=== PATIENT | male | born 1960 | race Caucasian/White ===

== ENCOUNTER 2017-04-20 18:21 | Inpatient (IN) | payer OTHER ==
[~2017-04-20] VITALS: Ht 185.4 cm; Wt 84.8 kg
--- NOTE | 2017-04-20 18:34 | ED DYSPNEA/ASTHMA COMPLAINT ---
History of Present Illness General Chief Complaint: General Adult Stated Complaint: SOB/CP Source: patient, family, EMS Exam Limitations: clinical condition Vital Signs & Intake/Output Vital Signs & Intake/Output Vital Signs Date Time Temp Pulse Resp B/P B/P Pulse O2 O2 Flow FiO2 Mean Ox Delivery Rate 04/22 0800 94 Nasal 2.0L Cannula 04/22 0800 94 Nasal 2.0L Cannula 04/22 0642 94 Venti Mask 24% 04/22 0559 97.6 73 24 110/62 93 Venti Mask 2.0L 04/22 0000 Venti Mask 2.0L 04/21 2229 98.2 84 20 110/60 95 Venti Mask 04/21 1700 Venti Mask 24% 04/21 1640 98.3 83 22 104/54 94 Venti Mask 2.0L 04/21 1400 98.0 80 20 130/58 92 Nasal 2.0L Cannula ED Intake and Output 04/22 0000 04/21 1200 Intake Total 1660 2600 Output Total 600 1100 Balance 1060 1500 Intake, IV 700 2600 Intake, Oral 960 Number 1 Bowel Movements Output, Urine 600 1100 Patient 188 lb Weight Weight Reported by Patient Measurement Method Triage Nurses Notes Reviewed? yes Onset: Abrupt Duration: hour(s): (4), constant, getting worse Timing: recent history Severity: severe Activities at Onset: none HPI: 56-year-old male comes into the emergency room with shortness of breath and pleuritic chest pain. Symptoms began about 4 hours prior. Patient has a history of COPD. He still currently smokes every day. He has not seen a doctor in many years and does not have a current primary doctor. He is taking no medications. He was at work when he started to experience shortness of breath and left-sided chest pain especially with a deep breath. No pain with exhalation. Denies any diaphoresis or vomiting. Symptoms have gotten progressively worse. Patient was brought in by ambulance. EKG en route showed sinus rhythm. Denies any other associated symptoms. (Paulino Kenney) Allergies Coded Allergies: No Known Allergies (04/20/17) Reconcile Medications Oxymetazoline HCl (Vicks Sinex) 0.05 % SPRAY 1 SPRAY NASB PRN NASAL CONGESTION (Reported) (Daniela GOMEZ,Lola) Past History Travel History Traveled to [place] past 21 day No Medical History Any Pertinent Medical History? see below for history Cardiovascular: hyperlipidemia Respiratory: COPD Surgical History Surgical History: non-contributory Psychosocial History What is your primary language Urdu Family History Hx Contributory? No (Paulino Kenney) Review of Systems Review of Systems Constitutional: Reports: no symptoms. EENTM: Reports: no symptoms. Respiratory: Reports: see HPI. Cardiovascular: Reports: see HPI. GI: Reports: no symptoms. Genitourinary: Reports: no symptoms. Musculoskeletal: Reports: no symptoms. Skin: Reports: no symptoms. Neurological/Psychological: Reports: no symptoms. Hematologic/Endocrine: Reports: no symptoms. Immunologic/Allergic: Reports: no symptoms. All Other Systems: Reviewed and Negative (Paulino Kenney) Physical Exam Physical Exam General Appearance: alert, awake, moderate distress Head: atraumatic Eyes: Bilateral: normal appearance. Ears, Nose, Throat: normal ENT inspection, hearing grossly normal Neck: normal inspection Respiratory: respiratory distress (MODERATE) Cardiovascular: regular rate/rhythm, tachycardia Peripheral Pulses: 2+ radial (L) Extremities: normal inspection Neurologic/Psych: awake, alert, oriented x 3 Skin: intact, normal color Core Measures ACS in differential dx? Yes CVA/TIA Diagnosis No Sepsis Present: Yes Sepsis Focused Exam Completed? Yes (Paulino Kenney) ED Sepsis Exam Date of Focused Sepsis Exam: 04/20/17 Time of Focused Sepsis Exam: 1630 Sepsis Cardiac Exam: Tachycardia Sepsis Resp Exam: Ronchi Sepsis Cap Refill Exam: <2 Sec Sepsis Peripheral Pulse Exam: Normal Sepsis Peripheral Pulse Location: Radial Sepsis Skin Color Exam: Flushed Skin Temp/Moisture Exam: Cool/Dry (Paulino Kenney) Progress Differential Diagnosis: asthma, AMI, bronchitis, CHF, COPD, musculoskeletal pain , pericarditis, pulmonary embolism, pneumonia, pneumothorax, unstable angina Plan of Care: Orders Procedure Date/time Status Nursing RT Care 04/22 0947 Active THERAPIST ORDERS 04/22 0640 Complete OXYGEN SETUP (GEN) 04/22 0629 Complete CBC WITHOUT DIFFERENTIAL 04/22 0600 Complete BASIC ELECTROLYTES PLUS BUN&CR 04/22 0600 Complete PT Evaluate & Treat 04/22 UNK Active MISSING MEDICATION FORM 04/22 UNK Active RT: Evaluation 04/21 2213 Active CULTURE,BODY FLUID 04/21 1355 Active CYTOLOGY SPECIMEN 04/21 1355 Active OXYGEN SETUP CHG 04/21 UNK Complete AEROSOL CHG 04/21 UNK Complete OXYGEN 04/21 UNK Complete OXYGEN TRANSPORT 04/21 UNK Complete THERAPIST ORDERS 04/21 UNK Complete PLEURAL PH (GEN) 04/21 UNK Complete OXYGEN SETUP (GEN) 04/21 UNK Complete Current Medications Sig/Tonio Start time Last Medication Dose Stop Time Status Admin Oxycodone/ 1 TAB Q6P PRN 04/22 1000 UNVr 04/22 Acetaminophen 0958 (Percocet) Vancomycin HCl 1,000 MG ONCE ONE 04/22 0945 AC Dextrose/Water 250 ML 04/22 1044 (D5W) Guaifenesin/Codeine 10 ML Q6P PRN 04/22 0845 AC Phosphate (Robitussin AC) Albuterol Sulfate 3 ML EVERY 4 HRS/AWAKE 04/22 08 AC 04/22 (Proventil) 0626 Ipratropium [place] 2.5 ML EVERY 4 HRS/AWAKE 04/22 0800 AC 04/22 (Atrovent) 0627 Azithromycin 500 MG DAILY@04/21 AC 04/21 (Zithromax) 2020 Dextrose/Water 250 ML (D5W) Ceftriaxone Sodium 1,000 MG DAILY@04/21 AC 04/21 (Rocephin) 2020 Ibuprofen 400 MG Q6P PRN 04/21 2014 AC (Motrin) Acetaminophen 650 MG Q8P PRN 04/21 2002 AC (Tylenol) Enoxaparin Sodium 40 MG DAILY 04/21 1000 AC 04/22 (Lovenox) 0939 Nicotine 14 MG DAILY 04/21 1000 AC 04/22 (Nicotine Cq) 0939 Methylprednisolone 40 MG Q8 04/21 0600 AC 04/22 (Solumedrol) 0553 Albuterol Sulfate 3 ML Q4P PRN 04/21 0015 AC (Proventil) Ipratropium [place] 2.5 ML Q4-6 PRN PRN 04/21 0015 AC (Atrovent) Ketorolac 30 MG Q8P PRN 04/21 0015 AC 04/22 Tromethamine 04/24 0014 0553 (Toradol) Laboratory Tests 04/22/17 0718: Anion Gap 12, Estimated GFR > 60, BUN/Creatinine Ratio 41.7 H, CBC w Diff MAN DIFF ORDERED, RBC 3.63 L, MCV 89.3, MCH 29.3, MCHC 32.8 L, RDW 14.2, MPV 8.4, Gran % 94.1 H, Lymphocytes % 3.1 L, Monocytes % 2.7, Eosinophils % 0, Basophils % 0.1, Absolute Granulocytes 36.7 H, Segmented Neutrophils 94 H, Band Neutrophils 2, Absolute Lymphocytes 1.2, Lymphocytes 4 L, Absolute Monocytes 1.0 H, Absolute Eosinophils 0, Absolute Basophils 0, Platelet Estimate INCREASED, Anisocytosis 1+ 04/21/17 1720: PT 15.0 H, INR 1.43 H 04/21/17 1538: Fluid WBC 64077 H, Fld Total RBCs Counted 50 H 04/21/17 1538: Lymphocytes 5, % Normal PMNs 88, Misc Hematology Test , Fluid Glucose < 20, Fluid Total Protein 4.1, Fluid Albumin 1.8, Fluid LDH 4733, Fluid Amylase < 30, Fluid Cholesterol 69 04/21/17 1536: Phlebotomy Draw Site LT. THORA, Pleural pH 6.87 Microbiology 04/21 1538 BODY FLUID: Body Fluid Culture - RES 04/21 1538 BODY FLUID: Gram Stain - RES 04/21 1153 LOWER RESP: Respiratory Culture - CAN Cancelled: NUMBER OF SQUAMOUS CELLS INDICATES POOR QUALITY SPECIMEN 04/21 1153 LOWER RESP: Gram Stain - CAN Cancelled: NUMBER OF SQUAMOUS CELLS INDICATES POOR QUALITY SPECIMEN Diagnostic Imaging: Viewed by Me: Radiology Read, CT Scan. Discussed w/RAD: Radiology Read, CT Scan. Radiology Impression: PATIENT: YESSENIA DUFFY PRESENT AGE: 56 PATIENT ACCOUNT NO: [id number] : 60 LOCATION: [facility] ORDERING PHYSICIAN: Paulino SANITAGO SERVICE DATE: 04/20/17 EXAM TYPE : CAT - CTA CHEST-PULMONARY EMBOLISM EXAMINATION: CTA CHEST PE STUDY CLINICAL INFORMATION: SOB, ELEVATED DIMER, LEFT LOWER LOBE INFILTRATE COMPARISON: Chest x -ray from receiving TECHNIQUE: Prior to contrast administration, noncontrast localization images were obtained. After the administration of 95 ml of Optiray 320 IV contrast, contiguous thin slice helical images were obtained through the thorax. Reformatted MIP images in the coronal and sagittal planes were obtained at the acquisition workstation. DLP: 524 mGy-cm. FINDINGS: The bolus timing on this study was acceptable for visualization of the pulmonary arterial tree. There are no intraluminal pulmonary arterial filling defects present to suggest pulmonary embolism. Centrilobular 70 changes are seen more so in the upper lobes. Left basilar consolidation/atelectasis is seen in the setting of a moderate-sized left effusion. Small amount of frothy mucus is seen within the right mainstem bronchus. No suspicious pulmonary nodule or obvious mass lesion. Shotty mediastinal lymph nodes are seen but no bulky adenopathy. The heart is normal in size. No evidence of ventricular septal bowing or right heart strain. The mediastinum and great vessels are normal. There is no pericardial effusion or pericardial thickening. Limited evaluation of the upper abdominal viscera is unremarkable. IMPRESSION: No evidence for central pulmonary emboli. Left lower lobe consolidation/atelectasis with associated moderate sized left pleural effusion. Underlying emphysematous changes. VTE: Negative DICTATED BY: Cameron Yoo MD DATE/TIME DICTATED:04/20/172206 CANNED FOOD RECONDITIONING INSPECTOR: SOUZA DATE/TIME TRANSCRIBED:04/20/172206 CONFIDENTIAL, DO NOT COPY WITHOUT APPROPRIATE AUTHORIZATION. <Electronically signed in Other Vendor System> SIGNED BY: Cameron Ballard MD 04/20/172214, PATIENT: YESSENIA DUFFY PRESENT AGE: 56 PATIENT ACCOUNT NO: [id number] : 60 LOCATION: [facility] ORDERING PHYSICIAN: Paulino SANTIAGO SERVICE DATE: 04/20/17 EXAM TYPE: RAD - XRY-PORTABLE CHEST XRAY EXAMINATION: PORTABLE CHEST 1 VIEW CLINICAL INFORMATION: SOB, CHEST PAIN COMPARISON: No recent pertinent prior studies are available for comparison. TECHNIQUE: Portable frontal view of the chest was obtained. FINDINGS: Lungs are well expanded. There is blunting left costophrenic angle consistent with small layering left pleural effusion and associated left basilar consolidation/atelectasis. No overt edema or pneumothorax. Cardiac silhouette within normal limits for size. Degenerative changes in the spine and shoulders. IMPRESSION: Layering left effusion with associated left basilar consolidation/atelectasis. DICTATED BY: Cameron Ballard MD DATE/TIME DICTATED:04/20/171930 CANNED FOOD RECONDITIONING INSPECTOR:SOUZA DATE/TIME TRANSCRIBED:04/20/171930 CONFIDENTIAL, DO NOT COPY WITHOUT APPROPRIATE AUTHORIZATION. <Electronically signed in Other Vendor System> SIGNED BY: Cameron Ballard MD 04/20/171934 Pre-Hospital EKG: normal sinus rhythm, rate (100) Initial ED EKG: normal sinus rhythm, rate (103), nonspecific ST T wave chg (Paulino Kenney) Departure Departure Disposition: STILL A PATIENT Condition: Stable Clinical Impression Primary Impression: Sepsis Secondary Impressions: Hypoxia, Left lower lobe pneumonia, Leukocytosis Referrals: Fabio Ortiz MD Departure Forms: Customer Survey General Discharge Information Admission Note Spoke With: Alva Lozoya MD Documentation of Exam: Documentation of any treatments & extenuating circumstances including Concerns Regarding Discharge (functional status, medication knowledge or non-compliance, living conditions, etc.) that warrant an admission rather than observation: Patient will require IV fluids. IV antibiotics. Repeat labs. Supplemental oxygen. High risk. Medically not safe for discharge. (Paulino Kenney) PA/SURFACE PLATE INSPECTOR Co-Sign Statement Statement: ED Attending supervision documentation- [X] I saw and evaluated the patient. I have also reviewed all the pertinent lab results and diagnostic results. I agree with the findings and the plan of care as documented in the PA's/SURFACE PLATE INSPECTOR's documentation. [X] I have reviewed the ED Record and agree with the PA's/SURFACE PLATE INSPECTOR's documentation. [] Additions or exceptions (if any) to the PAs/SURFACE PLATE INSPECTOR's note and plan are summarized below: [] (Daniela GOMEZ,Lola) PA/SURFACE PLATE INSPECTOR Co-Sign Statement Statement: ED Attending supervision documentation- [X] I saw and evaluated the patient. I have also reviewed all the pertinent lab results and diagnostic results. I agree with the findings and the plan of care as documented in the PA's/SURFACE PLATE INSPECTOR's documentation. [X] I have reviewed the ED Record and agree with the PA's/SURFACE PLATE INSPECTOR's documentation. [] Additions or exceptions (if any) to the PAs/SURFACE PLATE INSPECTOR's note and plan are summarized below: [Active smoker, hasn't seen a doctor in over 5 years, sudden onset of chest pain , shortness of breath and dyspnea on exertion at 1:30 this afternoon. Patient states he has a chronic productive cough. The chest pain is left anterior that radiates straight through to his back. The pain increases with inspiration and coughing. Patient white count is 30,000. Patient has positive d-dimer. Patient will have a CT angiogram. Patient is currently on continuous nebs.] (Lurdes GOMEZ,Mino Pina) Critical Care Note Critical Care Note Critical Care Time: 30-74 min (60) (Gilberto SANTIAGO,Paulino)
[2017-04-20] MEDS ORDERED: VICKS SINEX15 ML NASB (18:51)
[2017-04-20 18:58] LABS: ABSOLUTE BASOPHIL COUNT 0 /CUMM (0.0-0.2); ABSOLUTE EOSINOPHIL COUNT 0 /CUMM (0.0-0.7); ABSOLUTE GRANULOCYTE CT 29.2 /CUMM (1.4-6.5); ABSOLUTE LYMPH COUNT 0.7 /CUMM (1.2-3.4); ABSOLUTE MONOCYTE COUNT 0.4 /CUMM (0.10-0.60); BASOPHIL % 0 % (0.0-2.0); EOSINOPHIL % 0.2 % (0-5); GRANULOCYTE % 95.9 % (42.2-75.2); HEMATOCRIT 41.7 % (42-52); MEAN CORPUSCULAR HGB 28.5 PG (27.0-31.0); MEAN CORPUSCULAR HGB CONC 31.9 G/DL (33.0-37.0); MEAN CORPUSCULAR VOLUME 89.4 FL (80.0-94.0); MEAN PLATELET VOLUME 8.4 FL (7.4-10.4); PLATELET COUNT 602 /CUMM (130-400); RBC DISTRIBUTION WIDTH 14.6 % (11.5-14.5); RED BLOOD CELL CT 4.66 /CUMM (4.70-6.10)
[2017-04-20 19:14] LABS: WHITE BLOOD CELL COUNT 30.4 /CUMM (4.8-10.8)
--- NOTE | 2017-04-20 19:35 | RADIOLOGY REPORT ---
EXAMINATION: PORTABLE CHEST 1 VIEW CLINICAL INFORMATION: SOB, CHEST PAIN COMPARISON: No recent pertinent prior studies are available for comparison. TECHNIQUE: Portable frontal view of the chest was obtained. FINDINGS: Lungs are well expanded. There is blunting left costophrenic angle consistent with small layering left pleural effusion and associated left basilar consolidation/atelectasis. No overt edema or pneumothorax. Cardiac silhouette within normal limits for size. Degenerative changes in the spine and shoulders. IMPRESSION: Layering left effusion with associated left basilar consolidation/atelectasis.
--- NOTE | 2017-04-20 22:15 | CT SCAN REPORT ---
EXAMINATION: CTA CHEST PE STUDY CLINICAL INFORMATION: SOB, ELEVATED DIMER, LEFT LOWER LOBE INFILTRATE COMPARISON: Chest x-ray from receiving TECHNIQUE: Prior to contrast administration, noncontrast localization images were obtained. After the administration of 95 ml of Optiray 320 IV contrast, contiguous thin slice helical images were obtained through the thorax. Reformatted MIP images in the coronal and sagittal planes were obtained at the acquisition workstation. DLP: 524 mGy-cm. FINDINGS: The bolus timing on this study was acceptable for visualization of the pulmonary arterial tree. There are no intraluminal pulmonary arterial filling defects present to suggest pulmonary embolism. Centrilobular 70 changes are seen more so in the upper lobes. Left basilar consolidation/atelectasis is seen in the setting of a moderate-sized left effusion. Small amount of frothy mucus is seen within the right mainstem bronchus. No suspicious pulmonary nodule or obvious mass lesion. Shotty mediastinal lymph nodes are seen but no bulky adenopathy. The heart is normal in size. No evidence of ventricular septal bowing or right heart strain. The mediastinum and great vessels are normal. There is no pericardial effusion or pericardial thickening. Limited evaluation of the upper abdominal viscera is unremarkable. IMPRESSION: No evidence for central pulmonary emboli. Left lower lobe consolidation/atelectasis with associated moderate sized left pleural effusion. Underlying emphysematous changes. VTE: Negative
--- NOTE | 2017-04-20 23:32 | History & Physical ---
Landon GOMEZ,[facility] 04/20/17 2331: General Information and HPI MD Statement: I have seen and personally examined YESSENIA DUFFY and documented this H&P. The patient is a 56 year old M who presented with a patient stated chief complaint of [SOB and Chest pain]. Source of Information: patient Exam Limitations: doesnot want to give history, too tired wants to rest History of Present Illness: The patient is 56-year-old gentleman with past medical history of COPD and suspected hyperlipidemia. He presented to [place] ED on 04/20 with complaint of shortness of breath or chest pain since afternoon. The patient was in usual state of health at the 1 PM today when he started experiencing shortness of breath and chest pain at his workplace. The pain is located on left chest ,sharp, 10/10 and radiating to left hip and back. He reports worsening of the pain with deep inspiration. He returned have from work and his called 911 and patient presented to ED for further evaluation. Patient has a cough at baseline, he reports increased frequency of coughing. He he also has some phlegm production at baseline did not check for any change in color. Denies any fevers and chills. He has never been hospitalized for COPD exacerbation never been intubated. He does not use oxygen at baseline. He saw a integration software developer about 10 years ago and was given Spiriva and albuterol. He used Spiriva for some time and later discontinued. He has not seen a PCP for past 5 to 7 years. At some point patient was also diagnosed with hyperlipidemia and given a statin which he did not take. Review of system is negative for nausea vomiting diarrhea, urinary symptoms or change in bowel habits. Note patient is currently everyday smoker and has been smoking for past many years During the encounter patient was saying that he is feeling extremely tired and wants to rest. Did not want to provide much history. He provided some information, rest was obtained from Dr. Lozoya Allergies/Medications Allergies: Coded Allergies: No Known Allergies (04/20/17) Home Med list Oxymetazoline HCl (Vicks Sinex) 0.05 % SPRAY 1 SPRAY NASB PRN NASAL CONGESTION (Reported) Compliance With Home Meds: POOR Past History Travel History Traveled to [place] past 21 day No Medical History Cardiovascular: hyperlipidemia Respiratory: COPD Surgical History Surgical History: non-contributory Past Family/Social History Family History Relations & Conditions if any Relation not specified for: *No pertinent family history Psychosocial History Where do you live? Home Who Do You Live With? spouse Services at Home: None Primary Language: [place] Smoking Status: Current Everyday Smoker ETOH Use: occasional use Illicit Drug Use: denies illicit drug use Functional Ability ADLs Independent: dressing, eating, toileting, bathing. Ambulation: independent IADLs Independent: shopping, housework, finances, food prep, telephone, transportation , medication admin. Review of Systems Review of Systems Constitutional: Reports: see HPI. Denies: chills, fever. EENTM: Reports: no symptoms. Cardiovascular: Reports: chest pain. Respiratory: Reports: see HPI, cough, short of breath, sputum production. GI: Reports: no symptoms. Genitourinary: Reports: no symptoms. Musculoskeletal: Reports: no symptoms. Exam & Diagnostic Data Last 24 Hrs of Vital Signs/I&O Vital Signs Date Time Temp Pulse Resp B/P B/P Pulse O2 O2 Flow FiO2 Mean Ox Delivery Rate 04/20 2102 100.5 102 20 115/59 94 Aerosol Mask 04/20 1925 102 22 130/66 97 04/20 1859 98 Aerosol 6.0L Mask 04/20 1830 Aerosol Mask 04/20 183 102.9 100 28 142/72 96 Aerosol Mask Intake & Output 04/21 0800 04/21 0000 04/20 1600 Intake Total 2000 Output Total 500 Balance 1500 Intake, IV 2000 Output, Urine 500 Patient 185 lb Weight Weight Reported by Patient Measurement Method Physical Exam General Appearance Alert, Oriented X3, Cooperative Skin No Rashes, No Breakdown HEENT Atraumatic Cardiovascular Regular Rate, Normal S1, Normal S2, No Murmurs, Gallops, Rubs Lungs decreased breath sounds b/l. few wheezes ant rodriguez Abdomen Soft, No Tenderness, No Hepatospenomegaly Neurological Normal Speech Extremities No Edema Last 24 Hrs of Labs/Jt: Laboratory Tests 04/20/17 2350: Urine Color YEL, Urine Clarity CLEAR, Urine pH 6.0, Ur Specific [place] <= 1.005 , Urine Protein NEG, Urine Ketones NEG, Urine Nitrite NEG, Urine Bilirubin NEG, Urine Urobilinogen 0.2, Ur Leukocyte Esterase NEG, Ur Microscopic EXAM NOT REQUIRED, Urine Hemoglobin NEG, Urine Glucose NEG 04/20/17 2331: Lactic Acid 4.1 H 04/20/172006: Anion Gap 16, Estimated GFR > 60, BUN/Creatinine Ratio 22.9, Glucose 119 H, Lactic Acid 1.1, Calcium 9.2, Total Bilirubin 0.4, AST 15 L, ALT 29, Alkaline Phosphatase 82, Troponin I < 0.01, Total Protein 6.9, Albumin 3.5, Globulin 3.4, Albumin/Globulin Ratio 1.0 L 04/20/17 193: Bicarbonate Actual 18 L, Mixed VBG pH 7.37, Mixed VBG pCO2 32 L, Mixed VBG O2 Saturation 41, P-50 (Temp Corrected) 102, Carboxyhemoglobin 1.5, O2 Concentration % 3L, Temperature 102.0 H, O2 Delivery Method NC, Phlebotomy Draw Site [facility] 04/20/17 1840: D-Dimer High Sensitivty 391 H, CBC w Diff MAN DIFF ORDERED, RBC 4.66 L, MCV 89.4, MCH 28.5, MCHC 31.9 L, RDW 14.6 H, MPV 8.4, Gran % 95.9 H, Lymphocytes % 2.4 L, Monocytes % 1.5 L, Eosinophils % 0.2, Basophils % 0, Absolute Granulocytes 29.2 H, Segmented Neutrophils 81 H, Band Neutrophils 14 H, Absolute Lymphocytes 0.7 L, Lymphocytes 1 L, Monocytes 3, Absolute Monocytes 0.4, Absolute Eosinophils 0, Absolute Basophils 0, Metamyelocytes 1, Platelet Estimate INCREASED, Polychromasia 1+, Anisocytosis 1+ Microbiology 04/20 2006 BLOOD: Blood Culture - RECD 04/20 1947 BLOOD: Blood Culture - RECD 04/20 1939 NASOPHARYN: Influenza Virus A & B Rapid Smear - COMP Diagnostic Data EKG Results sinus tachycardia, Qtc 482. CXR Results IMPRESSION: Layering left effusion with associated left basilar consolidation/atelectasis. Other Results CTA CHEST-PULMONARY EMBOLISM IMPRESSION: No evidence for central pulmonary emboli. Left lower lobe consolidation/atelectasis with associated moderate sized left pleural effusion. Underlying emphysematous changes. VTE: Negative Assessment/Plan Assessment: The patient is 56-year-old gentleman with past medical history of COPD and suspected hyperlipidemia. He presented to [place] ED on 04/20 with complaint of shortness of breath or chest pain since afternoon. -VS 102.9, 100, 28,142/72,96% Ventimask -Pertinent labs, WBC count 30.4, band cells 14 H/H 13/42, platelets 602, lactic acid 1.1--4.1, d-dimer 391, UA clean, venous blood gases pH 7.37, PCO2 32, PO2 68 -Imaging findings dictated above -In ED patient received 1 L normal saline, Toradol, azithromycin, Rocephin, swollen 25;, 1 g of magnesium sulfate. On standing patient desatted to 88% -He is being admitted to general medicine floor and is being treated and evaluated for following conditions #Sepsis secondary to Community-acquired pneumonia and COPD exacerbation with Acute hypoxemic respiratory failure Patient is presenting with high-grade fever and elevated WBC count along with blood cells elevated heart rate (SIRS criteria positive). Patient is complaining of shortness of breath along with chest pain. CTA negative for pulmonary embolism but positive forLeft lower lobe consolidation/atelectasis with associated moderate sized left pleural effusion. The whole picture is consistent with community-acquired pneumonia along with some component of COPD exacerbation. Even though the patient scores zero points on CURB 65, he is clearly septic and will benefit from inpatient management -Monitor fever and WBC curve -Urine strep and Legionella antigen -Panculture -Continue ceftriaxone and azithromycin -Tylenol for fever control -Toradol for pain relief -Repeat chest x-ray in 2 days to see the resolution of effusion if no improvement consider thoracocentesis -TRC/nebs -Oxygen supplementation to maintain oxygen saturation above 92% -IV methylprednisone every 8h -Outpatient referral for a integration software developer and PCP for follow-up #Thrombocytosis likely reactive secondary to infection -Monitor platelet count #Lactic acidosis secondary to sepsis -IVF -Repeat lactate in 3h and trend down #Smoker -Nicotine patch -Consult regarding smoking abstinence #History of hyperlipidemia -Consider checking lipid profile #FC/DVT prophylaxis with Lovenox/regular diet As Ranked By This Provider Problem List: 1. Left lower lobe pneumonia Core Measures/Misc (12/12) Acute Coronary Syndrome ACS Diagnosis: No Congestive Heart Failure Congestive Heart Failure Diagnosis No Cerebrovascular Accident CVA/TIA Diagnosis: No VTE (View Protocol) VTE Risk Factors Age>40 No Mechanical VTE Prophylaxis d/t N/A MechProphylax Ordered No VTE Pharm Prophylaxis d/t NA PharmProphylax ordered Sepsis (View protocol) Sepsis Present: Yes Petar Sanchez 04/21/17 0117: Resident Review Statement Resident Statement: discussed with chief of internal medicine Other Findings: 56-year-old man with past medical history of COPD not on home oxygen presented to ER with complaint of difficulty breathing, left-sided chest pain on taking deep breath while he was at work. He went home. His symptoms progressively got worse and his called 911. He reports nonproductive cough that he has for a long time. He denies any fever, chills. Other review of systems negative. He smokes 1 pack per day since age of 18. Upon our evaluation patient was irritable and not very cooperative with the history. He did not want to answer questions and wanted us to come back in morning. Vitals on admission: Temperature 102.9, pulse 100, respiratory rate 28, blood pressure 142/72 and oxygen saturation 96% on 6 L via Ventimask. Pertinent physical exam findings: Diminished breath sounds bilaterally laterally. Distant heart sounds. Pertinent labs: WBC 30.4 with 14 bands, H&H 13.3/41.7, plt count 602. LA 1.1--- 4.1 VBGs pH 7.37, pCO2 32, ABGs pH 7.42, PCO2 27 D-dimer 391. Rapid Flu negative. Blood cultures 2 were sent. Chest x-ray showed left pleural effusion with associated left basilar consolidation Chest CTA did not show any evidence of PE. It also showed left lower lobe consolidation with associated moderate-sized left pleural effusion. Underlying emphysematous changes. In ER he got respiratory treatments, ceftriaxone, azithromycin, Solu-Medrol, magnesium, Toradol and IV fluids. Assessment and plan 56-year-old man with past medical history of COPD is going to be admitted on general medicine floor for acute on chronic hypoxic respiratory failure due to sepsis secondary to community-acquired pneumonia and COPD exacerbation. Monitor vitals closely. Continue TRC nebs. Keep oxygen saturation more than 92%. IV fluids. Continue ceftriaxone and azithromycin. Continue steroids. Follow-up blood cultures. Pain management pathway. DVT prophylaxis. Full code Darell GOMEZ, [facility] 04/21/17 0144: Attending MD Review Statement Attending Statement Attending Statement: examined this patient, discuss w/resident/PA/BULK COOLERS INSTALLER, agreed w/resident/PA/BULK COOLERS INSTALLER, reviewed images, amended to note Attending Assessment/Plan: 56 yo M with h/o HLD, COPD, has not seen a physician for over 5 years, not on any medications, is here with sudden onset worsening exertional dyspnea and left sided pleuritic chest and back pain. At baseline he has some dyspnea and cough productive of phlegm which he attributes to his COPD and smoking. He was diagnosed with COPD about 10 yrs ago, was prescribed spiriva and albuterol but never used it. He continues to smoke. No major hospitalization or intubation for COPD. He reports getting his flu and pneumonia vaccines. Vitals: Tmax 102.9, HR 100-110's, BP 130/66, sats 98% on 6L. Exam: AAO, in moderate respiratory distress, speaking in short sentences, not using accessory muscles of respiration, dry mucous membranes, Chest reduced air entry (L>R), scattered rhonchi with expiratory wheeze, Heart S1S2 regular, Abd soft, NT, LE no edema. Labs: WBC 30.4, H/H 13.3/41.7, Plt 602, bands 14, D-dimer 391, glucose 119, lactic acid 1.1 --> 4.1, trop neg. VB.37/32/68/18. UA neg. Flu swab neg. CXR: layering left effusion with associated left basilar consolidation/ atelectasis. CTA: no PE. Left lower lobe consolidation/atelectasis with associated moderate sized left pleural effusion, underlying emphysematous changes. EKG: sinus tachycardia, Qtc 482. Assessment and plan: 1. Acute hypoxemic respiratory failure 2. Sepsis 3. Community acquired pneumonia of left lower lobe 4. COPD exacerbation 5. Lactic acidosis 6. Active smoker - Admit to general medicine - Panculture, urine legionella and strep Ag - TRC nebs - IV ceftriaxone and azithromycin - IV solumedrol 40 Q8 - Gentle IV hydration, trend lactic acid - Smoking cessation counseling done, nicotine patch - Check urine tox screen (added on) - Repeat EKG and troponin in AM - Repeat CXR in 48 hours to assess resolution of the left pleural effusion - If he remains symptomatic or CXR does not show resolution, would consider diagnostic and therapeutic thoracentesis. - Outpatient referral to PCP and Memory Care Program Director - Resume spiriva and add symbicort upon discharge - Check HbA1c, lipid profile, TSH and free T4. DVT ppx Lovenox. Full code.
--- NOTE | 2017-04-20 23:33 | Admission Certification ---
Admission Certification Certification Statement - As attending physician, I certify that at the time of - admission, based on clinical presentation, severity of - symptoms, need for further diagnostic testing and - therapeutic interventions, and risk of adverse outcomes - without in-hospital treatment, in my clinical assessment, - this patient requires an acute hospital stay for a minimum - of two nights or longer. I have also considered psychsocial - factors such as support system, advanced age, financial - issues, cognitive issues, and failed out-patient treatments, - past re-admission history, safety of patient, and lack of - compliance as applicable. Specific rationale supporting this admission is: Acute hypoxemic respiratory failure, Sepsis, left lower lobe pneumonia with pleural effusion, COPD exacerbation.
[2017-04-21 01:29] VITALS: BP 120/82
[2017-04-21 05:22] VITALS: BP 102/68
[2017-04-21 08:31] LABS: ABSOLUTE EOSINOPHIL COUNT 0 /CUMM (0.0-0.7); ABSOLUTE LYMPH COUNT 1.1 /CUMM (1.2-3.4); EOSINOPHIL % 0 % (0-5)
[2017-04-21 08:44] LABS: ABSOLUTE BASOPHIL COUNT 0 /CUMM (0.0-0.2); ABSOLUTE GRANULOCYTE CT 33.2 /CUMM (1.4-6.5); ABSOLUTE MONOCYTE COUNT 0.8 /CUMM (0.10-0.60); BASOPHIL % 0.1 % (0.0-2.0); GRANULOCYTE % 94.5 % (42.2-75.2); MEAN CORPUSCULAR HGB 29.2 PG (27.0-31.0); MEAN CORPUSCULAR HGB CONC 32.9 G/DL (33.0-37.0); MEAN PLATELET VOLUME 7.8 FL (7.4-10.4); PLATELET COUNT 478 /CUMM (130-400); RBC DISTRIBUTION WIDTH 14.2 % (11.5-14.5); RED BLOOD CELL CT 3.58 /CUMM (4.70-6.10)
[2017-04-21 08:50] LABS: HEMATOCRIT 31.9 % (42-52)
[2017-04-21 09:29] LABS: WHITE BLOOD CELL COUNT 35.1 /CUMM (4.8-10.8)
--- NOTE | 2017-04-21 12:04 | Cons- Pulmonary ---
General Information and HPI Consulting Request Date of Consult: 04/21/17 Requested By: Dr. Morales Reason for Consult: pna Source of Information: patient Exam Limitations: no limitations History of Present Illness: 56 year old man. wbc 35.1. CTA without PE, LLL consolidation with a moderately sized effusion. Dyspnea, cough, some yellow phlegm. no pulmonary f/u recently. Has been historically on spiriva and albuterol. Needs sampling of pleural fluid. On ceftriaxone/zithromax. Allergies/Medications Allergies: Coded Allergies: No Known Allergies (04/20/17) Home Med List: Oxymetazoline HCl (Vicks Sinex) 0.05 % SPRAY 1 SPRAY NASB PRN NASAL CONGESTION (Reported) Current Medications: Current Medications Sig/Tonio Start time Last Medication Dose Route Stop Time Status Admin Acetaminophen 650 MG Q8 04/21 0600 AC 04/21 PO 0614 Acetaminophen 1,000 MG ONCE ONE 04/21 0245 DC 04/21 N/A 1 UNIT IV 04/21 0259 0248 Albuterol Sulfate 3 ML Q4P PRN 04/21 0015 AC INH Albuterol Sulfate 3 ML ONCE ONE 04/20 1845 DC 04/20 INH 04/20 1846 1850 Albuterol Sulfate 3 ML ONCE ONE 04/20 1845 DC 04/20 INH 04/20 1846 1850 Albuterol Sulfate 3 ML ONCE ONE 04/20 1845 DC 04/20 INH 04/20 1846 1850 Albuterol Sulfate 3 ML ONCE ONE 04/20 1845 DC 04/20 INH 04/20 1846 1850 Albuterol Sulfate 3 ML ONCE ONE 04/20 1845 DC 04/20 INH 04/20 1846 1850 Albuterol Sulfate 3 ML ONCE ONE 04/20 1845 DC 04/20 INH 04/20 1846 1850 Azithromycin 500 MG DAILY@04/21 AC Dextrose/Water 250 ML IV Azithromycin 500 MG ONCE ONE 04/200 DC 04/20 Dextrose/Water 250 ML IV 04/20 Ceftriaxone Sodium 1,000 MG DAILY@04/21 2100 AC IV Ceftriaxone Sodium 0 .STK-MED ONE 04/20 2057 DC .ROUTE Ceftriaxone Sodium 1,000 MG ONCE ONE 04/20 1930 DC 04/20 IV 04/20 Enoxaparin Sodium 40 MG DAILY 04/21 1000 AC SC Ipratropium [place] 2.5 ML Q4-6 PRN PRN 04/21 0015 AC INH Ketorolac 30 MG Q8P PRN 04/21 0015 AC 04/21 Tromethamine IV 04/24 0014 0621 Ketorolac 0 .STK-MED ONE 04/20 2057 DC Tromethamine .ROUTE Ketorolac 30 MG ONCE ONE 04/20 1930 DC 04/20 Tromethamine IV 04/20 1931 2114 Magnesium Sulfate 1 GM ONCE ONE 04/20 1845 DC 04/20 Dextrose/Water 100 ML IV 04/20 2244 191 Methylprednisolone 40 MG Q8 04/21 0600 AC 04/21 IV 0614 Methylprednisolone 0 .STK-MED ONE 04/20 191 DC .ROUTE Methylprednisolone 125 MG ONCE ONE 04/20 1845 DC 04/20 IV 04/20 184 191 Nicotine 14 MG DAILY 04/21 1000 AC 04/21 TOP 1131 Sodium Chloride 1,000 ML Q13H 04/21 0015 AC 04/21 IV 04/21 1314 0209 Sodium Chloride 2,517.45 ML ONCE ONE 04/20 2100 DC 04/20 IV 04/20 210 2207 Review of Systems Comments 18 point review of systems was performed and reviewed. Please see pertinent positives and pertinent negatives in the HPI. Otherwise ROS is negative. Past History Travel History Traveled to [place] past 21 day No Medical History Cardiovascular: hyperlipidemia Respiratory: COPD Surgical History Surgical History: non-contributory Family History Relations & Conditions If Any: Relation not specified for: *No pertinent family history Psychosocial History Where Do You Live? Home Who Do You Live With? spouse Services at Home: None Primary Language: Taiwanese Smoking Status: Current Everyday Smoker ETOH Use: occasional use Illicit Drug Use: denies illicit drug use Functional Ability ADLs Independent: dressing, eating, toileting, bathing. Ambulation: independent IADLs Independent: shopping, housework, finances, food prep, telephone, transportation , medication admin. Exam & Diagnostic Data Last 24 Hrs of Vital Signs/I&O Vital Signs Date Time Temp Pulse Resp B/P B/P Pulse O2 O2 Flow FiO2 Mean Ox Delivery Rate 04/21 521 97.5 73 22 102/68 93 Nasal 2.0L Cannula 04/21 022 95 Venti Mask 2.0L 04/21 012 97.5 83 26 120/82 95 Room Air 04/20 2101 100.5 102 20 115/59 94 Aerosol Mask 04/20 1925 102 22 130/66 97 04/20 1859 98 Aerosol 6.0L Mask 04/20 183 Aerosol Mask 04/20 1829 102.9 100 28 142/72 96 Aerosol Mask Intake & Output 04/21 1600 04/21 0800 04/21 0000 Intake Total 2600 Output Total 350 750 Balance -350 1850 Intake, IV 2600 Output, Urine 350 750 Patient 188 lb 185 lb Weight Weight Reported by Patient Reported by Patient Measurement Method Physical Exam Other Physical Findings: Generally - Awake, alert and comfortable without distress Head and neck - normocephalic, atraumatic, EOMI grossly intact Cardiovascular - S1, S2, no murmurs, rubs or gallops Lungs -diminished breath sounds at the bases Abdomen - Bowel sounds positive, soft, non-tender Extremities - without edema Last 48 Hrs of Labs/Jt: Laboratory Tests 04/21/17 0741: Anion Gap 12, Estimated GFR > 60, BUN/Creatinine Ratio 30.0 H, Hemoglobin A1c 6.3 H, Lactic Acid 1.0, Lactate Dehydrogenase 342, Troponin I < 0.01, Triglycerides 57, Cholesterol 120, LDL Cholesterol, Calc 66, HDL Cholesterol 43, Cholesterol/HDL Ratio 3, TSH 0.075 L, Free T4 1.30, CBC w Diff MAN DIFF ORDERED , RBC 3.58 L, MCV 89.0, MCH 29.2, MCHC 32.9 L, RDW 14.2, MPV 7.8, Gran % 94.5 H, Lymphocytes % 3.2 L, Monocytes % 2.2, Eosinophils % 0, Basophils % 0.1, Absolute Granulocytes 33.2 H, Segmented Neutrophils 86 H, Band Neutrophils 7 H, Absolute Lymphocytes 1.1 L, Lymphocytes 5 L, Monocytes 2, Absolute Monocytes 0.8 H, Absolute Eosinophils 0, Absolute Basophils 0, Platelet Estimate INCREASED, Normocytic RBCs VERIFIED, Normochromic RBCs VERIFIED 04/21/17 0225: Lactic Acid 2.6 H 04/20/17 2350: Urine Color YEL, Urine Clarity CLEAR, Urine pH 6.0, Ur Specific [place] <= 1.005 , Urine Protein NEG, Urine Ketones NEG, Urine Nitrite NEG, Urine Bilirubin NEG, Urine Urobilinogen 0.2, Ur Leukocyte Esterase NEG, Ur Microscopic EXAM NOT REQUIRED, Urine Hemoglobin NEG, Urine Glucose NEG 04/20/17 2331: Lactic Acid 4.1 H 04/20/17 2321: Urine Opiates Screen 2328.00 H, Methadone Screen 51, Barbiturate Screen < 60, Ur Phencyclidine Scrn < 6.00, Amphetamines Screen < 100, U Benzodiazepines Scrn 101, Urine Cocaine Screen < 50, Urine Cannabis Screen 29.00 04/20/172006: Anion Gap 16, Estimated GFR > 60, BUN/Creatinine Ratio 22.9, Glucose 119 H, Lactic Acid 1.1, Calcium 9.2, Total Bilirubin 0.4, AST 15 L, ALT 29, Alkaline Phosphatase 82, Troponin I < 0.01, Total Protein 6.9, Albumin 3.5, Globulin 3.4, Albumin/Globulin Ratio 1.0 L 04/20/17 193: Bicarbonate Actual 18 L, Mixed VBG pH 7.37, Mixed VBG pCO2 32 L, Mixed VBG O2 Saturation 41, P-50 (Temp Corrected) 102, Carboxyhemoglobin 1.5, O2 Concentration % 3L, Temperature 102.0 H, O2 Delivery Method NC, Phlebotomy Draw Site [facility] 04/20/17 1840: D-Dimer High Sensitivty 391 H, CBC w Diff MAN DIFF ORDERED, RBC 4.66 L, MCV 89.4, MCH 28.5, MCHC 31.9 L, RDW 14.6 H, MPV 8.4, Gran % 95.9 H, Lymphocytes % 2.4 L, Monocytes % 1.5 L, Eosinophils % 0.2, Basophils % 0, Absolute Granulocytes 29.2 H, Segmented Neutrophils 81 H, Band Neutrophils 14 H, Absolute Lymphocytes 0.7 L, Lymphocytes 1 L, Monocytes 3, Absolute Monocytes 0.4, Absolute Eosinophils 0, Absolute Basophils 0, Metamyelocytes 1, Platelet Estimate INCREASED, Polychromasia 1+, Anisocytosis 1+ Microbiology 04/20 1939 NASOPHARYN: Influenza Virus A & B Rapid Smear - COMP Assessment/Plan Impression/Plan: Impression 56 year old man. wbc 35.1. CTA without PE, LLL consolidation with a moderately sized effusion. Dyspnea, cough, some yellow phlegm. no pulmonary f/u recently. Has been historically on spiriva and albuterol. Needs sampling of pleural fluid. On ceftriaxone/zithromax. Plan -agree with abx -f/u all cx and sputum studies -legionella, strep ag -ceftriaxone, zithromax -drainage of pleural fluid by IR -check cytology, micro, ldh, t.protein, cell count, t.cholesterol DVT prophylaxis at all times Consult Acknowledgment - Thank you for your consult request.
--- NOTE | 2017-04-21 12:34 | PN- Housestaff ---
Joel GOMEZ,Lizeth 04/21/17 1234: Subjective Follow-up For: PLEURAL EFFUSION PNEUMONIA COPD EXACERBATION Subjective: PATIENT IS HAVING DIFFICULTY BREATHING STILL THIS MORNING. IS ON 6L NONREBREATHER. NOTES PAIN IN THE LEFT CHEST ON INSPIRATION. Review of Systems Constitutional: Reports: malaise, weakness. EENTM: Reports: no symptoms. Cardiovascular: Reports: chest pain. Respiratory: Reports: short of breath, wheezing. Gastrointestinal: Reports: no symptoms. Genitourinary: Reports: no symptoms. Musculoskeletal: Reports: no symptoms. Skin: Reports: no symptoms. Neurological/Psychological: Reports: no symptoms. Hematologic/Endocrine: Reports: no symptoms. Objective Last 24 Hrs of Vital Signs/I&O Vital Signs Date Time Temp Pulse Resp B/P B/P Pulse O2 O2 Flow FiO2 Mean Ox Delivery Rate 04/21 1400 98.0 80 20 130/58 92 Nasal 2.0L Cannula 04/21 0522 97.5 73 22 102/68 93 Nasal 2.0L Cannula 04/21 0221 95 Venti Mask 2.0L 04/21 0129 97.5 83 26 120/82 95 Room Air 04/20 2102 100.5 102 20 115/59 94 Aerosol Mask 04/20 1925 102 22 130/66 97 04/20 1859 98 Aerosol 6.0L Mask 04/20 1830 Aerosol Mask 04/20 1830 102.9 100 28 142/72 96 Aerosol Mask Intake & Output 04/21 1600 04/21 0800 04/21 0000 Intake Total 2600 Output Total 350 750 Balance -350 1850 Intake, IV 2600 Output, Urine 350 750 Patient 188 lb 185 lb Weight Weight Reported by Patient Reported by Patient Measurement Method Physical Exam General Appearance: Alert, Oriented X3, Cooperative, Mild Distress Skin: No Rashes, No Breakdown, No Significant Lesion Skin Temp/Moisture Exam: Warm/Dry HEENT: Atraumatic, EOMI, Mucous Membr. moist/pink Neck: Supple Cardiovascular: Regular Rate, Normal S1, Normal S2, No Murmurs Lungs: WIDESPREAD WHEEZING AND RHONCHI GREATER ON THE LEFT BUT APPRECIATED ON RIGHT WELL. Abdomen: Normal Bowel Sounds, Soft, No Tenderness Neurological: Normal Speech Extremities: No Clubbing, No Cyanosis, No Edema, Normal Pulses Current Medications: Current Medications Sig/Tonio Start time Last Medication Dose Route Stop Time Status Admin Acetaminophen 650 MG Q8 04/21 0600 AC 04/21 PO 0614 Acetaminophen 1,000 MG ONCE ONE 04/21 0245 DC 04/21 N/A 1 UNIT IV 04/219 0248 Albuterol Sulfate 3 ML Q4P PRN 04/21 0015 AC INH Albuterol Sulfate 3 ML ONCE ONE 04/20 1845 DC 04/20 INH 04/20 1846 1850 Albuterol Sulfate 3 ML ONCE ONE 04/20 1845 DC 04/20 INH 04/20 1846 1850 Albuterol Sulfate 3 ML ONCE ONE 04/20 1845 DC 04/20 INH 04/20 1846 1850 Albuterol Sulfate 3 ML ONCE ONE 04/20 1845 DC 04/20 INH 04/20 1846 1850 Albuterol Sulfate 3 ML ONCE ONE 04/20 1845 DC 04/20 INH 04/20 1846 1850 Albuterol Sulfate 3 ML ONCE ONE 04/20 1845 DC 04/20 INH 04/20 1846 1850 Azithromycin 500 MG DAILY@04/21 AC Dextrose/Water 250 ML IV Azithromycin 500 MG ONCE ONE 04/20 1929 DC 04/20 Dextrose/Water 250 ML IV 04/20 Ceftriaxone Sodium 1,000 MG DAILY@04/21 2100 AC IV Ceftriaxone Sodium 0 .STK-MED ONE 04/20 2057 DC .ROUTE Ceftriaxone Sodium 1,000 MG ONCE ONE 04/20 1929 DC 04/20 IV 04/20 Enoxaparin Sodium 40 MG DAILY 04/21 1000 AC SC Ipratropium [place] 2.5 ML Q4-6 PRN PRN 04/21 001 AC INH Ketorolac 30 MG Q8P PRN 04/21 0015 AC 04/21 Tromethamine IV 04/24 0014 0621 Ketorolac 0 .STK-MED ONE 04/20 2057 DC Tromethamine .ROUTE Ketorolac 30 MG ONCE ONE 04/20 1929 DC 04/20 Tromethamine IV 04/20 Magnesium Sulfate 1 GM ONCE ONE 04/20 1844 DC 04/20 Dextrose/Water 100 ML IV 04/20 Methylprednisolone 40 MG Q8 04/21 0600 AC 04/21 IV 0614 Methylprednisolone 0 .STK-MED ONE 04/20 1914 DC .ROUTE Methylprednisolone 125 MG ONCE ONE 04/20 184 DC 04/20 IV 04/20 1846 1912 Nicotine 14 MG DAILY 04/21 1000 AC 04/21 TOP 1131 Sodium Chloride 1,000 ML Q13H 04/21 0015 DC 04/21 IV 04/21 1314 0209 Sodium Chloride 2,517.45 ML ONCE ONE 04/20 2100 DC 04/20 IV 04/20 2101 2207 Last 24 Hrs of Lab/Jt Results Last 24 Hrs of Labs/Mics: Laboratory Tests 04/21/17 0741: Anion Gap 12, Estimated GFR > 60, BUN/Creatinine Ratio 30.0 H, Hemoglobin A1c 6.3 H, Lactic Acid 1.0, Lactate Dehydrogenase 342, Troponin I < 0.01, Triglycerides 57, Cholesterol 120, LDL Cholesterol, Calc 66, HDL Cholesterol 43, Cholesterol/HDL Ratio 3, TSH 0.075 L, Free T4 1.30, CBC w Diff MAN DIFF ORDERED , RBC 3.58 L, MCV 89.0, MCH 29.2, MCHC 32.9 L, RDW 14.2, MPV 7.8, Gran % 94.5 H, Lymphocytes % 3.2 L, Monocytes % 2.2, Eosinophils % 0, Basophils % 0.1, Absolute Granulocytes 33.2 H, Segmented Neutrophils 86 H, Band Neutrophils 7 H, Absolute Lymphocytes 1.1 L, Lymphocytes 5 L, Monocytes 2, Absolute Monocytes 0.8 H, Absolute Eosinophils 0, Absolute Basophils 0, Platelet Estimate INCREASED, Normocytic RBCs VERIFIED, Normochromic RBCs VERIFIED 04/21/17 0225: Lactic Acid 2.6 H 04/20/17 2350: Urine Color YEL, Urine Clarity CLEAR, Urine pH 6.0, Ur Specific [place] <= 1.005 , Urine Protein NEG, Urine Ketones NEG, Urine Nitrite NEG, Urine Bilirubin NEG, Urine Urobilinogen 0.2, Ur Leukocyte Esterase NEG, Ur Microscopic EXAM NOT REQUIRED, Urine Hemoglobin NEG, Urine Glucose NEG 04/20/17 2331: Lactic Acid 4.1 H 04/20/17 2321: Urine Opiates Screen 2328.00 H, Methadone Screen 51, Barbiturate Screen < 60, Ur Phencyclidine Scrn < 6.00, Amphetamines Screen < 100, U Benzodiazepines Scrn 101, Urine Cocaine Screen < 50, Urine Cannabis Screen 29.00 04/20/17 2007: Anion Gap 16, Estimated GFR > 60, BUN/Creatinine Ratio 22.9, Glucose 119 H, Lactic Acid 1.1, Calcium 9.2, Total Bilirubin 0.4, AST 15 L, ALT 29, Alkaline Phosphatase 82, Troponin I < 0.01, Total Protein 6.9, Albumin 3.5, Globulin 3.4, Albumin/Globulin Ratio 1.0 L 04/20/171929: Bicarbonate Actual 18 L, Mixed VBG pH 7.37, Mixed VBG pCO2 32 L, Mixed VBG O2 Saturation 41, P-50 (Temp Corrected) 102, Carboxyhemoglobin 1.5, O2 Concentration % 3L, Temperature 102.0 H, O2 Delivery Method NC, Phlebotomy Draw Site R. 04/20/17 1840: D-Dimer High Sensitivty 391 H, CBC w Diff MAN DIFF ORDERED, RBC 4.66 L, MCV 89.4, MCH 28.5, MCHC 31.9 L, RDW 14.6 H, MPV 8.4, Gran % 95.9 H, Lymphocytes % 2.4 L, Monocytes % 1.5 L, Eosinophils % 0.2, Basophils % 0, Absolute Granulocytes 29.2 H, Segmented Neutrophils 81 H, Band Neutrophils 14 H, Absolute Lymphocytes 0.7 L, Lymphocytes 1 L, Monocytes 3, Absolute Monocytes 0.4, Absolute Eosinophils 0, Absolute Basophils 0, Metamyelocytes 1, Platelet Estimate INCREASED, Polychromasia 1+, Anisocytosis 1+ Microbiology 04/21 1355 BODY FLUID: Body Fluid Culture - ORD 04/21 1355 BODY FLUID: Gram Stain - ORD 04/21 1153 LOWER RESP: Respiratory Culture - RECD 04/21 1153 LOWER RESP: Gram Stain - RECD 04/21 0823 URINE ROUT: Legionella Antigen - RES 04/21 08 URINE ROUT: Streptococcus pneumoniae Antigen (M - RES 04/21 822 URINE ROUT: Urine Culture - RES 04/20 2006 BLOOD: Blood Culture - RES 04/20 1947 BLOOD: Blood Culture - RES 04/20 1939 NASOPHARYN: Influenza Virus A & B Rapid Smear - COMP Assessment/Plan Assessment: The patient is 56-year-old gentleman with past medical history of COPD and suspected hyperlipidemia. He presented to [facility] on 04/20 with complaint of shortness of breath AND CHEST PAIN ON INSPIRATION THAT STARTED FAILY ABRUPTLY THAT DAY. -VS 102.9, 100, 28,142/72,96% Ventimask -Pertinent labs, WBC count 30.4, band cells 14 H/H 13/42, platelets 602, lactic acid 1.1--4.1, d-dimer 391, UA clean, venous blood gases pH 7.37, PCO2 32, PO2 68 -Imaging findings dictated above -In ED patient received 1 L normal saline, Toradol, azithromycin, Rocephin, swollen 25;, 1 g of magnesium sulfate. On standing patient desatted to 88% -He is admitted to general medicine floor and is being treated and evaluated for following conditions #Sepsis secondary to Community-acquired pneumonia and COPD exacerbation with Acute hypoxemic respiratory failure Patient is presenting with high-grade fever and elevated WBC count along with blood cells elevated heart rate (SIRS criteria positive). Patient is complaining of shortness of breath along with chest pain. CTA negative for pulmonary embolism but positive for left lower lobe consolidation/atelectasis with associated moderate sized left pleural effusion. The whole picture is consistent with community-acquired pneumonia along with some component of COPD exacerbation. -PATIENT HAS PNEUMONIA AND PLEURAL EFFUSION WHICH ARE INDICATIONS FOR EMERGENT TAP -PATIENT GOING TODAY FOR TAP BY IR AT 3PM -DO PT/INR IN PREPARATION -DR. MEDINA COLLEGE AND CAREER COUNSELOR IS FOLLOWING PATIENT -Monitor fever and WBC curve -Urine strep and Legionella antigen NEGATIVE -FOLLOW UP Panculture -Continue ceftriaxone and azithromycin -Tylenol for fever control -Toradol for pain relief -TRC/nebs -Oxygen supplementation to maintain oxygen saturation above 92% -IV methylprednisone 40MG every 8h -UTOX IS HIGH FOR OPIATES WHICH COULD CAUSE RESP DEPRESSION. WE WILL HOLD ALL BENZOS AND OPIATES. #CHEST PAIN -ON INSPIRATION, LESS LIKELY CARDIAC BUT TROPS AND EKGS DONE AND NEGATIVE X2 -CONTINUE TORADOL FOR PAIN RELIEF. #Thrombocytosis OVER 600 likely reactive secondary to infection -Monitor platelet count #Lactic acidosis secondary to sepsis -IVF -Repeat lactate IS 1.0 FROM HIGH OF 4.1. #Smoker -Nicotine patch -Consult regarding smoking abstinence #History of hyperlipidemia -LIPID PROFILE NORMAL -6.3 HBA1C FOR CORONARY EQUIVALENTS- SLIGHTLY HIGH. WILL NEED DIET CONTROL. -TSH LOW AND FT4 NORMAL #FC/DVT prophylaxis with Lovenox/regular diet Problem List: 1. Sepsis 2. Leukocytosis 3. Hypoxia 4. Left lower lobe pneumonia Pain Ratin Pain Location: LEFT CHEST ON INSPIRATION Pain Goal: Pain 4 or less Pain Plan: PATHWAY Tomorrow's Labs & Rationales: CBC BEP René Morales 04/21/17 1252: Attending MD Review Statement Attending Statement Attending MD Statement: examined this patient, discuss w/resident/PA/JET PIERCER OPERATOR, agreed w/resident/PA/JET PIERCER OPERATOR, discussed with family, reviewed EMR data (avail), discussed with nursing, discussed with case mgmt, reviewed images, amended to note Attending Assessment/Plan: Patient seen and examined bedside. Patient is on ventimask requring oxygen supplementation, mild use of accessory muscles, decreased breath sounds on left lung. Assessment and plan: 1. Acute hypoxemic respiratory failure 2. Sepsis with improvement 3. Community acquired pneumonia of left lower lobe with moderate pleural effusion. 4. COPD exacerbation 5. Lactic acidosis 6. Active smoker - f/u Panculture, urine legionella and strep Ag - TRC nebs - IV ceftriaxone and azithromycin - IV solumedrol 40 Q8 - Gentle IV hydration, LA returned to baseline. - Smoking cessation counseling done, nicotine patch - IR consult and Pulm consult. DVT ppx Lovenox. Full code.
[2017-04-21 14:00] VITALS: BP 130/58
[2017-04-21 16:40] VITALS: BP 104/54
--- NOTE | 2017-04-21 17:41 | RADIOLOGY REPORT ---
EXAMINATION: CR CHEST CLINICAL INFORMATION: Rule out pneumothorax status post left thoracentesis. COMPARISON: Chest x-ray dated 04/20/2017. TECHNIQUE: AP and lateral views of the chest were obtained. FINDINGS: The cardiomediastinal silhouette is within normal limits in size. No pneumothorax is seen status post left thoracentesis. There is a decrease in size of the left-sided pleural effusion. Lateral view is limited due to noninclusion of the posterior CP angles. There is likely some residual fluid remaining in the left hemithorax. Associated left basilar opacities noted, consistent with either atelectasis or pneumonia. The remainder of the lungs is clear. Bony structures are unremarkable. IMPRESSION: 1. No evidence of pneumothorax status post thoracentesis. 2. Decrease in size of left-sided pleural effusion. 3. Left basilar consolidation or atelectasis.
[2017-04-21 22:29] VITALS: BP 110/60
[2017-04-22 05:59] VITALS: BP 110/62
--- NOTE | 2017-04-22 08:04 | PN- Housestaff ---
Joel GOMEZ,Lizeth 04/22/17 0803: Subjective Follow-up For: EMPYEMA PNEUMONIA COPD EXACERBATION Subjective: PATIENT STILL DOES NOT FEEL WELL. NOTES LESS SHORTNESS OF BREATH HOWEVER. AT THE TIME OF INTERVIEW OXYGEN IS OFF. HE CONTINUES TO HAVE A BAD COUGH AND PAIN ON INSPIRATION THAT IS WORSE TODAY. Review of Systems Constitutional: Reports: malaise, weakness. EENTM: Reports: no symptoms. Cardiovascular: Reports: chest pain. Respiratory: Reports: cough, short of breath, wheezing. Gastrointestinal: Reports: no symptoms. Genitourinary: Reports: no symptoms. Musculoskeletal: Reports: no symptoms. Skin: Reports: no symptoms. Neurological/Psychological: Reports: no symptoms. Objective Last 24 Hrs of Vital Signs/I&O Vital Signs Date Time Temp Pulse Resp B/P B/P Pulse O2 O2 Flow FiO2 Mean Ox Delivery Rate 04/22 1655 94 Nasal 2.0L Cannula 04/22 1351 98.1 94 20 145/70 92 Nasal 2.0L Cannula 04/22 1137 93 Nasal 2.0L Cannula 04/22 0800 94 Nasal 2.0L Cannula 04/22 0800 94 Nasal 2.0L Cannula 04/22 0642 94 Venti Mask 24% 04/22 0559 97.6 73 24 110/62 93 Venti Mask 2.0L 04/22 0000 Venti Mask 2.0L 04/21 2229 98.2 84 20 110/60 95 Venti Mask Intake & Output 04/22 1600 04/22 0800 04/22 0000 Intake Total 800 480 490 Output Total 500 300 Balance 800 -20 190 Intake, IV 250 Intake, Oral 800 480 240 Number 1 Bowel Movements Output, Urine 500 300 Physical Exam General Appearance: Alert, Oriented X3, Cooperative, Mild Distress Skin: No Rashes, No Breakdown, No Significant Lesion HEENT: Atraumatic, PERRLA, Mucous Membr. moist/pink Neck: Supple, No JVD Cardiovascular: Regular Rate, Normal S1, Normal S2, No Murmurs Lungs: DIFFUSE WHEEZING AND MILD RHONCHI MORE IN RIGHT THAN LEFT Abdomen: Normal Bowel Sounds, Soft, No Tenderness Extremities: No Edema, Normal Pulses, No Tenderness/Swelling Current Medications: Current Medications Sig/Tonio Start time Last Medication Dose Route Stop Time Status Admin Acetaminophen 650 MG Q8P PRN 04/21 2002 AC PO Acetaminophen 650 MG Q8 04/21 0600 DC 04/21 PO 1423 Albuterol Sulfate 3 ML EVERY 4 HRS/AWAKE 04/22 0800 AC 04/22 INH 1616 Albuterol Sulfate 3 ML Q4P PRN 04/21 0015 AC INH Ampicillin Sodium/ 3,000 MG Q6H 04/22 1600 AC 04/22 Sulbactam Sodium IV 1601 Sodium Chloride 100 ML Azithromycin 500 MG DAILY@04/21 2100 DC 04/21 Dextrose/Water 250 ML IV 202 Benzonatate 100 MG TID 04/22 1649 AC PO Benzonatate 100 MG TID 04/22 1631 DC 04/22 PO 1721 Ceftriaxone Sodium 1,000 MG DAILY@04/21 2100 DC 04/21 IV 202 Enoxaparin Sodium 40 MG DAILY 04/21 1000 AC 04/22 SC 0939 Guaifenesin/Codeine 10 ML Q6P PRN 04/22 0845 AC Phosphate PO Ibuprofen 400 MG Q6P PRN 04/21 2014 AC PO Ipratropium Fine 2.5 ML EVERY 4 HRS/AWAKE 04/22 0800 AC 04/22 INH 1616 Ipratropium Fine 2.5 ML Q4-6 PRN PRN 04/21 0015 DC INH Ketorolac 30 MG Q8P PRN 04/21 0015 AC 04/22 Tromethamine IV 04/24 0014 0553 Lidocaine 1 PAT ONCE ONE 04/21 2014 DC 04/21 EXT 04/21 2015 2115 Melatonin 5 MG ONCE ONE 04/21 2014 DC 04/21 PO 04/21 2015 2115 Methylprednisolone 40 MG Q8 04/21 0600 DC 04/22 IV 0553 Nicotine 14 MG DAILY 04/21 1000 AC 04/22 TOP 0939 Oxycodone/ 1 TAB Q6P PRN 04/22 1000 AC 04/22 Acetaminophen PO 1633 Oxycodone/ 1 TAB ONCE ONE 04/21 2014 DC 04/21 Acetaminophen PO 04/21 Prednisone 10 MG DAILY 04/28 1000 AC PO 04/30 0959 Prednisone 20 MG DAILY 04/26 1000 AC PO 04/28 0959 Prednisone 30 MG DAILY 04/24 1000 AC PO 01/24 0959 Prednisone 40 MG DAILY 04/22 1043 CAN PO 04/30 1042 Prednisone 40 MG DAILY 04/22 1000 AC 04/22 PO 04/24 0959 1205 Vancomycin HCl 1,250 MG Q12 04/22 2200 AC Dextrose/Water 250 ML IV Vancomycin HCl 1,000 MG ONCE ONE 04/22 0945 CAN Dextrose/Water 250 ML IV 04/22 1044 Last 24 Hrs of Lab/Jt Results Last 24 Hrs of Labs/Mics: Laboratory Tests 04/22/17 0718: Anion Gap 12, Estimated GFR > 60, BUN/Creatinine Ratio 41.7 H, CBC w Diff MAN DIFF ORDERED, RBC 3.63 L, MCV 89.3, MCH 29.3, MCHC 32.8 L, RDW 14.2, MPV 8.4, Gran % 94.1 H, Lymphocytes % 3.1 L, Monocytes % 2.7, Eosinophils % 0, Basophils % 0.1, Absolute Granulocytes 36.7 H, Segmented Neutrophils 94 H, Band Neutrophils 2, Absolute Lymphocytes 1.2, Lymphocytes 4 L, Absolute Monocytes 1.0 H, Absolute Eosinophils 0, Absolute Basophils 0, Platelet Estimate INCREASED, Anisocytosis 1+, HIV 1&2 Ab Western Blot Pending Assessment/Plan Assessment: The patient is 56-year-old gentleman with past medical history of COPD and suspected hyperlipidemia. He presented to [facility] ED on 04/20 with complaint of shortness of breath AND CHEST PAIN ON INSPIRATION THAT STARTED FAILY ABRUPTLY THAT DAY. -VS 102.9, 100, 28,142/72,96% Ventimask -Pertinent labs, WBC count 30.4, band cells 14 H/H 13/42, platelets 602, lactic acid 1.1--4.1, d-dimer 391, UA clean, venous blood gases pH 7.37, PCO2 32, PO2 68 -Imaging findings dictated above -In ED patient received 1 L normal saline, Toradol, azithromycin, Rocephin, swollen 25;, 1 g of magnesium sulfate. On standing patient desatted to 88% -He is admitted to general medicine floor and is being treated and evaluated for following conditions #Sepsis secondary to Community-acquired pneumonia and COPD exacerbation with Acute hypoxemic respiratory failure Patient is presenting with high-grade fever and elevated WBC count along with blood cells elevated heart rate (SIRS criteria positive). Patient is complaining of shortness of breath along with chest pain. CTA negative for pulmonary embolism but positive for left lower lobe consolidation/atelectasis with associated moderate sized left pleural effusion. The whole picture is consistent with community-acquired pneumonia along with some component of COPD exacerbation. -WBC TODAY HAVE INCREASED TO 39 FROM 35. OF NOTE PATIENT IS ON STEROIDS. -PATIENT HAS PNEUMONIA AND PLEURAL EFFUSION WHICH ARE INDICATIONS FOR EMERGENT TAP WHICH HE UNDERWENT YESTERDAY. DRAINAGE OF 900CC YELLOW GREEN AND SLIGHTLY CLOUDY FLUID. PATIENT CONTINUE TO HAVE PAIN AND SOB AFTER PROCEDURE. -DR. MEDINA HUMANITIES DEPARTMENT CHAIR IS FOLLOWING PATIENT AND SUGGESTED TAPERING STEROID BUT ALSO DOING CHEST ULTRASOUND TO CHECK FOR RECURRENCE OF FLUID LATER IN THE DAY. ULTRASOUND SHOWED SMALL PULMONARY EFFUSION AND WE HAVE CONTACTED DR. RAHUL SOTO for his suggestion on PLACEMENT OF A PIGTAIL CATHETER. HE WILL CONTACT FIELD INSTRUCTOR DETONATOR ASSEMBLER WITH HIS DECISION. -Monitor fever and WBC curve -Urine strep and Legionella antigen NEGATIVE -FOLLOW UP Panculture AND CULTURE PLEURAL FLUID -PLEURAL FLUID LABS: WBC 83529, LDH 4733 PH 6.87, RBC 50 GLU 20 TP 4.1. THIS FLUID IS EXUDATITVE. MOST PROBABLY DUE TO BACTERIAL PNEUMONIA BUT DIFFERENTIAL INCLUDES CANCER, TB, PE. HE DOES ADMIT TO WEIGHT LOSS AND CURRENT SMOKING ? CANCER. -FU GRAM STAIN PLEURAL FLUID -ID CONSULT SUGGESTED HIV TEST, DC CEFTRIAXONE AND AZITHRO AND STARTING UNASYN 3GQ6H AND VANCO 1250MG IV BID. -Tylenol for fever control -Toradol for pain relief -TRC/nebs -Oxygen supplementation to maintain oxygen saturation above 92% -IV methylprednisone 40MG every 8h WAS SWITCHED TO BY MOUTH TAPER PER DR. MEDINA -UTOX IS HIGH FOR OPIATES WHICH COULD CAUSE RESP DEPRESSION. WE WILL HOLD ALL BENZOS AND OPIATES. -TESSALON PEARLS #CHEST PAIN -ON INSPIRATION, LESS LIKELY CARDIAC BUT TROPS AND EKGS DONE AND NEGATIVE X2 -CONTINUE TORADOL FOR PAIN RELIEF. #Thrombocytosis OVER 600 likely reactive secondary to infection -Monitor platelet count #Lactic acidosis secondary to sepsis -IVF -Repeat lactate IS 1.0 FROM HIGH OF 4.1. #Smoker -Nicotine patch -Consult regarding smoking abstinence #History of hyperlipidemia -LIPID PROFILE NORMAL -6.3 HBA1C FOR CORONARY EQUIVALENTS- SLIGHTLY HIGH. WILL NEED DIET CONTROL. -TSH LOW AND FT4 NORMAL #FC/DVT prophylaxis with Lovenox/regular diet Problem List: 1. Sepsis 2. Leukocytosis 3. Hypoxia 4. Left lower lobe pneumonia 5. Empyema 6. S/P thoracentesis Pain Ratin Pain Location: CHEST AT DRAINAGE SITE Pain Goal: Pain 7 or less Pain Plan: PATHWAY Tomorrow's Labs & Rationales: CBC BEP René Morales 04/22/17 1129: Attending MD Review Statement Attending Statement Attending MD Statement: examined this patient, discuss w/resident/PA/ELECTRICIAN'S HELPER, agreed w/resident/PA/ELECTRICIAN'S HELPER, discussed with family, reviewed EMR data (avail), discussed with nursing, discussed with case mgmt, reviewed images, amended to note Attending Assessment/Plan: Patient seen and examined bedside. Patient was requiring ventimask and gradually improved with removal of fluid 900 ml yellowish-green in color now on 2-3l oxygen supplementation. WBC worsened today. Clinically appears stable. Assessment and plan: 1. Acute hypoxemic respiratory failure 2. Sepsis with improvement 3. Community acquired pneumonia of left lower lobe with moderate pleural effusion likely empyema. 4. COPD exacerbation 5. Lactic acidosis 6. Active smoker Patient started empirically on ceftriaxone and azithromycin, iv steroids change to Po steroids, Pulmoanry consulted and recommend s/p thoracentesis with removal of fluid exudative effusion patricia yellow-greenish color. f/u cultures, LA improved, ID consult for worsening leukocytosis, choice of abx ?empyema gram positive cocci. Continue with oxygen supplementation. gi/dvt prophyalxis full code.
--- NOTE | 2017-04-22 08:43 | Patient Discharge Instructions ---
Discharge Instructions General Discharge Information You were seen/treated for: Sepsis secondary to community-acquired pneumonia COPD exacerbation with acute hypoxemic respiratory failure Empyema requiring thoracentesis You had these procedures: Chest tube placement Watch for these problems: Chest pain, fever, worsening cough and/or Shortness or breath Special Instructions: Please follow up with your PCP in 1 week Please follow up with your data security analyst Dr. Venegas in 1 week. Diet Continue normal diet: Yes Activity Activity Self Limited: Yes Acute Coronary Syndrome Inclusion Criteria At DC or during hospital stay patient has or had the following: ACS DIAGNOSIS No Discharge Core Measures Meds if any: Prescribed or Continued at Discharge Meds if any: NOT Prescribed or Continued at Discharge Congestive Heart Failure Inclusion Criteria At DC or during hospital stay patient has or had the following: CHF DIAGNOSIS No Discharge Core Measures Meds if any: Prescribed or Continued at Discharge Meds if any: NOT Prescribed or Continued at Discharge Cerebrovascular accident Inclusion Criteria At DC or during hospital stay patient has or had the following: CVA/TIA Diagnosis No Discharge Core Measures Meds if any: Prescribed or Continued at Discharge Meds if any: NOT Prescribed or Continued at Discharge Venous thromboembolism Inclusion Criteria VTE Diagnosis No VTE Type NONE VTE Confirmed by (Test) NONE Discharge Core Measures - Per Current guidelines, there needs to be overlap - treatment for the first 5 days of Warfarin therapy. - If discharged on Warfarin prior to 5 days of - overlap therapy, the patient will need to be - assessed for post discharge needs including - *Post discharge parental anticoagulation - *Warfarin and/or parental anticoagulation education - *Follow up date to check INR post discharge At least 5 days overlap therapy as Inpatient No Meds if any: Prescribed or Continued at Discharge Note: Overlap Therapy is Warfarin and Anticoagulant Meds if any: NOT Prescribed or Continued at Discharge
[2017-04-22 08:44] LABS: ABSOLUTE BASOPHIL COUNT 0 /CUMM (0.0-0.2); ABSOLUTE EOSINOPHIL COUNT 0 /CUMM (0.0-0.7); ABSOLUTE GRANULOCYTE CT 36.7 /CUMM (1.4-6.5); ABSOLUTE LYMPH COUNT 1.2 /CUMM (1.2-3.4); BASOPHIL % 0.1 % (0.0-2.0); EOSINOPHIL % 0 % (0-5); GRANULOCYTE % 94.1 % (42.2-75.2); HEMATOCRIT 32.4 % (42-52); MEAN CORPUSCULAR HGB 29.3 PG (27.0-31.0); MEAN CORPUSCULAR HGB CONC 32.8 G/DL (33.0-37.0); MEAN CORPUSCULAR VOLUME 89.3 FL (80.0-94.0); MEAN PLATELET VOLUME 8.4 FL (7.4-10.4); PLATELET COUNT 486 /CUMM (130-400); RBC DISTRIBUTION WIDTH 14.2 % (11.5-14.5); RED BLOOD CELL CT 3.63 /CUMM (4.70-6.10)
--- NOTE | 2017-04-22 09:28 | ULTRASOUND REPORT ---
EXAMINATION: ULTRASOUND-GUIDED LEFT-SIDED THORACENTESIS CLINICAL INFORMATION: Community-acquired pneumonia with sepsis and left effusion. INTERVENTIONALIST: Corey Dick MD PROCEDURE/FINDINGS: After all the risks, benefits and alternatives were explained to the patient and all questions answered, informed consent was signed. Preliminary ultrasound demonstrates significant left-sided pleural fluid. Left back was prepped and draped using maximal sterile barrier technique. All elements of maximal sterile barrier technique followed including use of cap, mask, sterile gown, sterile gloves, a sterile full body drape and hand hygiene. Also followed skin preparation with 2% chlorhexidine for cutaneous antisepsis, and sterile ultrasound preparation with sterile gel and probe cover when applicable. Using ultrasound guidance a 5-Tamazight pigtail catheter was placed into the left pleural cavity and approximately 900 mL of pleural fluid was evacuated. The pleural fluid was yellow-green in color ends slightly cloudy. Samples of fluid were sent for the requested laboratory exams including culture and sensitivity MEDICATIONS: Lidocaine 1% was used for local anesthesia. IMPRESSION: Ultrasound-guided left-sided thoracentesis yielding 900 mL of pleural fluid.
[2017-04-22 13:51] VITALS: BP 145/70
--- NOTE | 2017-04-22 14:50 | PN- Pulmonary ---
Subjective HPI/Critical Care Issues: Patient seen and examined this morning. His white count continues to be elevated at 39,000. He has had an exudative effusion drained yesterday the pH was consistent with an empyema. Objective Current Medications: Current Medications Sig/Tonio Start time Last Medication Dose Route Stop Time Status Admin Acetaminophen 650 MG Q8P PRN 04/21 2002 AC PO Acetaminophen 650 MG Q8 04/21 0600 DC 04/21 PO 1423 Albuterol Sulfate 3 ML EVERY 4 HRS/AWAKE 04/22 0800 AC 04/22 INH 1136 Albuterol Sulfate 3 ML Q4P PRN 04/21 0015 AC INH Ampicillin Sodium/ 3,000 MG Q6H 04/22 1600 AC Sulbactam Sodium IV Sodium Chloride 100 ML Azithromycin 500 MG DAILY@04/21 DC 04/21 Dextrose/Water 250 ML IV 2020 Ceftriaxone Sodium 1,000 MG DAILY@04/21 2100 AC 04/21 IV 202 Enoxaparin Sodium 40 MG DAILY 04/21 1000 AC 04/22 SC 0939 Guaifenesin/Codeine 10 ML Q6P PRN 04/22 0845 AC Phosphate PO Ibuprofen 400 MG Q6P PRN 04/21 2014 AC PO Ipratropium [place] 2.5 ML EVERY 4 HRS/AWAKE 04/22 0800 AC 04/22 INH 1136 Ipratropium [place] 2.5 ML Q4-6 PRN PRN 04/21 0015 DC INH Ketorolac 0 .STK-MED ONE 04/21 1613 DC Tromethamine .ROUTE Ketorolac 30 MG Q8P PRN 04/21 0015 AC 04/22 Tromethamine IV 04/24 0014 0553 Lidocaine 1 PAT ONCE ONE 04/21 2014 DC 04/21 EXT 04/21 Lidocaine 1 ML .STK-MED ONE 04/21 1604 DC ID 04/21 1605 Melatonin 5 MG ONCE ONE 04/21 2014 DC 04/21 PO 04/21 Methylprednisolone 40 MG Q8 04/21 0600 DC 04/22 IV 0553 Nicotine 14 MG DAILY 04/21 1000 AC 04/22 TOP 0939 Oxycodone/ 1 TAB Q6P PRN 04/22 1000 AC 04/22 Acetaminophen PO 0958 Oxycodone/ 1 TAB ONCE ONE 04/21 2014 DC 04/21 Acetaminophen PO 04/21 Prednisone 10 MG DAILY 04/28 1000 AC PO 04/30 0959 Prednisone 20 MG DAILY 04/26 1000 AC PO 04/28 0959 Prednisone 30 MG DAILY 04/24 1000 AC PO 01/24 0959 Prednisone 40 MG DAILY 04/22 1043 CAN PO 04/30 1042 Prednisone 40 MG DAILY 04/22 1000 AC 04/22 PO 04/24 0959 1205 Vancomycin HCl 1,000 MG ONCE ONE 04/22 0945 CAN Dextrose/Water 250 ML IV 04/22 1044 Vital Signs & I&O Last 24 Hrs of Vitals and I&O: Vital Signs Date Time Temp Pulse Resp B/P B/P Pulse O2 O2 Flow FiO2 Mean Ox Delivery Rate 04/22 1351 98.1 94 20 145/70 92 Nasal 2.0L Cannula 04/22 1137 93 Nasal 2.0L Cannula 04/22 0800 94 Nasal 2.0L Cannula 04/22 0800 94 Nasal 2.0L Cannula 04/22 0642 94 Venti Mask 24% 04/22 0559 97.6 73 24 110/62 93 Venti Mask 2.0L 04/22 0000 Venti Mask 2.0L 04/21 2229 98.2 84 20 110/60 95 Venti Mask 04/21 1700 Venti Mask 24% 04/21 1640 98.3 83 22 104/54 94 Venti Mask 2.0L Intake & Output 04/22 1600 04/22 0800 04/22 0000 Intake Total 800 480 490 Output Total 500 300 Balance 800 -20 190 Intake, IV 250 Intake, Oral 800 480 240 Number 1 Bowel Movements Output, Urine 500 300 Exam Other Physical Findings: Generally - Awake, alert and comfortable without distress Head and neck - normocephalic, atraumatic, EOMI grossly intact Cardiovascular - S1, S2, no murmurs, rubs or gallops Lungs -diminished breath sounds at the bases Abdomen - Bowel sounds positive, soft, non-tender Extremities - without edema Results Last 24 Hrs of Lab Results: Laboratory Tests 04/22/17 0718: Anion Gap 12, Estimated GFR > 60, BUN/Creatinine Ratio 41.7 H, CBC w Diff MAN DIFF ORDERED, RBC 3.63 L, MCV 89.3, MCH 29.3, MCHC 32.8 L, RDW 14.2, MPV 8.4, Gran % 94.1 H, Lymphocytes % 3.1 L, Monocytes % 2.7, Eosinophils % 0, Basophils % 0.1, Absolute Granulocytes 36.7 H, Segmented Neutrophils 94 H, Band Neutrophils 2, Absolute Lymphocytes 1.2, Lymphocytes 4 L, Absolute Monocytes 1.0 H, Absolute Eosinophils 0, Absolute Basophils 0, Platelet Estimate INCREASED, Anisocytosis 1+ 04/21/17 1720: PT 15.0 H, INR 1.43 H 04/21/17 1538: Fluid WBC 10565 H, Fld Total RBCs Counted 50 H 04/21/17 1538: Lymphocytes 5, % Normal PMNs 88, Misc Hematology Test , Fluid Glucose < 20, Fluid Total Protein 4.1, Fluid Albumin 1.8, Fluid LDH 4733, Fluid Amylase < 30, Fluid Cholesterol 69 04/21/17 1536: Phlebotomy Draw Site LT. THORA, Pleural pH 6.87 Impression/Plan Impression/Plan Impression/Plan: Impression 56 year old man. * LLL pneumonia and exudative pleural fluid consistent with empyema Plan -please obtain ultasound of chest and if substantial fluid remains would require and indwelling pleural catheter drainage -ID consultation -f/u all cx and sputum studies -legionella, strep ag -f/u all pleural studies DVT prophylaxis at all times
--- NOTE | 2017-04-22 14:54 | Cons- Infect Disease ---
General Information and HPI Consulting Request Date of Consult: 04/22/17 Requested By: René Morales MD Reason for Consult: Empyema left chest Source of Information: patient History of Present Illness: This is a 56-year-old man with a history of COPD and hyperlipidemia admitted on April 20 with the acute onset of severe left-sided chest pain, increased with inspiration, and increased shortness of breath, superimposed on a several week history of increasing shortness of breath, occasional left-sided chest discomfort and increased fatigue, with a chronic cough and a 50 pound weight loss over the past 6 months, with no reported fevers or chills. On admission he was febrile to 102.9, with an O2 sat of 80% on room air. Laboratory data revealed a white blood cell count of 30,000, with 81 segs and 14 bands, platelets 602,000, with toxic vacuoles on the peripheral smear, BUN/creatinine 16 and 0.7, with normal liver enzymes. Urinalysis negative. Chest x-ray revealed a layering left pleural effusion with associated left basilar consolidation/atelectasis. CTA of the chest revealed a left lower lobe consolidation with associated moderate size left pleural effusion, with no evidence of pulmonary emboli. He was begun on Ceftriaxone and Azithromycin and Solumedrol. On April 21 he underwent a left thoracentesis, with removal of 900 mL of yellow green slightly cloudy fluid, with urinalysis revealing a pH of 6.87, 83,500 white blood cells, glucose less than 20 and with the gram stain revealing a few gram-positive cocci in clusters. He has defervesced and his white blood cell count has increased on steroids. At present he notes some discomfort at the site of the thoracentesis. Allergies/Medications Allergies: Coded Allergies: No Known Allergies (04/20/17) Home Med List: Oxymetazoline HCl (Vicks Sinex) 0.05 % SPRAY 1 SPRAY NASB PRN NASAL CONGESTION (Reported) Past History Travel History Traveled to [place] past 21 day No Medical History Cardiovascular: hyperlipidemia Respiratory: COPD History of MRSA: No History of VRE: No History of CDIFF: No Isolation History: Standard Influenza Vaccine: 01/26/17 Surgical History Surgical History: non-contributory Family History Relations & Conditions If Any: Relation not specified for: *No pertinent family history Psychosocial History Where Do You Live? Home Who Do You Live With? spouse Services at Home: None Primary Language: Divehi Smoking Status: Current Everyday Smoker ETOH Use: occasional use Illicit Drug Use: denies illicit drug use Functional Ability ADLs Independent: dressing, eating, toileting, bathing. Ambulation: independent IADLs Independent: shopping, housework, finances, food prep, telephone, transportation , medication admin. Review of Systems Review of Systems All Other Systems: Reviewed and Negative Exam & Diagnostic Data Last 24 Hrs of Vital Signs/I&O Vital Signs Date Time Temp Pulse Resp B/P B/P Pulse O2 O2 Flow FiO2 Mean Ox Delivery Rate 04/22 1351 98.1 94 20 145/70 92 Nasal 2.0L Cannula 04/22 1137 93 Nasal 2.0L Cannula 04/22 0800 94 Nasal 2.0L Cannula 04/22 0800 94 Nasal 2.0L Cannula 04/22 0642 94 Venti Mask 24% 04/22 0559 97.6 73 24 110/62 93 Venti Mask 2.0L 04/22 0000 Venti Mask 2.0L 04/21 2229 98.2 84 20 110/60 95 Venti Mask 04/21 1700 Venti Mask 24% 04/21 1640 98.3 83 22 104/54 94 Venti Mask 2.0L Intake & Output 04/22 1600 04/22 0800 04/22 0000 Intake Total 800 480 490 Output Total 500 300 Balance 800 -20 190 Intake, IV 250 Intake, Oral 800 480 240 Number 1 Bowel Movements Output, Urine 500 300 Physical Exam Other Physical Findings: Afebrile on steroids. He is awake and alert in no acute distress. Skin reveals no rash. HEENT negative. Neck is supple with no adenopathy. Lungs decreased breath sounds at the left base. Heart regular rhythm with no murmur. Abdomen is soft, nontender with positive bowel sounds. Back no CVA tenderness. Extremities no cyanosis, clubbing or edema; bilateral axillary shoddy adenopathy. Neuro is without focality. Last 24 Hours of Lab Results: Laboratory Tests 04/22 04/21 04/21 0718 1720 1538 Chemistry Sodium (137 - 145 mmol/L) 143 Potassium (3.5 - 5.1 mmol/L) 4.7 Chloride (98 - 107 mmol/L) 107 Carbon Dioxide (22 - 30 mmol/L) 25 Anion Gap (5 - 16) 12 BUN (9 - 20 mg/dL) 25 H Creatinine (0.7 - 1.2 mg/dL) 0.6 L Estimated GFR (>60 ml/min) > 60 BUN/Creatinine Ratio (7 - 25 %) 41.7 H Coagulation PT (9.4 - 12.5 SEC) 15.0 H INR (0.90 - 1.17) 1.43 H Hematology CBC w Diff MAN DIFF ORDERED WBC (4.8 - 10.8 /CUMM) 39.0 *H RBC (4.70 - 6.10 /CUMM) 3.63 L Hgb (14.0 - 18.0 G/DL) 10.6 L Hct (42 - 52 %) 32.4 L MCV (80.0 - 94.0 FL) 89.3 MCH (27.0 - 31.0 PG) 29.3 MCHC (33.0 - 37.0 G/DL) 32.8 L RDW (11.5 - 14.5 %) 14.2 Plt Count (130 - 400 /CUMM) 486 H MPV (7.4 - 10.4 FL) 8.4 Gran % (42.2 - 75.2 %) 94.1 H Lymphocytes % (20.5 - 51.1 %) 3.1 L Monocytes % (1.7 - 9.3 %) 2.7 Eosinophils % (0 - 5 %) 0 Basophils % (0.0 - 2.0 %) 0.1 Absolute Granulocytes (1.4 - 6.5 /CUMM) 36.7 H Segmented Neutrophils (42.2 - 75.2 %) 94 H Band Neutrophils (0.0 - 5.0 %) 2 Absolute Lymphocytes (1.2 - 3.4 /CUMM) 1.2 Lymphocytes (20.5 - 51.1 %) 4 L Absolute Monocytes (0.10 - 0.60 /CUMM) 1.0 H Absolute Eosinophils (0.0 - 0.7 /CUMM) 0 Absolute Basophils (0.0 - 0.2 /CUMM) 0 Platelet Estimate (ADEQUATE) INCREASED Anisocytosis 1+ Other Body Source Fluid WBC (0 - 5 /CUMM) 13274 H Fld Total RBCs Counted (0 /CUMM) 50 H 04/21 04/21 1538 1536 Hematology Lymphocytes (%) 5 % Normal PMNs (%) 88 Misc Hematology Test (%) Miscellaneous Phlebotomy Draw Site LT. THORA Other Body Source Fluid Glucose (mg/dL) < 20 Fluid Total Protein (g/dL) 4.1 Fluid Albumin (g/dL) 1.8 Fluid LDH (U/L) 4733 Fluid Amylase (U/L) < 30 Fluid Cholesterol (mg/dL) 69 Pleural pH (PH) 6.87 Last 24 Hours of Jt Results: Blood cultures 2 April 20 negative Urine culture April 21 negative Urine strep pneumo antigen and Legionella antigen April 21 negative Left pleural fluid culture April 21 negative, with gram stain revealing packed white blood cells and few gram-positive cocci in clusters Diagnostic Data Recent Imaging Findings: Chest x-ray April 20 revealed a layering left pleural effusion with associated left basilar consolidation/atelectasis. CTA of the chest revealed a left lower lobe consolidation with associated moderate size left pleural effusion, with no evidence of pulmonary emboli. Chest x-ray April 21 reveals a decrease in the left pleural effusion with no evidence of pneumothorax post thoracentesis Assessment/Plan Assessment/Plan Impression: This is a 56-year-old man with a history of COPD admitted on April 20 with the acute onset of severe left-sided chest pain, increased with inspiration, and increased shortness of breath, superimposed on a several week history of increasing shortness of breath, occasional left-sided chest discomfort and increased fatigue, with a chronic cough and a 50 pound weight loss over the past 6 months, found to be febrile with a leukocytosis and a left basilar density and moderate pleural effusion on chest x-ray/CT scan, status post a thoracentesis yesterday revealing an empyema, with a gram stain of the pleural fluid revealing gram-positive cocci in clusters. His clinical presentation is consistent with an empyema, with a several week history of increased shortness of breath, intermittent left chest discomfort and fatigue. The gram stain reveals gram-positive cocci in clusters, suggesting a possible Staph infection, though anaerobes and streptococci must also be considered. His current antibiotic regimen can be adjusted pending final cultures. He will likely require a chest tube/pigtail catheter and he will need to be reimaged today to assess how much residual fluid is present. His history of weight loss, which she attributes to stress, does raise concern for an underlying malignancy and will need to follow-up his pleural fluid cytology. Of note his temperatures are normal and his white blood cell count has increased today, possibly secondary to the steroids. Suggestion: 1. Would obtain an ultrasound of the chest now and pursue placement of a pigtail catheter/chest tube by IR if there is residual fluid present 2. Follow-up pleural fluid culture and cytology 3. Would check an HIV 4. Would taper steroids 5. Discontinue Ceftriaxone and Azithromycin 6. Begin Unasyn 3 g IV every 6 hours and Vancomycin 1250 mg IV every 12 hours pending above Lisa Alicea MD will be covering over the weekend Consult Acknowledgment - Thank you for your consult request.
--- NOTE | 2017-04-22 15:37 | ULTRASOUND REPORT ---
EXAMINATION: US PLEURAL EFFUSION CLINICAL INFORMATION: Shortness of breath. Follow-up pleural effusion. COMPARISON: Same day chest radiograph. TECHNIQUE: Imaging of each chest was performed with a curved transducer. FINDINGS: There is a small left pleural effusion. There is also adjacent airspace disease. IMPRESSION: Small left likely complicated pleural effusion.
[2017-04-22 22:21] VITALS: BP 118/64
[2017-04-23 06:30] VITALS: BP 116/76
[2017-04-23 09:06] LABS: ABSOLUTE BASOPHIL COUNT 0 /CUMM (0.0-0.2); ABSOLUTE EOSINOPHIL COUNT 0 /CUMM (0.0-0.7); ABSOLUTE GRANULOCYTE CT 23.9 /CUMM (1.4-6.5); ABSOLUTE LYMPH COUNT 1.9 /CUMM (1.2-3.4); ABSOLUTE MONOCYTE COUNT 1.3 /CUMM (0.10-0.60); BASOPHIL % 0.1 % (0.0-2.0); EOSINOPHIL % 0.2 % (0-5); GRANULOCYTE % 88.2 % (42.2-75.2); HEMATOCRIT 33.2 % (42-52); MEAN CORPUSCULAR HGB 28.9 PG (27.0-31.0); MEAN CORPUSCULAR HGB CONC 32.4 G/DL (33.0-37.0); MEAN CORPUSCULAR VOLUME 89.2 FL (80.0-94.0); MEAN PLATELET VOLUME 8.1 FL (7.4-10.4); PLATELET COUNT 522 /CUMM (130-400); RBC DISTRIBUTION WIDTH 14.4 % (11.5-14.5); RED BLOOD CELL CT 3.72 /CUMM (4.70-6.10)
--- NOTE | 2017-04-23 10:07 | PN- Infect Dx ---
Subjective Subjective: No fever. C/O dry cough and SOB. Review of Systems Comments: 12 points reviewed as noted, otherwise negative. Objective Last 24 Hrs of Vital Signs/I&O Vital Signs Date Time Temp Pulse Resp B/P B/P Pulse O2 O2 Flow FiO2 Mean Ox Delivery Rate 04/23 0630 97.9 63 20 116/76 94 04/23 0000 94 Nasal 2.0L Cannula 04/23 0000 94 Nasal 2.0L Cannula 04/22 2221 98.3 85 18 118/64 95 Nasal 2.0L Cannula 04/22 1655 94 Nasal 2.0L Cannula 04/22 1600 93 Nasal 2.0L Cannula 04/22 1600 93 Nasal 2.0L Cannula 04/22 1351 98.1 94 20 145/70 92 Nasal 2.0L Cannula 04/22 1137 93 Nasal 2.0L Cannula Intake & Output 04/23 1600 04/23 0800 04/23 0000 Intake Total 350 1200 Output Total 700 850 Balance -350 350 Intake, IV 100 250 Intake, Oral 250 950 Output, Urine 700 850 Physical Exam Other Physical Findings: Afebrile. He is awake and in no mild resp distress. Skin reveals no rash. HEENT negative. Neck is supple with no adenopathy. Lungs decreased breath sounds both bases, b/l rhonchi and wheezes. Heart regular rhythm with no murmur. Abdomen is soft, nontender with positive bowel sounds. Back no CVA tenderness. Extremities no cyanosis, clubbing or edema. Neuro is without focality. Results Last 24 Hours of Lab Results: Laboratory Tests 04/23 0740 Chemistry Sodium Pending Potassium Pending Chloride Pending Carbon Dioxide Pending Anion Gap Pending BUN Pending Creatinine Pending BUN/Creatinine Ratio Pending Hematology CBC w Diff Pending WBC Pending RBC Pending Hgb Pending Hct Pending MCV Pending MCH Pending MCHC Pending RDW Pending Plt Count Pending MPV Pending Gran % Pending Lymphocytes % Pending Monocytes % Pending Eosinophils % Pending Basophils % Pending Absolute Granulocytes Pending Absolute Lymphocytes Pending Absolute Monocytes Pending Absolute Eosinophils Pending Absolute Basophils Pending Last 24 Hours of Jt Results: SPEC #: [id number] WATSON: 04/21/171538 STATUS: RES RECD: 04/21/17[address]: Della GOMEZ, Margo SOURCE: BODY FLUID ENTR: 04/21/17-[address]: Andrew GOMEZ,René [facility]: [place] Patient Has No Primary Care Dr Darell GOMEZ, [facility] ORDERED: BODY FLD CULTUR COMMENT: 8mL OF YELLOW CLOUDY FLUID Procedure Result > GRAM STAIN Final 04/22/171359 WHITE BLOOD CELLS PACKED GRAM POSITIVE COCCI FEW IN CLUSTERS > BODY FLUID CULTURE Preliminary 04/22/17 NO GROWTH AFTER 1 DAY Recent Imaging Studies: SERVICE DATE: 04/22/17 EXAM TYPE: US - US-CHEST EXAMINATION: US PLEURAL EFFUSION CLINICAL INFORMATION: Shortness of breath. Follow-up pleural effusion. COMPARISON: Same day chest radiograph. TECHNIQUE: Imaging of each chest was performed with a curved transducer. FINDINGS: There is a small left pleural effusion. There is also adjacent airspace disease. IMPRESSION: Small left likely complicated pleural effusion. DICTATED BY: Tho Bianchi MD DATE/TIME DICTATED:04/22/171531 GUARD RAIL INSTALLER:RICKEY DATE/TIME TRANSCRIBED:04/22/171531 CONFIDENTIAL, DO NOT COPY WITHOUT APPROPRIATE AUTHORIZATION. <Electronically signed in Other Vendor System> SIGNED BY: Tho Bianchi MD 04/22/171 Assessment/Plan Impression: 56-year-old man with a history of COPD admitted on April 20 with the acute onset of severe left-sided chest pain, increased with inspiration, and increased shortness of breath, superimposed on a several week history of increasing shortness of breath, occasional left-sided chest discomfort and increased fatigue, with a chronic cough and a 50 pound weight loss over the past 6 months, found to be febrile with severe leukocytosis and a left basilar density and moderate pleural effusion on chest x-ray/CT scan, status post a thoracentesis on 04/21 revealing an empyema, with a gram stain of the pleural fluid revealing gram -positive cocci in clusters. COPD exac Suggestion: 1. Trend CBC. Follow-up pleural fluid culture and cytology 2. Continue D #2 Unasyn 3 g IV every 6 hours and Vancomycin 1250 mg IV every 12 hours pending above 3. Vancomycin trough 04/24 in am 30 min before the due dose; goal trough 15-20. 4. Obtain RT PCR influenza A/B send out test.
[2017-04-23 10:39] LABS: WHITE BLOOD CELL COUNT 27.1 /CUMM (4.8-10.8)
--- NOTE | 2017-04-23 10:56 | PN- Pulmonary ---
Subjective HPI/Critical Care Issues: Patient has no complaints but continues with cough. Pleural fluid cultures remain negative. Repeat ultrasound showed only small effusion status post 900 mL thoracentesis. Objective Current Medications: Current Medications Sig/Tonio Start time Last Medication Dose Route Stop Time Status Admin Acetaminophen 650 MG Q8P PRN 04/21 2002 AC PO Albuterol Sulfate 3 ML EVERY 4 HRS/AWAKE 04/22 0800 AC 04/23 INH 0853 Albuterol Sulfate 3 ML Q4P PRN 04/21 0015 AC INH Ampicillin Sodium/ 3,000 MG Q6H 04/22 1600 AC 04/23 Sulbactam Sodium IV 0900 Sodium Chloride 100 ML Azithromycin 500 MG DAILY@04/21 2100 DC 04/21 Dextrose/Water 250 ML IV 202 Benzonatate 100 MG TID 04/22 1649 AC 04/23 PO 0843 Benzonatate 100 MG TID 04/22 1631 DC 04/22 PO 1721 Ceftriaxone Sodium 1,000 MG DAILY@04/21 2100 DC 04/21 IV 202 Enoxaparin Sodium 40 MG DAILY 04/21 1000 AC 04/23 SC 0844 Guaifenesin/Codeine 10 ML Q6P PRN 04/22 0845 AC Phosphate PO Ibuprofen 400 MG Q6P PRN 04/21 2014 AC PO Ipratropium [place] 2.5 ML EVERY 4 HRS/AWAKE 04/22 0800 AC 04/23 INH 0853 Ipratropium [place] 2.5 ML Q4-6 PRN PRN 04/21 0015 DC INH Ketorolac 30 MG Q8P PRN 04/21 0015 AC 04/22 Tromethamine IV 04/24 0014 0553 Nicotine 14 MG DAILY 04/21 1000 AC 04/23 TOP 0843 Oxycodone/ 1 TAB Q6P PRN 04/22 1000 AC 04/23 Acetaminophen PO 0556 Prednisone 10 MG DAILY 04/28 1000 AC PO 04/30 0959 Prednisone 20 MG DAILY 04/26 1000 AC PO 04/28 0959 Prednisone 30 MG DAILY 04/24 1000 AC PO 01/24 0959 Prednisone 40 MG DAILY 04/22 1043 CAN PO 04/30 1042 Prednisone 40 MG DAILY 04/22 1000 AC 04/23 PO 04/24 0959 0843 Vancomycin HCl 1,250 MG Q12 04/22 2200 AC 04/23 Dextrose/Water 250 ML IV 1020 Vancomycin HCl 1,000 MG ONCE ONE 04/22 0945 CAN Dextrose/Water 250 ML IV 04/22 1044 Vital Signs & I&O Last 24 Hrs of Vitals and I&O: Vital Signs Date Time Temp Pulse Resp B/P B/P Pulse O2 O2 Flow FiO2 Mean Ox Delivery Rate 04/23 0840 95 Nasal 2.0L Cannula 04/23 0800 93 Nasal 2.0L Cannula 04/23 0800 93 Nasal 2.0L Cannula 04/23 0630 97.9 63 20 116/76 94 04/23 0000 94 Nasal 2.0L Cannula 04/23 0000 94 Nasal 2.0L Cannula 04/22 2221 98.3 85 18 118/64 95 Nasal 2.0L Cannula 04/22 1655 94 Nasal 2.0L Cannula 04/22 1600 93 Nasal 2.0L Cannula 04/22 1600 93 Nasal 2.0L Cannula 04/22 1351 98.1 94 20 145/70 92 Nasal 2.0L Cannula 04/22 1137 93 Nasal 2.0L Cannula Intake & Output 04/23 1600 04/23 0800 04/23 0000 Intake Total 350 1200 Output Total 700 850 Balance -350 350 Intake, IV 100 250 Intake, Oral 250 950 Output, Urine 700 850 Oxygen saturation 2 L 95% exam of his chest shows diminished breath sounds over the left hemithorax cardiac exam shows a normal S1 and S2 without murmurs Impression/Plan Impression/Plan Impression/Plan: 56-year-old gentleman left lower lobe pneumonia complicated by empyema status post thoracentesis. He continues to have leukocytosis. Repeat ultrasound suggested only small residual effusion Recommendations: Continue antibiotics per infectious disease. His white count remains elevated without improvement would repeat CAT scan of his chest without contrast
[2017-04-23 14:03] VITALS: BP 124/70
--- NOTE | 2017-04-23 14:48 | PN- Att Addend ---
Attending Addendum Attending Brief Note Patient seen and examined, not feeling too well. Still having some trouble breathing. Continues to have significant leukocytosis. Vital Signs Date Time Temp Pulse Resp B/P B/P Pulse O2 O2 Flow FiO2 Mean Ox Delivery Rate 04/23 1403 97.9 77 20 124/70 91 Nasal 2.0L Cannula 04/23 0840 95 Nasal 2.0L Cannula 04/23 0800 93 Nasal 2.0L Cannula 04/23 0800 93 Nasal 2.0L Cannula 04/23 0630 97.9 63 20 116/76 94 04/23 0000 94 Nasal 2.0L Cannula 04/23 0000 94 Nasal 2.0L Cannula 04/22 2221 98.3 85 18 118/64 95 Nasal 2.0L Cannula 04/22 1655 94 Nasal 2.0L Cannula 04/22 1600 93 Nasal 2.0L Cannula 04/22 1600 93 Nasal 2.0L Cannula on exam; aox3, nad. cv; s1,s2, rrr resp; decreased bs left base. abd; soft, nt, bs+ ext; no edema. Laboratory Tests 04/23 0740 Chemistry Sodium (137 - 145 mmol/L) 145 Potassium (3.5 - 5.1 mmol/L) 4.5 Chloride (98 - 107 mmol/L) 105 Carbon Dioxide (22 - 30 mmol/L) 28 Anion Gap (5 - 16) 12 BUN (9 - 20 mg/dL) 23 H Creatinine (0.7 - 1.2 mg/dL) 0.7 Estimated GFR (>60 ml/min) > 60 BUN/Creatinine Ratio (7 - 25 %) 32.9 H Hematology CBC w Diff NO MAN DIFF REQ WBC (4.8 - 10.8 /CUMM) 27.1 H RBC (4.70 - 6.10 /CUMM) 3.72 L Hgb (14.0 - 18.0 G/DL) 10.7 L Hct (42 - 52 %) 33.2 L MCV (80.0 - 94.0 FL) 89.2 MCH (27.0 - 31.0 PG) 28.9 MCHC (33.0 - 37.0 G/DL) 32.4 L RDW (11.5 - 14.5 %) 14.4 Plt Count (130 - 400 /CUMM) 522 H MPV (7.4 - 10.4 FL) 8.1 Gran % (42.2 - 75.2 %) 88.2 H Lymphocytes % (20.5 - 51.1 %) 6.9 L Monocytes % (1.7 - 9.3 %) 4.6 Eosinophils % (0 - 5 %) 0.2 Basophils % (0.0 - 2.0 %) 0.1 Absolute Granulocytes (1.4 - 6.5 /CUMM) 23.9 H Absolute Lymphocytes (1.2 - 3.4 /CUMM) 1.9 Absolute Monocytes (0.10 - 0.60 /CUMM) 1.3 H Absolute Eosinophils (0.0 - 0.7 /CUMM) 0 Absolute Basophils (0.0 - 0.2 /CUMM) 0 A/P; 56-year-old male with past history significant for hypertension, COPD admitted with acute history failure, community acquired pneumonia and empyema. Patient also had sepsis which is resolving. Continue subsignificant leukocytosis. Status post diagnostic thoracentesis with the fluid studies consistent with exudate. Continue to Mattix by infectious disease. Appreciate pulmonology input, Dr. Gray recommends repeating CAT scan of his chest. Continue all other current medications. Patient on Lovenox for DVT prophylaxis.
--- NOTE | 2017-04-23 16:32 | CT SCAN REPORT ---
EXAMINATION: CT CHEST WITHOUT CONTRAST CLINICAL INFORMATION: Shortness of breath and cough. COMPARISON: 04/20/2017 TECHNIQUE: Multidetector volumetric CT imaging of the chest was done. Axial MIP volume rendering provided. Sagittal and coronal reformatted images were obtained. DLP: 298 mGy-cm FINDINGS: LUNGS AND PLEURA: Moderate centrilobular emphysema. The trachea has a saber-sheath configuration. Interval decreased amount of mucus in the right mainstem bronchus. Bronchial warner are thickened, bilaterally. Peripheral linear opacities of scarring at lung apices. A 0.4 cm triangular-shaped nodule along the distal right major fissure is consistent with a lymph node. A solid, noncalcified 0.6 cm nodule within the lingula is unchanged (image 338, series 4). There is a 0.3 cm noncalcified nodule in the lingula, as well (image 399, series 4). Small left pleural effusion has slightly decreased in size compared to 04/20/2017; it has attenuation generally in the range of 10-20 Hounsfield units and contains scattered gas bubbles (after recent thoracentesis). The left lower lobe consolidation remains similar in appearance compared to 04/20/2017. Within the area of consolidation, there are 0.9 cm and 0.3 cm cystic spaces from underlying emphysema or cavitary change in the infected lung. These findings were present on 04/20/2017. MEDIASTINUM: Cardiac chambers, pulmonary arteries and thoracic aorta are normal in caliber. No pericardial effusion. The esophagus and thyroid gland are unremarkable. LYMPHATICS: No pathologic sized axillary or hilar lymph nodes. The mediastinal lymph nodes are in the normal size range, and measure < 1 cm short axis dimension. UPPER ABDOMEN: No acute findings compared to 04/20/2017. SKELETAL/CHEST WALL: No aggressive osseous lesions. Mild levocurvature of the mildly degenerated thoracic spine. IMPRESSION: 1. Moderate pulmonary emphysema. 2. Persistent consolidation left lower lobe, consistent with pneumonia. In the consolidated area, there are at least two small cystic areas (from the underlying emphysema or possible cavitary change within the infected lung). The left pleural effusion is smaller compared to 04/20/2017. 3. Nonspecific 0.6 cm nodule within the lingula for which follow-up is recommended in 6 months.
[2017-04-23 22:54] VITALS: BP 107/58
[2017-04-24 07:38] VITALS: BP 128/72
--- NOTE | 2017-04-24 08:26 | PN- Housestaff ---
Joel GOMEZ,Lizeth 04/24/17 0826: Subjective Follow-up For: EMPYEMA PNEUMONIA COPD EXACERBATION Subjective: PATIENT STILL HAVING DYSPNEA. ON 1L 95%. STILL HAVING CHEST PAIN AT INCISION SITE. PATIENT HAD 2 SOFT TO WATERY DIARRHEA IN THE PAST DAY. Review of Systems Constitutional: Reports: weakness. Cardiovascular: Reports: chest pain. Respiratory: Reports: short of breath. Gastrointestinal: Reports: diarrhea. Genitourinary: Reports: no symptoms. Objective Last 24 Hrs of Vital Signs/I&O Vital Signs Date Time Temp Pulse Resp B/P B/P Pulse O2 O2 Flow FiO2 Mean Ox Delivery Rate 04/24 1655 95 Nasal 1.0L Cannula 04/24 1600 Nasal 1.0L Cannula 04/24 1600 94 Nasal 1.0L Cannula 04/24 1402 98.4 84 20 110/60 92 Nasal 1.0L Cannula 04/24 1027 94 Nasal 2.0L Cannula 04/24 1015 86 Nasal 2.0L Cannula 04/24 0820 94 Nasal 1.0L Cannula 04/24 0800 93 Nasal 1.0L Cannula 04/24 0800 93 Nasal 1.0L Cannula 04/24 0738 98.3 67 20 128/72 94 Nasal 1.0L Cannula 04/24 0000 96 Nasal 1.0L Cannula 04/24 0000 96 Nasal 1.0L Cannula 04/23 2254 98.3 73 20 107/58 96 Nasal 1.0L Cannula Intake & Output 04/24 1600 04/24 0800 04/24 0000 Intake Total 800 560 Output Total 550 300 475 Balance 250 260 -475 Intake, IV 360 Intake, Oral 800 200 Output, Urine 550 300 475 Physical Exam General Appearance: Alert, Oriented X3, Cooperative, No Acute Distress Skin: No Rashes, No Breakdown, No Significant Lesion Skin Temp/Moisture Exam: Warm/Dry Sepsis Skin Exam (color): Normal for Ethnicity HEENT: Atraumatic Cardiovascular: Regular Rate, Normal S1, Normal S2, No Murmurs Lungs: MILD WHEEZING, MILD RHONCHI IN LEFT Abdomen: Normal Bowel Sounds, Soft, No Tenderness Neurological: Normal Speech Extremities: No Edema, Normal Pulses, No Tenderness/Swelling Vascular: Normal Pulses, Pulses Symmetrical Current Medications: Current Medications Sig/Tonio Start time Last Medication Dose Route Stop Time Status Admin Acetaminophen 650 MG Q8P PRN 04/21 2002 AC PO Albuterol Sulfate 3 ML EVERY 4 HRS/AWAKE 04/22 0800 AC 04/24 INH 2030 Albuterol Sulfate 3 ML Q4P PRN 04/21 0015 AC INH Ampicillin Sodium/ 3,000 MG Q6H 04/22 1600 AC 04/24 Sulbactam Sodium IV 1623 Sodium Chloride 100 ML Benzonatate 100 MG TID 04/22 1649 AC 04/24 PO 2059 Enoxaparin Sodium 40 MG DAILY 04/21 1000 AC 04/24 SC 0824 Guaifenesin/Codeine 10 ML Q6P PRN 04/22 0845 AC 04/24 Phosphate PO 2100 Ibuprofen 400 MG Q6P PRN 04/21 2015 AC PO Ipratropium [place] 2.5 ML EVERY 4 HRS/AWAKE 04/22 0800 AC 04/24 INH 2030 Ketorolac 30 MG Q8P PRN 04/21 0015 DC 04/22 Tromethamine IV 04/24 0014 0553 Lactobacillus 1 CAP BID 04/24 1122 AC 04/24 Acidophilus PO 2100 Nicotine 14 MG DAILY 04/21 1000 AC 04/24 TOP 0823 Oxycodone/ 1 TAB Q6P PRN 04/22 1000 AC 04/24 Acetaminophen PO 2100 Prednisone 10 MG DAILY 04/28 1000 AC PO 04/30 0959 Prednisone 20 MG DAILY 04/26 1000 AC PO 04/28 0959 Prednisone 30 MG DAILY 04/24 1000 AC 04/24 PO 01/24 0959 0823 Prednisone 40 MG DAILY 04/22 1000 DC 04/23 PO 04/24 0959 0843 Vancomycin HCl 1,500 MG BID 04/240 AC Dextrose/Water 250 ML IV Vancomycin HCl 1,250 MG Q12 04/22 2200 DC 04/24 Dextrose/Water 250 ML IV 1114 Last 24 Hrs of Lab/Jt Results Last 24 Hrs of Labs/Mics: Laboratory Tests 04/24/17 1001: Vancomycin Trough 7.6 L 04/24/17 0700: Anion Gap 11, Estimated GFR > 60, BUN/Creatinine Ratio 30.0 H, CBC w Diff NO MAN DIFF REQ, RBC 3.69 L, MCV 88.9, MCH 29.2, MCHC 32.9 L, RDW 14.2, MPV 8.4, Gran % 82.5 H, Lymphocytes % 12.0 L, Monocytes % 4.3, Eosinophils % 1.1, Basophils % 0.1, Absolute Granulocytes 15.9 H, Absolute Lymphocytes 2.3, Absolute Monocytes 0.8 H, Absolute Eosinophils 0.2, Absolute Basophils 0 Microbiology 04/24 1911 HEAD/NECK: Surveillance Culture - RECD 04/24 1123 STOOL: Clostridium difficile Toxin A & B - COLB Assessment/Plan Assessment: The patient is 56-year-old gentleman with past medical history of COPD and suspected hyperlipidemia. He presented to [place] ED on 04/20 with complaint of shortness of breath AND CHEST PAIN ON INSPIRATION THAT STARTED FAILY ABRUPTLY THAT DAY. -VS 102.9, 100, 28,142/72,96% Ventimask -Pertinent labs, WBC count 30.4, band cells 14 H/H 13/42, platelets 602, lactic acid 1.1--4.1, d-dimer 391, UA clean, venous blood gases pH 7.37, PCO2 32, PO2 68 -Imaging findings dictated above -In ED patient received 1 L normal saline, Toradol, azithromycin, Rocephin, swollen 25;, 1 g of magnesium sulfate. On standing patient desatted to 88% -He is admitted to general medicine floor and is being treated and evaluated for following conditions #Sepsis secondary to Community-acquired pneumonia and COPD exacerbation with Acute hypoxemic respiratory failure Patient is presenting with high-grade fever and elevated WBC count along with blood cells elevated heart rate (SIRS criteria positive). Patient is complaining of shortness of breath along with chest pain. CTA negative for pulmonary embolism but positive for left lower lobe consolidation/atelectasis with associated moderate sized left pleural effusion. The whole picture is consistent with community-acquired pneumonia along with some component of COPD exacerbation. -WBC TODAY HAVE DECREASED TO 19. STILL SHOWING SIGNS OF INFECTION- NECROSIS PER PULM? OF NOTE PATIENT IS ON STEROIDS. -PATIENT HAS PNEUMONIA AND PLEURAL EFFUSION WHICH ARE INDICATIONS FOR EMERGENT TAP WHICH HE UNDERWENT YESTERDAY. DRAINAGE OF 900CC YELLOW GREEN AND SLIGHTLY CLOUDY FLUID. PATIENT CONTINUE TO HAVE PAIN AND SOB AFTER PROCEDURE. -YESTERDAY PER DR. HEREDIA WE REPEATED CT CHEST WITHOUT CONTRAST AND IT SHOWED PERSISTENT CONSOLIDATION WITH 2 SMALL CYSTIC AREAS, AND A .6CM NODULE. ALSO DECREASED PLEURAL EFFUSION. -DR. MEDINA CARPET CUTTER IS FOLLOWING PATIENT AND SUGGESTED TAPERING STEROID BUT ALSO DOING CHEST ULTRASOUND TO CHECK FOR RECURRENCE OF FLUID LATER IN THE DAY. ULTRASOUND SHOWED SMALL PULMONARY EFFUSION AND WE HAVE CONTACTED DR. RAHUL SOTO for his suggestion on PLACEMENT OF A PIGTAIL CATHETER. WE DID NOT HEAR BACK. -Urine strep and Legionella antigen NEGATIVE -FOLLOW UP [employer]ulture AND CULTURE PLEURAL FLUID -PLEURAL FLUID LABS: WBC 46497, LDH 4733 PH 6.87, RBC 50 GLU 20 TP 4.1. THIS FLUID IS EXUDATITVE. MOST PROBABLY DUE TO BACTERIAL PNEUMONIA BUT DIFFERENTIAL INCLUDES CANCER, TB, PE. HE DOES ADMIT TO WEIGHT LOSS AND CURRENT SMOKING ? CANCER. -PLEURAL FLUID SHOWS PACKED WBCS, GRAM POSITIVE COCCI FEW IN CLUSTERS WITH CULTURE SHOWING NO GROWTH AFTER FEW DAYS. -ID CONSULT SUGGESTED HIV TEST, DC CEFTRIAXONE AND AZITHRO AND STARTING UNASYN 3GQ6H AND VANCO 1250MG IV BID. TODAY WE INCREASED VANCO TO 1500MG BID. WE WILL DO VANCO TROUGH IN MORNING. -Tylenol for fever control -Toradol for pain relief -TRC/nebs -Oxygen supplementation to maintain oxygen saturation above 92% -IV methylprednisone 40MG every 8h WAS SWITCHED TO BY MOUTH TAPER PER DR. MEDINA -UTOX IS HIGH FOR OPIATES WHICH COULD CAUSE RESP DEPRESSION. WE WILL HOLD ALL BENZOS AND OPIATES. -TESSALON PEARLS -MRSA SCREEN FOR TOMORROW #CHEST PAIN -ON INSPIRATION, LESS LIKELY CARDIAC BUT TROPS AND EKGS DONE AND NEGATIVE X2 -CONTINUE TORADOL FOR PAIN RELIEF. #Thrombocytosis OVER 600 likely reactive secondary to infection -Monitor platelet count #DIARRHEA C.DIFF TEST PROBIOTIC #Lactic acidosis secondary to sepsis -IVF -Repeat lactate IS 1.0 FROM HIGH OF 4.1. #Smoker -Nicotine patch -Consult regarding smoking abstinence #History of hyperlipidemia -LIPID PROFILE NORMAL -6.3 HBA1C FOR CORONARY EQUIVALENTS- SLIGHTLY HIGH. WILL NEED DIET CONTROL. -TSH LOW AND FT4 NORMAL #FC/DVT prophylaxis with Lovenox/regular diet Problem List: 1. Empyema 2. Sepsis 3. Leukocytosis Pain Ratin Pain Location: CHEST NEAR INCISION SITE Pain Goal: Pain 4 or less Pain Plan: PATHWAY Tomorrow's Labs & Rationales: CBC BEP Sherman GOMEZ,Rosalina 04/24/17 1346: Attending Review Statement Attending Statement Attending Statement: examined this patient, discuss w/resident/PA/PHYSICIAN ANESTHESIOLOGIST, agreed w/resident/PA/PHYSICIAN ANESTHESIOLOGIST, reviewed EMR data (avail), discussed with nursing, discussed with case mgmt, reviewed images, amended to note Attending Assessment/Plan: Patient seen and examined, feels slightly better today. WBC is better. CT chest is consistent with Vital Signs Date Time Temp Pulse Resp B/P B/P Pulse O2 O2 Flow FiO2 Mean Ox Delivery Rate 04/24 1027 94 Nasal 2.0L Cannula 04/24 1015 86 Nasal 2.0L Cannula 04/24 0800 93 Nasal 1.0L Cannula 04/24 0800 93 Nasal 1.0L Cannula 04/24 0738 98.3 67 20 128/72 94 Nasal 1.0L Cannula 04/24 0000 96 Nasal 1.0L Cannula 04/24 0000 96 Nasal 1.0L Cannula 04/23 2254 98.3 73 20 107/58 96 Nasal 1.0L Cannula 04/23 1650 92 Room Air 04/23 1600 Nasal 2.0L Cannula 04/23 1600 93 Nasal 2.0L Cannula 04/23 1403 97.9 77 20 124/70 91 Nasal 2.0L Cannula on exam; aox3, nad. cv; s1,s2, rrr resp; decreased bs at left base. abd; soft, nt, bs+ ext; no edema. Laboratory Tests 04/24 04/24 1001 0700 Chemistry Sodium (137 - 145 mmol/L) 142 Potassium (3.5 - 5.1 mmol/L) 4.3 Chloride (98 - 107 mmol/L) 103 Carbon Dioxide (22 - 30 mmol/L) 28 Anion Gap (5 - 16) 11 BUN (9 - 20 mg/dL) 18 Creatinine (0.7 - 1.2 mg/dL) 0.6 L Estimated GFR (>60 ml/min) > 60 BUN/Creatinine Ratio (7 - 25 %) 30.0 H Hematology CBC w Diff NO MAN DIFF REQ WBC (4.8 - 10.8 /CUMM) 19.3 H RBC (4.70 - 6.10 /CUMM) 3.69 L Hgb (14.0 - 18.0 G/DL) 10.8 L Hct (42 - 52 %) 32.8 L MCV (80.0 - 94.0 FL) 88.9 MCH (27.0 - 31.0 PG) 29.2 MCHC (33.0 - 37.0 G/DL) 32.9 L RDW (11.5 - 14.5 %) 14.2 Plt Count (130 - 400 /CUMM) 448 H MPV (7.4 - 10.4 FL) 8.4 Gran % (42.2 - 75.2 %) 82.5 H Lymphocytes % (20.5 - 51.1 %) 12.0 L Monocytes % (1.7 - 9.3 %) 4.3 Eosinophils % (0 - 5 %) 1.1 Basophils % (0.0 - 2.0 %) 0.1 Absolute Granulocytes (1.4 - 6.5 /CUMM) 15.9 H Absolute Lymphocytes (1.2 - 3.4 /CUMM) 2.3 Absolute Monocytes (0.10 - 0.60 /CUMM) 0.8 H Absolute Eosinophils (0.0 - 0.7 /CUMM) 0.2 Absolute Basophils (0.0 - 0.2 /CUMM) 0 Toxicology Vancomycin Trough (10.0 - 20.0 ug/mL) 7.6 L A/P; 56-year-old male with past history significant for hypertension, COPD admitted with acute history failure, community acquired pneumonia and empyema. Patient also had sepsis which is resolving. Continue subsignificant leukocytosis. Repeat CT chest shows Persistent consolidation left lower lobe, consistent with pneumonia. In the consolidated area, there are at least two small cystic areas (from the underlying emphysema or possible cavitary change within the infected lung). The left pleural effusion is smaller compared to . Continue abx per ID. Continue steroid taper, TRC nebs. Continue all the rest of meds. DVt px; Lovenox.
[2017-04-24 08:36] LABS: ABSOLUTE BASOPHIL COUNT 0 /CUMM (0.0-0.2); ABSOLUTE EOSINOPHIL COUNT 0.2 /CUMM (0.0-0.7); ABSOLUTE GRANULOCYTE CT 15.9 /CUMM (1.4-6.5); ABSOLUTE LYMPH COUNT 2.3 /CUMM (1.2-3.4); ABSOLUTE MONOCYTE COUNT 0.8 /CUMM (0.10-0.60); BASOPHIL % 0.1 % (0.0-2.0); EOSINOPHIL % 1.1 % (0-5); GRANULOCYTE % 82.5 % (42.2-75.2); HEMATOCRIT 32.8 % (42-52); MEAN CORPUSCULAR HGB 29.2 PG (27.0-31.0); MEAN CORPUSCULAR HGB CONC 32.9 G/DL (33.0-37.0); MEAN CORPUSCULAR VOLUME 88.9 FL (80.0-94.0); MEAN PLATELET VOLUME 8.4 FL (7.4-10.4); PLATELET COUNT 448 /CUMM (130-400); RBC DISTRIBUTION WIDTH 14.2 % (11.5-14.5); RED BLOOD CELL CT 3.69 /CUMM (4.70-6.10); WHITE BLOOD CELL COUNT 19.3 /CUMM (4.8-10.8)
--- NOTE | 2017-04-24 10:56 | PN- Pulmonary ---
Subjective HPI/Critical Care Issues: Patient continues to have cough and feels somewhat weak Objective Current Medications: Current Medications Sig/Tonio Start time Last Medication Dose Route Stop Time Status Admin Acetaminophen 650 MG Q8P PRN 04/21 2002 AC PO Albuterol Sulfate 3 ML EVERY 4 HRS/AWAKE 04/22 0800 AC 04/24 INH 0820 Albuterol Sulfate 3 ML Q4P PRN 04/21 0015 AC INH Ampicillin Sodium/ 3,000 MG Q6H 04/22 1600 AC 04/24 Sulbactam Sodium IV 1030 Sodium Chloride 100 ML Benzonatate 100 MG TID 04/22 1649 AC 04/24 PO 0824 Enoxaparin Sodium 40 MG DAILY 04/21 1000 AC 04/24 SC 0824 Guaifenesin/Codeine 10 ML Q6P PRN 04/22 0845 AC 04/24 Phosphate PO 0824 Ibuprofen 400 MG Q6P PRN 04/21 2014 AC PO Ipratropium [place] 2.5 ML EVERY 4 HRS/AWAKE 04/22 0800 AC 04/24 INH 0820 Ketorolac 30 MG Q8P PRN 04/21 0015 DC 04/22 Tromethamine IV 04/24 0014 0553 Nicotine 14 MG DAILY 04/21 1000 AC 04/24 TOP 0823 Oxycodone/ 1 TAB Q6P PRN 04/22 1000 AC 04/24 Acetaminophen PO 0824 Prednisone 10 MG DAILY 04/28 1000 AC PO 04/30 0959 Prednisone 20 MG DAILY 04/26 1000 AC PO 04/28 0959 Prednisone 30 MG DAILY 04/24 1000 AC 04/24 PO 01/24 0959 0823 Prednisone 40 MG DAILY 04/22 1000 DC 04/23 PO 04/24 0959 0843 Vancomycin HCl 1,250 MG Q12 04/22 2200 AC 04/23 Dextrose/Water 250 ML IV 2240 Vital Signs & I&O Last 24 Hrs of Vitals and I&O: Vital Signs Date Time Temp Pulse Resp B/P B/P Pulse O2 O2 Flow FiO2 Mean Ox Delivery Rate 04/24 1027 94 Nasal 2.0L Cannula 04/24 1015 86 Nasal 2.0L Cannula 04/24 0738 98.3 67 20 128/72 94 Nasal 1.0L Cannula 04/24 0000 96 Nasal 1.0L Cannula 04/24 0000 96 Nasal 1.0L Cannula 04/23 2254 98.3 73 20 107/58 96 Nasal 1.0L Cannula 04/23 1650 92 Room Air 04/23 1600 Nasal 2.0L Cannula 04/23 1600 93 Nasal 2.0L Cannula 04/23 1403 97.9 77 20 124/70 91 Nasal 2.0L Cannula Intake & Output 04/24 1600 04/24 0800 04/24 0000 Intake Total 560 Output Total 300 475 Balance 260 -475 Intake, IV 360 Intake, Oral 200 Output, Urine 300 475 Oxygen saturation 2 L 94% he remains afebrile exam of his chest continues show markedly diminished breath sounds over the left posterior chest cardiac exam shows normal S1 and S2 without murmurs Impression/Plan Impression/Plan Impression/Plan: 56-year-old gentleman left lower lobe pneumonia complicated by empyema status post thoracentesis. He continues to have leukocytosis. Repeat ultrasound suggested only small residual effusion. This was confirmed by chest CAT scan Recommendations: Continue antibiotics per infectious disease. His white count remains elevated to suggest small persistent effusion and areas of possible necrosis
--- NOTE | 2017-04-24 11:39 | PN- Infect Dx ---
Subjective Subjective: No fever; improved dry cough/SOB. Review of Systems Comments: 12 points reviewed as noted, otherwise negative. Objective Last 24 Hrs of Vital Signs/I&O Vital Signs Date Time Temp Pulse Resp B/P B/P Pulse O2 O2 Flow FiO2 Mean Ox Delivery Rate 04/24 1027 94 Nasal 2.0L Cannula 04/24 1015 86 Nasal 2.0L Cannula 04/24 0800 93 Nasal 1.0L Cannula 04/24 0800 93 Nasal 1.0L Cannula 04/24 0738 98.3 67 20 128/72 94 Nasal 1.0L Cannula 04/24 0000 96 Nasal 1.0L Cannula 04/24 0000 96 Nasal 1.0L Cannula 04/23 2254 98.3 73 20 107/58 96 Nasal 1.0L Cannula 04/23 1650 92 Room Air 04/23 1600 Nasal 2.0L Cannula 04/23 1600 93 Nasal 2.0L Cannula 04/23 1403 97.9 77 20 124/70 91 Nasal 2.0L Cannula Intake & Output 04/24 1600 04/24 0800 04/24 0000 Intake Total 560 Output Total 300 475 Balance 260 -475 Intake, IV 360 Intake, Oral 200 Output, Urine 300 475 Physical Exam Other Physical Findings: Afebrile. He is awake and in no ac distress. Skin reveals no rash. HEENT negative. Neck is supple with no adenopathy. Lungs decreased breath sounds both bases, few b/l rhonchi. Heart regular rhythm with no murmur. Abdomen is soft, nontender with positive bowel sounds. Back no CVA tenderness. Extremities no cyanosis, clubbing or edema. Neuro is without focality. Results Last 24 Hours of Lab Results: Laboratory Tests 04/24 04/24 1001 0700 Chemistry Sodium (137 - 145 mmol/L) 142 Potassium (3.5 - 5.1 mmol/L) 4.3 Chloride (98 - 107 mmol/L) 103 Carbon Dioxide (22 - 30 mmol/L) 28 Anion Gap (5 - 16) 11 BUN (9 - 20 mg/dL) 18 Creatinine (0.7 - 1.2 mg/dL) 0.6 L Estimated GFR (>60 ml/min) > 60 BUN/Creatinine Ratio (7 - 25 %) 30.0 H Hematology CBC w Diff NO MAN DIFF REQ WBC (4.8 - 10.8 /CUMM) 19.3 H RBC (4.70 - 6.10 /CUMM) 3.69 L Hgb (14.0 - 18.0 G/DL) 10.8 L Hct (42 - 52 %) 32.8 L MCV (80.0 - 94.0 FL) 88.9 MCH (27.0 - 31.0 PG) 29.2 MCHC (33.0 - 37.0 G/DL) 32.9 L RDW (11.5 - 14.5 %) 14.2 Plt Count (130 - 400 /CUMM) 448 H MPV (7.4 - 10.4 FL) 8.4 Gran % (42.2 - 75.2 %) 82.5 H Lymphocytes % (20.5 - 51.1 %) 12.0 L Monocytes % (1.7 - 9.3 %) 4.3 Eosinophils % (0 - 5 %) 1.1 Basophils % (0.0 - 2.0 %) 0.1 Absolute Granulocytes (1.4 - 6.5 /CUMM) 15.9 H Absolute Lymphocytes (1.2 - 3.4 /CUMM) 2.3 Absolute Monocytes (0.10 - 0.60 /CUMM) 0.8 H Absolute Eosinophils (0.0 - 0.7 /CUMM) 0.2 Absolute Basophils (0.0 - 0.2 /CUMM) 0 Toxicology Vancomycin Trough (10.0 - 20.0 ug/mL) 7.6 L Last 24 Hours of Jt Results: SPEC #: [id number] WATSON: 04/24/17 STATUS: ORD RECD: - SUBM DR: Lizeth Maldonado MD SOURCE: STOOL ENTR: 04/24/[address] [facility] [address]: René Morales MD [facility]: Patient Has No Primary Care Dr Darell GOMEZ, [facility] ORDERED: C.DIFFICILE EIA COMMENT: Has pt had antimicrobial/antineoplastic rx in past 4-6wks? Y Has pt had abd pain, fever, or constipation? Y Procedure Result C.DIFFICILE EIA PENDING RECEIPT SPEC #: [id number] WATSON: 04/21/17 STATUS: RES RECD: 04/21/[address]: Margo Hull MD SOURCE: BODY FLUID ENTR: 01/25/18-[address]: Andrew GOMEZ,René [facility]: [place] Patient Has No Primary Care Dr Darell GOMEZ, [facility] ORDERED: BODY FLD CULTUR COMMENT: 8mL OF YELLOW CLOUDY FLUID Procedure Result > GRAM STAIN Final 04/22/17-1359 WHITE BLOOD CELLS PACKED GRAM POSITIVE COCCI FEW IN CLUSTERS > BODY FLUID CULTURE Preliminary 04/23/17-1208 NO GROWTH AFTER 2 DAYS Recent Imaging Studies: CT chest IMPRESSION: 1. Moderate pulmonary emphysema. 2. Persistent consolidation left lower lobe, consistent with pneumonia. In the consolidated area, there are at least two small cystic areas (from the underlying emphysema or possible cavitary change within the infected lung). The left pleural effusion is smaller compared to 04/20/2017. 3. Nonspecific 0.6 cm nodule within the lingula for which follow-up is recommended in 6 months. DICTATED BY: Mike Carney MD DATE/TIME DICTATED:04/23/171615 STUDENT ACCOUNTS MANAGER:RICKEY DATE/TIME TRANSCRIBED:04/23/171615 CONFIDENTIAL, DO NOT COPY WITHOUT APPROPRIATE AUTHORIZATION. Assessment/Plan Impression: 56-year-old man with a history of COPD admitted on April 20 with the acute onset of severe left-sided chest pain, increased with inspiration, and increased shortness of breath, superimposed on a several week history of increasing shortness of breath, occasional left-sided chest discomfort and increased fatigue, with a chronic cough and a 50 pound weight loss over the past 6 months, found to be febrile with severe leukocytosis and a left basilar density and moderate pleural effusion on chest x-ray/CT scan, status post a thoracentesis on 04/21 revealing an empyema, with a gram stain of the pleural fluid revealing gram -positive cocci in clusters (? S. aureus) and culture negative at 2 days. Of note he is afebrile; WBC is trending down on current empiric abx regimen. COPD exac Suggestion: 1. Trend CBC. Follow-up final pleural fluid culture and cytology results 2. Continue D #3 Unasyn 3 g IV every 6 hours and increase Vancomycin 1500 mg IV every 12 hours; obtain nasal MRSA surv cx 3. F/U pulm recom
[2017-04-24 14:02] VITALS: BP 110/60
[2017-04-24 22:04] VITALS: BP 110/68
[2017-04-25 05:47] VITALS: BP 130/78
--- NOTE | 2017-04-25 07:30 | PN- Housestaff ---
Joel GOMEZ,Lizeth 04/25/17 0730: Subjective Follow-up For: EMPYEMA PNEUMONIA COPD EXACERBATION Subjective: PATIPHOENIX CONTINUES TO HAVE COUGH TODAY AND PLEURITIC CHEST PAIN. HE HAS MORE OF A PRODUCTIVE COUGH THAT HE CAN HEAR AND FEEL BUT CANNOT PRODUCE SPUTUM FOR CULTURE. HE HAD 2 BOUTS OF LOOSE STOOL YESTERDAY. PATIENT SEEMS TO BE MORE TALKATIVE TODAY ALTHOUGH HE SAYS HE FEELS WORSE. Review of Systems Constitutional: Reports: malaise, weakness. Cardiovascular: Reports: chest pain. Respiratory: Reports: cough, short of breath, sputum production. Gastrointestinal: Reports: diarrhea. Objective Last 24 Hrs of Vital Signs/I&O Vital Signs Date Time Temp Pulse Resp B/P B/P Pulse O2 O2 Flow FiO2 Mean Ox Delivery Rate 04/25 1610 96 Nasal 1.0L Cannula 04/25 1513 98.1 72 20 110/68 93 Nasal 4.0L Cannula 04/25 0910 93 Nasal 1.0L Cannula 04/25 0800 92 Nasal 1.0L Cannula 04/25 0800 92 Nasal 1.0L Cannula 04/25 0547 98.0 65 22 130/78 95 Nasal 1.0L Cannula 04/25 0000 96 Nasal 1.0L Cannula 04/25 0000 96 Nasal 1.0L Cannula 04/24 2204 98.2 72 20 110/68 94 Nasal 1.0L Cannula Intake & Output 04/25 1600 04/25 0800 04/25 0000 Intake Total 1150 Output Total 450 550 475 Balance 700 -550 -475 Intake, IV 350 Intake, Oral 800 Number 0 Bowel Movements Output, Urine 450 550 475 Patient 187 lb Weight Physical Exam General Appearance: Alert, Oriented X3, Cooperative, Mild Distress Skin: No Rashes, No Breakdown, No Significant Lesion HEENT: Atraumatic Neck: Supple, No JVD Cardiovascular: Regular Rate, Normal S1, Normal S2, No Murmurs Lungs: DISTANT BREATH SOUNDS, MILD CRACKLES IN BOTH SIDES. Abdomen: Normal Bowel Sounds, Soft, No Tenderness Neurological: Normal Speech Extremities: No Clubbing, No Cyanosis, No Edema, Normal Pulses, No Tenderness/ Swelling Current Medications: Current Medications Sig/Tonio Start time Last Medication Dose Route Stop Time Status Admin Acetaminophen 650 MG Q8P PRN 04/21 2002 AC PO Acetylcysteine 8 ML BID 04/25 2199 AC INH Acetylcysteine 4 ML BID 04/25 1035 DC 04/25 INH 1216 Acetylcysteine 4,241.1 MG ONCE ONE 04/25 1020 CAN Dextrose/Water 500 ML IV 04/25 1430 Albuterol Sulfate 3 ML EVERY 4 HRS/AWAKE 04/22 0800 AC 04/25 INH 1610 Albuterol Sulfate 3 ML Q4P PRN 04/21 0015 AC INH Ampicillin Sodium/ 3,000 MG Q6H 04/22 1600 AC 04/25 Sulbactam Sodium IV 1653 Sodium Chloride 100 ML Benzonatate 100 MG TID 04/22 1649 AC 04/25 PO 1654 Enoxaparin Sodium 40 MG DAILY 04/21 1000 AC 04/25 SC 0910 Guaifenesin/Codeine 10 ML Q6P PRN 04/22 0845 AC 04/25 Phosphate PO 1653 Ibuprofen 400 MG Q6P PRN 04/21 2015 AC PO Ipratropium Haiku 2.5 ML EVERY 4 HRS/AWAKE 04/22 0800 AC 04/25 INH 1610 Lactobacillus 1 CAP BID 04/24 1122 AC 04/25 Acidophilus PO 0910 Nicotine 14 MG DAILY 04/21 1000 AC 04/25 TOP 0910 Oxycodone/ 1 TAB Q6P PRN 04/22 1000 AC 04/25 Acetaminophen PO 1654 Prednisone 10 MG DAILY 04/28 1000 AC PO 04/30 0959 Prednisone 20 MG DAILY 04/26 1000 AC PO 04/28 0959 Prednisone 30 MG DAILY 04/24 1000 AC 04/25 PO 04/26 0955 0910 Vancomycin HCl 1,500 MG BID 04/24 2200 DC 04/25 Dextrose/Water 250 ML IV 1153 Vancomycin HCl 1,250 MG Q12 04/22 2200 DC 04/24 Dextrose/Water 250 ML IV 1114 Last 24 Hrs of Lab/Jt Results Last 24 Hrs of Labs/Mics: Laboratory Tests 04/25/17 0930: Vancomycin Trough 9.7 L 04/25/17 0820: Anion Gap 13, Estimated GFR > 60, BUN/Creatinine Ratio 28.3 H 04/25/17 0820: Sodium Cancelled, Potassium Cancelled, Chloride Cancelled, Carbon Dioxide Cancelled, Anion Gap Cancelled, BUN Cancelled, Creatinine Cancelled, BUN/ Creatinine Ratio Cancelled, CBC w Diff NO MAN DIFF REQ, RBC 4.16 L, MCV 89.0, MCH 29.3, MCHC 33.0, RDW 14.0, MPV 8.4, Gran % 84.2 H, Lymphocytes % 10.8 L, Monocytes % 3.3, Eosinophils % 1.4, Basophils % 0.3, Absolute Granulocytes 17.3 H, Absolute Lymphocytes 2.2, Absolute Monocytes 0.7 H, Absolute Eosinophils 0.3 , Absolute Basophils 0.1, Vancomycin Trough 11.4 Microbiology 04/24 1910 UPPER RESP: Surveillance Culture - RECD Assessment/Plan Assessment: The patient is 56-year-old gentleman with past medical history of COPD and suspected hyperlipidemia. He presented to [facility] on 04/20 with complaint of shortness of breath AND CHEST PAIN ON INSPIRATION THAT STARTED FAILY ABRUPTLY THAT DAY. -VS 102.9, 100, 28,142/72,96% Ventimask -Pertinent labs, WBC count 30.4, band cells 14 H/H 13/42, platelets 602, lactic acid 1.1--4.1, d-dimer 391, UA clean, venous blood gases pH 7.37, PCO2 32, PO2 68 -Imaging findings dictated above -In ED patient received 1 L normal saline, Toradol, azithromycin, Rocephin, swollen 25;, 1 g of magnesium sulfate. On standing patient desatted to 88% -He is admitted to general medicine floor and is being treated and evaluated for following conditions #Sepsis secondary to Community-acquired pneumonia and COPD exacerbation with Acute hypoxemic respiratory failure Patient is presenting with high-grade fever and elevated WBC count along with blood cells elevated heart rate (SIRS criteria positive). Patient is complaining of shortness of breath along with chest pain. CTA negative for pulmonary embolism but positive for left lower lobe consolidation/atelectasis with associated moderate sized left pleural effusion THAT WAS FOUND TO BE AN EXUDATIVE EFFUSION WITH HIGH WHITE COUNT AND GPC (EMPYEMA). PATIENT IS BEING TREATED FOR community-acquired pneumonia AND EMPYEMA ALONG with some component of COPD exacerbation. -WBC TODAY HAVE INCREASED TO 21. STILL SHOWING SIGNS OF INFECTION- NECROSIS PER PULM? ELEVATED WBC PERSISTS. OF NOTE PATIENT IS ON STEROIDS. -PATIENT HAS PNEUMONIA AND PLEURAL EFFUSION WHICH ARE INDICATIONS FOR EMERGENT TAP WHICH HE UNDERWENT YESTERDAY. DRAINAGE OF 900CC YELLOW GREEN AND SLIGHTLY CLOUDY FLUID. -ON SUNDAY 04/[address] HEREDIA WE REPEATED CT CHEST WITHOUT CONTRAST AND IT SHOWED PERSISTENT CONSOLIDATION WITH 2 SMALL CYSTIC AREAS, AND A .6CM NODULE. ALSO DECREASED IN SIZE PLEURAL EFFUSION. -DR. MEDINA MASS SPECTROMETRY MANAGER IS FOLLOWING PATIENT AND SUGGESTED TAPERING STEROID AND PATIENT IS CURRENTLY ON 30MG DAILY. ULTRASOUND SHOWED SMALL PULMONARY EFFUSION AND WE HAVE CONTACTED DR. RAHUL SOTO for his suggestion on PLACEMENT OF A PIGTAIL CATHETER BUT IT WAS DEFERRED. -Urine strep and Legionella antigen NEGATIVE -FOLLOW UP Panculture AND CULTURE PLEURAL FLUID -PLEURAL FLUID LABS: WBC 51070, LDH 4733 PH 6.87, RBC 50 GLU 20 TP 4.1. THIS FLUID IS EXUDATITVE. MOST PROBABLY DUE TO BACTERIAL PNEUMONIA BUT DIFFERENTIAL INCLUDES CANCER, TB, PE. HE DOES ADMIT TO WEIGHT LOSS AND CURRENT SMOKING ? CANCER. -PLEURAL FLUID SHOWS PACKED WBCS, GRAM POSITIVE COCCI FEW IN CLUSTERS AND COAGULASE NEGATIVE STAPH. -As per Dr. Foley: pleural fluid culture growing coag-negative Staph, most suggestive of contamination, and few gram-positive cocci in clusters, which most likely represents anaerobes, and the coag-negative Staph could prove to be a Staph lugdunensis, which would be considered a pathogen. -Patient had repeat CXR today which showed increased left pleural effusion and he is scheduled for an ultrasound and possible placement of a pigtail catheter if he has increased fluid tomorrow. - PER ID, DISCONTINUE VANCO AND CONTINUE UNASYN. -ID CONSULT SUGGESTED HIV TEST, DC CEFTRIAXONE AND AZITHRO AND STARTING UNASYN 3GQ6H AND VANCO 1250MG IV BID. YESTEDAY WE INCREASED VANCO TO 1500MG BID. WE WILL DO VANCO TROUGH IN MORNING. -Tylenol for fever control -Toradol for pain relief -TRC/nebs -Oxygen supplementation to maintain oxygen saturation above 92% -IV methylprednisone 40MG every 8h WAS SWITCHED TO BY MOUTH TAPER PER DR. MEDINA -UTOX IS HIGH FOR OPIATES WHICH COULD CAUSE RESP DEPRESSION. WE WILL HOLD ALL BENZOS AND OPIATES. -TESSALON PEARLS AND MUCOMYST -MRSA SCREEN PENDING #CHEST PAIN -ON INSPIRATION, LESS LIKELY CARDIAC BUT TROPS AND EKGS DONE AND NEGATIVE X2 -CONTINUE TORADOL FOR PAIN RELIEF. #Thrombocytosis OVER 600 likely reactive secondary to infection -Monitor platelet count #DIARRHEA C.DIFF TEST CANCELLED PATIENT HAS NOT HAD ANOTHER BOWEL MOVEMENT PROBIOTIC #Lactic acidosis secondary to sepsis -IVF -Repeat lactate IS 1.0 FROM HIGH OF 4.1. #Smoker -Nicotine patch -Consult regarding smoking abstinence #History of hyperlipidemia -LIPID PROFILE NORMAL -6.3 HBA1C FOR CORONARY EQUIVALENTS- SLIGHTLY HIGH. WILL NEED DIET CONTROL. -TSH LOW AND FT4 NORMAL #FC/DVT prophylaxis with Lovenox/regular diet Problem List: 1. Empyema 2. Sepsis 3. Leukocytosis 4. Left lower lobe pneumonia 5. Hypoxia Pain Ratin Pain Location: LEFT CHEST Pain Goal: Pain 4 or less Pain Plan: PATHWAY Tomorrow's Labs & Rationales: CBC BEP René Morales 04/25/17 1443: Attending MD Review Statement Attending Statement Attending MD Statement: examined this patient, discuss w/resident/PA/GROUP THERAPIST, agreed w/resident/PA/GROUP THERAPIST, discussed with family, reviewed EMR data (avail), discussed with nursing, discussed with case mgmt, reviewed images, amended to note Attending Assessment/Plan: 56-year-old male with past history significant for hypertension, COPD admitted with acute respiratory failure, community acquired pneumonia and empyema. Patient also had sepsis which is resolving. Persistent leukocytosis present. USG chest 04/22/17 Small left likely complicated plerual effusion. Repeat CT chest 04/23/17: shows Persistent consolidation left lower lobe, consistent with pneumonia. In the consolidated area, there are at least two small cystic areas (from the underlying emphysema or possible cavitary change within the infected lung). The left pleural effusion is smaller compared to . Chest xray 04/25/17:There is a persistent small left pleural effusion with increased adjacent left base airspace disease. Continue abx per ID. If Chest USG shows significant fluid collection, consider pig tail catheter placement. Continue steroid taper, TRC nebs. Continue all the rest of meds. DVt px; Lovenox. Follow ID and pulmonary recommendations.
[2017-04-25 08:56] LABS: ABSOLUTE BASOPHIL COUNT 0.1 /CUMM (0.0-0.2); ABSOLUTE EOSINOPHIL COUNT 0.3 /CUMM (0.0-0.7); ABSOLUTE GRANULOCYTE CT 17.3 /CUMM (1.4-6.5); ABSOLUTE LYMPH COUNT 2.2 /CUMM (1.2-3.4); ABSOLUTE MONOCYTE COUNT 0.7 /CUMM (0.10-0.60); BASOPHIL % 0.3 % (0.0-2.0); EOSINOPHIL % 1.4 % (0-5); GRANULOCYTE % 84.2 % (42.2-75.2); MEAN CORPUSCULAR HGB 29.3 PG (27.0-31.0); MEAN PLATELET VOLUME 8.4 FL (7.4-10.4); PLATELET COUNT 477 /CUMM (130-400); RED BLOOD CELL CT 4.16 /CUMM (4.70-6.10)
[2017-04-25 10:59] LABS: WHITE BLOOD CELL COUNT 20.6 /CUMM (4.8-10.8)
--- NOTE | 2017-04-25 11:36 | RADIOLOGY REPORT ---
EXAMINATION: XR CHEST CLINICAL INFORMATION: Follow-up pneumonia and left effusion; shortness of breath and diminished left breath sounds. COMPARISON: CT thorax dated 04/23/2015; prior chest radiographs dated 04/21/2017 and 04/20/2017. TECHNIQUE: 2 views of the chest were obtained. FINDINGS: The heart, great vessels, pulmonary vasculature and mediastinum are stable. There is a small left pleural effusion with mild adjacent left base airspace disease, increased from 04/21/2017. The right lung field remains clear. There is no pneumothorax. No acute osseous abnormality is seen. IMPRESSION: There is a persistent small left pleural effusion with increased adjacent left base airspace disease.
--- NOTE | 2017-04-25 12:16 | PN- Pulmonary ---
Subjective HPI/Critical Care Issues: Patient seen and examined this morning. His white blood cell count remains elevated. Chest x-ray shows persistent left base airspace disease. Objective Current Medications: Current Medications Sig/Tonio Start time Last Medication Dose Route Stop Time Status Admin Acetaminophen 650 MG Q8P PRN 04/21 2002 AC PO Acetylcysteine 4 ML BID 04/25 1035 AC INH Acetylcysteine 4,241.1 MG ONCE ONE 04/25 1020 CAN Dextrose/Water 500 ML IV 04/25 1430 Albuterol Sulfate 3 ML EVERY 4 HRS/AWAKE 04/22 0800 AC 04/25 INH 0848 Albuterol Sulfate 3 ML Q4P PRN 04/21 0015 AC INH Ampicillin Sodium/ 3,000 MG Q6H 04/22 1600 AC 04/25 Sulbactam Sodium IV 1031 Sodium Chloride 100 ML Benzonatate 100 MG TID 04/22 1649 AC 04/25 PO 0910 Enoxaparin Sodium 40 MG DAILY 04/21 1000 AC 04/25 SC 0910 Guaifenesin/Codeine 10 ML Q6P PRN 04/22 0845 AC 04/25 Phosphate PO 0823 Ibuprofen 400 MG Q6P PRN 04/21 2014 AC PO Ipratropium [place] 2.5 ML EVERY 4 HRS/AWAKE 04/22 0800 AC 04/25 INH 0848 Lactobacillus 1 CAP BID 04/24 1122 AC 04/25 Acidophilus PO 0910 Nicotine 14 MG DAILY 04/21 1000 AC 04/25 TOP 0910 Oxycodone/ 1 TAB Q6P PRN 04/22 1000 AC 04/25 Acetaminophen PO 1034 Prednisone 10 MG DAILY 04/28 1000 AC PO 04/30 0959 Prednisone 20 MG DAILY 04/26 1000 AC PO 04/28 0959 Prednisone 30 MG DAILY 04/24 1000 AC 04/25 PO 04/26 0955 0910 Vancomycin HCl 1,500 MG BID 04/24 2200 AC 04/25 Dextrose/Water 250 ML IV 1153 Vancomycin HCl 1,250 MG Q12 04/22 220 DC 04/24 Dextrose/Water 250 ML IV 1114 Vital Signs & I&O Last 24 Hrs of Vitals and I&O: Vital Signs Date Time Temp Pulse Resp B/P B/P Pulse O2 O2 Flow FiO2 Mean Ox Delivery Rate 04/25 0910 93 Nasal 1.0L Cannula 04/25 08 92 Nasal 1.0L Cannula 04/25 08 92 Nasal 1.0L Cannula 04/25 0547 98.0 65 22 130/78 95 Nasal 1.0L Cannula 04/25 0000 96 Nasal 1.0L Cannula 04/25 0000 96 Nasal 1.0L Cannula 04/24 2204 98.2 72 20 110/68 94 Nasal 1.0L Cannula 04/24 1655 95 Nasal 1.0L Cannula 04/24 1600 Nasal 1.0L Cannula 04/24 1600 94 Nasal 1.0L Cannula 04/24 1402 98.4 84 20 110/60 92 Nasal 1.0L Cannula Intake & Output 04/25 1600 04/25 0800 04/25 0000 Intake Total Output Total 550 475 Balance -550 -475 Output, Urine 550 475 Patient 187 lb Weight Exam Other Physical Findings: Generally - Awake, alert and comfortable without distress Head and neck - normocephalic, atraumatic, EOMI grossly intact Cardiovascular - S1, S2, no murmurs, rubs or gallops Lungs -diminished breath sounds at the bases Abdomen - Bowel sounds positive, soft, non-tender Extremities - without edema Results Last 24 Hrs of Lab Results: Laboratory Tests 04/25/17 0930: Vancomycin Trough 9.7 L 04/25/17 0820: Anion Gap 13, Estimated GFR > 60, BUN/Creatinine Ratio 28.3 H 04/25/17 0820: Sodium Cancelled, Potassium Cancelled, Chloride Cancelled, Carbon Dioxide Cancelled, Anion Gap Cancelled, BUN Cancelled, Creatinine Cancelled, BUN/ Creatinine Ratio Cancelled, CBC w Diff NO MAN DIFF REQ, RBC 4.16 L, MCV 89.0, MCH 29.3, MCHC 33.0, RDW 14.0, MPV 8.4, Gran % 84.2 H, Lymphocytes % 10.8 L, Monocytes % 3.3, Eosinophils % 1.4, Basophils % 0.3, Absolute Granulocytes 17.3 H, Absolute Lymphocytes 2.2, Absolute Monocytes 0.7 H, Absolute Eosinophils 0.3 , Absolute Basophils 0.1, Vancomycin Trough 11.4 Impression/Plan Impression/Plan Impression/Plan: Impression 56 year old man. * LLL pneumonia and exudative pleural fluid consistent with empyema Plan -f/u ID recommendations -f/u all pleural studies (cytology) -given elevated wbc, can recheck ultrasound of the chest to see if any substantial fluid if yes, then a pigtail catheter would be recommended DVT prophylaxis at all times
--- NOTE | 2017-04-25 14:36 | PN- Infect Dx ---
Subjective Subjective: Afebrile. He continues to complain of pain in the left chest, radiating to the left upper back. He complains of his usual shortness of breath and a chronic cough. Objective Last 24 Hrs of Vital Signs/I&O Vital Signs Date Time Temp Pulse Resp B/P B/P Pulse O2 O2 Flow FiO2 Mean Ox Delivery Rate 04/25 0910 93 Nasal 1.0L Cannula 04/25 0800 92 Nasal 1.0L Cannula 04/25 0800 92 Nasal 1.0L Cannula 04/25 0547 98.0 65 22 130/78 95 Nasal 1.0L Cannula 04/25 0000 96 Nasal 1.0L Cannula 04/25 0000 96 Nasal 1.0L Cannula 04/24 2204 98.2 72 20 110/68 94 Nasal 1.0L Cannula 04/24 1655 95 Nasal 1.0L Cannula 04/24 1600 Nasal 1.0L Cannula 04/24 1600 94 Nasal 1.0L Cannula Intake & Output 04/25 1600 04/25 0800 04/25 0000 Intake Total Output Total 550 475 Balance -550 -475 Output, Urine 550 475 Patient 187 lb Weight Physical Exam Other Physical Findings: He appears comfortable in no acute distress Lungs decreased breath sounds at the left base Heart regular rhythm with no murmur Extremities no cyanosis, clubbing or edema Results Last 24 Hours of Lab Results: Laboratory Tests 04/25 04/25 04/25 0930 0820 0820 Chemistry Sodium (137 - 145 mmol/L) 142 Cancelled Potassium (3.5 - 5.1 mmol/L) 4.1 Cancelled Chloride (98 - 107 mmol/L) 103 Cancelled Carbon Dioxide (22 - 30 mmol/L) 26 Cancelled Anion Gap (5 - 16) 13 Cancelled BUN (9 - 20 mg/dL) 17 Cancelled Creatinine (0.7 - 1.2 mg/dL) 0.6 L Cancelled Estimated GFR (>60 ml/min) > 60 BUN/Creatinine Ratio (7 - 25 %) 28.3 H Cancelled Hematology CBC w Diff NO MAN DIFF REQ WBC (4.8 - 10.8 /CUMM) 20.6 H RBC (4.70 - 6.10 /CUMM) 4.16 L Hgb (14.0 - 18.0 G/DL) 12.2 L Hct (42 - 52 %) 37.0 L MCV (80.0 - 94.0 FL) 89.0 MCH (27.0 - 31.0 PG) 29.3 MCHC (33.0 - 37.0 G/DL) 33.0 RDW (11.5 - 14.5 %) 14.0 Plt Count (130 - 400 /CUMM) 477 H MPV (7.4 - 10.4 FL) 8.4 Gran % (42.2 - 75.2 %) 84.2 H Lymphocytes % (20.5 - 51.1 %) 10.8 L Monocytes % (1.7 - 9.3 %) 3.3 Eosinophils % (0 - 5 %) 1.4 Basophils % (0.0 - 2.0 %) 0.3 Absolute Granulocytes (1.4 - 6.5 /CUMM) 17.3 H Absolute Lymphocytes (1.2 - 3.4 /CUMM) 2.2 Absolute Monocytes (0.10 - 0.60 /CUMM) 0.7 H Absolute Eosinophils (0.0 - 0.7 /CUMM) 0.3 Absolute Basophils (0.0 - 0.2 /CUMM) 0.1 Toxicology Vancomycin Trough (10.0 - 20.0 ug/mL) 9.7 L 11.4 Last 24 Hours of Jt Results: Left pleural fluid culture April 21 positive for coag-negative Staph Urine culture April 21 negative Recent Imaging Studies: Chest x-ray April 25 reveals an increased left lung density Assessment/Plan Impression: Persistent leukocytosis, though decreased from his previous values, with temperatures remaining normal on Unasyn and Vancomycin Day 3 of treatment for an empyema of the left chest, with his pleural fluid culture growing coag-negative Staph, most suggestive of contamination, though the gram stain did reveal a few gram-positive cocci in clusters, which most likely represents anaerobes, and the coag-negative Staph could prove to be a Staph lugdunensis, which would be considered a pathogen. His chest x-ray does suggest an increased left pleural effusion and he is scheduled for an ultrasound and possible placement of a pigtail catheter if he has increased fluid. Suggestion: 1. Await ultrasound of the chest, scheduled for later today 2. Would pursue placement of a pigtail catheter in the left chest if he has significant fluid 3. Follow-up final pleural fluid culture 4. Discontinue Vancomycin 5. Continue Unasyn
[2017-04-25 15:13] VITALS: BP 110/68
--- NOTE | 2017-04-25 16:35 | ULTRASOUND REPORT ---
EXAMINATION: US PLEURAL EFFUSION CLINICAL INFORMATION: Fall left-sided pleural effusion. COMPARISON: Same day chest x-ray, chest CT 04/23/2017, chest ultrasound 04/22/2016 and chest x-ray 04/21/2016 TECHNIQUE: Grayscale imaging of the chest was performed. FINDINGS: A small left-sided pleural effusion is noted, mildly increased in size from 04/22/2017. Echogenicities deep to the pleural fluid suggest airspace disease. No right-sided pleural effusion. IMPRESSION: Small left-sided pleural effusion, increased in size from 04/22/2017.
[2017-04-25 22:35] VITALS: BP 104/52
[2017-04-26 06:46] VITALS: BP 106/54
[2017-04-26 08:25] LABS: PT 13.9 SEC (9.4-12.5)
--- NOTE | 2017-04-26 09:06 | PN- Housestaff ---
Joel GOMEZ,Lizeth 04/26/17 0905: Subjective Follow-up For: EMPYEMA PNEUMONIA COPD EXACERBATION Subjective: PATIENT STILL SHORT OF BREATH. is on 1L. got breathing treatment. denies cp or abd pain. Review of Systems Constitutional: Reports: no symptoms. Cardiovascular: Reports: chest pain. Respiratory: Reports: cough, short of breath. Objective Last 24 Hrs of Vital Signs/I&O Vital Signs Date Time Temp Pulse Resp B/P B/P Pulse O2 O2 Flow FiO2 Mean Ox Delivery Rate 04/26 1200 90 Nasal 1.0L Cannula 04/26 08 94 Nasal 1.0L Cannula 04/26 08 93 Nasal 1.0L Cannula 04/26 0646 97.4 70 18 106/54 92 04/26 0000 96 Nasal 1.5L Cannula 04/26 0000 96 Nasal 1.0L Cannula 04/25 2235 97.6 73 18 104/52 94 Nasal 1.0L Cannula Intake & Output 04/26 1600 04/26 0800 04/26 0000 Intake Total 910 620 370 Output Total 400 Balance 910 620 -30 Intake, IV 110 140 130 Intake, Oral 800 480 240 Number 1 0 0 Bowel Movements Output, Urine 400 Physical Exam General Appearance: Alert, Oriented X3, Cooperative, No Acute Distress Skin: No Rashes, No Breakdown, No Significant Lesion Skin Temp/Moisture Exam: Warm/Dry Cardiovascular: Regular Rate, Normal S1, Normal S2, No Murmurs Lungs: distant breath sounds throughout. mild crackles in left lower base. Abdomen: Normal Bowel Sounds, Soft, No Tenderness, No Hepatospenomegaly Neurological: Normal Speech Extremities: No Clubbing, No Cyanosis, No Edema, Normal Pulses, No Tenderness/ Swelling Current Medications: Current Medications Sig/Tonio Start time Last Medication Dose Route Stop Time Status Admin Acetaminophen 650 MG Q8P PRN 04/21 2002 AC PO Acetylcysteine 8 ML BID 04/25 2200 AC 04/26 INH 1155 Albuterol Sulfate 3 ML EVERY 4 HRS/AWAKE 04/22 08 AC 04/26 INH 1637 Albuterol Sulfate 3 ML Q4P PRN 04/21 0015 DC INH Ampicillin Sodium/ 3,000 MG Q6H 04/22 1600 AC 04/26 Sulbactam Sodium IV 1647 Sodium Chloride 100 ML Benzonatate 100 MG TID 04/22 1649 AC 04/26 PO 1647 Enoxaparin Sodium 40 MG DAILY 04/21 1000 AC 04/25 SC 0910 Fentanyl Citrate 0 .STK-MED ONE 04/26 1400 DC .ROUTE Guaifenesin/Codeine 10 ML Q6P PRN 04/22 0845 AC 04/26 Phosphate PO 1722 Ibuprofen 400 MG Q6P PRN 04/21 2015 AC PO Ipratropium [place] 2.5 ML EVERY 4 HRS/AWAKE 04/22 0800 DC 04/26 INH 0841 Lactobacillus 1 CAP BID 04/24 1122 AC 04/26 Acidophilus PO 0907 Nicotine 14 MG DAILY 04/21 1000 AC 04/26 TOP 0907 Oxycodone/ 1 TAB Q4 PRN 04/26 1534 AC 04/26 Acetaminophen PO 1722 Oxycodone/ 1 TAB Q6P PRN 04/22 1000 DC 04/26 Acetaminophen PO 1133 Prednisone 10 MG DAILY 04/28 1000 AC PO 04/30 0959 Prednisone 20 MG DAILY 04/26 1000 AC 04/26 PO 04/28 0959 0908 Prednisone 30 MG DAILY 04/24 1000 DC 04/25 PO 04/26 0955 0910 Last 24 Hrs of Lab/Jt Results Last 24 Hrs of Labs/Mics: Laboratory Tests 04/26/17 1511: Fluid WBC 2650 H, Fld Total RBCs Counted 38095 H 04/26/17 1511: Lymphocytes 1, % Normal PMNs 92, Misc Hematology Test , Fluid Glucose 36, Fluid Total Protein 3.6, Fluid LDH 37296 04/26/17 1445: Phlebotomy Draw Site LT PLEURAL, Pleural pH 7.04 04/26/17 0735: Anion Gap 12, Estimated GFR > 60, BUN/Creatinine Ratio 25.7 H, PT 13.9 H, INR 1.33 H, CBC w Diff NO MAN DIFF REQ, RBC 4.08 L, MCV 89.1, MCH 28.9, MCHC 32.5 L, RDW 14.4, MPV 8.2, Gran % 81.5 H, Lymphocytes % 9.7 L, Monocytes % 6.9, Eosinophils % 1.9, Basophils % 0, Absolute Granulocytes 17.5 H, Absolute Lymphocytes 2.1, Absolute Monocytes 1.5 H, Absolute Eosinophils 0.4, Absolute Basophils 0 Microbiology 04/26 151 BODY FLUID: Body Fluid Culture - RECD 04/26 151 BODY FLUID: Gram Stain - RECD Assessment/Plan Assessment: The patient is 56-year-old gentleman with past medical history of COPD and suspected hyperlipidemia. He presented to [place] ED on 04/20 with complaint of shortness of breath AND CHEST PAIN ON INSPIRATION THAT STARTED FAILY ABRUPTLY THAT DAY. -VS 102.9, 100, 28,142/72,96% Ventimask -Pertinent labs, WBC count 30.4, band cells 14 H/H 13/42, platelets 602, lactic acid 1.1--4.1, d-dimer 391, UA clean, venous blood gases pH 7.37, PCO2 32, PO2 68 -Imaging findings dictated above -In ED patient received 1 L normal saline, Toradol, azithromycin, Rocephin, swollen 25;, 1 g of magnesium sulfate. On standing patient desatted to 88% -He is admitted to general medicine floor and is being treated and evaluated for following conditions #Sepsis secondary to Community-acquired pneumonia and COPD exacerbation with Acute hypoxemic respiratory failure Patient is presenting with high-grade fever and elevated WBC count along with blood cells elevated heart rate (SIRS criteria positive). Patient is complaining of shortness of breath along with chest pain. CTA negative for pulmonary embolism but positive for left lower lobe consolidation/atelectasis with associated moderate sized left pleural effusion THAT WAS FOUND TO BE AN EXUDATIVE EFFUSION WITH HIGH WHITE COUNT AND GPC (EMPYEMA). PATIENT IS BEING TREATED FOR community-acquired pneumonia AND EMPYEMA ALONG with some component of COPD exacerbation. -WBC TODAY HAVE INCREASED TO 21.5. PATIENT AFEBRILE. STILL SHOWING SIGNS OF INFECTION- NECROSIS PER PULM. ELEVATED WBC PERSISTS. OF NOTE PATIENT IS ON STEROIDS. -PATIENT HAS PNEUMONIA AND PLEURAL EFFUSION WHICH ARE INDICATIONS FOR EMERGENT TAP WHICH HE UNDERWENT. DRAINAGE OF 900CC YELLOW GREEN AND SLIGHTLY CLOUDY FLUID. -ON SUNDAY 04/[address] HEREDIA WE REPEATED CT CHEST WITHOUT CONTRAST AND IT SHOWED PERSISTENT CONSOLIDATION WITH 2 SMALL CYSTIC AREAS, AND A .6CM NODULE. ALSO DECREASED IN SIZE PLEURAL EFFUSION. NOW CHEST US SHOWS INCREASE IN SIZE OF EFFUSION. -CONTINUE TO TAPER STEROIDS ABLE -Urine strep and Legionella antigen NEGATIVE -FOLLOW UP Panculture AND CULTURE PLEURAL FLUID SHOW COAG NEGATIVE STAPH, LIKELY CONTAMINANT FROM SKIN. -PLEURAL FLUID LABS: WBC 59450, LDH 4733 PH 6.87, RBC 50 GLU 20 TP 4.1. THIS FLUID IS EXUDATITVE. MOST PROBABLY DUE TO BACTERIAL PNEUMONIA BUT DIFFERENTIAL INCLUDES CANCER, TB, PE. HE DOES ADMIT TO WEIGHT LOSS AND CURRENT SMOKING ? CANCER. -As per Dr. Foley: pleural fluid culture growing coag-negative Staph, most suggestive of contamination, and few gram-positive cocci in clusters, which most likely represents anaerobes, and the coag-negative Staph could prove to be a Staph lugdunensis, which would be considered a pathogen. -Patient had placement of a pigtail catheter TODAY - PER ID CONTINUE UNASYN. -ID CONSULT SUGGESTED HIV TEST WHICH WAS NEGATIVE -Tylenol for fever control -Toradol for pain relief PLUS PERCOCET Q4 -TRC/nebs -Oxygen supplementation to maintain oxygen saturation above 92% -UTOX IS HIGH FOR OPIATES WHICH COULD CAUSE RESP DEPRESSION. WE WILL HOLD ALL BENZOS AND OPIATES. -TESSALON PEARLS AND MUCOMYST -NO MRSA ON SURVEILLANCE #CHEST PAIN -ON INSPIRATION, LESS LIKELY CARDIAC BUT TROPS AND EKGS DONE AND NEGATIVE X2 -CONTINUE TORADOL AND PERCOCET FOR PAIN RELIEF. #Thrombocytosis OVER 600 likely reactive secondary to infection -Monitor platelet count #DIARRHEA C.DIFF TEST CANCELLED PATIENT HAS NOT HAD ANOTHER BOWEL MOVEMENT PROBIOTIC #Lactic acidosis secondary to sepsis -RESOLVED #Smoker -Nicotine patch -Consult regarding smoking abstinence #History of hyperlipidemia -LIPID PROFILE NORMAL -6.3 HBA1C FOR CORONARY EQUIVALENTS- SLIGHTLY HIGH. WILL NEED DIET CONTROL. -TSH LOW AND FT4 NORMAL #FC/DVT prophylaxis with Lovenox/regular diet Problem List: 1. Empyema 2. Sepsis 3. Leukocytosis 4. Hypoxia 5. Left lower lobe pneumonia Pain Ratin Pain Location: pleuritic Pain Goal: Pain 4 or less Pain Plan: percocet q4 Tomorrow's Labs & Rationales: CBC BEP René Morales 04/26/17 1235: Attending MD Review Statement Attending Statement Attending MD Statement: examined this patient, discuss w/resident/PA/FASHION STYLIST, agreed w/resident/PA/FASHION STYLIST, discussed with family, reviewed EMR data (avail), discussed with nursing, discussed with case mgmt, reviewed images, amended to note Attending Assessment/Plan: 56-year-old male with past history significant for hypertension, COPD admitted with acute respiratory failure, community acquired pneumonia and empyema. Patient also had sepsis which is resolving. Persistent leukocytosis present. USG chest 04/22/17 Small left likely complicated plerual effusion. Repeat CT chest 04/23/17: shows Persistent consolidation left lower lobe, consistent with pneumonia. In the consolidated area, there are at least two small cystic areas (from the underlying emphysema or possible cavitary change within the infected lung). The left pleural effusion is smaller compared to . Chest xray 04/25/17:There is a persistent small left pleural effusion with increased adjacent left base airspace disease. 04/25/17 USG chest left sided small pleural effusion. Continue abx per ID. If Chest USG shows significant fluid collection, consider pig tail catheter placement. Discuss with Interventional radiology. Continue steroid taper, TRC nebs. Continue all the rest of meds. DVt px; Lovenox. Follow ID and pulmonary recommendations.
[2017-04-26 09:09] LABS: ABSOLUTE BASOPHIL COUNT 0 /CUMM (0.0-0.2); ABSOLUTE EOSINOPHIL COUNT 0.4 /CUMM (0.0-0.7); ABSOLUTE GRANULOCYTE CT 17.5 /CUMM (1.4-6.5); ABSOLUTE LYMPH COUNT 2.1 /CUMM (1.2-3.4); ABSOLUTE MONOCYTE COUNT 1.5 /CUMM (0.10-0.60); BASOPHIL % 0 % (0.0-2.0); EOSINOPHIL % 1.9 % (0-5); GRANULOCYTE % 81.5 % (42.2-75.2); HEMATOCRIT 36.3 % (42-52); MEAN CORPUSCULAR HGB 28.9 PG (27.0-31.0); MEAN CORPUSCULAR HGB CONC 32.5 G/DL (33.0-37.0); MEAN CORPUSCULAR VOLUME 89.1 FL (80.0-94.0); MEAN PLATELET VOLUME 8.2 FL (7.4-10.4); PLATELET COUNT 565 /CUMM (130-400); RBC DISTRIBUTION WIDTH 14.4 % (11.5-14.5); RED BLOOD CELL CT 4.08 /CUMM (4.70-6.10); WHITE BLOOD CELL COUNT 21.5 /CUMM (4.8-10.8)
--- NOTE | 2017-04-26 12:38 | PN- Infect Dx ---
Subjective Subjective: Afebrile. He continues to complain of left-sided chest pain radiating to the back. His cough persists as well. Objective Last 24 Hrs of Vital Signs/I&O Vital Signs Date Time Temp Pulse Resp B/P B/P Pulse O2 O2 Flow FiO2 Mean Ox Delivery Rate 04/26 1200 90 Nasal 1.0L Cannula 04/26 0800 94 Nasal 1.0L Cannula 04/26 0800 93 Nasal 1.0L Cannula 04/26 0646 97.4 70 18 106/54 92 04/26 0000 96 Nasal 1.5L Cannula 04/26 0000 96 Nasal 1.0L Cannula 04/25 2235 97.6 73 18 104/52 94 Nasal 1.0L Cannula 04/25 1610 96 Nasal 1.0L Cannula 04/25 1600 93 Nasal 1.0L Cannula 04/25 1600 93 Nasal 1.0L Cannula 04/25 1513 98.1 72 20 110/68 93 Nasal 4.0L Cannula Intake & Output 04/26 1600 04/26 0800 04/26 0000 Intake Total 620 370 Output Total 400 Balance 620 -30 Intake, IV 140 130 Intake, Oral 480 240 Number 0 0 Bowel Movements Output, Urine 400 Physical Exam Other Physical Findings: He appears comfortable in no acute distress Lungs decreased breath sounds on the left Heart regular rhythm with no murmur Extremities no cyanosis, clubbing or edema Results Last 24 Hours of Lab Results: Laboratory Tests 04/26 0735 Chemistry Sodium (137 - 145 mmol/L) 142 Potassium (3.5 - 5.1 mmol/L) 4.2 Chloride (98 - 107 mmol/L) 103 Carbon Dioxide (22 - 30 mmol/L) 28 Anion Gap (5 - 16) 12 BUN (9 - 20 mg/dL) 18 Creatinine (0.7 - 1.2 mg/dL) 0.7 Estimated GFR (>60 ml/min) > 60 BUN/Creatinine Ratio (7 - 25 %) 25.7 H Coagulation PT (9.4 - 12.5 SEC) 13.9 H INR (0.90 - 1.17) 1.33 H Hematology CBC w Diff NO MAN DIFF REQ WBC (4.8 - 10.8 /CUMM) 21.5 H RBC (4.70 - 6.10 /CUMM) 4.08 L Hgb (14.0 - 18.0 G/DL) 11.8 L Hct (42 - 52 %) 36.3 L MCV (80.0 - 94.0 FL) 89.1 MCH (27.0 - 31.0 PG) 28.9 MCHC (33.0 - 37.0 G/DL) 32.5 L RDW (11.5 - 14.5 %) 14.4 Plt Count (130 - 400 /CUMM) 565 H MPV (7.4 - 10.4 FL) 8.2 Gran % (42.2 - 75.2 %) 81.5 H Lymphocytes % (20.5 - 51.1 %) 9.7 L Monocytes % (1.7 - 9.3 %) 6.9 Eosinophils % (0 - 5 %) 1.9 Basophils % (0.0 - 2.0 %) 0 Absolute Granulocytes (1.4 - 6.5 /CUMM) 17.5 H Absolute Lymphocytes (1.2 - 3.4 /CUMM) 2.1 Absolute Monocytes (0.10 - 0.60 /CUMM) 1.5 H Absolute Eosinophils (0.0 - 0.7 /CUMM) 0.4 Absolute Basophils (0.0 - 0.2 /CUMM) 0 Last 24 Hours of Jt Results: Left pleural fluid culture April 21 positive for coag-negative Staph sensitive to Oxacillin and Unasyn Recent Imaging Studies: Ultrasound of the chest April 25 reveals a small left pleural effusion Assessment/Plan Impression: Stable, with temperatures remaining normal, but with a persistent leukocytosis, suggesting an undrained empyema, with the ultrasound yesterday revealing an increased left pleural effusion, for which a pigtail catheter will be placed today if there is felt to be sufficient fluid. He is now on Unasyn alone Day 4 of treatment for the empyema of the left chest, with his pleural fluid culture growing coag-negative Staph, of unclear significance, though it is sensitive to Unasyn. Suggestion: 1. Await possible placement of a pigtail catheter in the left chest later today 2. Continue Unasyn
--- NOTE | 2017-04-26 12:39 | PN- Pulmonary ---
Subjective HPI/Critical Care Issues: Patient seen and examined this morning. His white count continues to be elevated. Left-sided pain persists and his cough was present as well. Objective Current Medications: Current Medications Sig/Tonio Start time Last Medication Dose Route Stop Time Status Admin Acetaminophen 650 MG Q8P PRN 04/21 2002 AC PO Acetylcysteine 8 ML BID 04/25 2200 AC 04/26 INH 1155 Acetylcysteine 4 ML BID 04/25 1035 DC 04/25 INH 1216 Albuterol Sulfate 3 ML EVERY 4 HRS/AWAKE 04/22 0800 AC 04/26 INH 1155 Albuterol Sulfate 3 ML Q4P PRN 04/21 0015 AC INH Ampicillin Sodium/ 3,000 MG Q6H 04/22 1600 AC 04/26 Sulbactam Sodium IV 1037 Sodium Chloride 100 ML Benzonatate 100 MG TID 04/22 1649 AC 04/26 PO 0907 Enoxaparin Sodium 40 MG DAILY 04/21 1000 AC 04/25 SC 0910 Guaifenesin/Codeine 10 ML Q6P PRN 04/22 0845 AC 04/26 Phosphate PO 1133 Ibuprofen 400 MG Q6P PRN 04/21 2014 AC PO Ipratropium [place] 2.5 ML EVERY 4 HRS/AWAKE 04/22 0800 AC 04/26 INH 0841 Lactobacillus 1 CAP BID 04/24 1122 AC 04/26 Acidophilus PO 0907 Nicotine 14 MG DAILY 04/21 1000 AC 04/26 TOP 0907 Oxycodone/ 1 TAB Q6P PRN 04/22 1000 AC 04/26 Acetaminophen PO 1133 Prednisone 10 MG DAILY 04/28 1000 AC PO 04/30 0959 Prednisone 20 MG DAILY 04/26 1000 AC 04/26 PO 04/28 0959 0908 Prednisone 30 MG DAILY 04/24 1000 DC 04/25 PO 04/26 0955 0910 Vancomycin HCl 1,500 MG BID 04/24 2200 DC 04/25 Dextrose/Water 250 ML IV 1153 Vital Signs & I&O Last 24 Hrs of Vitals and I&O: Vital Signs Date Time Temp Pulse Resp B/P B/P Pulse O2 O2 Flow FiO2 Mean Ox Delivery Rate 04/26 1200 90 Nasal 1.0L Cannula 04/26 0800 94 Nasal 1.0L Cannula 04/26 0800 93 Nasal 1.0L Cannula 04/26 0646 97.4 70 18 106/54 92 04/26 0000 96 Nasal 1.5L Cannula 04/26 0000 96 Nasal 1.0L Cannula 04/25 2235 97.6 73 18 104/52 94 Nasal 1.0L Cannula 04/25 1610 96 Nasal 1.0L Cannula 04/25 1600 93 Nasal 1.0L Cannula 04/25 1600 93 Nasal 1.0L Cannula 04/25 1513 98.1 72 20 110/68 93 Nasal 4.0L Cannula Intake & Output 04/26 1600 04/26 0800 04/26 0000 Intake Total 620 370 Output Total 400 Balance 620 -30 Intake, IV 140 130 Intake, Oral 480 240 Number 0 0 Bowel Movements Output, Urine 400 Exam Other Physical Findings: Generally - Awake, alert and comfortable without distress Head and neck - normocephalic, atraumatic, EOMI grossly intact Cardiovascular - S1, S2, no murmurs, rubs or gallops Lungs -diminished breath sounds at the bases Abdomen - Bowel sounds positive, soft, non-tender Extremities - without edema Results Last 24 Hrs of Lab Results: Laboratory Tests 04/26/17 0735: Anion Gap 12, Estimated GFR > 60, BUN/Creatinine Ratio 25.7 H, PT 13.9 H, INR 1.33 H, CBC w Diff NO MAN DIFF REQ, RBC 4.08 L, MCV 89.1, MCH 28.9, MCHC 32.5 L, RDW 14.4, MPV 8.2, Gran % 81.5 H, Lymphocytes % 9.7 L, Monocytes % 6.9, Eosinophils % 1.9, Basophils % 0, Absolute Granulocytes 17.5 H, Absolute Lymphocytes 2.1, Absolute Monocytes 1.5 H, Absolute Eosinophils 0.4, Absolute Basophils 0 Impression/Plan Impression/Plan Impression/Plan: Impression 56 year old man. * LLL pneumonia and exudative pleural fluid consistent with empyema Plan -f/u ID recommendations -f/u IR for possible pigtail placement if safe DVT prophylaxis at all times
--- NOTE | 2017-04-26 17:06 | ULTRASOUND REPORT ---
PROCEDURE: Ultrasound-guided chest tube placement. INDICATION: Small left-sided empyema. ACCESS: 5 [place] Yueh needle COMPARISON: Chest ultrasound and chest x-ray 04/25/[address] 04/23/2017 INTERVENTIONAL RADIOLOGIST: Micheal Sofia MD CONSENT: Informed consent was obtained from the patient prior to the procedure. During this process, the procedure and potential alternatives were explained along with the intended outcome and benefits. The risks of the procedure, including the possibility of an unsuccessful procedure as well as the risk of not doing the procedure were discussed. The patient was given the opportunity to ask any questions regarding the procedure and appeared competent to make medical decisions. A signed consent form which documents this discussion was placed in the medical record. MEDICATIONS: 10ml 1% lidocaine. TECHNIQUE/FINDINGS: Appropriate pre-procedure medical history and imaging studies were reviewed. The patient was brought to the ultrasound department and placed in the seated position. A timeout procedure was performed. Ultrasound images of the left thorax were obtained to localize a small complex pleural effusion. Images were permanently saved to the record. An area of the patient's left back was prepped and draped in the standard sterile fashion. 10 mL of 1% lidocaine was used to obtain local anesthesia of the skin and deeper tissues. A standard small bore needle was introduced to sample fluid and demonstrated a safe access route. A 5 [place] Yueh needle was then used to access the pleural cavity. Approximately 20 mL of serosanguineous, nonclotting fluid was aspirated. A guidewire was then placed through the introducer into the chest. The access site was then sequentially dilated using dilators sized 8 Fr and 10 Fr. A 10 Fr. nonlocking catheter was then advanced over the wire into the chest cavity. The wire was removed and the catheter was secured to the skin with a single suture and a sterile dressing was placed over the site. A StatLock was placed. The catheter was then connected to a closed chest drainage system. An additional 30 mL of serosanguineous, nonclotting fluid was aspirated and sent for requested analysis. The patient tolerated the procedure well without evidence of complications. IMPRESSION: Successful left ultrasound-guided chest tube placement yielding approximately 50 mL fluid. PLAN: The chest tube will be managed by the primary medicine team.
[2017-04-26 22:38] VITALS: BP 118/58
[2017-04-27 05:33] VITALS: BP 130/72
--- NOTE | 2017-04-27 07:22 | PN- Housestaff ---
Joel GOMEZ,Lizeth 04/27/17 0722: Subjective Follow-up For: EMPYEMA PNEUMONIA COPD EXACERBATION Subjective: patient still having the same breathing. inspiratory and expiratory pain. patient has drained 60cc of serosanguinous drainage from his chest tube. has a mild wheeze. Review of Systems Constitutional: Reports: malaise. Cardiovascular: Reports: chest pain. Respiratory: Reports: cough, short of breath, wheezing. Objective Last 24 Hrs of Vital Signs/I&O Vital Signs Date Time Temp Pulse Resp B/P B/P Pulse O2 O2 Flow FiO2 Mean Ox Delivery Rate 04/27 1615 93 Nasal 1.0L Cannula 04/27 1437 97.2 77 20 110/60 91 Nasal 2.0L Cannula 04/27 0851 92 Nasal 1.0L Cannula 04/27 08 92 Nasal 1.0L Cannula 04/27 0800 92 Nasal 1.0L Cannula 04/27 0533 98.3 75 22 130/72 93 Nasal 1.5L Cannula 04/27 0000 Nasal 1.0L Cannula 04/27 0000 Nasal 1.0L Cannula 04/26 2238 98.3 84 22 118/58 92 Nasal 1.0L Cannula Intake & Output 04/27 1600 04/27 0800 04/27 0000 Intake Total 650 240 480 Output Total 1420 555 605 Balance -770 -315 -125 Intake, Oral 650 240 480 Number 0 Bowel Movements Output, Chest 20 5 55 Tube Drainage Output, Urine 1400 550 550 Physical Exam General Appearance: Alert, Oriented X3, Cooperative, Mild Distress Skin Temp/Moisture Exam: Warm/Dry HEENT: Atraumatic, PERRLA, EOMI, Mucous Membr. moist/pink Cardiovascular: Regular Rate, Normal S1, Normal S2, No Murmurs Lungs: distant breath sounds throughout and mild wheezes Abdomen: Normal Bowel Sounds, Soft, No Tenderness, No Hepatospenomegaly, No Masses Extremities: No Clubbing, No Cyanosis, No Edema, Normal Pulses, No Tenderness/ Swelling Current Medications: Current Medications Sig/Tonio Start time Last Medication Dose Route Stop Time Status Admin Acetaminophen 650 MG Q8P PRN 04/21 2002 AC PO Acetylcysteine 4 ML BID 04/27 1000 AC 04/27 INH 1615 Acetylcysteine 8 ML BID 04/25 2200 DC 04/26 INH 2046 Albuterol Sulfate 3 ML EVERY 4 HRS/AWAKE 04/22 0800 AC 04/27 INH 1615 Ampicillin Sodium/ 3,000 MG Q6H 04/22 1600 AC 04/27 Sulbactam Sodium IV 0934 Sodium Chloride 100 ML Benzonatate 100 MG TID 04/22 1649 AC 04/27 PO 0933 Enoxaparin Sodium 40 MG DAILY 04/21 1000 AC 04/27 SC 0934 Guaifenesin/Codeine 10 ML Q6P PRN 04/22 0845 AC 04/27 Phosphate PO 1541 Ibuprofen 400 MG Q6P PRN 04/21 2015 AC PO Lactobacillus 1 CAP BID 04/24 1122 AC 04/27 Acidophilus PO 0933 Nicotine 14 MG DAILY 04/21 1000 AC 04/27 TOP 0934 Oxycodone/ 1 TAB Q4 PRN 04/26 1534 AC 04/27 Acetaminophen PO 1540 Patient Medication 1 ED ONE ONE 04/27 1015 DC Teaching ED 04/27 1016 Prednisone 10 MG DAILY 04/28 1000 AC PO 04/30 0959 Prednisone 20 MG DAILY 04/26 1000 AC 04/27 PO 04/28 0959 0933 Tramadol HCl 50 MG Q6 04/27 1332 AC PO Last 24 Hrs of Lab/Jt Results Last 24 Hrs of Labs/Mics: Laboratory Tests 04/27/17 0705: Anion Gap 12, Estimated GFR > 60, BUN/Creatinine Ratio 33.3 H, CBC w Diff MAN DIFF ORDERED, RBC 4.05 L, MCV 88.8, MCH 29.0, MCHC 32.7 L, RDW 14.3, MPV 8.5, Gran % 85.6 H, Lymphocytes % 7.0 L, Monocytes % 5.6, Eosinophils % 1.6, Basophils % 0.2, Absolute Granulocytes 16.2 H, Segmented Neutrophils 81 H, Absolute Lymphocytes 1.3, Lymphocytes 10 L, Monocytes 7, Absolute Monocytes 1.1 H, Eosinophils 2, Absolute Eosinophils 0.3, Absolute Basophils 0, Platelet Estimate VERIFIED BY SMEAR, Normocytic RBCs VERIFIED, Normochromic RBCs VERIFIED Assessment/Plan Assessment: The patient is 56-year-old gentleman with past medical history of COPD and suspected hyperlipidemia. He presented to [place] ED on 04/20 with complaint of shortness of breath AND CHEST PAIN ON INSPIRATION THAT STARTED FAILY ABRUPTLY THAT DAY. -VS 102.9, 100, 28,142/72,96% Ventimask -Pertinent labs, WBC count 30.4, band cells 14 H/H 13/42, platelets 602, lactic acid 1.1--4.1, d-dimer 391, UA clean, venous blood gases pH 7.37, PCO2 32, PO2 68 -Imaging findings dictated above -In ED patient received 1 L normal saline, Toradol, azithromycin, Rocephin, swollen 25;, 1 g of magnesium sulfate. On standing patient desatted to 88% He is admitted to general medicine floor and is being treated and evaluated for following conditions #Sepsis secondary to Community-acquired pneumonia and COPD exacerbation with Acute hypoxemic respiratory failure Patient is presenting with high-grade fever and elevated WBC count along with blood cells elevated heart rate (SIRS criteria positive). Patient is complaining of shortness of breath along with chest pain. CTA negative for pulmonary embolism but positive for left lower lobe consolidation/atelectasis with associated moderate sized left pleural effusion THAT WAS FOUND TO BE AN EXUDATIVE EFFUSION WITH HIGH WHITE COUNT AND GPC (EMPYEMA). PATIENT IS BEING TREATED FOR community-acquired pneumonia AND EMPYEMA ALONG with some component of COPD exacerbation. -WBC TODAY HAVE decreased to 19. PATIENT AFEBRILE. STILL SHOWING SIGNS OF INFECTION- NECROSIS PER PULM. ELEVATED WBC PERSISTS. OF NOTE PATIENT IS still ON STEROIDS. -PATIENT HAS PNEUMONIA AND PLEURAL EFFUSION WHICH ARE INDICATIONS FOR EMERGENT TAP WHICH HE UNDERWENT. DRAINAGE OF 900CC YELLOW GREEN AND SLIGHTLY CLOUDY FLUID. -ON SUNDAY 04/[address] HEREDIA WE REPEATED CT CHEST WITHOUT CONTRAST AND IT SHOWED PERSISTENT CONSOLIDATION WITH 2 SMALL CYSTIC AREAS, AND A .6CM NODULE. ALSO DECREASED IN SIZE PLEURAL EFFUSION. Then, CHEST US SHOWS INCREASE IN SIZE OF EFFUSION. -CONTINUE TO TAPER STEROIDS ABLE -Urine strep and Legionella antigen NEGATIVE -FOLLOW UP Panculture AND CULTURE PLEURAL FLUID SHOW COAG NEGATIVE STAPH, LIKELY CONTAMINANT FROM SKIN. -PLEURAL FLUID LABS: WBC 45915, LDH 4733 PH 6.87, RBC 50 GLU 20 TP 4.1. THIS FLUID IS EXUDATITVE. MOST PROBABLY DUE TO BACTERIAL PNEUMONIA BUT DIFFERENTIAL INCLUDES CANCER, TB, PE. HE DOES ADMIT TO WEIGHT LOSS AND CURRENT SMOKING. -As per Dr. Foley: pleural fluid culture growing coag-negative Staph, most suggestive of contamination, and few gram-positive cocci in clusters, which most likely represents anaerobes, and the coag-negative Staph could prove to be a Staph lugdunensis, which would be considered a pathogen. -Patient had placement of a pigtail catheter yesterday and has drained a small amount of fluid - 60cc. TOMORROW WE WILL DO CT CHEST TO DETERMINE IF EFFUSION IS LARGE ENOUGH TO ADD LYTIC THERAPY -REEVLAUTION OF NEW FLUID OBTAINED SHOWS INCREASINGLY HIGH LDH, STILL AN EXUDATIVE EFFUSION. -PULMONARY FOLLOWING - PER ID CONTINUE UNASYN. -ID CONSULT SUGGESTED HIV TEST WHICH WAS NEGATIVE -Tylenol for fever control -Toradol for pain relief PLUS PERCOCET Q4 AND STANDING DOSE TRAMADOL 50MG Q6H -TRC/nebs -Oxygen supplementation to maintain oxygen saturation above 92% -UTOX IS HIGH FOR OPIATES WHICH COULD CAUSE RESP DEPRESSION. WE WILL HOLD ALL BENZOS AND OPIATES. -TESSALON PEARLS AND MUCOMYST -NO MRSA ON SURVEILLANCE #CHEST PAIN -ON INSPIRATION, LESS LIKELY CARDIAC BUT TROPS AND EKGS DONE AND NEGATIVE X2 -CONTINUE TORADOL AND PERCOCET FOR PAIN RELIEF. #Thrombocytosis 441 likely reactive secondary to infection -Monitor platelet count #DIARRHEA C.DIFF TEST CANCELLED PATIENT HAS NOT HAD ANOTHER BOWEL MOVEMENT PROBIOTIC #Lactic acidosis secondary to sepsis -RESOLVED #Smoker -Nicotine patch -Consult regarding smoking abstinence #History of hyperlipidemia -LIPID PROFILE NORMAL -6.3 HBA1C FOR CORONARY EQUIVALENTS- SLIGHTLY HIGH. WILL NEED DIET CONTROL. -TSH LOW AND FT4 NORMAL #FC/DVT prophylaxis with Lovenox/regular diet Problem List: 1. Empyema 2. Sepsis 3. Left lower lobe pneumonia Pain Ratin Pain Location: chest Pain Goal: Pain 4 or less Pain Plan: percocet q4 prn and tramadol 50 q6h standing Tomorrow's Labs & Rationales: cbc bep René Morales 04/27/17 1336: Attending MD Review Statement Attending Statement Attending MD Statement: examined this patient, discuss w/resident/PA/[employer], agreed w/resident/PA/[employer], discussed with family, reviewed EMR data (avail), discussed with nursing, discussed with case mgmt, reviewed images, amended to note Attending Assessment/Plan: 56-year-old male with past history significant for hypertension, COPD admitted with acute respiratory failure, community acquired pneumonia and empyema. Patient also had sepsis which is resolving. Persistent leukocytosis present. USG chest 04/22/17 Small left likely complicated plerual effusion. Repeat CT chest 04/23/17: shows Persistent consolidation left lower lobe, consistent with pneumonia. In the consolidated area, there are at least two small cystic areas (from the underlying emphysema or possible cavitary change within the infected lung). The left pleural effusion is smaller compared to . Chest xray 04/25/17:There is a persistent small left pleural effusion with increased adjacent left base airspace disease. 04/25/17 USG chest left sided small pleural effusion. 04/26/17 pigtail catheter placement. Continue abx per ID. Follow drain from pig tail catheter. Continue steroid taper, TRC nebs. Continue all the rest of meds. Pain controlled and addressed. Patient explained in detail about current management. time spent>37 min.. Cousnelling given. DVt px; Lovenox. Follow ID and pulmonary recommendations.
[2017-04-27 08:14] LABS: ABSOLUTE BASOPHIL COUNT 0 /CUMM (0.0-0.2); ABSOLUTE EOSINOPHIL COUNT 0.3 /CUMM (0.0-0.7); ABSOLUTE GRANULOCYTE CT 16.2 /CUMM (1.4-6.5); ABSOLUTE LYMPH COUNT 1.3 /CUMM (1.2-3.4); ABSOLUTE MONOCYTE COUNT 1.1 /CUMM (0.10-0.60); BASOPHIL % 0.2 % (0.0-2.0); EOSINOPHIL % 1.6 % (0-5); GRANULOCYTE % 85.6 % (42.2-75.2); MEAN CORPUSCULAR HGB CONC 32.7 G/DL (33.0-37.0); MEAN CORPUSCULAR VOLUME 88.8 FL (80.0-94.0); MEAN PLATELET VOLUME 8.5 FL (7.4-10.4); PLATELET COUNT 441 /CUMM (130-400); RBC DISTRIBUTION WIDTH 14.3 % (11.5-14.5); RED BLOOD CELL CT 4.05 /CUMM (4.70-6.10)
--- NOTE | 2017-04-27 11:48 | PN- Pulmonary ---
Subjective HPI/Critical Care Issues: Patient seen and examined swallowing. He is status post chest tube. Minimal chest tube output will monitor his white count and will plan for CAT scan in the morning tomorrow to see if the effusion is large enough for lytics. Objective Current Medications: Current Medications Sig/Tonio Start time Last Medication Dose Route Stop Time Status Admin Acetaminophen 650 MG Q8P PRN 04/21 2002 AC PO Acetylcysteine 4 ML BID 04/27 1000 AC 04/27 INH 0846 Acetylcysteine 8 ML BID 04/25 2200 DC 04/26 INH 2046 Albuterol Sulfate 3 ML EVERY 4 HRS/AWAKE 04/22 0800 AC 04/27 INH 0846 Albuterol Sulfate 3 ML Q4P PRN 04/21 0015 DC INH Ampicillin Sodium/ 3,000 MG Q6H 04/22 1600 AC 04/27 Sulbactam Sodium IV 0934 Sodium Chloride 100 ML Benzonatate 100 MG TID 04/22 1649 AC 04/27 PO 0933 Enoxaparin Sodium 40 MG DAILY 04/21 1000 AC 04/27 SC 0934 Fentanyl Citrate 0 .STK-MED ONE 04/26 1400 DC .ROUTE Guaifenesin/Codeine 10 ML Q6P PRN 04/22 0845 AC 04/27 Phosphate PO 0942 Ibuprofen 400 MG Q6P PRN 04/21 2014 AC PO Ipratropium [place] 2.5 ML EVERY 4 HRS/AWAKE 04/22 0800 DC 04/26 INH 0841 Lactobacillus 1 CAP BID 04/24 1122 AC 04/27 Acidophilus PO 0933 Nicotine 14 MG DAILY 04/21 1000 AC 04/27 TOP 0934 Oxycodone/ 1 TAB Q4 PRN 04/26 1534 AC 04/27 Acetaminophen PO 0805 Oxycodone/ 1 TAB Q6P PRN 04/22 1000 DC 04/26 Acetaminophen PO 1133 Patient Medication 1 ED ONE ONE 04/27 1015 DC Teaching ED 04/27 1016 Prednisone 10 MG DAILY 04/28 1000 AC PO 04/30 0959 Prednisone 20 MG DAILY 04/26 1000 AC 04/27 PO 04/28 0959 0933 Vital Signs & I&O Last 24 Hrs of Vitals and I&O: Vital Signs Date Time Temp Pulse Resp B/P B/P Pulse O2 O2 Flow FiO2 Mean Ox Delivery Rate 04/27 0851 92 Nasal 1.0L Cannula 01/31 0800 92 Nasal 1.0L Cannula 04/27 08 92 Nasal 1.0L Cannula 04/27 0533 98.3 75 22 130/72 93 Nasal 1.5L Cannula 04/27 0000 Nasal 1.0L Cannula 04/27 0000 Nasal 1.0L Cannula 04/268 98.3 84 22 118/58 92 Nasal 1.0L Cannula 04/26 1600 Nasal 2.0L Cannula 04/26 1600 92 Nasal 2.0L Cannula 04/26 1200 90 Nasal 1.0L Cannula Intake & Output 04/27 1600 04/27 0800 04/27 0000 Intake Total 240 480 Output Total 555 605 Balance -315 -125 Intake, Oral 240 480 Number 0 Bowel Movements Output, Chest 5 55 Tube Drainage Output, Urine 550 550 Exam Other Physical Findings: Generally - Awake, alert and comfortable without distress Head and neck - normocephalic, atraumatic, EOMI grossly intact Cardiovascular - S1, S2, no murmurs, rubs or gallops Lungs -diminished breath sounds at the bases Abdomen - Bowel sounds positive, soft, non-tender Extremities - without edema Results Last 24 Hrs of Lab Results: Laboratory Tests 04/27/17 0705: Anion Gap 12, Estimated GFR > 60, BUN/Creatinine Ratio 33.3 H, CBC w Diff MAN DIFF ORDERED, RBC 4.05 L, MCV 88.8, MCH 29.0, MCHC 32.7 L, RDW 14.3, MPV 8.5, Gran % 85.6 H, Lymphocytes % 7.0 L, Monocytes % 5.6, Eosinophils % 1.6, Basophils % 0.2, Absolute Granulocytes 16.2 H, Segmented Neutrophils 81 H, Absolute Lymphocytes 1.3, Lymphocytes 10 L, Monocytes 7, Absolute Monocytes 1.1 H, Eosinophils 2, Absolute Eosinophils 0.3, Absolute Basophils 0, Platelet Estimate VERIFIED BY SMEAR, Normocytic RBCs VERIFIED, Normochromic RBCs VERIFIED 04/26/17 1511: Fluid WBC 2650 H, Fld Total RBCs Counted 61865 H 04/26/17 1511: Lymphocytes 1, % Normal PMNs 92, Misc Hematology Test , Fluid Glucose 36, Fluid Total Protein 3.6, Fluid LDH 50141 04/26/17 1445: Phlebotomy Draw Site LT PLEURAL, Pleural pH 7.05 Impression/Plan Impression/Plan Impression/Plan: Impression 56 year old man. * LLL pneumonia and exudative pleural fluid consistent with empyema Plan -f/u ID recommendations -chest tube drainage -ct chest without contrast in am -if significant fluid/loculation - will consider lytics -incentive spirometry DVT prophylaxis at all times
--- NOTE | 2017-04-27 12:43 | PN- Infect Dx ---
Subjective Subjective: Afebrile on steroids. He continues to have left chest discomfort and a persistent cough. Objective Last 24 Hrs of Vital Signs/I&O Vital Signs Date Time Temp Pulse Resp B/P B/P Pulse O2 O2 Flow FiO2 Mean Ox Delivery Rate 04/27 0851 92 Nasal 1.0L Cannula 04/27 799 92 Nasal 1.0L Cannula 04/27 08 92 Nasal 1.0L Cannula 04/27 0533 98.3 75 22 130/72 93 Nasal 1.5L Cannula 04/27 0000 Nasal 1.0L Cannula 04/27 0000 Nasal 1.0L Cannula 04/26 2238 98.3 84 22 118/58 92 Nasal 1.0L Cannula 04/26 1599 Nasal 2.0L Cannula 04/26 1599 92 Nasal 2.0L Cannula Intake & Output 04/27 1600 04/27 0804/27 0000 Intake Total 240 480 Output Total 555 605 Balance -315 -125 Intake, Oral 240 480 Number 0 Bowel Movements Output, Chest 5 55 Tube Drainage Output, Urine 550 550 Physical Exam Other Physical Findings: He appears more comfortable in no acute distress Lungs decreased breath sounds on the left, with a pigtail catheter in place with 55 mL output yesterday and 5 mL overnight Heart regular rhythm with no murmur Results Last 24 Hours of Lab Results: Laboratory Tests 04/27 04/26 04/26 0705 1511 1511 Chemistry Sodium (137 - 145 mmol/L) 141 Potassium (3.5 - 5.1 mmol/L) 4.6 Chloride (98 - 107 mmol/L) 102 Carbon Dioxide (22 - 30 mmol/L) 28 Anion Gap (5 - 16) 12 BUN (9 - 20 mg/dL) 20 Creatinine (0.7 - 1.2 mg/dL) 0.6 L Estimated GFR (>60 ml/min) > 60 BUN/Creatinine Ratio (7 - 25 %) 33.3 H Hematology CBC w Diff MAN DIFF ORDERED WBC (4.8 - 10.8 /CUMM) 19.0 H RBC (4.70 - 6.10 /CUMM) 4.05 L Hgb (14.0 - 18.0 G/DL) 11.8 L Hct (42 - 52 %) 36.0 L MCV (80.0 - 94.0 FL) 88.8 MCH (27.0 - 31.0 PG) 29.0 MCHC (33.0 - 37.0 G/DL) 32.7 L RDW (11.5 - 14.5 %) 14.3 Plt Count (130 - 400 /CUMM) 441 H MPV (7.4 - 10.4 FL) 8.5 Gran % (42.2 - 75.2 %) 85.6 H Lymphocytes % (20.5 - 51.1 %) 7.0 L Monocytes % (1.7 - 9.3 %) 5.6 Eosinophils % (0 - 5 %) 1.6 Basophils % (0.0 - 2.0 %) 0.2 Absolute Granulocytes (1.4 - 6.5 /CUMM) 16.2 H Segmented Neutrophils (42.2 - 75.2 %) 81 H Absolute Lymphocytes (1.2 - 3.4 /CUMM) 1.3 Lymphocytes (20.5 - 51.1 %) 10 L 1 Monocytes (1.7 - 9.3 %) 7 Absolute Monocytes (0.10 - 0.60 /CUMM) 1.1 H Eosinophils (0 - 5.0 %) 2 Absolute Eosinophils (0.0 - 0.7 /CUMM) 0.3 Absolute Basophils (0.0 - 0.2 /CUMM) 0 % Normal PMNs (%) 92 Platelet Estimate (ADEQUATE) VERIFIED BY SMEAR Normocytic RBCs VERIFIED Normochromic RBCs VERIFIED Misc Hematology Test (%) Other Body Source Fluid WBC (0 - 5 /CUMM) 2650 H Fld Total RBCs Counted (0 /CUMM) 82450 H Fluid Glucose (mg/dL) 36 Fluid Total Protein (g/dL) 3.6 Fluid LDH (U/L) 52292 04/26 1445 Miscellaneous Phlebotomy Draw Site LT PLEURAL Other Body Source Pleural pH (PH) 7.05 Last 24 Hours of Jt Results: Left pleural fluid culture April 26 negative Assessment/Plan Impression: Stable, status post placement of a pigtail catheter in the left chest yesterday for an empyema, with removal of 50 mL of serosanguinous fluid. He remains afebrile (on steroids) with his white blood cell count still elevated, though decreased from yesterday, on Unasyn Day 5 of treatment for empyema, with his initial pleural fluid culture growing coag-negative Staph, of unclear significance, though it is sensitive to Unasyn. Suggestion: 1. Further management of his pigtail catheter and empyema, with consideration of lytics, per Pulmonary 2. Continue Marielle
[2017-04-27 14:37] VITALS: BP 110/60
[2017-04-27 22:44] VITALS: BP 112/50
[2017-04-28 06:14] VITALS: BP 112/60
--- NOTE | 2017-04-28 07:36 | PN- Housestaff ---
Joel GOMEZ,Lizeth 04/28/17 0736: Subjective Follow-up For: EMPYEMA PNEUMONIA COPD EXACERBATION Subjective: Patient continues to have the same breathing today, same discomfort on inspiration and expiration especially around the incision site. This morning the patient was off oxygen for 10 minutes while he was brushing his teeth etc and immediately after was found to have good O2 sats of 93%. Patient continues to have a cough on inspiration but is more talkative than before. Review of Systems Constitutional: Reports: no symptoms. EENTM: Reports: no symptoms. Cardiovascular: Reports: chest pain. Respiratory: Reports: see HPI, cough. Gastrointestinal: Reports: no symptoms. Genitourinary: Reports: no symptoms. Musculoskeletal: Reports: no symptoms. Skin: Reports: no symptoms. Neurological/Psychological: Reports: no symptoms. Objective Last 24 Hrs of Vital Signs/I&O Vital Signs Date Time Temp Pulse Resp B/P B/P Pulse O2 O2 Flow FiO2 Mean Ox Delivery Rate 04/28 1649 92 Room Air 04/28 1600 93 Nasal 1.0L Cannula 04/28 1600 93 Nasal 1.0L Cannula 04/28 1510 98.1 72 20 108/58 91 Room Air 04/28 0816 93 Room Air 04/28 0800 93 Room Air Room Air 04/28 0800 92 Room Air Room Air 04/28 0614 98.0 70 20 112/60 92 Nasal Cannula 04/28 0000 Nasal 1.0L Cannula 04/28 0000 Nasal 1.0L Cannula 04/27 2244 97.5 83 20 112/50 93 Nasal 2.0L Cannula Intake & Output 04/28 1600 04/28 0800 04/28 0000 Intake Total 910 370 Output Total 680 730 720 Balance 230 -730 -350 Intake, IV 110 130 Intake, Oral 800 240 Output, Chest 30 30 20 Tube Drainage Output, Urine 650 700 700 Physical Exam General Appearance: Alert, Oriented X3, Cooperative, Mild Distress Skin: No Rashes, Patient has mild redness and edema around the Chest tube site. Skin Temp/Moisture Exam: Warm/Dry Sepsis Skin Exam (color): Normal for Ethnicity HEENT: Atraumatic, EOMI, Mucous Membr. moist/pink Cardiovascular: Regular Rate, Normal S1, Normal S2, No Murmurs Lungs: decreased breath sounds in bases., patient's chest tube has drained 72 in the past 24 hours, total of 132 as of this morning. During the day he drained another 28. Abdomen: Normal Bowel Sounds, Soft, No Tenderness, No Hepatospenomegaly Neurological: Normal Speech Extremities: No Clubbing, No Cyanosis, No Edema, Normal Pulses, No Tenderness/ Swelling Current Medications: Current Medications Sig/Tonio Start time Last Medication Dose Route Stop Time Status Admin Acetaminophen 650 MG Q8P PRN 04/21 2002 AC PO Acetylcysteine 4 ML BID 04/27 1000 AC 04/28 INH 2022 Albuterol Sulfate 3 ML EVERY 4 HRS/AWAKE 04/22 0800 AC 04/28 INH 2022 Ampicillin Sodium/ 3,000 MG Q6H 04/22 1600 AC 04/28 Sulbactam Sodium IV 1544 Sodium Chloride 100 ML Benzonatate 100 MG TID 04/22 1649 AC 04/28 PO 1544 Enoxaparin Sodium 40 MG DAILY 04/21 1000 AC 04/28 SC 0857 Guaifenesin/Codeine 10 ML Q6P PRN 04/22 0845 AC 04/28 Phosphate PO 1606 Ibuprofen 400 MG Q6P PRN 04/21 2014 AC PO Lactobacillus 1 CAP BID 04/24 1122 AC 04/28 Acidophilus PO 0857 Nicotine 14 MG DAILY 04/21 1000 AC 04/28 TOP 0857 Oxycodone/ 1 TAB Q4 PRN 04/26 1534 AC 04/28 Acetaminophen PO 1955 Prednisone 10 MG DAILY 04/28 1000 AC 04/28 PO 04/30 0959 0857 Prednisone 20 MG DAILY 04/26 1000 DC 04/27 PO 04/28 0959 0933 Tramadol HCl 50 MG ONCE ONE 04/28 2114 UNVr PO 04/28 2115 Tramadol HCl 50 MG Q6 04/27 1332 DC PO Last 24 Hrs of Lab/Jt Results Last 24 Hrs of Labs/Mics: Laboratory Tests 04/28/17 0914: Anion Gap 11, Estimated GFR > 60, BUN/Creatinine Ratio 24.3, CBC w Diff NO MAN DIFF REQ, RBC 3.90 L, MCV 87.5, MCH 28.7, MCHC 32.8 L, RDW 13.9, MPV 7.8, Gran % 76.3 H, Lymphocytes % 11.9 L, Monocytes % 8.9, Eosinophils % 2.1, Basophils % 0.8, Absolute Granulocytes 10.0 H, Absolute Lymphocytes 1.5, Absolute Monocytes 1.2 H, Absolute Eosinophils 0.3, Absolute Basophils 0.1 Assessment/Plan Assessment: The patient is 56-year-old gentleman with past medical history of COPD and suspected hyperlipidemia. He presented to [place] [facility] ED on 04/20 with complaint of shortness of breath AND CHEST PAIN ON INSPIRATION THAT STARTED FAILY ABRUPTLY THAT DAY. -VS 102.9, 100, 28,142/72,96% Ventimask -Pertinent labs, WBC count 30.4, band cells 14 H/H 13/, platelets 602, lactic acid 1.1--4.1, d-dimer 391, UA clean, venous blood gases pH 7.37, PCO2 32, PO2 68 -Imaging findings dictated above -In ED patient received 1 L normal saline, Toradol, azithromycin, Rocephin, swollen 25;, 1 g of magnesium sulfate. On standing patient desatted to 88% He is admitted to general medicine floor and is being treated and evaluated for following conditions #Sepsis secondary to Community-acquired pneumonia and COPD exacerbation with acute hypoxemic respiratory failure -Patient is presenting with high-grade fever and elevated WBC count along with blood cells elevated heart rate (SIRS criteria positive). Patient is complaining of shortness of breath along with chest pain. CTA negative for pulmonary embolism but positive for left lower lobe consolidation/atelectasis with associated moderate sized left pleural effusion THAT WAS FOUND TO BE AN EXUDATIVE EFFUSION WITH HIGH WHITE COUNT AND GPC (EMPYEMA). PATIENT IS BEING TREATED FOR community-acquired pneumonia AND EMPYEMA ALONG with some component of COPD exacerbation. -WBC TODAY HAVE decreased to 13. PATIENT AFEBRILE. STILL SHOWING SIGNS OF INFECTION- NECROSIS PER PULM. OF NOTE PATIENT IS still ON STEROIDS. -PATIENT HAS PNEUMONIA AND PLEURAL EFFUSION WHICH ARE INDICATIONS FOR EMERGENT TAP WHICH HE UNDERWENT. DRAINAGE OF 900CC YELLOW GREEN AND SLIGHTLY CLOUDY FLUID. -ON SUNDAY 04/[address] HEREDIA WE REPEATED CT CHEST WITHOUT CONTRAST AND IT SHOWED PERSISTENT CONSOLIDATION WITH 2 SMALL CYSTIC AREAS, AND A .6CM NODULE. ALSO DECREASED IN SIZE PLEURAL EFFUSION. Then, CHEST US DONE THE FOLLOWING DAY SHOWED INCREASE IN SIZE OF EFFUSION. -CONTINUE TO TAPER STEROIDS ABLE. PATIENT IS CURRENTLY ON 20MG TO BE TRANSITIONED TO 10MG FOR 2 DAYS TOMORROW. -Urine strep and Legionella antigen NEGATIVE -FOLLOW UP Panculture AND CULTURE PLEURAL FLUID SHOW COAG NEGATIVE STAPH, LIKELY CONTAMINANT FROM SKIN. -As per Dr. Foley: pleural fluid culture growing coag-negative Staph, most suggestive of contamination, and few gram-positive cocci in clusters, which most likely represents anaerobes, and the coag-negative Staph could prove to be a Staph lugdunensis, which would be considered a pathogen. -PLEURAL FLUID LABS: WBC 43584, LDH 4733 PH 6.87, RBC 50 GLU 20 TP 4.1. THIS FLUID IS EXUDATITVE. MOST PROBABLY DUE TO BACTERIAL PNEUMONIA BUT DIFFERENTIAL INCLUDES CANCER, TB, PE. HE DOES ADMIT TO WEIGHT LOSS AND CURRENT SMOKING. -Patient had placement of a pigtail catheter ON 04/26, and has drained 160 CC OF THIS AFTERNOON. -CT CHEST DONE TODAY SHOWED POSSIBLE DECREASE IN SIZE OF PLEURAL EFFUSION, BUT the left pleural drain has pulled back slightly and there is now an extrapleural sidehole present and a few small foci of air are noted within the subcutaneous tissues of the left back. Also, an ill-defined 8mm nodular density of the right lower lobe which was not present previously was seen and given the short interval development of this finding, there is susupicion for a small focus of inflammatory or infectious changes. -Patient is having erythema and edema around chest tube site. However, it is still draining. As per Dr. Foley, we will check drainage tomorrow and reasses the need for re-placement of pigtail cath. -PULMONARY FOLLOWING - PER ID CONTINUE UNASYN. PATIENT IS ON DAY 7 OF AT LEAST 14. WE WILL CONSULT WITH ID FOR LENGTH OF TREATMENT. -ID CONSULT SUGGESTED HIV TEST WHICH WAS NEGATIVE -Tylenol for fever control -Toradol for pain relief PLUS PERCOCET Q4 AND STANDING DOSE TRAMADOL 50MG Q6H -TRC/nebs -Oxygen supplementation to maintain oxygen saturation above 92% -We will assess O2 on ambulation -UTOX IS HIGH FOR OPIATES WHICH COULD CAUSE RESP DEPRESSION. WE WILL HOLD ALL BENZOS AND OPIATES. -TESSALON PEARLS AND MUCOMYST -NO MRSA ON SURVEILLANCE #CHEST PAIN -ON INSPIRATION, LESS LIKELY CARDIAC BUT TROPS AND EKGS DONE AND NEGATIVE X2 -CONTINUE PERCOCET FOR PAIN RELIEF. -Patient is refusing pain medications for severe breakthrough pain -Refused tramadol which was ordered as a standing medication as per Dr. Venegas so it was dc'd. #Thrombocytosis likely reactive secondary to infection -Monitor platelet count #DIARRHEA C.DIFF TEST CANCELLED PATIENT HAS NOT HAD ANOTHER BOWEL MOVEMENT PROBIOTIC #Lactic acidosis secondary to sepsis -RESOLVED #Smoker -Nicotine patch -Consult regarding smoking abstinence #History of hyperlipidemia -LIPID PROFILE NORMAL -6.3 HBA1C FOR CORONARY EQUIVALENTS- SLIGHTLY HIGH. WILL NEED DIET CONTROL. -TSH LOW AND FT4 NORMAL #FC/DVT prophylaxis with Lovenox/regular diet Problem List: 1. Empyema 2. Sepsis 3. Leukocytosis 4. Hypoxia 5. S/P thoracentesis Pain Ratin ("it's more a discomfort") Pain Location: left chest Pain Goal: Pain 4 or less Pain Plan: percocet q4 Tomorrow's Labs & Rationales: CBC Zamzam Iverson MD 04/28/17 1256: Attending MD Review Statement Attending Statement Attending MD Statement: examined this patient, discuss w/resident/PA/HEAD WAITRESS, agreed w/resident/PA/HEAD WAITRESS, reviewed EMR data (avail), discussed with nursing, discussed with case mgmt, reviewed images Attending Assessment/Plan: 56-year-old male underlying history of COPD, hypertension who is here with an empyema complicating a pneumonia. He has pigtail drainage of the empyema and in the last 24 hours has put out another 70 mL. We are getting a CT chest noncontrast per Dr. Venegas to clarify whether the decreased drainage is because the collection has decreased or whether there are any other unanticipated complications like loculation. Patient is using the incentive spirometer and overall feels okay although he continues to have discomfort especially when he coughs and takes a deep breath. He is ambulating to the bathroom and he remains on IV Unasyn.
[2017-04-28 09:41] LABS: ABSOLUTE BASOPHIL COUNT 0.1 /CUMM (0.0-0.2); ABSOLUTE EOSINOPHIL COUNT 0.3 /CUMM (0.0-0.7); ABSOLUTE LYMPH COUNT 1.5 /CUMM (1.2-3.4); ABSOLUTE MONOCYTE COUNT 1.2 /CUMM (0.10-0.60); BASOPHIL % 0.8 % (0.0-2.0); EOSINOPHIL % 2.1 % (0-5); GRANULOCYTE % 76.3 % (42.2-75.2); HEMATOCRIT 34.1 % (42-52); MEAN CORPUSCULAR HGB 28.7 PG (27.0-31.0); MEAN CORPUSCULAR HGB CONC 32.8 G/DL (33.0-37.0); MEAN CORPUSCULAR VOLUME 87.5 FL (80.0-94.0); MEAN PLATELET VOLUME 7.8 FL (7.4-10.4); PLATELET COUNT 524 /CUMM (130-400); RBC DISTRIBUTION WIDTH 13.9 % (11.5-14.5); WHITE BLOOD CELL COUNT 13.1 /CUMM (4.8-10.8)
--- NOTE | 2017-04-28 10:31 | PN- Pulmonary ---
Subjective HPI/Critical Care Issues: pt seen and examined 70cc chest tube output awaiting ct chest wbc 13 Objective Current Medications: Current Medications Sig/Tonio Start time Last Medication Dose Route Stop Time Status Admin Acetaminophen 650 MG Q8P PRN 04/21 2002 AC PO Acetylcysteine 4 ML BID 04/27 1000 AC 04/28 INH 0813 Albuterol Sulfate 3 ML EVERY 4 HRS/AWAKE 04/22 0800 AC 04/28 INH 0812 Ampicillin Sodium/ 3,000 MG Q6H 04/22 1600 AC 04/28 Sulbactam Sodium IV 1019 Sodium Chloride 100 ML Benzonatate 100 MG TID 04/22 1649 AC 04/28 PO 0857 Enoxaparin Sodium 40 MG DAILY 04/21 1000 AC 04/28 SC 0857 Guaifenesin/Codeine 10 ML Q6P PRN 04/22 0845 AC 04/28 Phosphate PO 1006 Ibuprofen 400 MG Q6P PRN 04/21 2014 AC PO Lactobacillus 1 CAP BID 04/24 1122 AC 04/28 Acidophilus PO 0857 Nicotine 14 MG DAILY 04/21 1000 AC 04/28 TOP 0857 Oxycodone/ 1 TAB Q4 PRN 04/26 1534 AC 04/28 Acetaminophen PO 0750 Prednisone 10 MG DAILY 04/28 1000 AC 04/28 PO 04/30 0959 0857 Prednisone 20 MG DAILY 04/26 1000 DC 04/27 PO 04/28 0959 0933 Tramadol HCl 50 MG Q6 04/27 1332 AC PO Vital Signs & I&O Last 24 Hrs of Vitals and I&O: Vital Signs Date Time Temp Pulse Resp B/P B/P Pulse O2 O2 Flow FiO2 Mean Ox Delivery Rate 04/28 0816 93 Room Air 04/28 0614 98.0 70 20 112/60 92 Nasal Cannula 04/28 0000 Nasal 1.0L Cannula 04/28 0000 Nasal 1.0L Cannula 04/27 2244 97.5 83 20 112/50 93 Nasal 2.0L Cannula 04/27 1615 93 Nasal 1.0L Cannula 04/27 1600 Nasal 1.0L Cannula 04/27 1600 93 Nasal 1.0L Cannula 04/27 1437 97.2 77 20 110/60 91 Nasal 2.0L Cannula Intake & Output 04/28 1600 04/28 0800 04/28 0000 Intake Total 370 Output Total 730 720 Balance -730 -350 Intake, IV 130 Intake, Oral 240 Output, Chest 30 20 Tube Drainage Output, Urine 700 700 Exam Other Physical Findings: Generally - Awake, alert and comfortable without distress Head and neck - normocephalic, atraumatic, EOMI grossly intact Cardiovascular - S1, S2, no murmurs, rubs or gallops Lungs -diminished breath sounds at the bases Abdomen - Bowel sounds positive, soft, non-tender Extremities - without edema Results Last 24 Hrs of Lab Results: Laboratory Tests 04/28/17 0914: Anion Gap 11, Estimated GFR > 60, BUN/Creatinine Ratio 24.3, CBC w Diff NO MAN DIFF REQ, RBC 3.90 L, MCV 87.5, MCH 28.7, MCHC 32.8 L, RDW 13.9, MPV 7.8, Gran % 76.3 H, Lymphocytes % 11.9 L, Monocytes % 8.9, Eosinophils % 2.1, Basophils % 0.8, Absolute Granulocytes 10.0 H, Absolute Lymphocytes 1.5, Absolute Monocytes 1.2 H, Absolute Eosinophils 0.3, Absolute Basophils 0.1 Impression/Plan Impression/Plan Impression/Plan: Impression 56 year old man. * LLL pneumonia and exudative pleural fluid consistent with empyema Plan -f/u ID recommendations -chest tube drainage -ct chest without contrast today -if significant fluid/loculation - will consider lytics -incentive spirometry DVT prophylaxis at all times
--- NOTE | 2017-04-28 13:47 | CT SCAN REPORT ---
EXAMINATION: CT CHEST WITHOUT CONTRAST CLINICAL INFORMATION: Pleural effusion COMPARISON: Chest tube placement 04/26/2017, chest x-ray and chest ultrasound 04/25/[address] 04/23/2017. Chest CTA from April 20 was also reviewed. TECHNIQUE: Multidetector volumetric CT imaging of the chest was done. Axial MIP volume rendering provided. Sagittal and coronal reformatted images were obtained. The patient was unable to raise her hands above their head secondary to discomfort which resulted in mild attenuation artifact. DLP: 342 mGy-cm FINDINGS: Left-sided pleural drain is present posteriorly. The drain appears slightly pulled back and an extrapleural sidehole is present. Overall the pleural effusion is stable to minimally decreased in size. A few small foci of air are noted within the subcutaneous tissues of the left back, consistent with extrapleural sideholes. The consolidation overlying the left lung base appears relatively stable to minimally improved. Central airways are patent. Emphysematous changes are again noted. Biapical architectural distortion/scarring is unchanged. Stable 6 mm lingular nodule (image 39/67, series 3) and smaller 3 mm lingular nodule (image 366). Nonspecific ill-defined 8mm nodular density of the right lower lobe (image 39/67). The heart is normal in size. Coronary artery calcifications are present. Trace pericardial fluid is noted. Scattered mildly prominent mediastinal lymph nodes are unchanged. Visualized portions of the upper abdomen are grossly unremarkable. Diffuse degenerative changes of the spine. IMPRESSION: 1. Relatively stable appearance of left lower lobe consolidation with small pleural effusion. The pleural effusion may potentially be minimally decreased in size. 2. The left pleural drain has pulled back slightly and there is now an extrapleural sidehole present. A few small foci of air are noted within the subcutaneous tissues of the left back. 3. Extensive emphysematous changes are again noted. 4. Pulmonary nodules are stable. 5. Ill-defined 8mm nodular density of the right lower lobe which was not present previously. Given the short interval development of this finding, I suspect this represents a small focus of inflammatory or infection changes. Attention on follow-up is recommended. This Critical Result was discussed with Dr. Demetrio Foley at 1:40 PM on 04/28/2017 and it was ascertained that the content and urgency of the report was understood at the time of direct communication.
[2017-04-28 15:10] VITALS: BP 108/58
--- NOTE | 2017-04-28 15:24 | PN- Infect Dx ---
Subjective Subjective: Afebrile on steroids. He feels improved with decreased left chest discomfort and decreased cough. Objective Last 24 Hrs of Vital Signs/I&O Vital Signs Date Time Temp Pulse Resp B/P B/P Pulse O2 O2 Flow FiO2 Mean Ox Delivery Rate 04/28 1510 98.1 72 20 108/58 91 Room Air 04/28 0816 93 Room Air 04/28 0800 93 Room Air Room Air 04/28 0800 92 Room Air Room Air 04/28 0614 98.0 70 20 112/60 92 Nasal Cannula 04/28 0000 Nasal 1.0L Cannula 04/28 0000 Nasal 1.0L Cannula 04/27 2244 97.5 83 20 112/50 93 Nasal 2.0L Cannula 04/27 1615 93 Nasal 1.0L Cannula 04/27 1600 Nasal 1.0L Cannula 04/27 1600 93 Nasal 1.0L Cannula Intake & Output 04/28 1600 04/28 0800 04/28 0000 Intake Total 910 370 Output Total 30 730 720 Balance 880 -730 -350 Intake, IV 110 130 Intake, Oral 800 240 Output, Chest 30 30 20 Tube Drainage Output, Urine 700 700 Physical Exam Other Physical Findings: He appears more comfortable in no acute distress Lungs decreased breath sounds at the left base; pigtail catheter in the left, with slight swelling around the catheter, with 45 mL output yesterday and 60 mL overnight and this morning Heart regular rhythm with no murmur Extremities no cyanosis, clubbing or edema Results Last 24 Hours of Lab Results: Laboratory Tests 04/28 0914 Chemistry Sodium (137 - 145 mmol/L) 139 Potassium (3.5 - 5.1 mmol/L) 4.2 Chloride (98 - 107 mmol/L) 99 Carbon Dioxide (22 - 30 mmol/L) 29 Anion Gap (5 - 16) 11 BUN (9 - 20 mg/dL) 17 Creatinine (0.7 - 1.2 mg/dL) 0.7 Estimated GFR (>60 ml/min) > 60 BUN/Creatinine Ratio (7 - 25 %) 24.3 Hematology CBC w Diff NO MAN DIFF REQ WBC (4.8 - 10.8 /CUMM) 13.1 H RBC (4.70 - 6.10 /CUMM) 3.90 L Hgb (14.0 - 18.0 G/DL) 11.2 L Hct (42 - 52 %) 34.1 L MCV (80.0 - 94.0 FL) 87.5 MCH (27.0 - 31.0 PG) 28.7 MCHC (33.0 - 37.0 G/DL) 32.8 L RDW (11.5 - 14.5 %) 13.9 Plt Count (130 - 400 /CUMM) 524 H MPV (7.4 - 10.4 FL) 7.8 Gran % (42.2 - 75.2 %) 76.3 H Lymphocytes % (20.5 - 51.1 %) 11.9 L Monocytes % (1.7 - 9.3 %) 8.9 Eosinophils % (0 - 5 %) 2.1 Basophils % (0.0 - 2.0 %) 0.8 Absolute Granulocytes (1.4 - 6.5 /CUMM) 10.0 H Absolute Lymphocytes (1.2 - 3.4 /CUMM) 1.5 Absolute Monocytes (0.10 - 0.60 /CUMM) 1.2 H Absolute Eosinophils (0.0 - 0.7 /CUMM) 0.3 Absolute Basophils (0.0 - 0.2 /CUMM) 0.1 Last 24 Hours of Jt Results: Left pleural fluid culture April 26 negative Recent Imaging Studies: CT of the chest April 28 reveals the drain slightly pulled back with an extrapleural sidehole present; the pleural effusion is stable to minimally decreased in size, with a few small foci of air within the subcutaneous tissues of the left back; the consolidation overlying the left lung base is relatively stable to minimally improved Assessment/Plan Impression: Improving, with temperatures remaining normal (on steroids) and white blood cell count decreasing, on Unasyn Day 6 of treatment for an empyema of the left chest, status post placement of a pigtail catheter 2 days ago, with removal of 50 mL of serosanguinous fluid. The culture from his initial thoracentesis grew coag- negative Staph, of unclear significance, though it is sensitive to Unasyn. The CT scan from today shows that the catheter has been pulled back, with an extrapleural sidehole present, and the catheter will need to be removed in the near future. Have discussed with IR who does not feel that another catheter can be placed; therefore would attempt to leave this catheter in for now. Lytics will likely not be feasible given the position of the catheter. Suggestion: 1. Discuss further management of his pigtail catheter with Pulmonary 2. Continue Unasyn
[2017-04-28 21:00] VITALS: BP 146/62
[2017-04-29 08:22] LABS: ABSOLUTE BASOPHIL COUNT 0.1 /CUMM (0.0-0.2); ABSOLUTE EOSINOPHIL COUNT 0.2 /CUMM (0.0-0.7); ABSOLUTE GRANULOCYTE CT 9.1 /CUMM (1.4-6.5); ABSOLUTE LYMPH COUNT 1.9 /CUMM (1.2-3.4); ABSOLUTE MONOCYTE COUNT 1.4 /CUMM (0.10-0.60); BASOPHIL % 0.4 % (0.0-2.0); EOSINOPHIL % 1.4 % (0-5); GRANULOCYTE % 71.9 % (42.2-75.2); HEMATOCRIT 36.3 % (42-52); MEAN CORPUSCULAR HGB 28.3 PG (27.0-31.0); MEAN CORPUSCULAR HGB CONC 32.3 G/DL (33.0-37.0); MEAN CORPUSCULAR VOLUME 87.9 FL (80.0-94.0); MEAN PLATELET VOLUME 7.6 FL (7.4-10.4); PLATELET COUNT 567 /CUMM (130-400); RBC DISTRIBUTION WIDTH 14.4 % (11.5-14.5); RED BLOOD CELL CT 4.13 /CUMM (4.70-6.10); WHITE BLOOD CELL COUNT 12.6 /CUMM (4.8-10.8)
[2017-04-29 08:25] VITALS: BP 138/72
--- NOTE | 2017-04-29 10:28 | PN- Housestaff ---
Lizeth Maldonado MD 04/29/17 1028: Subjective Follow-up For: EMPYEMA PNEUMONIA COPD EXACERBATION Subjective: Patient continues to note pain on inspiration and expiration, particularly at the site of chest tube insertion. He is more frustrated today that he doesn't feel that he is getting better. The patient continues to drain from his chest tube 70 mL since yesterday. Patient's oxygen saturation on ambulation with room air today was 83%. The patient is on 1 L nasal cannula saturating at 91% during the time of interview. Review of Systems Constitutional: Reports: weakness. Cardiovascular: Reports: chest pain. Respiratory: Reports: cough, orthopnea. Gastrointestinal: Reports: no symptoms. Genitourinary: Reports: no symptoms. Musculoskeletal: Reports: no symptoms. Skin: Reports: erythema (insertion site chest tube), lesions. Objective Last 24 Hrs of Vital Signs/I&O Vital Signs Date Time Temp Pulse Resp B/P B/P Pulse O2 O2 Flow FiO2 Mean Ox Delivery Rate 04/29 0845 94 Nasal 3.0L Cannula 04/29 0825 98.6 76 18 138/72 91 Nasal 1.5L Cannula 04/29 0800 93 Nasal 2.0L Cannula 04/29 0800 91 Nasal 1.0L Cannula 04/29 0000 Nasal 1.0L Cannula 04/29 0000 Nasal 1.0L Cannula 04/28 2100 98.3 87 24 146/62 91 04/28 1649 92 Room Air 04/28 1600 93 Nasal 1.0L Cannula 04/28 1600 93 Nasal 1.0L Cannula 04/28 1510 98.1 72 20 108/58 91 Room Air Intake & Output 04/29 1600 04/29 0800 04/29 0000 Intake Total 200 580 Output Total 920 1466 Balance -720 -886 Intake, IV 200 100 Intake, Oral 480 Output, Chest 20 16 Tube Drainage Output, Urine 900 1450 Physical Exam General Appearance: Alert, Oriented X3, Cooperative, No Acute Distress Skin: No Rashes, No Significant Lesion, erythema and edema at site of chest tube insertion with some leakage of serosanguinous liquid. Skin Temp/Moisture Exam: Warm/Dry Cardiovascular: Regular Rate, Normal S1, Normal S2, No Murmurs Lungs: decreased breath sounds on the left. Abdomen: Normal Bowel Sounds, Soft, No Tenderness, No Hepatospenomegaly Current Medications: Current Medications Sig/Tonio Start time Last Medication Dose Route Stop Time Status Admin Acetaminophen 650 MG Q8P PRN 04/21 2002 AC PO Acetylcysteine 4 ML BID 04/27 1000 AC 04/29 INH 0847 Albuterol Sulfate 3 ML EVERY 4 HRS/AWAKE 04/22 0800 AC 04/29 INH 1207 Ampicillin Sodium/ 3,000 MG Q6H 04/22 1600 AC 04/29 Sulbactam Sodium IV 1017 Sodium Chloride 100 ML Benzonatate 100 MG TID 04/22 1649 AC 04/29 PO 1009 Enoxaparin Sodium 40 MG DAILY 04/21 1000 AC 04/29 SC 1009 Guaifenesin/Codeine 10 ML Q6P PRN 04/22 0845 AC 04/29 Phosphate PO 0359 Ibuprofen 400 MG Q6P PRN 04/21 2014 AC PO Lactobacillus 1 CAP BID 04/24 1122 AC 04/29 Acidophilus PO 1009 Nicotine 14 MG DAILY 04/21 1000 AC 04/29 TOP 1008 Oxycodone/ 1 TAB Q4 PRN 04/26 1534 AC 04/29 Acetaminophen PO 1115 Prednisone 10 MG DAILY 04/28 1000 AC 04/29 PO 04/30 0959 1009 Tramadol HCl 50 MG ONCE ONE 04/28 2114 DC 04/28 PO 04/28 211 2140 Last 24 Hrs of Lab/Jt Results Last 24 Hrs of Labs/Mics: Laboratory Tests 04/29/17 0724: CBC w Diff NO MAN DIFF REQ, RBC 4.13 L, MCV 87.9, MCH 28.3, MCHC 32.3 L, RDW 14.4, MPV 7.6, Gran % 71.9, Lymphocytes % 15.1 L, Monocytes % 11.2 H, Eosinophils % 1.4, Basophils % 0.4, Absolute Granulocytes 9.1 H, Absolute Lymphocytes 1.9, Absolute Monocytes 1.4 H, Absolute Eosinophils 0.2, Absolute Basophils 0.1 Assessment/Plan Assessment: The patient is 56-year-old gentleman with past medical history of COPD and suspected hyperlipidemia. He presented to [facility] ED on 04/20 with complaint of shortness of breath AND CHEST PAIN ON INSPIRATION THAT STARTED FAILY ABRUPTLY THAT DAY. -VS 102.9, 100, 28,142/72,96% Ventimask -Pertinent labs, WBC count 30.4, band cells 14 H/H 13/42, platelets 602, lactic acid 1.1--4.1, d-dimer 391, UA clean, venous blood gases pH 7.37, PCO2 32, PO2 68 -Imaging findings dictated above -In ED patient received 1 L normal saline, Toradol, azithromycin, Rocephin, swollen 25;, 1 g of magnesium sulfate. On standing patient desatted to 88% He is admitted to general medicine floor and is being treated and evaluated for following conditions #Patient admitted with sepsis secondary to community-acquired pneumonia and COPD exacerbation with acute hypoxemic respiratory failure, found to have empyema with thoracentesis and subsequent placement of pigtail catheter -CTA done earlier in admission was negative for pulmonary embolism but positive for left lower lobe consolidation/atelectasis with associated moderate sized left pleural effusion that was found to be empyema. -EMPYEMA MOST PROBABLY DUE TO BACTERIAL PNEUMONIA BUT DIFFERENTIAL INCLUDES CANCER, TB, PE. HE DOES ADMIT TO WEIGHT LOSS AND CURRENT SMOKING. -WBC TODAY HAVE decreased to 12.6 from 13.1. PATIENT AFEBRILE. -Patient continues on steroid taper, today on 10mg PO prednisone. Patient will receive on more dose tomorrow and then STOP. Patient has no more wheezing on exam. -Urine strep and Legionella antigen NEGATIVE -CULTURE PLEURAL FLUID SHOWED COAG NEGATIVE STAPH, LIKELY CONTAMINANT FROM SKIN. MRSA surveillance negative. -CT CHEST DONE 04/28 SHOWED POSSIBLE DECREASE IN SIZE OF PLEURAL EFFUSION, BUT the left pleural drain has pulled back slightly and there is now an extrapleural sidehole present and a few small foci of air are noted within the subcutaneous tissues of the left back. Also, an ill-defined 8mm nodular density of the right lower lobe which was not present previously was seen and given the short interval development of this finding, there is susupicion for a small focus of inflammatory or infectious changes. Continue to monitor drainage and WBC count/ fever. -Patient continues to drain 60-70cc's per [address] Venegas we will continue to monitor drainage with plan to DC on 05/02 or 05/03. -PULMONARY AND ID INPUT APPRECIATED - PER ID CONTINUE UNASYN. PATIENT IS ON DAY 8 OF AT LEAST 14. WE WILL CONSULT WITH ID FOR LENGTH OF TREATMENT. -HIV TEST WHICH WAS NEGATIVE -Tylenol for fever control and toradol for pain relief PLUS PERCOCET Q4. -TRC/nebs, TESSALON PEARLS AND MUCOMYST prn -Oxygen supplementation to maintain oxygen saturation above 92% #CHEST PAIN -ON INSPIRATION, LESS LIKELY CARDIAC BUT TROPS AND EKGS DONE AND NEGATIVE X2 -CONTINUE PERCOCET FOR PAIN RELIEF as this helps him most. -Patient is refusing pain medications for severe breakthrough pain (MORPHINE) #Thrombocytosis likely reactive secondary to infection -Monitor platelet count #Lactic acidosis secondary to sepsis -RESOLVED #Smoker -Nicotine patch -Consult regarding smoking abstinence #History of hyperlipidemia -LIPID PROFILE NORMAL -6.3 HBA1C FOR CORONARY EQUIVALENTS- SLIGHTLY HIGH. WILL NEED DIET CONTROL OUTPATIENT. FC DVT prophylaxis with Lovenox Regular diet Problem List: 1. S/P thoracentesis 2. Empyema 3. Left lower lobe pneumonia Pain Ratin Pain Location: left chest Pain Goal: Pain 4 or less Pain Plan: percocet q4h prn Tomorrow's Labs & Rationales: cbc Zamzam Iverson MD 04/29/17 1232: Attending MD Review Statement Attending Statement Attending MD Statement: examined this patient, discuss w/resident/PA/BODY SHOP SUPERVISOR, reviewed EMR data (avail), discussed with nursing, discussed with case mgmt Attending Assessment/Plan: We discussed patient's pigtail findings and CT findings with Dr. Venegas. Patient is continuing to drain anywhere from 60-100 mL in a 24 hour period. He has an empyema that's being drained and there is a question of the tube having moved with extrapleural sideholes. The plan right now is to continue the current drainage with IV Unasyn and to follow-up in the next 48 hours or so whether the drain has to be removed, repositioned or whether lytics have to be instilled.
--- NOTE | 2017-04-29 11:02 | PN- Pulmonary ---
Subjective HPI/Critical Care Issues: Patient seen and examined. His CAT scan was reviewed fluid has been draining about 70 mL per 24 hours. Small fenestration may be outside of the chest however we will continue to observe at this time no literature indicated yet. Objective Current Medications: Current Medications Sig/Tonio Start time Last Medication Dose Route Stop Time Status Admin Acetaminophen 650 MG Q8P PRN 04/21 2002 AC PO Acetylcysteine 4 ML BID 04/27 1000 AC 04/29 INH 0847 Albuterol Sulfate 3 ML EVERY 4 HRS/AWAKE 04/22 0800 AC 04/29 INH 0847 Ampicillin Sodium/ 3,000 MG Q6H 04/22 1600 AC 04/29 Sulbactam Sodium IV 1017 Sodium Chloride 100 ML Benzonatate 100 MG TID 04/22 1649 AC 04/29 PO 1009 Enoxaparin Sodium 40 MG DAILY 04/21 1000 AC 04/29 SC 1009 Guaifenesin/Codeine 10 ML Q6P PRN 04/22 0845 AC 04/29 Phosphate PO 0359 Ibuprofen 400 MG Q6P PRN 04/21 2014 AC PO Lactobacillus 1 CAP BID 04/24 1122 AC 04/29 Acidophilus PO 1009 Nicotine 14 MG DAILY 04/21 1000 AC 04/29 TOP 1008 Oxycodone/ 1 TAB Q4 PRN 04/26 1534 AC 04/29 Acetaminophen PO 0712 Prednisone 10 MG DAILY 04/28 1000 AC 04/29 PO 04/30 0959 1009 Tramadol HCl 50 MG ONCE ONE 04/28 2115 DC 04/28 PO 04/28 2116 2140 Tramadol HCl 50 MG Q6 04/27 1332 DC PO Vital Signs & I&O Last 24 Hrs of Vitals and I&O: Vital Signs Date Time Temp Pulse Resp B/P B/P Pulse O2 O2 Flow FiO2 Mean Ox Delivery Rate 04/29 0825 98.6 76 18 138/72 91 Nasal 1.5L Cannula 04/29 08 93 Nasal 2.0L Cannula 04/29 0800 91 Nasal 1.0L Cannula 04/29 0000 Nasal 1.0L Cannula 04/29 0000 Nasal 1.0L Cannula 04/28 2100 98.3 87 24 146/62 91 04/28 1649 92 Room Air 04/28 1600 93 Nasal 1.0L Cannula 04/28 1600 93 Nasal 1.0L Cannula 04/28 1510 98.1 72 20 108/58 91 Room Air Intake & Output 04/29 1600 04/29 0800 04/29 0000 Intake Total 200 580 Output Total 920 1466 Balance -720 -886 Intake, IV 200 100 Intake, Oral 480 Output, Chest 20 16 Tube Drainage Output, Urine 900 1450 Exam Other Physical Findings: Generally - Awake, alert and comfortable without distress Head and neck - normocephalic, atraumatic, EOMI grossly intact Cardiovascular - S1, S2, no murmurs, rubs or gallops Lungs -diminished breath sounds at the bases Abdomen - Bowel sounds positive, soft, non-tender Extremities - without edema Results Last 24 Hrs of Lab Results: Laboratory Tests 04/29/17 0724: CBC w Diff NO MAN DIFF REQ, RBC 4.13 L, MCV 87.9, MCH 28.3, MCHC 32.3 L, RDW 14.4, MPV 7.6, Gran % 71.9, Lymphocytes % 15.1 L, Monocytes % 11.2 H, Eosinophils % 1.4, Basophils % 0.4, Absolute Granulocytes 9.1 H, Absolute Lymphocytes 1.9, Absolute Monocytes 1.4 H, Absolute Eosinophils 0.2, Absolute Basophils 0.1 Impression/Plan Impression/Plan Impression/Plan: Impression 56 year old man. * LLL pneumonia and exudative pleural fluid consistent with empyema Plan -chest tube drainage over weekend, no indication for lytics, will not reposition the chest tube as of yet -incentive spirometry -cont abx DVT prophylaxis at all times
--- NOTE | 2017-04-29 15:24 | PN- Infect Dx ---
Subjective Subjective: Afebrile. He continues to complain of left sided chest pain and pain around the pigtail catheter. His cough, mostly nonproductive, persists as well. Objective Last 24 Hrs of Vital Signs/I&O Vital Signs Date Time Temp Pulse Resp B/P B/P Pulse O2 O2 Flow FiO2 Mean Ox Delivery Rate 04/29 0845 94 Nasal 3.0L Cannula 04/29 08 98.6 76 18 138/72 91 Nasal 1.5L Cannula 04/29 08 93 Nasal 2.0L Cannula 04/29 799 91 Nasal 1.0L Cannula 04/29 0000 Nasal 1.0L Cannula 04/29 0000 Nasal 1.0L Cannula 04/28 2100 98.3 87 24 146/62 91 04/28 1649 92 Room Air 04/28 1600 93 Nasal 1.0L Cannula 04/28 1600 93 Nasal 1.0L Cannula Intake & Output 04/29 1600 04/29 0800 04/29 0000 Intake Total 1110 200 580 Output Total 844 702 6855 Balance 690 -720 -886 Intake, IV 110 200 100 Intake, Oral 1000 480 Number 1 Bowel Movements Output, Chest 20 20 16 Tube Drainage Output, Urine 492 028 4341 Physical Exam Other Physical Findings: He appears comfortable in no acute distress Lungs decreased breath sounds at the left base; pigtail catheter with mild swelling around the catheter, minimally tender to palpation, with no erythema; 76 mL output yesterday and 40 mL overnight Results Last 24 Hours of Lab Results: Laboratory Tests 04/29 723 Hematology CBC w Diff NO MAN DIFF REQ WBC (4.8 - 10.8 /CUMM) 12.6 H RBC (4.70 - 6.10 /CUMM) 4.13 L Hgb (14.0 - 18.0 G/DL) 11.7 L Hct (42 - 52 %) 36.3 L MCV (80.0 - 94.0 FL) 87.9 MCH (27.0 - 31.0 PG) 28.3 MCHC (33.0 - 37.0 G/DL) 32.3 L RDW (11.5 - 14.5 %) 14.4 Plt Count (130 - 400 /CUMM) 567 H MPV (7.4 - 10.4 FL) 7.6 Gran % (42.2 - 75.2 %) 71.9 Lymphocytes % (20.5 - 51.1 %) 15.1 L Monocytes % (1.7 - 9.3 %) 11.2 H Eosinophils % (0 - 5 %) 1.4 Basophils % (0.0 - 2.0 %) 0.4 Absolute Granulocytes (1.4 - 6.5 /CUMM) 9.1 H Absolute Lymphocytes (1.2 - 3.4 /CUMM) 1.9 Absolute Monocytes (0.10 - 0.60 /CUMM) 1.4 H Absolute Eosinophils (0.0 - 0.7 /CUMM) 0.2 Absolute Basophils (0.0 - 0.2 /CUMM) 0.1 Last 24 Hours of Jt Results: Left pleural fluid culture April 26 negative Assessment/Plan Impression: Improving, with temperatures remaining normal (on steroids) and white blood cell count continuing to decrease, on Unasyn Day 7 of treatment for an empyema of the left chest, possible secondary to coag-negative Staph, status post placement of a pigtail catheter 3 days ago, now with retraction of the catheter noted on the recent CT scan, with an extrapleural sidehole present. Have discussed with IR who does not feel that another catheter can be placed; therefore would attempt to leave this catheter in for now, but if the inflammation around the catheter increases and/or the drainage decreases, it will need to be removed. Suggestion: 1. Further management of his pigtail catheter per Pulmonary and Thoracic surgery 2. Continue Unasyn
[2017-04-29 15:52] VITALS: BP 140/58
[2017-04-29 22:12] VITALS: BP 116/58
[2017-04-30 06:59] VITALS: BP 108/60
--- NOTE | 2017-04-30 10:12 | PN- Housestaff ---
ParmjitAllie Garry 04/30/17 1009: Subjective Follow-up For: EMPYEMA PNEUMONIA COPD EXACERBATION Subjective: No overnight event. Patient felt about the same on breathing. Chest tube output about 40 in the last 24hrs. breathing under 2LNC Review of Systems Constitutional: Reports: see HPI. Objective Last 24 Hrs of Vital Signs/I&O Vital Signs Date Time Temp Pulse Resp B/P B/P Pulse O2 O2 Flow FiO2 Mean Ox Delivery Rate 04/30 0806 93 Nasal 2.0L Cannula 04/30 0756 Nasal 2.0L Cannula 04/30 0659 97.8 64 20 108/60 93 04/30 0000 Nasal 2.0L Cannula 04/30 0000 95 Nasal 2.0L Cannula 04/29 2212 97.8 81 20 116/58 95 Nasal 2.0L Cannula 04/29 1610 94 Room Air Room Air 04/29 1600 94 Nasal 2.0L Cannula 04/29 1600 94 Nasal 2.0L Cannula 04/29 1552 97.5 74 20 140/58 93 Nasal Cannula Intake & Output 04/30 1600 04/30 0800 04/30 0000 Intake Total 600 Output Total 350 500 Balance -350 100 Intake, Oral 600 Output, Urine 350 500 Physical Exam General Appearance: Alert, Oriented X3, Cooperative, No Acute Distress Cardiovascular: Regular Rate Lungs: decreased breath sound on the left without auscultable rhonchi/wheeze Abdomen: Normal Bowel Sounds, Soft, No Tenderness Neurological: Normal Speech Extremities: No Edema, Normal Pulses Current Medications: Current Medications Sig/Tonio Start time Last Medication Dose Route Stop Time Status Admin Acetaminophen 650 MG Q8P PRN 04/21 2002 AC PO Acetylcysteine 4 ML BID 04/27 1000 AC 04/30 INH 0914 Albuterol Sulfate 3 ML EVERY 4 HRS/AWAKE 04/22 0800 AC 04/30 INH 0913 Ampicillin Sodium/ 3,000 MG Q6H 04/22 1600 AC 04/30 Sulbactam Sodium IV 0958 Sodium Chloride 100 ML Benzonatate 100 MG TID 04/22 1649 AC 04/30 PO 0843 Enoxaparin Sodium 40 MG DAILY 04/21 1000 AC 04/30 SC 0841 Guaifenesin/Codeine 10 ML Q6P PRN 04/22 0845 AC 04/30 Phosphate PO 0655 Ibuprofen 400 MG Q6P PRN 04/21 2014 AC PO Lactobacillus 1 CAP BID 04/24 1122 04/30 Acidophilus PO 0842 Nicotine 14 MG DAILY 04/21 1000 AC 04/30 TOP 0842 Oxycodone/ 1 TAB Q4 PRN 04/26 1534 04/30 Acetaminophen PO 0843 Prednisone 10 MG DAILY 04/28 1000 DC 04/29 PO 04/30 0959 1009 Assessment/Plan Assessment: The patient is 56-year-old gentleman with past medical history of COPD and suspected hyperlipidemia. He presented to [facility] ED on 04/20 with complaint of shortness of breath AND CHEST PAIN ON INSPIRATION THAT STARTED FAILY ABRUPTLY THAT DAY. -VS 102.9, 100, 28,142/72,96% Ventimask -Pertinent labs, WBC count 30.4, band cells 14 H/H , platelets 602, lactic acid 1.1--4.1, d-dimer 391, UA clean, venous blood gases pH 7.37, PCO2 32, PO2 68 -Imaging findings dictated above -In ED patient received 1 L normal saline, Toradol, azithromycin, Rocephin, swollen 25;, 1 g of magnesium sulfate. On standing patient desatted to 88% He is admitted to general medicine floor and is being treated and evaluated for following conditions #Patient admitted with sepsis secondary to community-acquired pneumonia and COPD exacerbation with acute hypoxemic respiratory failure, found to have empyema with thoracentesis and subsequent placement of pigtail catheter -CTA done earlier in admission was negative for pulmonary embolism but positive for left lower lobe consolidation/atelectasis with associated moderate sized left pleural effusion that was found to be empyema. -EMPYEMA MOST PROBABLY DUE TO BACTERIAL PNEUMONIA BUT DIFFERENTIAL INCLUDES CANCER, TB, PE. HE DOES ADMIT TO WEIGHT LOSS AND CURRENT SMOKING. -WBC TODAY HAVE decreased to 12.6 from 13.1. PATIENT AFEBRILE. -Patient continues on steroid taper, today on 10mg PO prednisone. Patient will receive on more dose tomorrow and then STOP. Patient has no more wheezing on exam. -Urine strep and Legionella antigen NEGATIVE -CULTURE PLEURAL FLUID SHOWED COAG NEGATIVE STAPH, LIKELY CONTAMINANT FROM SKIN. MRSA surveillance negative. -CT CHEST DONE 04/28 SHOWED POSSIBLE DECREASE IN SIZE OF PLEURAL EFFUSION, BUT the left pleural drain has pulled back slightly and there is now an extrapleural sidehole present and a few small foci of air are noted within the subcutaneous tissues of the left back. Also, an ill-defined 8mm nodular density of the right lower lobe which was not present previously was seen and given the short interval development of this finding, there is susupicion for a small focus of inflammatory or infectious changes. Continue to monitor drainage and WBC count/ fever. - Patient had minimum drainage overnight, and the tube insertion site appeared to be tender and swollen compared to yesterday. Would f.u w/ Dr. Venegas for plan. -PULMONARY AND ID INPUT APPRECIATED - PER ID CONTINUE UNASYN. PATIENT IS ON DAY 9 OF AT LEAST 14. WE WILL CONSULT WITH ID FOR LENGTH OF TREATMENT. -HIV TEST WHICH WAS NEGATIVE -Tylenol for fever control and toradol for pain relief PLUS PERCOCET Q4. -TRC/nebs, TESSALON PEARLS AND MUCOMYST prn -Oxygen supplementation to maintain oxygen saturation above 92% #CHEST PAIN -ON INSPIRATION, LESS LIKELY CARDIAC BUT TROPS AND EKGS DONE AND NEGATIVE X2 -CONTINUE PERCOCET FOR PAIN RELIEF as this helps him most. -Patient is refusing pain medications for severe breakthrough pain (MORPHINE) #Thrombocytosis likely reactive secondary to infection -Monitor platelet count #Lactic acidosis secondary to sepsis -RESOLVED #Smoker -Nicotine patch -Consult regarding smoking abstinence #History of hyperlipidemia -LIPID PROFILE NORMAL -6.3 HBA1C FOR CORONARY EQUIVALENTS- SLIGHTLY HIGH. WILL NEED DIET CONTROL OUTPATIENT. FC DVT prophylaxis with Lovenox Regular diet Problem List: 1. Empyema 2. S/P thoracentesis Pain Ratin Pain Location: Left flank/chest tube site Pain Goal: Pain 4 or less Pain Plan: see Zamzam Rosen MD 04/30/17 1431: Assessment/Plan Tomorrow's Labs & Rationales: none ordered Attending MD Review Statement Attending Statement Attending MD Statement: examined this patient, discuss w/resident/PA/HAND BINDER CUTTER, agreed w/resident/PA/HAND BINDER CUTTER, reviewed EMR data (avail), discussed with nursing, reviewed images Attending Assessment/Plan: Patient is frustrated about still being here. He is also frustrated about the whole catheter situation. He is a 56-year-old male who we are treating for an empyema possibly coag negative staph with IV Unasyn, today is day 8. He also had pigtail catheter drainage and now there was a question of the extrapleural's side holes not being in the pleural space. Dr. Venegas and Dr. Parnell took out the catheter at bedside. We are going to watch him now without a catheter and likely repeat imaging on Tuesday. Continue IV Unasyn with Percocet for pain. Leukocytosis is about the same in the 12-14 range. He's finished his prednisone course.
[2017-04-30 13:03] LABS: ABSOLUTE BASOPHIL COUNT 0.1 /CUMM (0.0-0.2); ABSOLUTE EOSINOPHIL COUNT 0.1 /CUMM (0.0-0.7); ABSOLUTE GRANULOCYTE CT 11.2 /CUMM (1.4-6.5); ABSOLUTE MONOCYTE COUNT 0.7 /CUMM (0.10-0.60); BASOPHIL % 0.6 % (0.0-2.0); EOSINOPHIL % 0.9 % (0-5); GRANULOCYTE % 79.4 % (42.2-75.2); HEMATOCRIT 34.4 % (42-52); MEAN CORPUSCULAR HGB 28.8 PG (27.0-31.0); MEAN CORPUSCULAR HGB CONC 32.6 G/DL (33.0-37.0); MEAN CORPUSCULAR VOLUME 88.1 FL (80.0-94.0); MEAN PLATELET VOLUME 7.5 FL (7.4-10.4); PLATELET COUNT 499 /CUMM (130-400); RBC DISTRIBUTION WIDTH 14.6 % (11.5-14.5); WHITE BLOOD CELL COUNT 14.1 /CUMM (4.8-10.8)
--- NOTE | 2017-04-30 14:06 | Event Note ---
Event Note Event Note: Patient's chest tube site appeared to be swelling with tenderness upon palpation compared to yesterday. Minimal drainage overnight. Dr. Venegas and I assessed the chest tube and decided to pull it out and reassess pleural effusion by CXR in the AM T+1. Chest tube pulled without complication, with minimal residual sanguous fluid drained from insertion site. Xeroform and sponge dressing applied. Advised patient to notify if any breathing symptoms or fever/chills/chest pain/SOB.
[2017-04-30 14:23] VITALS: BP 104/52
--- NOTE | 2017-04-30 15:13 | PN- Pulmonary ---
Subjective HPI/Critical Care Issues: Patient seen and examined this morning. Minimal chest tube output in 24 hours about 20 mL. Left sided indwelling pleural catheter seems to have extravasated some fluid into the subcutaneous tissue. Objective Current Medications: Current Medications Sig/Tonio Start time Last Medication Dose Route Stop Time Status Admin Acetaminophen 650 MG Q8P PRN 04/21 2002 AC PO Acetylcysteine 4 ML BID 04/27 1000 AC 04/30 INH 0914 Albuterol Sulfate 3 ML EVERY 4 HRS/AWAKE 04/22 0800 AC 04/30 INH 1230 Ampicillin Sodium/ 3,000 MG Q6H 04/22 1600 AC 04/30 Sulbactam Sodium IV 0958 Sodium Chloride 100 ML Benzonatate 100 MG TID 04/22 1649 AC 04/30 PO 0843 Enoxaparin Sodium 40 MG DAILY 04/21 1000 AC 04/30 SC 0841 Guaifenesin/Codeine 10 ML Q6P PRN 04/22 0845 AC 04/30 Phosphate PO 1323 Ibuprofen 400 MG Q6P PRN 04/21 2014 AC PO Lactobacillus 1 CAP BID 04/24 1122 AC 04/30 Acidophilus PO 0842 Nicotine 14 MG DAILY 04/21 1000 AC 04/30 TOP 0842 Oxycodone/ 1 TAB Q4 PRN 04/26 1534 AC 04/30 Acetaminophen PO 1323 Prednisone 10 MG DAILY 04/28 1000 DC 04/29 PO 04/30 0959 1009 Vital Signs & I&O Last 24 Hrs of Vitals and I&O: Vital Signs Date Time Temp Pulse Resp B/P B/P Pulse O2 O2 Flow FiO2 Mean Ox Delivery Rate 04/30 1423 97.9 78 20 104/52 92 Nasal 2.0L Cannula 04/30 0913 94 Nasal 1.0L Cannula 04/30 0806 93 Nasal 2.0L Cannula 04/30 0756 Nasal 2.0L Cannula 04/30 0659 97.8 64 20 108/60 93 04/30 0000 Nasal 2.0L Cannula 04/30 0000 95 Nasal 2.0L Cannula 04/29 2212 97.8 81 20 116/58 95 Nasal 2.0L Cannula 04/29 1610 94 Room Air Room Air 04/29 1600 94 Nasal 2.0L Cannula 04/29 1600 94 Nasal 2.0L Cannula 04/29 1552 97.5 74 20 140/58 93 Nasal Cannula Intake & Output 04/30 1600 04/30 0800 04/30 0000 Intake Total 750 600 Output Total 600 350 500 Balance 150 -350 100 Intake, IV 150 Intake, Oral 600 600 Output, Urine 600 350 500 Exam Other Physical Findings: Generally - Awake, alert and comfortable without distress Head and neck - normocephalic, atraumatic, EOMI grossly intact Cardiovascular - S1, S2, no murmurs, rubs or gallops Lungs -diminished breath sounds at the bases Abdomen - Bowel sounds positive, soft, non-tender Extremities - without edema back - left sided entry site from indwelling pleural catheter showed likely extravasated fluid from the catheter Results Last 24 Hrs of Lab Results: Laboratory Tests 04/30/17 1246: CBC w Diff NO MAN DIFF REQ, RBC 3.90 L, MCV 88.1, MCH 28.8, MCHC 32.6 L, RDW 14.6 H, MPV 7.5, Gran % 79.4 H, Lymphocytes % 14.0 L, Monocytes % 5.1, Eosinophils % 0.9, Basophils % 0.6, Absolute Granulocytes 11.2 H, Absolute Lymphocytes 2.0, Absolute Monocytes 0.7 H, Absolute Eosinophils 0.1, Absolute Basophils 0.1 Impression/Plan Impression/Plan Impression/Plan: Impression 56 year old man. * LLL pneumonia and exudative pleural fluid consistent with empyema Plan -given the soft tissue fluid extravasation from the chest tube fenestration and malpositioning, decision with the patient was made to remove the catheter bedside. -we will monitor his wbc, will get cxr in am -it was discussed with patient the possible necessity of another chest tube, however this may not be required as lytic therapy may not be useful based on ct imaging 04/28 -incentive spirometry -cont unasyn -pain control DVT prophylaxis at all times
[2017-04-30 22:08] VITALS: BP 96/58
[2017-05-01 06:47] VITALS: BP 94/52
--- NOTE | 2017-05-01 08:53 | PN- Housestaff ---
ParmjitAllie Donnie Mcfarlandie 05/01/17 0852: Subjective Follow-up For: EMPYEMA PNEUMONIA COPD EXACERBATION Subjective: No overnight event. Patient felt about the same on breathing. Stated tenderness decreased from yesterday at chestube removal site. breathing under 2LNC Review of Systems Constitutional: Reports: see HPI. Objective Last 24 Hrs of Vital Signs/I&O Vital Signs Date Time Temp Pulse Resp B/P B/P Pulse O2 O2 Flow FiO2 Mean Ox Delivery Rate 05/01 0647 97.5 62 20 94/52 95 05/01 0000 Nasal 2.0L Cannula 05/01 0000 92 Nasal 2.0L Cannula 04/30 2208 98.5 78 20 96/58 93 Nasal 2.0L Cannula 04/30 1638 92 Nasal 1.0L Cannula 04/30 1600 93 Nasal 2.0L Cannula 04/30 1600 94 Nasal 2.0L Cannula 04/30 1423 97.9 78 20 104/52 92 Nasal 2.0L Cannula Intake & Output 05/01 1600 05/01 0800 05/01 0000 Intake Total 840 Output Total Balance 840 Intake, IV 120 Intake, Oral 720 Number 0 Bowel Movements Physical Exam General Appearance: Alert, Oriented X3, Cooperative, No Acute Distress Cardiovascular: Regular Rate Lungs: Normal Air Movement, Decreased/minimal lung sound at L base Abdomen: Normal Bowel Sounds, Soft, No Tenderness Neurological: Normal Speech Extremities: No Edema, Normal Pulses Current Medications: Current Medications Sig/Tonio Start time Last Medication Dose Route Stop Time Status Admin Acetaminophen 650 MG Q8P PRN 04/21 2002 AC PO Acetylcysteine 4 ML BID 04/27 1000 AC 05/01 INH 1122 Albuterol Sulfate 3 ML EVERY 4 HRS/AWAKE 04/22 0800 AC 05/01 INH 1121 Ampicillin Sodium/ 3,000 MG Q6H 04/22 1600 AC 05/01 Sulbactam Sodium IV 0854 Sodium Chloride 100 ML Benzonatate 100 MG TID 04/22 1649 AC 05/01 PO 0850 Enoxaparin Sodium 40 MG DAILY 04/21 1000 AC 05/01 SC 0850 Guaifenesin/Codeine 10 ML Q6P PRN 04/22 0845 AC 05/01 Phosphate PO 1025 Ibuprofen 400 MG Q6P PRN 04/21 2014 AC PO Lactobacillus 1 CAP BID 04/24 1122 AC 05/01 Acidophilus PO 0850 Nicotine 14 MG DAILY 04/21 1000 AC 05/01 TOP 0855 Oxycodone/ 1 TAB Q4 PRN 04/26 1534 AC 05/01 Acetaminophen PO 0803 Last 24 Hrs of Lab/Jt Results Last 24 Hrs of Labs/Mics: Laboratory Tests 05/01/17 0814: CBC w Diff NO MAN DIFF REQ, RBC 3.97 L, MCV 87.4, MCH 27.5, MCHC 31.4 L, RDW 14.5, MPV 7.8, Gran % 81.5 H, Lymphocytes % 13.0 L, Monocytes % 3.1, Eosinophils % 1.6, Basophils % 0.8, Absolute Granulocytes 11.0 H, Absolute Lymphocytes 1.8, Absolute Monocytes 0.4, Absolute Eosinophils 0.2, Absolute Basophils 0.1 04/30/17 1246: CBC w Diff NO MAN DIFF REQ, RBC 3.90 L, MCV 88.1, MCH 28.8, MCHC 32.6 L, RDW 14.6 H, MPV 7.5, Gran % 79.4 H, Lymphocytes % 14.0 L, Monocytes % 5.1, Eosinophils % 0.9, Basophils % 0.6, Absolute Granulocytes 11.2 H, Absolute Lymphocytes 2.0, Absolute Monocytes 0.7 H, Absolute Eosinophils 0.1, Absolute Basophils 0.1 Assessment/Plan Assessment: The patient is 56-year-old gentleman with past medical history of COPD and suspected hyperlipidemia. He presented to [place] ED on 04/20 with complaint of shortness of breath AND CHEST PAIN ON INSPIRATION THAT STARTED FAILY ABRUPTLY THAT DAY. -VS 102.9, 100, 28,142/72,96% Ventimask -Pertinent labs, WBC count 30.4, band cells 14 H/H , platelets 602, lactic acid 1.1--4.1, d-dimer 391, UA clean, venous blood gases pH 7.37, PCO2 32, PO2 68 -Imaging findings dictated above -In ED patient received 1 L normal saline, Toradol, azithromycin, Rocephin, swollen 25;, 1 g of magnesium sulfate. On standing patient desatted to 88% He is admitted to general medicine floor and is being treated and evaluated for following conditions #Patient admitted with sepsis secondary to community-acquired pneumonia and COPD exacerbation with acute hypoxemic respiratory failure, found to have empyema with thoracentesis and subsequent placement of pigtail catheter -CTA done earlier in admission was negative for pulmonary embolism but positive for left lower lobe consolidation/atelectasis with associated moderate sized left pleural effusion that was found to be empyema. -EMPYEMA MOST PROBABLY DUE TO BACTERIAL PNEUMONIA BUT DIFFERENTIAL INCLUDES CANCER, TB, PE. HE DOES ADMIT TO WEIGHT LOSS AND CURRENT SMOKING. -WBC TODAY HAVE decreased to 12.6 from 13.1. PATIENT AFEBRILE. -Patient continues on steroid taper, today on 10mg PO prednisone. Patient will receive on more dose tomorrow and then STOP. Patient has no more wheezing on exam. -Urine strep and Legionella antigen NEGATIVE -CULTURE PLEURAL FLUID SHOWED COAG NEGATIVE STAPH, LIKELY CONTAMINANT FROM SKIN. MRSA surveillance negative. -CT CHEST DONE 04/28 SHOWED POSSIBLE DECREASE IN SIZE OF PLEURAL EFFUSION, BUT the left pleural drain has pulled back slightly and there is now an extrapleural sidehole present and a few small foci of air are noted within the subcutaneous tissues of the left back. Also, an ill-defined 8mm nodular density of the right lower lobe which was not present previously was seen and given the short interval development of this finding, there is susupicion for a small focus of inflammatory or infectious changes. Continue to monitor drainage and WBC count/ fever. - Patient had minimum drainage overnight, and the tube insertion site appeared to be tender and swollen compared to yesterday. Would f.u w/ Dr. Venegas for plan. -PULMONARY AND ID INPUT APPRECIATED - PER ID CONTINUE UNASYN. PATIENT IS ON DAY 10 OF AT LEAST 14. WE WILL CONSULT WITH ID FOR LENGTH OF TREATMENT. -HIV TEST WHICH WAS NEGATIVE -Tylenol for fever control and toradol for pain relief PLUS PERCOCET Q4. -TRC/nebs, TESSALON PEARLS AND MUCOMYST prn Update 05/01: - Patient's CXR revealed 20% left apical pneumothorax, likely from chest tube tip malposition from past days/air leak, however patient's had remained at his baseline without acute onset of pneumothoraxic symptoms with stable vitals. - Will start 100% O2 non-breather NO washout and repeat CXR q12, and CBC tomorrow - Continued Unasyn per ID. - Pending Thoracic follow up on Tuesday AM. #CHEST PAIN -ON INSPIRATION, LESS LIKELY CARDIAC BUT TROPS AND EKGS DONE AND NEGATIVE X2 -CONTINUE PERCOCET FOR PAIN RELIEF as this helps him most. -Patient is refusing pain medications for severe breakthrough pain (MORPHINE) #Thrombocytosis likely reactive secondary to infection -Monitor platelet count #Lactic acidosis secondary to sepsis -RESOLVED #Smoker -Nicotine patch -Consult regarding smoking abstinence #History of hyperlipidemia -LIPID PROFILE NORMAL -6.3 HBA1C FOR CORONARY EQUIVALENTS- SLIGHTLY HIGH. WILL NEED DIET CONTROL OUTPATIENT. FC DVT prophylaxis with Lovenox Regular diet Problem List: 1. S/P thoracentesis 2. Leukocytosis Pain Ratin Pain Location: Left chest tube removal site Pain Goal: Pain 4 or less Pain Plan: see AP Tomorrow's Labs & Rationales: CBC Zamzam Iverson MD 05/01/17 1248: Attending MD Review Statement Attending Statement Attending MD Statement: examined this patient, discuss w/resident/PA/MODELING MANAGER, agreed w/resident/PA/MODELING MANAGER, reviewed EMR data (avail), discussed with nursing, reviewed images Attending Assessment/Plan: Patient is in a lot of discomfort. He is also upset obviously as Dr. Venegas talked to him about a pneumothorax. There is a 20% small apical pneumothorax status post removal of the chest tube. He is now 100% oxygen per Dr. Venegas and we are going to get chest x-rays twice a day to closely follow. He remains on IV Unasyn for an empyema, organism still unclear. ID is actively following. We are also trending his leukocytosis which is decreased overall, but still is elevated.
[2017-05-01 09:05] LABS: ABSOLUTE BASOPHIL COUNT 0.1 /CUMM (0.0-0.2); ABSOLUTE EOSINOPHIL COUNT 0.2 /CUMM (0.0-0.7); ABSOLUTE LYMPH COUNT 1.8 /CUMM (1.2-3.4); ABSOLUTE MONOCYTE COUNT 0.4 /CUMM (0.10-0.60); BASOPHIL % 0.8 % (0.0-2.0); EOSINOPHIL % 1.6 % (0-5); GRANULOCYTE % 81.5 % (42.2-75.2); HEMATOCRIT 34.7 % (42-52); MEAN CORPUSCULAR HGB 27.5 PG (27.0-31.0); MEAN CORPUSCULAR HGB CONC 31.4 G/DL (33.0-37.0); MEAN CORPUSCULAR VOLUME 87.4 FL (80.0-94.0); MEAN PLATELET VOLUME 7.8 FL (7.4-10.4); PLATELET COUNT 487 /CUMM (130-400); RBC DISTRIBUTION WIDTH 14.5 % (11.5-14.5); RED BLOOD CELL CT 3.97 /CUMM (4.70-6.10); WHITE BLOOD CELL COUNT 13.5 /CUMM (4.8-10.8)
--- NOTE | 2017-05-01 09:09 | PN- Infect Dx ---
Subjective Subjective: Afebrile. He complains of severe pain in the left chest and back. His pigtail catheter was removed yesterday because of concern of increased swelling around the insertion site. Objective Last 24 Hrs of Vital Signs/I&O Vital Signs Date Time Temp Pulse Resp B/P B/P Pulse O2 O2 Flow FiO2 Mean Ox Delivery Rate 05/01 0647 97.5 62 20 94/52 95 02/ 0000 Nasal 2.0L Cannula 05/01 0000 92 Nasal 2.0L Cannula 04/30 2208 98.5 78 20 96/58 93 Nasal 2.0L Cannula 04/30 1638 92 Nasal 1.0L Cannula 04/30 1600 93 Nasal 2.0L Cannula 04/30 1600 94 Nasal 2.0L Cannula 04/30 1423 97.9 78 20 104/52 92 Nasal 2.0L Cannula 04/30 0913 94 Nasal 1.0L Cannula Intake & Output 05/01 1600 05/01 0800 05/01 0000 Intake Total 840 Output Total Balance 840 Intake, IV 120 Intake, Oral 720 Number 0 Bowel Movements Physical Exam Other Physical Findings: He appears uncomfortable Lungs decreased breath at the left base Heart regular rhythm with no murmur Results Last 24 Hours of Lab Results: Laboratory Tests 05/01 04/30 0814 1246 Hematology CBC w Diff Pending NO MAN DIFF REQ WBC (4.8 - 10.8 /CUMM) Pending 14.1 H RBC (4.70 - 6.10 /CUMM) Pending 3.90 L Hgb (14.0 - 18.0 G/DL) Pending 11.2 L Hct (42 - 52 %) Pending 34.4 L MCV (80.0 - 94.0 FL) Pending 88.1 MCH (27.0 - 31.0 PG) Pending 28.8 MCHC (33.0 - 37.0 G/DL) Pending 32.6 L RDW (11.5 - 14.5 %) Pending 14.6 H Plt Count (130 - 400 /CUMM) Pending 499 H MPV (7.4 - 10.4 FL) Pending 7.5 Gran % (42.2 - 75.2 %) 79.4 H Lymphocytes % (20.5 - 51.1 %) 14.0 L Monocytes % (1.7 - 9.3 %) 5.1 Eosinophils % (0 - 5 %) 0.9 Basophils % (0.0 - 2.0 %) 0.6 Absolute Granulocytes (1.4 - 6.5 /CUMM) 11.2 H Absolute Lymphocytes (1.2 - 3.4 /CUMM) 2.0 Absolute Monocytes (0.10 - 0.60 /CUMM) 0.7 H Absolute Eosinophils (0.0 - 0.7 /CUMM) 0.1 Absolute Basophils (0.0 - 0.2 /CUMM) 0.1 Last 24 Hours of Jt Results: No new cultures Assessment/Plan Impression: Persistent pain in the back at the site of the recent catheter, which had become dislodged and has now been removed. He remains afebrile but his white blood cell count was increased yesterday, possibly secondary to residual empyema or to the steroids, which have been discontinued. He remains on Unasyn Day 9 of treatment for an empyema of the left chest of unclear etiology, with coag- negative Staph isolated from the pleural fluid culture of unclear significance. Suggestion: 1. Repeat chest x-ray 2. Further imaging, for example CT of the chest, based on above 3. Continue Unasyn
--- NOTE | 2017-05-01 10:53 | RADIOLOGY REPORT ---
EXAMINATION: XR CHEST CLINICAL INFORMATION: Rule out pneumothorax status post left thoracentesis. Status post chest tube removal. Compared with previous. COMPARISON: CT scan of the chest dated 04/28/2017. Ultrasound-guided chest tube placement dated 04/26/2017. Chest x-ray dated 04/25/2017 and 04/21/2017. TECHNIQUE: 2 views of the chest were obtained on 3 images. FINDINGS: The cardiomediastinal silhouette is within normal limits in size. There is a small (approximately 20%) left apical pneumothorax, new status post chest tube removal. Again seen is a small left-sided pleural effusion, extending along the left lateral lower chest wall with associated left basilar consolidation, unchanged when compared to the prior exam from 04/25/2017 and perhaps increased when compared to 04/21/2017. Emphysematous lung disease again noted. Biapical reticular scarring. The lung nodules seen on prior CT scan are not appreciated on plain film. Mild vertebral spondylosis in the mid and lower thoracic spine is noted. IMPRESSION: 1. New approximately 20% left apical pneumothorax status post chest tube removal. 2. No significant change in small left basilar consolidation and associated effusion. 3. Emphysematous lung disease with chronic biapical scarring. This critical result was discussed with Dr. Garry Parnell 05/01/2017, 10:20 AM and it was ascertained that the content and urgency of this report was understood at the time of direct communication.
--- NOTE | 2017-05-01 13:53 | PN- Pulmonary ---
Subjective HPI/Critical Care Issues: pt seen and examined his swelling at the chest tube side has subsided and is better cxr reviewed showing a pneumothorax Objective Current Medications: Current Medications Sig/Tonio Start time Last Medication Dose Route Stop Time Status Admin Acetaminophen 650 MG Q8P PRN 04/21 2002 AC PO Acetylcysteine 4 ML BID 04/27 1000 AC 05/01 INH 1122 Albuterol Sulfate 3 ML EVERY 4 HRS/AWAKE 04/22 0800 AC 05/01 INH 1121 Ampicillin Sodium/ 3,000 MG Q6H 04/22 1600 AC 05/01 Sulbactam Sodium IV 0854 Sodium Chloride 100 ML Benzonatate 100 MG TID 04/22 1649 AC 05/01 PO 0850 Enoxaparin Sodium 40 MG DAILY 04/21 1000 AC 05/01 SC 0850 Guaifenesin/Codeine 10 ML Q6P PRN 04/22 0845 AC 05/01 Phosphate PO 1025 Ibuprofen 400 MG Q6P PRN 04/21 2014 AC PO Lactobacillus 1 CAP BID 04/24 1122 AC 05/01 Acidophilus PO 0850 Nicotine 14 MG DAILY 04/21 1000 AC 05/01 TOP 0855 Oxycodone/ 1 TAB Q4 PRN 04/26 1534 AC 05/01 Acetaminophen PO 1248 Vital Signs & I&O Last 24 Hrs of Vitals and I&O: Vital Signs Date Time Temp Pulse Resp B/P B/P Pulse O2 O2 Flow FiO2 Mean Ox Delivery Rate 05/01 1125 99 Non 100% ReBreather 05/01 0800 96 Nasal 2.0L Cannula 05/01 0800 96 Nasal 2.0L Cannula 05/01 0647 97.5 62 20 94/52 95 05/01 0000 Nasal 2.0L Cannula 05/01 0000 92 Nasal 2.0L Cannula 04/30 2208 98.5 78 20 96/58 93 Nasal 2.0L Cannula 04/30 1638 92 Nasal 1.0L Cannula 04/30 1600 93 Nasal 2.0L Cannula 04/30 1600 94 Nasal 2.0L Cannula 04/30 1423 97.9 78 20 104/52 92 Nasal 2.0L Cannula Intake & Output 05/01 1600 05/01 0800 05/01 0000 Intake Total 840 Output Total Balance 840 Intake, IV 120 Intake, Oral 720 Number 0 Bowel Movements Exam Other Physical Findings: Generally - Awake, alert and comfortable without distress Head and neck - normocephalic, atraumatic, EOMI grossly intact Cardiovascular - S1, S2, no murmurs, rubs or gallops Lungs -diminished breath sounds at the bases Abdomen - Bowel sounds positive, soft, non-tender Extremities - without edema Results Last 24 Hrs of Lab Results: Laboratory Tests 05/01/17 0814: CBC w Diff NO MAN DIFF REQ, RBC 3.97 L, MCV 87.4, MCH 27.5, MCHC 31.4 L, RDW 14.5, MPV 7.8, Gran % 81.5 H, Lymphocytes % 13.0 L, Monocytes % 3.1, Eosinophils % 1.6, Basophils % 0.8, Absolute Granulocytes 11.0 H, Absolute Lymphocytes 1.8, Absolute Monocytes 0.4, Absolute Eosinophils 0.2, Absolute Basophils 0.1 Impression/Plan Impression/Plan Impression/Plan: Impression 56 year old man. * LLL pneumonia and exudative pleural fluid consistent with empyema, now with pneumothorax Plan -100% fio2 for nitrogen wash out - keep 100% fio2 until cxr improves -cxr tonight and if stable in am -will have a thoracic surgery evaluation in am to discuss imaging and if another chest tube will be required -monitor wbc -cont unasyn -pain control DVT prophylaxis at all times
[2017-05-01 14:24] VITALS: BP 102/60
[2017-05-01 14:50] VITALS: BP 90/50
--- NOTE | 2017-05-01 19:40 | RADIOLOGY REPORT ---
EXAMINATION: XR CHEST CLINICAL INFORMATION: Pneumothorax COMPARISON: Same day one hour earlier. TECHNIQUE: 2 views of the chest were obtained. FINDINGS: Redemonstration of the small LEFT apical pneumothorax. Infiltrates at LEFT lower lobe and the pleural effusion unchanged. Right lung remain clear. IMPRESSION: Unchanged exam, LEFT pneumothorax, infiltrate LEFT lower lobe and pleural effusion.
[2017-05-01 22:23] VITALS: BP 92/46
[2017-05-02 05:51] VITALS: BP 106/60
--- NOTE | 2017-05-02 08:21 | PN- Housestaff ---
Joel GOMEZ,Lizeth 05/02/17 0821: Subjective Follow-up For: EMPYEMA PNEUMONIA COPD EXACERBATION pneumothorax Subjective: patient had his chest tube, which had dislodged, removed over the weekend. the side fenestrations of the tube were outside of the patient's chest allowing air to come in which ended up contributing to a 20% left apical pneumothorax. Subsequently patient has had bid cxr's. patient states he feels worse today in terms of breathing but the same in terms of pain. Review of Systems Constitutional: Reports: no symptoms. EENTM: Reports: no symptoms. Cardiovascular: Reports: chest pain. Respiratory: Reports: short of breath. Gastrointestinal: Reports: no symptoms. Genitourinary: Reports: no symptoms. Musculoskeletal: Reports: no symptoms. Skin: Reports: no symptoms. Neurological/Psychological: Reports: no symptoms. Objective Last 24 Hrs of Vital Signs/I&O Vital Signs Date Time Temp Pulse Resp B/P B/P Pulse O2 O2 Flow FiO2 Mean Ox Delivery Rate 05/02 1342 98.3 73 20 110/70 99 Non ReBreather 05/02 0847 100 Non 100% ReBreather 05/02 0800 97 Non 100% ReBreather 05/02 0800 98 Non 100% ReBreather 05/02 0551 97.6 68 22 106/60 100 Non 100% ReBreather 05/02 0000 Non 100% ReBreather 05/02 0000 98 Non 100% ReBreather 05/01 2223 98.0 75 20 92/46 99 Nasal Cannula 05/01 2000 98 Non 100% ReBreather 05/01 1600 97 Non 10L ReBreather 05/01 1450 98.0 62 20 90/50 99 Room Air Intake & Output 05/02 1600 05/02 0800 05/02 0000 Intake Total 800 Output Total Balance 800 Intake, Oral 800 Physical Exam General Appearance: Alert, Oriented X3, Cooperative, Mild Distress Skin: No Rashes, No Breakdown, No Significant Lesion Skin Temp/Moisture Exam: Warm/Dry HEENT: Atraumatic Cardiovascular: Regular Rate, Normal S1, Normal S2, No Murmurs Lungs: left side distant breath sounds. Abdomen: Normal Bowel Sounds, Soft, No Tenderness Neurological: Normal Speech Extremities: No Clubbing, No Cyanosis, No Edema, Normal Pulses, No Tenderness/ Swelling Vascular: Normal Pulses Current Medications: Current Medications Sig/Tonio Start time Last Medication Dose Route Stop Time Status Admin Acetaminophen 650 MG Q8P PRN 04/21 2002 AC PO Acetylcysteine 4 ML BID 04/27 1000 DC 05/02 INH 0844 Albuterol Sulfate 3 ML EVERY 4 HRS/AWAKE 04/22 0800 AC 05/02 INH 1205 Ampicillin Sodium/ 3,000 MG Q6H 04/22 1600 AC 05/02 Sulbactam Sodium IV 0914 Sodium Chloride 100 ML Benzonatate 100 MG TID 04/22 1649 AC 05/02 PO 0915 Enoxaparin Sodium 40 MG DAILY 04/21 1000 AC 05/01 SC 0850 Guaifenesin/Codeine 10 ML Q6P PRN 04/22 0845 AC 05/01 Phosphate PO 1025 Ibuprofen 400 MG Q6P PRN 04/21 2014 AC PO Lactobacillus 1 CAP BID 04/24 1122 AC 05/02 Acidophilus PO 0914 Nicotine 14 MG DAILY 04/21 1000 AC 05/02 TOP 0914 Oxycodone/ 1 TAB Q4 05/01 1800 AC 05/02 Acetaminophen PO 1350 Last 24 Hrs of Lab/Jt Results Last 24 Hrs of Labs/Mics: Laboratory Tests 05/02/17 0803: CBC w Diff NO MAN DIFF REQ, RBC 3.94 L, MCV 87.8, MCH 28.1, MCHC 32.0 L, RDW 14.3, MPV 8.2, Gran % 80.6 H, Lymphocytes % 11.6 L, Monocytes % 4.9, Eosinophils % 2.1, Basophils % 0.8, Absolute Granulocytes 14.0 H, Absolute Lymphocytes 2.0, Absolute Monocytes 0.8 H, Absolute Eosinophils 0.4, Absolute Basophils 0.1 Assessment/Plan Assessment: The patient is 56-year-old gentleman with past medical history of COPD and suspected hyperlipidemia. He presented to [facility] ED on 04/20 with complaint of shortness of breath AND CHEST PAIN ON INSPIRATION THAT STARTED FAILY ABRUPTLY THAT DAY. -VS 102.9, 100, 28,142/72,96% Ventimask -Pertinent labs, WBC count 30.4, band cells 14 H/H 13/42, platelets 602, lactic acid 1.1--4.1, d-dimer 391, UA clean, venous blood gases pH 7.37, PCO2 32, PO2 68 -Imaging findings dictated above -In ED patient received 1 L normal saline, Toradol, azithromycin, Rocephin, swollen 25;, 1 g of magnesium sulfate. On standing patient desatted to 88% He is admitted to general medicine floor and is being treated and evaluated for following conditions #Patient admitted with sepsis secondary to community-acquired pneumonia and COPD exacerbation with acute hypoxemic respiratory failure, found to have empyema with thoracentesis and subsequent placement of pigtail catheter -CTA done earlier in admission was negative for pulmonary embolism but positive for left lower lobe consolidation/atelectasis with associated moderate sized left pleural effusion that was found to be empyema. -EMPYEMA MOST PROBABLY DUE TO BACTERIAL PNEUMONIA BUT DIFFERENTIAL INCLUDES CANCER, TB, PE. HE DOES ADMIT TO WEIGHT LOSS AND CURRENT SMOKING. -WBC TODAY HAVE decreased to 12.6 from 13.1. PATIENT AFEBRILE. -Patient continues on steroid taper, today on 10mg PO prednisone. Patient will receive on more dose tomorrow and then STOP. Patient has no more wheezing on exam. -Urine strep and Legionella antigen NEGATIVE -CULTURE PLEURAL FLUID SHOWED COAG NEGATIVE STAPH, LIKELY CONTAMINANT FROM SKIN. MRSA surveillance negative. -CT CHEST DONE 04/28 SHOWED POSSIBLE DECREASE IN SIZE OF PLEURAL EFFUSION, BUT the left pleural drain has pulled back slightly and there is now an extrapleural sidehole present and a few small foci of air are noted within the subcutaneous tissues of the left back. Also, an ill-defined 8mm nodular density of the right lower lobe which was not present previously was seen and given the short interval development of this finding, there is susupicion for a small focus of inflammatory or infectious changes. Continue to monitor drainage and WBC count/ fever. - Patient had minimum drainage overnight, and the tube insertion site appeared to be tender and swollen compared to yesterday. Would fsandeep da silva/ Dr. Venegas for plan. -PULMONARY AND ID INPUT APPRECIATED - PER ID CONTINUE UNASYN. PATIENT IS ON DAY 11 OF AT LEAST 14. WE WILL CONSULT WITH ID FOR LENGTH OF TREATMENT. -HIV TEST WHICH WAS NEGATIVE -Evaenol for fever control and toradol for pain relief PLUS PERCOCET Q4. -TRC/nebs, TESSALON PEARLS AND MUCOMYST prn -On 05/01 patient's chest tube output had decreased to almost 0. As per Dr. Venegas, the chest tube was pulled. After this, patient's CXR revealed 20% left apical pneumothorax, likely from chest tube tip malposition from past days/air leak, however patient's had remained at his baseline without acute onset of pneumothoraxic symptoms with stable vitals. -We started 100% O2 non-breather NO washout and repeat CXR q12 -CXR done 2/4 pm showed unchanged images since the morning, LEFT pneumothorax, infiltrate LEFT lower lobe and pleural effusion. -CXR done 25 am showed slight interval improvement in left-sided pneumothorax. Stable left-sided pleural effusion with associated left basilar infiltrate or atelectasis. -Consult was placed with Dr. Parikh cardiothoracic surgery and he is requesting CT chest WITH IV contrast today to better evaluate. -Continue 100% nonrebreather -Holding lovenox until CT surgery makes a plan - possible surgical drainage? #CHEST PAIN -ON INSPIRATION, LESS LIKELY CARDIAC BUT TROPS AND EKGS DONE AND NEGATIVE X2 -CONTINUE PERCOCET FOR PAIN RELIEF as this helps him most. -Patient is refusing pain medications for severe breakthrough pain (MORPHINE) #Thrombocytosis likely reactive secondary to infection -Monitor platelet count #Lactic acidosis secondary to sepsis -RESOLVED #Smoker -Nicotine patch -Consult regarding smoking abstinence #History of hyperlipidemia -LIPID PROFILE NORMAL -6.3 HBA1C FOR CORONARY EQUIVALENTS- SLIGHTLY HIGH. WILL NEED DIET CONTROL OUTPATIENT. -for now started patient on cc3 diet and tidac accucheks FC DVT prophylaxis with Lovenox Regular diet Problem List: 1. S/P thoracentesis 2. Empyema Pain Ratin Pain Location: left chest Pain Goal: Pain 4 or less Pain Plan: percocet. patient says pain is managed well when he takes the medication on schedule. Tomorrow's Labs & Rationales: cbc René Morales 05/02/17 1423: Attending MD Review Statement Attending Statement Attending MD Statement: examined this patient, discuss w/resident/PA/PHP MAGENTO DEVELOPER, agreed w/resident/PA/PHP MAGENTO DEVELOPER, discussed with family, reviewed EMR data (avail), discussed with nursing, discussed with case mgmt, reviewed images, amended to note Attending Assessment/Plan: 56-year-old male with past history significant for hypertension, COPD admitted with acute respiratory failure, community acquired pneumonia and empyema s/p pigtail catheter placement with 60-100 ml of drainage. Persistent leukocytosis present. Weekend events noted. Patient had removal of pigtail catheter and found to have pneumothorax possible in apical area. Possible spontaneous, catheter induced, doubt entrapment of lung. Repeat chest xray today with improvement in pneumothorax. Patient remains on iv unasyn as per ID recs, culture so far CONS. Pulmonary and ID following, Consult [facility]. cont current care..
[2017-05-02 10:26] LABS: ABSOLUTE BASOPHIL COUNT 0.1 /CUMM (0.0-0.2); ABSOLUTE EOSINOPHIL COUNT 0.4 /CUMM (0.0-0.7); ABSOLUTE MONOCYTE COUNT 0.8 /CUMM (0.10-0.60); BASOPHIL % 0.8 % (0.0-2.0); EOSINOPHIL % 2.1 % (0-5); GRANULOCYTE % 80.6 % (42.2-75.2); HEMATOCRIT 34.6 % (42-52); MEAN CORPUSCULAR HGB 28.1 PG (27.0-31.0); MEAN CORPUSCULAR VOLUME 87.8 FL (80.0-94.0); MEAN PLATELET VOLUME 8.2 FL (7.4-10.4); PLATELET COUNT 483 /CUMM (130-400); RBC DISTRIBUTION WIDTH 14.3 % (11.5-14.5); RED BLOOD CELL CT 3.94 /CUMM (4.70-6.10); WHITE BLOOD CELL COUNT 17.3 /CUMM (4.8-10.8)
--- NOTE | 2017-05-02 11:13 | PN- Pulmonary ---
Subjective HPI/Critical Care Issues: Patient seen and examined this morning. He is awaiting a chest x-ray this morning. Overall he is comfortable on 100% oxygen for nitrogen washout. Objective Current Medications: Current Medications Sig/Tonio Start time Last Medication Dose Route Stop Time Status Admin Acetaminophen 650 MG Q8P PRN 04/21 2002 AC PO Acetylcysteine 4 ML BID 04/27 1000 DC 05/02 INH 0844 Albuterol Sulfate 3 ML EVERY 4 HRS/AWAKE 04/22 0800 AC 05/02 INH 0843 Ampicillin Sodium/ 3,000 MG Q6H 04/22 1600 AC 05/02 Sulbactam Sodium IV 0914 Sodium Chloride 100 ML Benzonatate 100 MG TID 04/22 1649 AC 05/02 PO 0915 Enoxaparin Sodium 40 MG DAILY 04/21 1000 AC 05/01 SC 0850 Guaifenesin/Codeine 10 ML Q6P PRN 04/22 0845 AC 05/01 Phosphate PO 1025 Ibuprofen 400 MG Q6P PRN 04/21 2014 AC PO Lactobacillus 1 CAP BID 04/24 1122 AC 05/02 Acidophilus PO 0914 Nicotine 14 MG DAILY 04/21 1000 AC 05/02 TOP 0914 Oxycodone/ 1 TAB Q4 05/01 1800 AC 05/02 Acetaminophen PO 0938 Oxycodone/ 1 TAB Q4 PRN 04/26 1534 DC 05/01 Acetaminophen PO 05/01 1759 1248 Vital Signs & I&O Last 24 Hrs of Vitals and I&O: Vital Signs Date Time Temp Pulse Resp B/P B/P Pulse O2 O2 Flow FiO2 Mean Ox Delivery Rate 05/02 0847 100 Non 100% ReBreather 05/02 0551 97.6 68 22 106/60 100 Non 100% ReBreather 05/02 0000 Non 100% ReBreather 05/02 0000 98 Non 100% ReBreather 05/01 2223 98.0 75 20 92/46 99 Nasal Cannula 05/01 2000 98 Non 100% ReBreather 05/01 1600 97 Non 10L ReBreather 05/01 1450 98.0 62 20 90/50 99 Room Air 05/01 1424 97.8 69 20 102/60 98 Nasal Cannula 05/01 1125 99 Non 100% ReBreather Exam Other Physical Findings: Generally - Awake, alert and comfortable without distress Head and neck - normocephalic, atraumatic, EOMI grossly intact Cardiovascular - S1, S2, no murmurs, rubs or gallops Lungs -diminished breath sounds at the bases Abdomen - Bowel sounds positive, soft, non-tender Extremities - without edema Results Last 24 Hrs of Lab Results: Laboratory Tests 05/02/17 0803: CBC w Diff NO MAN DIFF REQ, RBC 3.94 L, MCV 87.8, MCH 28.1, MCHC 32.0 L, RDW 14.3, MPV 8.2, Gran % 80.6 H, Lymphocytes % 11.6 L, Monocytes % 4.9, Eosinophils % 2.1, Basophils % 0.8, Absolute Granulocytes 14.0 H, Absolute Lymphocytes 2.0, Absolute Monocytes 0.8 H, Absolute Eosinophils 0.4, Absolute Basophils 0.1 Impression/Plan Impression/Plan Impression/Plan: Impression 56 year old man. * LLL pneumonia and exudative pleural fluid consistent with empyema, now with pneumothorax Plan -100% fio2 for nitrogen wash out - keep 100% fio2 until cxr improves -awaiting am cxr -will have a thoracic surgery evaluation to discuss timing of further imaging and if any intervention will be required -monitor wbc -cont unasyn -pain control DVT prophylaxis at all times
--- NOTE | 2017-05-02 11:45 | RADIOLOGY REPORT ---
EXAMINATION: XR CHEST CLINICAL INFORMATION: Follow-up pneumothorax COMPARISON: Chest x-ray dated 05/01/2017 TECHNIQUE: 2 views of the chest were obtained. FINDINGS: Stable cardiomediastinal silhouette. Small left apical pneumothorax demonstrates subtle interval decrease compared to the prior examination. Stable small left-sided pleural effusion. Associated left basilar infiltrate or atelectasis. Right lung is clear. Minor scarring right apical region noted again. Degenerative changes noted in the thoracic spine. IMPRESSION: 1. Slight interval improvement in left-sided pneumothorax. 2. Stable left-sided pleural effusion with associated left basilar infiltrate or atelectasis.
--- NOTE | 2017-05-02 13:09 | Cons- Thoracic Surgery ---
General Information and HPI Consulting Request Date of Consult: 05/02/17 Requested By: Andrew GOMEZ,René Venegas Reason for Consult: Left parapneumonic effusion Source of Information: patient, old records, PCP Exam Limitations: no limitations History of Present Illness: The patient is a 56-year-old gentleman admitted 2 weeks ago with shortness of breath and respiratory complaints. He was found to have a large left pleural effusion with associated pneumonia. A drainage catheter was placed with fairly good resolution. The patient has a continued left lower lobe parenchymal and pleural process with an increasing white blood cell count. The thoracic catheter became dislodged and removed over the weekend. Thoracic surgical evaluation is asked for help in management and treatment. Allergies/Medications Allergies: Coded Allergies: No Known Allergies (04/20/17) Home Med List: Oxymetazoline HCl (Vicks Sinex) 0.05 % SPRAY 1 SPRAY NASB PRN NASAL CONGESTION (Reported) Current Medications: Current Medications Sig/Tonio Start time Last Medication Dose Route Stop Time Status Admin Acetaminophen 650 MG Q8P PRN 04/21 2002 AC PO Acetylcysteine 4 ML BID 04/27 1000 DC 05/02 INH 0844 Albuterol Sulfate 3 ML EVERY 4 HRS/AWAKE 04/22 0800 AC 05/02 INH 1205 Ampicillin Sodium/ 3,000 MG Q6H 04/22 1600 AC 05/02 Sulbactam Sodium IV 0914 Sodium Chloride 100 ML Benzonatate 100 MG TID 04/22 1649 AC 05/02 PO 0915 Enoxaparin Sodium 40 MG DAILY 04/21 1000 AC 05/01 SC 0850 Guaifenesin/Codeine 10 ML Q6P PRN 04/22 0845 AC 05/01 Phosphate PO 1025 Ibuprofen 400 MG Q6P PRN 04/21 2014 AC PO Lactobacillus 1 CAP BID 04/24 1122 AC 05/02 Acidophilus PO 0914 Nicotine 14 MG DAILY 04/21 1000 AC 05/02 TOP 0914 Oxycodone/ 1 TAB Q4 05/01 1800 AC 05/02 Acetaminophen PO 0938 Oxycodone/ 1 TAB Q4 PRN 04/26 1534 DC 05/01 Acetaminophen PO 05/01 1759 1248 Past History Medical History Cardiovascular: hyperlipidemia Respiratory: COPD Surgical History Pertinent Surgical History: non-contributory Family History Relations & Conditions If Any: Relation not specified for: *No pertinent family history Psychosocial History Where Do You Live? Home Who Do You Live With? spouse Services at Home: None Primary Language: Colombian Smoking Status: Current Everyday Smoker ETOH Use: occasional use Illicit Drug Use: denies illicit drug use Functional Ability ADLs Independent: dressing, eating, toileting, bathing. Ambulation: independent IADLs Independent: shopping, housework, finances, food prep, telephone, transportation , medication admin. Review of Systems Review of Systems: Patient's breathing is improved. He is currently on 100% oxygen because of a procedural related pneumothorax. He had some chest pain with a catheter was removed but that has improved and there is no continued pain or swelling in that area. The rest the 12 point review of systems is unremarkable. Exam & Diagnostic Data Vital Signs and I&O Vital Signs Date Time Temp Pulse Resp B/P B/P Pulse O2 O2 Flow FiO2 Mean Ox Delivery Rate 05/02 0847 100 Non 100% ReBreather 05/02 08 97 Non 100% ReBreather 05/02 0800 98 Non 100% ReBreather 05/02 0551 97.6 68 22 106/60 100 Non 100% ReBreather 05/02 0000 Non 100% ReBreather 05/02 0000 98 Non 100% ReBreather 05/01 2223 98.0 75 20 92/46 99 Nasal Cannula 05/01 2000 98 Non 100% ReBreather 05/01 1600 97 Non 10L ReBreather 05/01 1450 98.0 62 20 90/50 99 Room Air 05/01 1424 97.8 69 20 102/60 98 Nasal Cannula Intake & Output 05/02 1600 05/02 0805/02 0000 05/01 1600 05/01 0700 05/01 0000 Intake Total 870 840 Output Total Balance 870 840 Intake, IV 150 120 Intake, Oral 720 720 Number 0 0 Bowel Movements Physical Exam: On physical examination he is sitting in bed and is comfortable. His skin is warm and well perfused no suspicious lesions noted. The sclerae are anicteric and his mucous membranes are moist. There is no cervical or subclavicular lymphadenopathy. His breath sounds are diminished at the left base with no wheezes or rhonchi noted. The cardiac exam shows a regular rhythm and rate no murmurs or sounds. The abdomen is soft and nontender with no masses. The periphery shows no cyanosis clubbing or edema. His neurologic exam is grossly normal for motor and sensory function. Last 24 Hours of Labs: Laboratory Tests 05/02 802 Hematology CBC w Diff NO MAN DIFF REQ WBC (4.8 - 10.8 /CUMM) 17.3 H RBC (4.70 - 6.10 /CUMM) 3.94 L Hgb (14.0 - 18.0 G/DL) 11.1 L Hct (42 - 52 %) 34.6 L MCV (80.0 - 94.0 FL) 87.8 MCH (27.0 - 31.0 PG) 28.1 MCHC (33.0 - 37.0 G/DL) 32.0 L RDW (11.5 - 14.5 %) 14.3 Plt Count (130 - 400 /CUMM) 483 H MPV (7.4 - 10.4 FL) 8.2 Gran % (42.2 - 75.2 %) 80.6 H Lymphocytes % (20.5 - 51.1 %) 11.6 L Monocytes % (1.7 - 9.3 %) 4.9 Eosinophils % (0 - 5 %) 2.1 Basophils % (0.0 - 2.0 %) 0.8 Absolute Granulocytes (1.4 - 6.5 /CUMM) 14.0 H Absolute Lymphocytes (1.2 - 3.4 /CUMM) 2.0 Absolute Monocytes (0.10 - 0.60 /CUMM) 0.8 H Absolute Eosinophils (0.0 - 0.7 /CUMM) 0.4 Absolute Basophils (0.0 - 0.2 /CUMM) 0.1 Imaging Results: Most recent CT scan of the chest shows a continued consolidative process to the left base with a small left pleural effusion. The chest x-ray today shows a small pneumothorax and a continued left costophrenic angle consolidative pleural process. Assessment/Plan Assessment/Plan 56-year-old with pneumonia and probable empyema with continued consolidative process in the left lower lobe. The concern now is one of a rising white blood cell count. I suspect that the pleural effusion has been drained is adequately is necessary but I think given the findings on hematology with the increasing white blood cell count we should repeat a CT scan of the chest. I think it is best to do this with contrast as that will give us the clearest distinction between consolidative lung and pleural process. If there is a continued of fluid collection assessment will need to be made regarding further drainage of versus possible surgical drainage. Plans discussed with Dr. Venegas who agrees. Consult Acknowledgment - Thank you for your consult request.
[2017-05-02 13:42] VITALS: BP 110/70
--- NOTE | 2017-05-02 14:59 | PN- Infect Dx ---
Subjective Subjective: Afebrile. He still complains of pain in the left chest but it is controlled with his pain medication. Objective Last 24 Hrs of Vital Signs/I&O Vital Signs Date Time Temp Pulse Resp B/P B/P Pulse O2 O2 Flow FiO2 Mean Ox Delivery Rate 05/02 1342 98.3 73 20 110/70 99 Non ReBreather 05/02 0847 100 Non 100% ReBreather 05/02 0800 97 Non 100% ReBreather 05/02 0800 98 Non 100% ReBreather 05/02 0551 97.6 68 22 106/60 100 Non 100% ReBreather 05/02 0000 Non 100% ReBreather 05/02 0000 98 Non 100% ReBreather 05/01 2223 98.0 75 20 92/46 99 Nasal Cannula 05/01 2000 98 Non 100% ReBreather 05/01 1600 97 Non 10L ReBreather Intake & Output 05/02 1600 05/02 0800 05/02 0000 Intake Total 800 Output Total Balance 800 Intake, Oral 800 Physical Exam Other Physical Findings: He appears comfortable in no acute distress Lungs slight decreased breath sounds at the left base Heart regular rhythm with no murmur Results Last 24 Hours of Lab Results: Laboratory Tests 05/02 802 Hematology CBC w Diff NO MAN DIFF REQ WBC (4.8 - 10.8 /CUMM) 17.3 H RBC (4.70 - 6.10 /CUMM) 3.94 L Hgb (14.0 - 18.0 G/DL) 11.1 L Hct (42 - 52 %) 34.6 L MCV (80.0 - 94.0 FL) 87.8 MCH (27.0 - 31.0 PG) 28.1 MCHC (33.0 - 37.0 G/DL) 32.0 L RDW (11.5 - 14.5 %) 14.3 Plt Count (130 - 400 /CUMM) 483 H MPV (7.4 - 10.4 FL) 8.2 Gran % (42.2 - 75.2 %) 80.6 H Lymphocytes % (20.5 - 51.1 %) 11.6 L Monocytes % (1.7 - 9.3 %) 4.9 Eosinophils % (0 - 5 %) 2.1 Basophils % (0.0 - 2.0 %) 0.8 Absolute Granulocytes (1.4 - 6.5 /CUMM) 14.0 H Absolute Lymphocytes (1.2 - 3.4 /CUMM) 2.0 Absolute Monocytes (0.10 - 0.60 /CUMM) 0.8 H Absolute Eosinophils (0.0 - 0.7 /CUMM) 0.4 Absolute Basophils (0.0 - 0.2 /CUMM) 0.1 Last 24 Hours of Jt Results: No new cultures Recent Imaging Studies: Chest x-ray May 02 reveals slight interval improvement in the left-sided pneumothorax, with a persistent left pleural effusion and associated left basilar density Assessment/Plan Impression: Worsening leukocytosis of concern, now off steroids for 2 days, and suspect that he has a residual empyema, now 2 days status post removal of the pigtail catheter, which had become dislodged, resulting in a pneumothorax, which is improving. He remains afebrile on Unasyn Day 10 of treatment for pneumonia/ empyema of the left chest, with coag-negative Staph isolated from the pleural fluid culture of unclear significance. Suggestion: 1. Repeat CT of the chest, with further management based on results per Thoracic surgery 2. Continue Unasyn
--- NOTE | 2017-05-02 18:56 | CT SCAN REPORT ---
EXAMINATION: CT CHEST WITH CONTRAST CLINICAL INFORMATION: Shortness of breath. Presumptive diagnosis of pleural effusion. Monitor collection versus pneumothorax. COMPARISON: Chest x-ray dated 05/02/2017. CT scan of the chest dated 04/28/2017. TECHNIQUE: Multidetector volumetric CT imaging of the chest was obtained after the administration of 95 and mL of intravenous Optiray 320. Sagittal and coronal reformations were obtained. DLP: 244.60 mGy-cm. FINDINGS: LUNGS: Again seen is a small layering left-sided pleural effusion, which extends up to the level of the pulmonary arterial bifurcation, unchanged in size compared to prior exam. There is slight thickening of the visceral pleura without significant thickening of the parietal pleura seen. A few locules of air remain within the pleural fluid, consistent with sequelae of recently discontinued left-sided chest tube. No significant subcutaneous emphysema is noted on today's study. There remains a small left apical pneumothorax, minimally enlarged compared to the prior exam. There is continued volume loss and consolidation in the dependent portion of the left lower lobe, subjacent to the pleural fluid, unchanged from prior exam. Minimal biapical patchy groundglass and reticular opacities are also unchanged. There is a stable approximately 6-7 mm nodule in the lingula (series 3, image 41). Additional 3 mm lingular nodule previously seen is not clearly appreciated on today's exam. The previously seen nodular density in the right lower lobe appears less distinct and more cystic with subtle surrounding groundglass opacity. No new or enlarging pulmonary nodule or mass is seen. No right-sided pleural effusion is seen. Central airways diffusely thickened and patent patent. PLEURA: There is no pleural effusion. No pleural mass or thickening. LYMPHATIC STRUCTURES: There are multiple scattered borderline sized right and left upper and lower paratracheal lymph nodes, measuring up to 1 cm in short axis, similar to the prior exam. No hilar or axillary adenopathy. CARDIOVASCULAR STRUCTURES: Aortic and heart size normal. No pericardial effusion. THYROID GLAND: Unremarkable. UPPER ABDOMEN: Included portions of the solid organs in the upper abdomen within normal limits. OSSEOUS STRUCTURES: There is a mild convex left thoracolumbar scoliosis with mild to moderate vertebral spondylosis in the mid and lower thoracic spine and in the upper lumbar spine. No suspicious bone findings. IMPRESSION: 1. Interval slight increase in left apical pneumothorax status post left chest tube removal. 2. Locules of air within the left pleural fluid are unchanged from recent exam, consistent with residual from recent chest tube discontinuation. Size of the left-sided pleural fluid is about the same compared to 04/28/2017 and decreased compared to 04/20/2017. 3. No significant change in volume loss and consolidation in the left lower lobe. 4. No significant change in 6 to 7 mm lingular nodule. 5. Other 3 mm nodule previously seen in the lingula is not clearly appreciated today, and the nodular opacity described in the right lower lobe is less distinct and more cystic in appearance. Attention on follow-up in 6 months is recommended. 6. No change in borderline size mediastinal lymph nodes, likely reactive.
[2017-05-02 21:55] VITALS: BP 102/48
[2017-05-03 06:43] VITALS: BP 100/60
--- NOTE | 2017-05-03 07:40 | PN- Housestaff ---
Joel GOMEZ,Lizeth 05/03/17 0740: Subjective Follow-up For: EMPYEMA PNEUMONIA COPD EXACERBATION pneumothorax Subjective: Patient is in the same distress today. He is angry and frustrated that he is not getting better. His shortness of breath continues. His chest pain continues. Review of Systems Constitutional: Reports: no symptoms. EENTM: Reports: no symptoms. Cardiovascular: Reports: chest pain. Respiratory: Reports: short of breath. Gastrointestinal: Reports: no symptoms. Genitourinary: Reports: no symptoms. Musculoskeletal: Reports: no symptoms. Objective Last 24 Hrs of Vital Signs/I&O Vital Signs Date Time Temp Pulse Resp B/P B/P Pulse O2 O2 Flow FiO2 Mean Ox Delivery Rate 05/03 1004 96 Room Air 05/03 08 99 Non 100% ReBreather 05/03 0643 97.7 59 20 100/60 99 Non 100% ReBreather 05/03 0000 Non ReBreather 05/03 0000 100 Non ReBreather 05/02 2155 97.7 64 20 102/48 100 Nasal Cannula 05/02 1630 Non ReBreather 05/02 1630 99 Non ReBreather 05/02 1602 100 Non 100% ReBreather Intake & Output 05/03 1600 05/03 0800 05/03 0000 Intake Total 730 500 Output Total 450 Balance 280 500 Intake, IV 250 Intake, Oral 480 500 Number 0 Bowel Movements Output, Urine 450 Physical Exam General Appearance: Alert, Oriented X3, Cooperative, Mild Distress Cardiovascular: Regular Rate, Normal S1, Normal S2, No Murmurs Lungs: decreased breath sounds left side Abdomen: Normal Bowel Sounds, Soft, No Tenderness Neurological: Normal Speech Extremities: No Clubbing, No Cyanosis, No Edema, Normal Pulses, No Tenderness/ Swelling Current Medications: Current Medications Sig/Tonio Start time Last Medication Dose Route Stop Time Status Admin Acetaminophen 650 MG Q8P PRN 04/21 2002 AC PO Albuterol Sulfate 3 ML EVERY 4 HRS/AWAKE 04/22 0800 AC 05/03 INH 0959 Ampicillin Sodium/ 3,000 MG Q6H 04/22 1600 AC 05/03 Sulbactam Sodium IV 1006 Sodium Chloride 100 ML Benzonatate 100 MG TID 04/22 1649 AC 05/03 PO 0918 Enoxaparin Sodium 40 MG DAILY 04/21 1000 AC 05/01 SC 0850 Fentanyl Citrate 0 .STK-MED ONE 05/03 1407 DC .ROUTE Guaifenesin/Codeine 10 ML Q6P PRN 04/22 0845 AC 05/03 Phosphate PO 0439 Ibuprofen 400 MG Q6P PRN 04/21 2014 AC PO Lactobacillus 1 CAP BID 04/24 1122 AC 05/03 Acidophilus PO 0918 Naloxone HCl 0 .STK-MED ONE 05/03 1407 DC .ROUTE Nicotine 14 MG DAILY 04/21 1000 AC 05/03 TOP 0918 Oxycodone/ 1 TAB Q4 05/01 1800 AC 05/03 Acetaminophen PO 0918 Patient Medication 1 ED ONE ONE 05/03 1245 DC Teaching ED 05/03 1246 Last 24 Hrs of Lab/Jt Results Last 24 Hrs of Labs/Mics: Laboratory Tests 05/03/17 0726: CBC w Diff NO MAN DIFF REQ, RBC 3.51 L, MCV 88.3, MCH 28.2, MCHC 31.9 L, RDW 14.2, MPV 7.8, Gran % 77.6 H, Lymphocytes % 11.0 L, Monocytes % 8.1, Eosinophils % 3.0, Basophils % 0.3, Absolute Granulocytes 11.9 H, Absolute Lymphocytes 1.7, Absolute Monocytes 1.3 H, Absolute Eosinophils 0.5, Absolute Basophils 0.1 Microbiology 05/03 1052 BODY FLUID: Body Fluid Culture - ORD 05/03 105 BODY FLUID: Gram Stain - ORD Assessment/Plan Assessment: The patient is 56-year-old gentleman with past medical history of COPD and suspected hyperlipidemia. He presented to [place] ED on 04/20 with complaint of shortness of breath AND CHEST PAIN ON INSPIRATION THAT STARTED FAILY ABRUPTLY THAT DAY. -VS 102.9, 100, 28,142/72,96% Ventimask -Pertinent labs, WBC count 30.4, band cells 14 H/H 13/42, platelets 602, lactic acid 1.1--4.1, d-dimer 391, UA clean, venous blood gases pH 7.37, PCO2 32, PO2 68 -Imaging findings dictated above -In ED patient received 1 L normal saline, Toradol, azithromycin, Rocephin, swollen 25;, 1 g of magnesium sulfate. On standing patient desatted to 88%. He is admitted to general medicine floor and is being treated and evaluated for following conditions #Patient admitted with sepsis secondary to community-acquired pneumonia and COPD exacerbation with acute hypoxemic respiratory failure, found to have empyema with thoracentesis and subsequent placement of pigtail catheter -CTA done earlier in admission was negative for pulmonary embolism but positive for left lower lobe consolidation/atelectasis with associated moderate sized left pleural effusion that was found to be empyema. -EMPYEMA MOST PROBABLY DUE TO BACTERIAL PNEUMONIA BUT DIFFERENTIAL INCLUDES CANCER, TB, PE. HE DOES ADMIT TO WEIGHT LOSS AND CURRENT SMOKING. -WBC TODAY HAVE decreased to 12.6 from 13.1. PATIENT AFEBRILE. -Patient continues on steroid taper, today on 10mg PO prednisone. Patient will receive on more dose tomorrow and then STOP. Patient has no more wheezing on exam. -Urine strep and Legionella antigen NEGATIVE -CULTURE PLEURAL FLUID SHOWED COAG NEGATIVE STAPH, LIKELY CONTAMINANT FROM SKIN. MRSA surveillance negative. -CT CHEST DONE 04/28 SHOWED POSSIBLE DECREASE IN SIZE OF PLEURAL EFFUSION, BUT the left pleural drain has pulled back slightly and there is now an extrapleural sidehole present and a few small foci of air are noted within the subcutaneous tissues of the left back. Also, an ill-defined 8mm nodular density of the right lower lobe which was not present previously was seen and given the short interval development of this finding, there is susupicion for a small focus of inflammatory or infectious changes. Continue to monitor drainage and WBC count/ fever. - Patient had minimum drainage overnight, and the tube insertion site appeared to be tender and swollen compared to yesterday. Would fsandeep da silva/ Dr. Venegas for plan. -PULMONARY AND ID INPUT APPRECIATED - PER ID CONTINUE UNASYN. PATIENT IS ON DAY 12 OF AT LEAST 14. WE WILL CONSULT WITH ID FOR LENGTH OF TREATMENT. -WBC 15.4 TODAY, AFEBRILE -ON NONREBREATHER 100% FIo2, SATTING 99%. -HIV TEST WHICH WAS NEGATIVE -Tylenol for fever control and toradol for pain relief PLUS PERCOCET Q4. -TRC/nebs, TESSALON PEARLS AND MUCOMYST prn -On 05/01 patient's chest tube output had decreased to almost 0. As per Dr. Venegas, the chest tube was pulled. After this, patient's CXR revealed 20% left apical pneumothorax, likely from chest tube tip malposition from past days/air leak, however patient's had remained at his baseline without acute onset of pneumothoraxic symptoms with stable vitals. -We started 100% O2 non-breather NO washout and repeat CXR q12 -CXR done 2 pm showed unchanged images since the morning, LEFT pneumothorax, infiltrate LEFT lower lobe and pleural effusion. -CXR done 05/02 am showed slight interval improvement in left-sided pneumothorax. Stable left-sided pleural effusion with associated left basilar infiltrate or atelectasis. -CT chest 05/02 showed increased apical pneumothorax -As per Dr. Parikh we will do CT guided placement of pigtail catheter today. He will get one dose of lytics tomorrow. We will check drainage and if he is not promptly draining 200-300 cc's, patient will go for surgerical thorascopic drainage. -Follow new pleural fluid labs -Continue 100% nonrebreather -Holding lovenox until after placement of the catheter. #CHEST PAIN -ON INSPIRATION, LESS LIKELY CARDIAC BUT TROPS AND EKGS DONE AND NEGATIVE X2 -CONTINUE PERCOCET FOR PAIN RELIEF as this helps him most. -Patient is refusing pain medications for severe breakthrough pain (MORPHINE) #Thrombocytosis likely reactive secondary to infection -Monitor platelet count #Lactic acidosis secondary to sepsis -RESOLVED #Smoker -Nicotine patch -Consult regarding smoking abstinence #History of hyperlipidemia -LIPID PROFILE NORMAL -6.3 HBA1C FOR CORONARY EQUIVALENTS- SLIGHTLY HIGH. WILL NEED DIET CONTROL OUTPATIENT. -for now started patient on cc3 diet and tidac accucheks FC DVT prophylaxis with Lovenox Regular diet Problem List: 1. Empyema 2. Left lower lobe pneumonia 3. S/P thoracentesis Pain Ratin Pain Location: left chest Pain Goal: Pain 4 or less Pain Plan: percocet q4 Tomorrow's Labs & Rationales: cbc René Morales 05/03/17 1535: Attending MD Review Statement Attending Statement Attending MD Statement: examined this patient, discuss w/resident/PA/CUT OFF OPERATOR SCORER, agreed w/resident/PA/CUT OFF OPERATOR SCORER, discussed with family, reviewed EMR data (avail), discussed with nursing, discussed with case mgmt, reviewed images, amended to note Attending Assessment/Plan: 56-year-old male with past history significant for hypertension, COPD admitted with acute respiratory failure, community acquired pneumonia and empyema s/p pigtail catheter placement with 60-100 ml of drainage. Persistent leukocytosis present. Weekend events noted. Patient had removal of pigtail catheter and found to have pneumothorax possible in apical area. Possible spontaneous, catheter induced, doubt entrapment of lung. [facility] consulted and recommend placement of pigtail catheter. f/u [facility]. Patient remains on iv unasyn as per ID recs, culture so far CONS. [facility], Pulmonary and ID as multidisciplinary approach. cont current care.. counselling given.
[2017-05-03 09:48] LABS: ABSOLUTE BASOPHIL COUNT 0.1 /CUMM (0.0-0.2); ABSOLUTE EOSINOPHIL COUNT 0.5 /CUMM (0.0-0.7); ABSOLUTE GRANULOCYTE CT 11.9 /CUMM (1.4-6.5); ABSOLUTE LYMPH COUNT 1.7 /CUMM (1.2-3.4); ABSOLUTE MONOCYTE COUNT 1.3 /CUMM (0.10-0.60); BASOPHIL % 0.3 % (0.0-2.0); GRANULOCYTE % 77.6 % (42.2-75.2); MEAN CORPUSCULAR HGB 28.2 PG (27.0-31.0); MEAN CORPUSCULAR HGB CONC 31.9 G/DL (33.0-37.0); MEAN CORPUSCULAR VOLUME 88.3 FL (80.0-94.0); MEAN PLATELET VOLUME 7.8 FL (7.4-10.4); PLATELET COUNT 462 /CUMM (130-400); RBC DISTRIBUTION WIDTH 14.2 % (11.5-14.5); RED BLOOD CELL CT 3.51 /CUMM (4.70-6.10); WHITE BLOOD CELL COUNT 15.4 /CUMM (4.8-10.8)
--- NOTE | 2017-05-03 12:50 | PN- Infect Dx ---
Subjective Subjective: Afebrile. He feels slightly better with decreased left chest and back pain. Objective Last 24 Hrs of Vital Signs/I&O Vital Signs Date Time Temp Pulse Resp B/P B/P Pulse O2 O2 Flow FiO2 Mean Ox Delivery Rate 05/03 1004 96 Room Air 05/03 0800 99 Non 100% ReBreather 05/03 0643 97.7 59 20 100/60 99 Non 100% ReBreather 05/03 0000 Non ReBreather 05/03 0000 100 Non ReBreather 05/02 2155 97.7 64 20 102/48 100 Nasal Cannula 05/02 1630 Non ReBreather 05/02 1630 99 Non ReBreather 05/02 1602 100 Non 100% ReBreather 05/02 1342 98.3 73 20 110/70 99 Non ReBreather Intake & Output 05/03 1600 05/03 0800 05/03 0000 Intake Total 730 500 Output Total 450 Balance 280 500 Intake, IV 250 Intake, Oral 480 500 Number 0 Bowel Movements Output, Urine 450 Physical Exam Other Physical Findings: He appears comfortable in no acute distress Lungs decreased breath sounds bilaterally Heart regular rhythm with no murmur Extremities no cyanosis, clubbing or edema Results Last 24 Hours of Lab Results: Laboratory Tests 05/03 07 Hematology CBC w Diff NO MAN DIFF REQ WBC (4.8 - 10.8 /CUMM) 15.4 H RBC (4.70 - 6.10 /CUMM) 3.51 L Hgb (14.0 - 18.0 G/DL) 9.9 L Hct (42 - 52 %) 31.0 L MCV (80.0 - 94.0 FL) 88.3 MCH (27.0 - 31.0 PG) 28.2 MCHC (33.0 - 37.0 G/DL) 31.9 L RDW (11.5 - 14.5 %) 14.2 Plt Count (130 - 400 /CUMM) 462 H MPV (7.4 - 10.4 FL) 7.8 Gran % (42.2 - 75.2 %) 77.6 H Lymphocytes % (20.5 - 51.1 %) 11.0 L Monocytes % (1.7 - 9.3 %) 8.1 Eosinophils % (0 - 5 %) 3.0 Basophils % (0.0 - 2.0 %) 0.3 Absolute Granulocytes (1.4 - 6.5 /CUMM) 11.9 H Absolute Lymphocytes (1.2 - 3.4 /CUMM) 1.7 Absolute Monocytes (0.10 - 0.60 /CUMM) 1.3 H Absolute Eosinophils (0.0 - 0.7 /CUMM) 0.5 Absolute Basophils (0.0 - 0.2 /CUMM) 0.1 Last 24 Hours of Jt Results: No new cultures Recent Imaging Studies: CT of the chest May 02 reveals a small layering left-sided pleural effusion, unchanged from the previous exam, with a few locules of air remaining within the pleural fluid; a small left apical pneumothorax, minimally enlarged compared to the prior exam; continued volume loss and consolidation in the dependent portion of the left lower lobe Assessment/Plan Impression: Stable, with a persistent left pleural effusion, likely representing a residual empyema, for which a pigtail catheter is to be placed later today. He remains afebrile with a persistent leukocytosis, presumably secondary to the residual empyema, on Unasyn, Day 11 of treatment for pneumonia/empyema, now 3 days status post removal of the pigtail catheter, which had become dislodged, resulting in a pneumothorax. His initial pleural fluid did grow coag-negative Staph, which is of unclear significance. Suggestion: 1. Await placement of another pigtail catheter in the left chest later today 2. Continue Unasyn
--- NOTE | 2017-05-03 13:33 | PN- Pulmonary ---
Subjective HPI/Critical Care Issues: pt seen and examined wbc 15.4 discomfort remains at the left chest base ct chest reviewed Objective Current Medications: Current Medications Sig/Tonio Start time Last Medication Dose Route Stop Time Status Admin Acetaminophen 650 MG Q8P PRN 04/21 2002 AC PO Albuterol Sulfate 3 ML EVERY 4 HRS/AWAKE 04/22 0800 AC 05/03 INH 0959 Ampicillin Sodium/ 3,000 MG Q6H 04/22 1600 AC 05/03 Sulbactam Sodium IV 1006 Sodium Chloride 100 ML Benzonatate 100 MG TID 04/22 1649 AC 05/03 PO 0918 Enoxaparin Sodium 40 MG DAILY 04/21 1000 AC 05/01 SC 0850 Guaifenesin/Codeine 10 ML Q6P PRN 04/22 0845 AC 05/03 Phosphate PO 0439 Ibuprofen 400 MG Q6P PRN 04/21 2014 AC PO Lactobacillus 1 CAP BID 04/24 1122 AC 05/03 Acidophilus PO 0918 Nicotine 14 MG DAILY 04/21 1000 AC 05/03 TOP 0918 Oxycodone/ 1 TAB Q4 05/01 1800 AC 05/03 Acetaminophen PO 0918 Patient Medication 1 ED ONE ONE 05/03 1245 TN Teaching ED 05/03 1246 Vital Signs & I&O Last 24 Hrs of Vitals and I&O: Vital Signs Date Time Temp Pulse Resp B/P B/P Pulse O2 O2 Flow FiO2 Mean Ox Delivery Rate 05/03 1004 96 Room Air 05/03 08 99 Non 100% ReBreather 05/03 0643 97.7 59 20 100/60 99 Non 100% ReBreather 05/03 0000 Non ReBreather 05/03 0000 100 Non ReBreather 05/02 2155 97.7 64 20 102/48 100 Nasal Cannula 05/02 1630 Non ReBreather 05/02 1630 99 Non ReBreather 05/02 1602 100 Non 100% ReBreather 05/02 1342 98.3 73 20 110/70 99 Non ReBreather Intake & Output 05/03 1600 05/03 0800 05/03 0000 Intake Total 730 500 Output Total 450 Balance 280 500 Intake, IV 250 Intake, Oral 480 500 Number 0 Bowel Movements Output, Urine 450 Exam Other Physical Findings: Generally - Awake, alert and comfortable without distress Head and neck - normocephalic, atraumatic, EOMI grossly intact Cardiovascular - S1, S2, no murmurs, rubs or gallops Lungs -diminished breath sounds at the bases Abdomen - Bowel sounds positive, soft, non-tender Extremities - without edema Results Last 24 Hrs of Lab Results: Laboratory Tests 05/03/17 0726: CBC w Diff NO MAN DIFF REQ, RBC 3.51 L, MCV 88.3, MCH 28.2, MCHC 31.9 L, RDW 14.2, MPV 7.8, Gran % 77.6 H, Lymphocytes % 11.0 L, Monocytes % 8.1, Eosinophils % 3.0, Basophils % 0.3, Absolute Granulocytes 11.9 H, Absolute Lymphocytes 1.7, Absolute Monocytes 1.3 H, Absolute Eosinophils 0.5, Absolute Basophils 0.1 Impression/Plan Impression/Plan Impression/Plan: Impression 56 year old man. * LLL pneumonia and exudative pleural fluid consistent with empyema, now with pneumothorax Plan -IR CT/guided pigtail today - resample pleural fluid for full analysis including cytology and micro, ph -awaiting am cxr -monitor wbc -cont unasyn -pain control -if the new pigtail drains sufficient fluid, will consider lytics and if no significant change a surgical approach can be entertained, we are hopeful that a new catheter will provide improvement to avoid surgery DVT prophylaxis at all times
--- NOTE | 2017-05-03 13:57 | PN- Thoracic Surgery ---
Subjective Subjective: Patient is having a considerable amount of pleuritic type chest pain. Previously it was chest with inspiration but now he is having it with both inspiration and expiration. He is visibly uncomfortable. Objective Vital Signs and I&Os Vital Signs Date Time Temp Pulse Resp B/P B/P Pulse O2 O2 Flow FiO2 Mean Ox Delivery Rate 05/03 1004 96 Room Air 05/03 0800 99 Non 100% ReBreather 05/03 0643 97.7 59 20 100/60 99 Non 100% ReBreather 05/03 0000 Non ReBreather 05/03 0000 100 Non ReBreather 05/02 2155 97.7 64 20 102/48 100 Nasal Cannula 05/02 1630 Non ReBreather 05/02 1630 99 Non ReBreather 05/02 1602 100 Non 100% ReBreather Intake & Output 05/03 1600 05/03 0800 05/03 0000 05/02 1600 05/02 0800 05/02 0000 Intake Total 730 500 800 Output Total 450 Balance 280 500 800 Intake, IV 250 Intake, Oral 480 500 800 Number 0 Bowel Movements Output, Urine 450 Physical Exam: On examination the swelling in his left chest wall where the catheter was placed has gone down considerably. There is no tenderness to palpation. His breath sounds are diminished at the base and he is clearly splinting with deep breaths. Current Medications: Current Medications Sig/Tonio Start time Last Medication Dose Route Stop Time Status Admin Acetaminophen 650 MG Q8P PRN 04/21 2002 AC PO Albuterol Sulfate 3 ML EVERY 4 HRS/AWAKE 04/22 0800 AC 05/03 INH 0959 Ampicillin Sodium/ 3,000 MG Q6H 04/22 1600 AC 05/03 Sulbactam Sodium IV 1006 Sodium Chloride 100 ML Benzonatate 100 MG TID 04/22 1649 AC 05/03 PO 0918 Enoxaparin Sodium 40 MG DAILY 04/21 1000 AC 05/01 SC 0850 Guaifenesin/Codeine 10 ML Q6P PRN 04/22 0845 AC 05/03 Phosphate PO 0439 Ibuprofen 400 MG Q6P PRN 04/21 2014 AC PO Lactobacillus 1 CAP BID 04/24 1122 AC 05/03 Acidophilus PO 0918 Nicotine 14 MG DAILY 04/21 1000 AC 05/03 TOP 0918 Oxycodone/ 1 TAB Q4 05/01 1800 AC 05/03 Acetaminophen PO 0918 Patient Medication 1 ED ONE ONE 05/03 1245 [facility] ED 05/03 1246 Results Last 48 Hours of Labs: Laboratory Tests 05/03 05/02 0726 0803 Hematology CBC w Diff NO MAN DIFF REQ NO MAN DIFF REQ WBC (4.8 - 10.8 /CUMM) 15.4 H 17.3 H RBC (4.70 - 6.10 /CUMM) 3.51 L 3.94 L Hgb (14.0 - 18.0 G/DL) 9.9 L 11.1 L Hct (42 - 52 %) 31.0 L 34.6 L MCV (80.0 - 94.0 FL) 88.3 87.8 MCH (27.0 - 31.0 PG) 28.2 28.1 MCHC (33.0 - 37.0 G/DL) 31.9 L 32.0 L RDW (11.5 - 14.5 %) 14.2 14.3 Plt Count (130 - 400 /CUMM) 462 H 483 H MPV (7.4 - 10.4 FL) 7.8 8.2 Gran % (42.2 - 75.2 %) 77.6 H 80.6 H Lymphocytes % (20.5 - 51.1 %) 11.0 L 11.6 L Monocytes % (1.7 - 9.3 %) 8.1 4.9 Eosinophils % (0 - 5 %) 3.0 2.1 Basophils % (0.0 - 2.0 %) 0.3 0.8 Absolute Granulocytes (1.4 - 6.5 /CUMM) 11.9 H 14.0 H Absolute Lymphocytes (1.2 - 3.4 /CUMM) 1.7 2.0 Absolute Monocytes (0.10 - 0.60 /CUMM) 1.3 H 0.8 H Absolute Eosinophils (0.0 - 0.7 /CUMM) 0.5 0.4 Absolute Basophils (0.0 - 0.2 /CUMM) 0.1 0.1 Recent Imaging Studies: CT chest with contrast shows a continued small pleural effusion at the left base. Assessment/Plan Assessment/Plan After discussion with Dr. Venegas and consideration of the clinical situation it is clear that the patient is having ongoing problems symptomatically and with a continued elevated white blood cell count. There is a reasonable amount of fluid at the base and we reviewed it with interventional radiology. The plan is as follows. He will get a replacement of his catheter today and a single dose of lytics tomorrow. If there is not a prompt drainage in the range of 2-300 mL of fluid then he will need a surgical thoracoscopic drainage. All this was explained to the patient and he understands and agrees to our plan.
[2017-05-03 16:05] VITALS: BP 115/55
--- NOTE | 2017-05-03 17:13 | CT SCAN REPORT ---
PROCEDURE: CT Guided Chest Tube Placement. INDICATION: Left pleural effusion. SPECIMEN: Culture ACCESS: 5Fr. One-Step Needle Interventional Radiologist: Micheal Sofia M.D. CONSENT: Informed consent was obtained from the patient prior to the procedure. During this process, the procedure and potential alternatives were explained along with the intended outcome and benefits. The risks of the procedure, including the possibility of an unsuccessful procedure as well as the risk of not doing the procedure were discussed. The patient was given the opportunity to ask any questions regarding the procedure and appeared competent to make medical decisions. A signed consent form which documents this discussion was placed in the medical record. A timeout procedure was performed. MEDICATIONS: -10ml 1% lidocaine. -50 mcg fentanyl IV DLP: 682 mGy-cm TECHNIQUE/FINDINGS: Appropriate pre-procedure medical history and imaging studies were reviewed. The patient was placed in the left side down decubitus position on the scanner table. CT images of the left thorax were obtained to localize a small layering pleural effusion with overlying consolidation. Images were permanently saved to the record. An area of the patient's left back was prepped and draped in the standard sterile fashion. 10 mL of 1% lidocaine was used to obtain local anesthesia of the skin and deeper tissues. A standard small bore needle was introduced to sample fluid and demonstrated a safe access route. A 5 [place] one step needle was then used to access the pleural cavity. A guidewire was then placed through the introducer into the chest. The access site was then sequentially dilated using dilators sized 8 Fr and 10 Fr . A 10 Fr. nonlocking catheter was then advanced over the wire into the chest cavity. The wire was removed and the catheter was secured to the skin with a single suture and a sterile dressing was placed over the site. The catheter was then connected to a closed chest drainage system. The patient tolerated the procedure well without evidence of complications. Fluid was sent for requested analysis. Approximately 60 mL were aspirated during the procedure. IMPRESSION: Successful left CT-guided chest tube placement as described. RECOMMENDATIONS: The drain should remain attached to the closed chest drainage system. The tube will be managed by Dr. Venegas and Dr. Parikh.
[2017-05-03 22:16] VITALS: BP 104/58
[2017-05-04 05:53] VITALS: BP 92/48
--- NOTE | 2017-05-04 07:49 | PN- Housestaff ---
Joel GOMEZ,Lizeth 05/04/17 0749: Subjective Follow-up For: EMPYEMA PNEUMONIA COPD EXACERBATION pneumothorax Subjective: continues to have the same pain and shortness of breath prior to lytic therapy. after lytic therapy and suction commencement patient is in excrutiating pain and able to feel "movement" inside his chest. Review of Systems Constitutional: Reports: no symptoms. Cardiovascular: Reports: chest pain. Respiratory: Reports: short of breath. Gastrointestinal: Reports: no symptoms. Genitourinary: Reports: no symptoms. Objective Last 24 Hrs of Vital Signs/I&O Vital Signs Date Time Temp Pulse Resp B/P B/P Pulse O2 O2 Flow FiO2 Mean Ox Delivery Rate 05/04 2233 98.1 74 20 104/68 94 Nasal Cannula 05/04 1842 92 Room Air Room Air 05/04 1600 92 Room Air 05/04 1600 92 Room Air 05/04 1542 92.0 70 20 106/58 92 Room Air 05/04 0948 92 Room Air 05/04 0800 95 Room Air 05/04 0800 95 Room Air Intake & Output 05/05 0800 05/05 0000 05/04 1600 Intake Total 100 470 Output Total 800 400 Balance -700 70 Intake, IV 100 150 Intake, Oral 320 Number 0 Bowel Movements Output, Chest 600 Tube Drainage Output, Urine 200 400 Physical Exam General Appearance: Alert, Oriented X3, Cooperative, Moderate Distress Skin: No Rashes, No Breakdown, No Significant Lesion Skin Temp/Moisture Exam: Warm/Dry Cardiovascular: Regular Rate, Normal S1, Normal S2, No Murmurs Lungs: distant breath sounds on left Abdomen: Normal Bowel Sounds, Soft, No Tenderness Extremities: No Clubbing, No Cyanosis, No Edema, Normal Pulses, No Tenderness/ Swelling Current Medications: Current Medications Sig/Tonio Start time Last Medication Dose Route Stop Time Status Admin Acetaminophen 650 MG Q8P PRN 04/21 2002 AC PO Albuterol Sulfate 3 ML BID 05/04 2199 AC 05/04 INH 1839 Albuterol Sulfate 3 ML EVERY 4 HRS/AWAKE 04/22 799 DC 05/04 INH 0947 Alteplase, 10 MG ONCE ONE 05/04 699 DC 05/04 Recombinant IPL 05/04 0701 0940 Ampicillin Sodium/ 3,000 MG Q6H 04/22 1600 AC 05/05 Sulbactam Sodium IV 0426 Sodium Chloride 100 ML Benzonatate 100 MG TID 04/22 1649 AC 05/04 PO 2134 Enoxaparin Sodium 40 MG DAILY 04/21 1000 AC 05/01 SC 0850 Guaifenesin/Codeine 10 ML Q6P PRN 04/22 0845 AC 05/04 Phosphate PO 213 Ibuprofen 400 MG Q6P PRN 04/21 2015 AC PO Lactobacillus 1 CAP BID 04/24 1122 AC 05/04 Acidophilus PO 213 Morphine Sulfate 2 MG Q6P PRN 05/04 164 AC IV Nicotine 14 MG DAILY 04/21 1000 AC 05/04 TOP 0923 Oxycodone/ 1 TAB Q4 05/01 1800 AC 05/05 Acetaminophen PO 0245 Tramadol HCl 50 MG Q6-PRN PRN 05/04 164 AC 05/04 PO 1650 Last 24 Hrs of Lab/Jt Results Last 24 Hrs of Labs/Mics: Laboratory Tests 05/04/17 0755: CBC w Diff NO MAN DIFF REQ, RBC 3.98 L, MCV 87.2, MCH 28.0, MCHC 32.1 L, RDW 14.1, MPV 8.0, Gran % 78.5 H, Lymphocytes % 13.1 L, Monocytes % 6.1, Eosinophils % 2.0, Basophils % 0.3, Absolute Granulocytes 10.8 H, Absolute Lymphocytes 1.8, Absolute Monocytes 0.8 H, Absolute Eosinophils 0.3, Absolute Basophils 0 Assessment/Plan Assessment: The patient is 56-year-old gentleman with past medical history of COPD and suspected hyperlipidemia. He presented to [facility] on 04/20 with complaint of shortness of breath AND CHEST PAIN ON INSPIRATION THAT STARTED FAILY ABRUPTLY THAT DAY. -VS 102.9, 100, 28,142/72,96% Ventimask -Pertinent labs, WBC count 30.4, band cells 14 H/H 13/42, platelets 602, lactic acid 1.1--4.1, d-dimer 391, UA clean, venous blood gases pH 7.37, PCO2 32, PO2 68 -Imaging findings dictated above -In ED patient received 1 L normal saline, Toradol, azithromycin, Rocephin, swollen 25;, 1 g of magnesium sulfate. On standing patient desatted to 88%. He is admitted to general medicine floor and is being treated and evaluated for following conditions #Patient admitted with sepsis secondary to community-acquired pneumonia and COPD exacerbation with acute hypoxemic respiratory failure, found to have empyema with thoracentesis and subsequent placement of pigtail catheter -CTA done earlier in admission was negative for pulmonary embolism but positive for left lower lobe consolidation/atelectasis with associated moderate sized left pleural effusion that was found to be empyema. -EMPYEMA MOST PROBABLY DUE TO BACTERIAL PNEUMONIA BUT DIFFERENTIAL INCLUDES CANCER, TB, PE. HE DOES ADMIT TO WEIGHT LOSS AND CURRENT SMOKING. -WBC mildly elevated. PATIENT AFEBRILE. -Patient done with steroid taper -Urine strep and Legionella antigen NEGATIVE -CULTURE PLEURAL FLUID SHOWED COAG NEGATIVE STAPH, LIKELY CONTAMINANT FROM SKIN. MRSA surveillance negative. -CT CHEST DONE 04/28 SHOWED POSSIBLE DECREASE IN SIZE OF PLEURAL EFFUSION, BUT the left pleural drain has pulled back slightly and there is now an extrapleural sidehole present and a few small foci of air are noted within the subcutaneous tissues of the left back. Also, an ill-defined 8mm nodular density of the right lower lobe which was not present previously was seen and given the short interval development of this finding, there is susupicion for a small focus of inflammatory or infectious changes. Continue to monitor drainage and WBC count/ fever. - Patient had minimum drainage overnight, and the tube insertion site appeared to be tender and swollen compared to yesterday. Would f.u w/ Dr. Venegas for plan. -PULMONARY AND ID INPUT APPRECIATED - PER ID CONTINUE UNASYN. PATIENT IS ON DAY 11 OF AT LEAST 14. WE WILL CONSULT WITH ID FOR LENGTH OF TREATMENT. -ON NONREBREATHER 100% FIo2, SATTING 99%. -HIV TEST WHICH WAS NEGATIVE -Tylenol for fever control and toradol for pain relief PLUS PERCOCET Q4. -TRC/nebs, TESSALON PEARLS AND MUCOMYST prn -On 05/01 patient's chest tube output had decreased to almost 0. As per Dr. Venegas, the chest tube was pulled. After this, patient's CXR revealed 20% left apical pneumothorax, likely from chest tube tip malposition from past days/air leak, however patient's had remained at his baseline without acute onset of pneumothoraxic symptoms with stable vitals. -We started 100% O2 non-breather NO washout and repeat CXR q12 -CXR done 2/4 pm showed unchanged images since the morning, LEFT pneumothorax, infiltrate LEFT lower lobe and pleural effusion. -CXR done 2 am showed slight interval improvement in left-sided pneumothorax. Stable left-sided pleural effusion with associated left basilar infiltrate or atelectasis. -CT chest 2 showed increased apical pneumothorax -Patient had replacement of pigtail catheter yesterday and addition of lytic alteplase to suction today with yield of copious fluid. Of note once patient had lytics applied, he developed pain and a feeling of fluid shifting in his chest. We subsequently ordered a chest xray to rule out acutely worsening pneumothorax. -Drainage as of this afternoon on lytics is >400cc -Follow new pleural fluid labs -Continue 100% nonrebreather #CHEST PAIN -ON INSPIRATION, LESS LIKELY CARDIAC BUT TROPS AND EKGS DONE AND NEGATIVE X2 -CONTINUE PERCOCET FOR PAIN RELIEF as this helps him most. -We gave patient extra pain relief with morphine for added pain during suction #Thrombocytosis likely reactive secondary to infection -Monitor platelet count #Lactic acidosis secondary to sepsis -RESOLVED #Smoker -Nicotine patch -Consult regarding smoking abstinence #History of hyperlipidemia -LIPID PROFILE NORMAL -6.3 HBA1C FOR CORONARY EQUIVALENTS- SLIGHTLY HIGH. WILL NEED DIET CONTROL OUTPATIENT. -for now started patient on cc3 diet and tidac accucheks FC DVT prophylaxis with Lovenox Regular diet Problem List: 1. S/P thoracentesis 2. Empyema 3. Left lower lobe pneumonia Pain Ratin Pain Location: left chest pleuritic pain Pain Goal: Pain 4 or less Pain Plan: morphine, tramadol, percocet Tomorrow's Labs & Rationales: René Solis 05/04/17 1447: Attending MD Review Statement Attending Statement Attending MD Statement: examined this patient, discuss w/resident/PA/CARPET LOOM FIXER, agreed w/resident/PA/CARPET LOOM FIXER, discussed with family, reviewed EMR data (avail), discussed with nursing, discussed with case mgmt, reviewed images, amended to note Attending Assessment/Plan: 56-year-old male with past history significant for hypertension, COPD admitted with acute respiratory failure, community acquired pneumonia and empyema s/p pigtail catheter placement with 60-100 ml of drainage. Persistent leukocytosis present. Weekend events noted. Patient had removal of pigtail catheter and found to have pneumothorax in apical area s/p chest tube placement IR guided and lytics given. [facility] consulted s/p placement of pigtail catheter and lytics administration. f/u [facility]. f/u drain amount. Chest tube care as per pulmonary and [facility]VS. Patient remains on iv unasyn as per ID recs, culture so far CONS. Duration of abx as per ID. [facility], Pulmonary and ID as multidisciplinary approach. cont current care.. counselling given.
[2017-05-04 09:43] LABS: ABSOLUTE BASOPHIL COUNT 0 /CUMM (0.0-0.2); ABSOLUTE EOSINOPHIL COUNT 0.3 /CUMM (0.0-0.7); ABSOLUTE GRANULOCYTE CT 10.8 /CUMM (1.4-6.5); ABSOLUTE LYMPH COUNT 1.8 /CUMM (1.2-3.4); ABSOLUTE MONOCYTE COUNT 0.8 /CUMM (0.10-0.60); BASOPHIL % 0.3 % (0.0-2.0); GRANULOCYTE % 78.5 % (42.2-75.2); HEMATOCRIT 34.7 % (42-52); MEAN CORPUSCULAR HGB CONC 32.1 G/DL (33.0-37.0); MEAN CORPUSCULAR VOLUME 87.2 FL (80.0-94.0); PLATELET COUNT 603 /CUMM (130-400); RBC DISTRIBUTION WIDTH 14.1 % (11.5-14.5); RED BLOOD CELL CT 3.98 /CUMM (4.70-6.10); WHITE BLOOD CELL COUNT 13.8 /CUMM (4.8-10.8)
--- NOTE | 2017-05-04 10:49 | PN- Thoracic Surgery ---
Subjective Subjective: Status post thoracentesis with catheter placement. The total drainage between the procedure and what is in the Pleur-evac is approximately 200 mL. He says his pleuritic pain has improved and he is able to take a deeper breath and he was since his hospitalization. Objective Vital Signs and I&Os Vital Signs Date Time Temp Pulse Resp B/P B/P Pulse O2 O2 Flow FiO2 Mean Ox Delivery Rate 05/04 0848 92 Room Air 05/04 0553 98.5 68 20 92/48 90 05/04 0000 94 Room Air 05/04 0000 94 Room Air 05/03 2216 98.5 65 18 104/58 94 Room Air 05/03 1938 95 Room Air 05/03 1605 98.7 79 18 115/55 97 Room Air 05/03 1600 96 Room Air 05/03 1600 95 Room Air Intake & Output 05/04 1600 05/04 0800 05/04 0000 05/03 1600 05/03 0800 05/03 0000 Intake Total 130 370 800 730 500 Output Total 670 900 450 Balance -540 -530 800 280 500 Intake, IV 130 130 250 Intake, Oral 240 800 480 500 Number 1 0 Bowel Movements Output, Chest 70 Tube Drainage Output, Urine 600 900 450 Physical Exam: Breath sounds clear bilaterally. Catheter is in place with no erythema. Lytics were placed this morning and the catheter will remain clamped for hours. Current Medications: Current Medications Sig/Tonio Start time Last Medication Dose Route Stop Time Status Admin Acetaminophen 650 MG Q8P PRN 04/21 2002 AC PO Albuterol Sulfate 3 ML EVERY 4 HRS/AWAKE 04/22 08 AC 05/04 INH 0947 Alteplase, 2 MG ONCE ONE 05/04 699 DC Recombinant IV 05/04 700 Alteplase, 10 MG ONCE ONE 05/04 699 DC 05/04 Recombinant IPL 05/04 700 0940 Ampicillin Sodium/ 3,000 MG Q6H 04/22 1600 AC 05/04 Sulbactam Sodium IV 0924 Sodium Chloride 100 ML Benzonatate 100 MG TID 04/22 1649 AC 05/04 PO 0921 Enoxaparin Sodium 40 MG DAILY 04/21 1000 AC 05/01 SC 0850 Fentanyl Citrate 0 .STK-MED ONE 05/03 1407 DC .ROUTE Guaifenesin/Codeine 10 ML Q6P PRN 04/22 0845 AC 02/06 Phosphate PO 1755 Ibuprofen 400 MG Q6P PRN 04/21 2014 AC PO Lactobacillus 1 CAP BID 04/24 1122 AC 05/04 Acidophilus PO 0921 Naloxone HCl 0 .STK-MED ONE 05/03 1407 DC .ROUTE Nicotine 14 MG DAILY 04/21 1000 AC 05/04 TOP 0923 Oxycodone/ 1 TAB Q4 05/01 1800 AC 05/04 Acetaminophen PO 0920 Patient Medication 1 ED ONE ONE 05/03 1245 DC Teaching ED 05/03 1246 Results Last 48 Hours of Labs: Laboratory Tests 05/04 05/03 05/03 0755 1500 1430 Hematology CBC w Diff NO MAN DIFF REQ WBC (4.8 - 10.8 /CUMM) 13.8 H RBC (4.70 - 6.10 /CUMM) 3.98 L Hgb (14.0 - 18.0 G/DL) 11.2 L Hct (42 - 52 %) 34.7 L MCV (80.0 - 94.0 FL) 87.2 MCH (27.0 - 31.0 PG) 28.0 MCHC (33.0 - 37.0 G/DL) 32.1 L RDW (11.5 - 14.5 %) 14.1 Plt Count (130 - 400 /CUMM) 603 H MPV (7.4 - 10.4 FL) 8.0 Gran % (42.2 - 75.2 %) 78.5 H Lymphocytes % (20.5 - 51.1 %) 13.1 L Monocytes % (1.7 - 9.3 %) 6.1 Eosinophils % (0 - 5 %) 2.0 Basophils % (0.0 - 2.0 %) 0.3 Absolute Granulocytes (1.4 - 6.5 /CUMM) 10.8 H Absolute Lymphocytes (1.2 - 3.4 /CUMM) 1.8 Absolute Monocytes (0.10 - 0.60 /CUMM) 0.8 H Absolute Eosinophils (0.0 - 0.7 /CUMM) 0.3 Absolute Basophils (0.0 - 0.2 /CUMM) 0 Miscellaneous Phlebotomy Draw Site THORACENTESIS Other Body Source Fluid WBC (0 - 5 /CUMM) Fld Total RBCs Counted (0 /CUMM) Pleural pH (PH) 6.78 05/03 05/03 1430 0726 Hematology CBC w Diff NO MAN DIFF REQ WBC (4.8 - 10.8 /CUMM) 15.4 H RBC (4.70 - 6.10 /CUMM) 3.51 L Hgb (14.0 - 18.0 G/DL) 9.9 L Hct (42 - 52 %) 31.0 L MCV (80.0 - 94.0 FL) 88.3 MCH (27.0 - 31.0 PG) 28.2 MCHC (33.0 - 37.0 G/DL) 31.9 L RDW (11.5 - 14.5 %) 14.2 Plt Count (130 - 400 /CUMM) 462 H MPV (7.4 - 10.4 FL) 7.8 Gran % (42.2 - 75.2 %) 77.6 H Lymphocytes % (20.5 - 51.1 %) 11.0 L Monocytes % (1.7 - 9.3 %) 8.1 Eosinophils % (0 - 5 %) 3.0 Basophils % (0.0 - 2.0 %) 0.3 Absolute Granulocytes (1.4 - 6.5 /CUMM) 11.9 H Absolute Lymphocytes (1.2 - 3.4 /CUMM) 1.7 Lymphocytes (%) 3 Absolute Monocytes (0.10 - 0.60 /CUMM) 1.3 H Absolute Eosinophils (0.0 - 0.7 /CUMM) 0.5 Absolute Basophils (0.0 - 0.2 /CUMM) 0.1 % Normal PMNs (%) 72 Misc Hematology Test (%) Other Body Source Fluid Glucose (mg/dL) < 20 Fluid Total Protein (g/dL) 4.3 Fluid LDH (U/L) 60205 Assessment/Plan Assessment/Plan So far a fairly good response to catheter placement. I suspect that the lytics will allow for further drainage and a single dose might be all that is necessary. I spoke with Dr. Venegas and we will reevaluate in the morning. The options would be repeat lytics, no further lytics and continue catheter until no drainage, or if necessary surgical drainage and decortication. A decision about the next step will be made tomorrow morning. This is obviously dependent upon the response to lytic treatment.
--- NOTE | 2017-05-04 12:05 | PN- Pulmonary ---
Subjective HPI/Critical Care Issues: pt seen and examined 120cc in pleurevac chest tube in place s/p tpa Objective Current Medications: Current Medications Sig/Tonio Start time Last Medication Dose Route Stop Time Status Admin Acetaminophen 650 MG Q8P PRN 04/21 2002 AC PO Albuterol Sulfate 3 ML BID 05/04 2199 AC INH Albuterol Sulfate 3 ML EVERY 4 HRS/AWAKE 04/22 08 DC 05/04 INH 0947 Alteplase, 2 MG ONCE ONE 05/04 699 DC Recombinant IV 05/04 700 Alteplase, 10 MG ONCE ONE 05/04 699 DC 05/04 Recombinant IPL 05/04 700 0940 Ampicillin Sodium/ 3,000 MG Q6H 04/22 1600 AC 05/04 Sulbactam Sodium IV 0924 Sodium Chloride 100 ML Benzonatate 100 MG TID 04/22 1649 AC 05/04 PO 0921 Enoxaparin Sodium 40 MG DAILY 04/21 1000 AC 05/01 SC 0850 Fentanyl Citrate 0 .STK-MED ONE 05/03 1407 DC .ROUTE Guaifenesin/Codeine 10 ML Q6P PRN 04/22 0845 AC 05/03 Phosphate PO 1755 Ibuprofen 400 MG Q6P PRN 04/21 2014 AC PO Lactobacillus 1 CAP BID 04/24 1122 AC 05/04 Acidophilus PO 0921 Naloxone HCl 0 .STK-MED ONE 05/03 1407 DC .ROUTE Nicotine 14 MG DAILY 04/21 1000 AC 05/04 TOP 0923 Oxycodone/ 1 TAB Q4 05/01 1800 AC 05/04 Acetaminophen PO 0920 Patient Medication 1 ED ONE ONE 05/03 1245 DC Teaching ED 05/03 1246 Vital Signs & I&O Last 24 Hrs of Vitals and I&O: Vital Signs Date Time Temp Pulse Resp B/P B/P Pulse O2 O2 Flow FiO2 Mean Ox Delivery Rate 05/04 0948 92 Room Air 05/04 0800 95 Room Air 05/04 0800 95 Room Air 05/04 0553 98.5 68 20 92/48 90 05/04 0000 94 Room Air 05/04 0000 94 Room Air 05/03 2216 98.5 65 18 104/58 94 Room Air 05/03 1938 95 Room Air 05/03 1605 98.7 79 18 115/55 97 Room Air 05/03 1600 96 Room Air 05/03 1600 95 Room Air Intake & Output 02/07 1600 05/04 0800 05/04 0000 Intake Total 130 370 Output Total 670 900 Balance -540 -530 Intake, IV 130 130 Intake, Oral 240 Output, Chest 70 Tube Drainage Output, Urine 600 900 Exam Other Physical Findings: Generally - Awake, alert and comfortable without distress Head and neck - normocephalic, atraumatic, EOMI grossly intact Cardiovascular - S1, S2, no murmurs, rubs or gallops Lungs -diminished breath sounds at the bases Abdomen - Bowel sounds positive, soft, non-tender Extremities - without edema Results Last 24 Hrs of Lab Results: Laboratory Tests 05/04/17 0755: CBC w Diff NO MAN DIFF REQ, RBC 3.98 L, MCV 87.2, MCH 28.0, MCHC 32.1 L, RDW 14.1, MPV 8.0, Gran % 78.5 H, Lymphocytes % 13.1 L, Monocytes % 6.1, Eosinophils % 2.0, Basophils % 0.3, Absolute Granulocytes 10.8 H, Absolute Lymphocytes 1.8, Absolute Monocytes 0.8 H, Absolute Eosinophils 0.3, Absolute Basophils 0 05/03/17 1500: Phlebotomy Draw Site THORACENTESIS, Pleural pH 6.78 05/03/17 1430: Fluid WBC , Fld Total RBCs Counted 05/03/17 1430: Lymphocytes 3, % Normal PMNs 72, Misc Hematology Test , Fluid Glucose < 20, Fluid Total Protein 4.3, Fluid LDH 11046 Impression/Plan Impression/Plan Impression/Plan: Impression 56 year old man. * LLL pneumonia and exudative pleural fluid consistent with empyema, now with pneumothorax Plan -monitor chest tube output -s/p tpa intrapleural -depending on output will determine next step regarding further tpa vs surgical decortication -cont unasyn -pain control DVT prophylaxis at all times
[2017-05-04 15:42] VITALS: BP 106/58
--- NOTE | 2017-05-04 17:28 | RADIOLOGY REPORT ---
EXAMINATION: XR PORTABLE CHEST CLINICAL INFORMATION: Chest pain status post lytic therapy today. COMPARISON: Multiple priors, including chest CT from 05/03/2017 and radiograph 05/02/2017 TECHNIQUE: Portable frontal view of the chest was obtained. FINDINGS: The lungs are well expanded. There is a small left pleural effusion which appears decreased from prior. Partial visualization of the left basilar catheter. Left basilar airspace opacity remains. The right costophrenic angle is not included on this study with no large right pleural effusion. There is slight increase in a small to moderate left pneumothorax when compared to the previous radiograph, although the change may in part be secondary to difference in patient positioning. The cardiomediastinal silhouette is unchanged. IMPRESSION: 1. Slight increase in size of the small to moderate left pneumothorax, although the change could be in part secondary to patient positioning. This could also be associated with the decreasing pleural fluid in an ex vacuo nature. Chest tube is partially visualized at the left base. 2. Decreased small left pleural effusion with persistent airspace opacity.
[2017-05-04 22:33] VITALS: BP 104/68
[2017-05-05 06:59] VITALS: BP 104/68
--- NOTE | 2017-05-05 08:05 | PN- Housestaff ---
Lizeth Maldonado MD 05/05/17 0805: Subjective Follow-up For: empyema sp thoracentesiswith CT placement Subjective: patient today states that he feels better than before in terms of pain and breathing. no events overnight. Today patient has drained a total of 850cc on suction overnight and is on gravity this morning. 93 on RA. Review of Systems Constitutional: Reports: no symptoms. Cardiovascular: Reports: chest pain. Respiratory: Reports: cough, short of breath. Gastrointestinal: Reports: no symptoms. Genitourinary: Reports: no symptoms. Musculoskeletal: Reports: back pain. Objective Last 24 Hrs of Vital Signs/I&O Vital Signs Date Time Temp Pulse Resp B/P B/P Pulse O2 O2 Flow FiO2 Mean Ox Delivery Rate 05/05 1600 94 Room Air 05/05 1600 94 Room Air 05/05 1435 97.4 75 20 100/56 94 Room Air 05/05 0935 91 Room Air Room Air 05/05 0800 93 Nasal 2.0L Cannula 05/05 0800 93 Room Air Room Air 05/05 0659 98.0 72 20 104/68 93 Room Air 05/05 0000 94 Nasal 2.0L Cannula 05/05 0000 94 Nasal 2.0L Cannula 05/04 2233 98.1 74 20 104/68 94 Nasal Cannula Intake & Output 05/05 1600 /08 0800 /08 0000 Intake Total 910 240 100 Output Total 30 450 800 Balance 880 -210 -700 Intake, IV 110 140 100 Intake, Oral 800 100 Number 1 0 Bowel Movements Output, Chest 150 600 Tube Drainage Output, 30 Drainage Output, Urine 300 200 Physical Exam General Appearance: Alert, Oriented X3, Cooperative, No Acute Distress Skin: No Rashes, No Breakdown, No Significant Lesion HEENT: Atraumatic, PERRLA, EOMI, Mucous Membr. moist/pink Cardiovascular: Regular Rate, Normal S1, Normal S2, No Murmurs Lungs: decreased breath sounds left side Abdomen: Normal Bowel Sounds, Soft, No Tenderness Neurological: Normal Gait, Normal Speech Extremities: No Edema, Normal Pulses, No Tenderness/Swelling Current Medications: Current Medications Sig/Tonio Start time Last Medication Dose Route Stop Time Status Admin Acetaminophen 650 MG Q8P PRN 04/21 2002 AC PO Albuterol Sulfate 3 ML BID 05/04 2199 AC 05/05 INH 0934 Ampicillin Sodium/ 3,000 MG Q6H 04/22 1600 AC 05/05 Sulbactam Sodium IV 1557 Sodium Chloride 100 ML Benzonatate 100 MG TID 04/22 1649 AC 05/05 PO 1557 Enoxaparin Sodium 40 MG DAILY 04/21 1000 AC 05/05 SC 0923 Guaifenesin/Codeine 10 ML Q6P PRN 05/05 1515 AC Phosphate PO Guaifenesin/Codeine 10 ML Q6P PRN 04/22 0845 DC 05/05 Phosphate PO 0933 Ibuprofen 400 MG Q6P PRN 04/21 2015 AC PO Lactobacillus 1 CAP BID 04/24 1122 AC 05/05 Acidophilus PO 0923 Morphine Sulfate 2 MG Q6P PRN 05/04 1645 AC IV Nicotine 14 MG DAILY 04/21 1000 AC 05/05 TOP 0923 Oxycodone/ 1 TAB Q4 05/01 1800 AC 05/05 Acetaminophen PO 1736 Tramadol HCl 50 MG Q6-PRN PRN 05/04 1645 AC 05/04 PO 1650 Last 24 Hrs of Lab/Jt Results Last 24 Hrs of Labs/Mics: Laboratory Tests 05/05/17 0712: Anion Gap 9, Estimated GFR > 60, BUN/Creatinine Ratio 26.7 H, CBC w Diff NO MAN DIFF REQ, RBC 3.54 L, MCV 86.9, MCH 28.4, MCHC 32.7 L, RDW 14.1, MPV 8.4, Gran % 76.1 H, Lymphocytes % 14.1 L, Monocytes % 5.8, Eosinophils % 2.3, Basophils % 1.7, Absolute Granulocytes 9.9 H, Absolute Lymphocytes 1.8, Absolute Monocytes 0.8 H, Absolute Eosinophils 0.3, Absolute Basophils 0.2 Assessment/Plan Assessment: The patient is 56-year-old gentleman with past medical history of COPD and suspected hyperlipidemia. He presented to [place] ED on 04/20 with complaint of shortness of breath AND CHEST PAIN ON INSPIRATION THAT STARTED FAILY ABRUPTLY THAT DAY. -VS 102.9, 100, 28,142/72,96% Ventimask -Pertinent labs, WBC count 30.4, band cells 14 H/H 13/42, platelets 602, lactic acid 1.1--4.1, d-dimer 391, UA clean, venous blood gases pH 7.37, PCO2 32, PO2 68 -Imaging findings dictated above -In ED patient received 1 L normal saline, Toradol, azithromycin, Rocephin, swollen 25;, 1 g of magnesium sulfate. On standing patient desatted to 88%. He is admitted to general medicine floor and is being treated and evaluated for following conditions #Patient admitted with sepsis secondary to community-acquired pneumonia and COPD exacerbation with acute hypoxemic respiratory failure, found to have empyema with thoracentesis and subsequent placement of pigtail catheter -CTA done earlier in admission was negative for pulmonary embolism but positive for left lower lobe consolidation/atelectasis with associated moderate sized left pleural effusion that was found to be empyema. -EMPYEMA MOST PROBABLY DUE TO BACTERIAL PNEUMONIA BUT DIFFERENTIAL INCLUDES CANCER, TB, PE. HE DOES ADMIT TO WEIGHT LOSS AND CURRENT SMOKING. -WBC TODAY HAVE decreased to 12.6 from 13.1. PATIENT AFEBRILE. -Patient continues on steroid taper, today on 10mg PO prednisone. Patient will receive on more dose tomorrow and then STOP. Patient has no more wheezing on exam. -Urine strep and Legionella antigen NEGATIVE -CULTURE PLEURAL FLUID SHOWED COAG NEGATIVE STAPH, LIKELY CONTAMINANT FROM SKIN. MRSA surveillance negative. -CT CHEST DONE 04/28 SHOWED POSSIBLE DECREASE IN SIZE OF PLEURAL EFFUSION, BUT the left pleural drain has pulled back slightly and there is now an extrapleural sidehole present and a few small foci of air are noted within the subcutaneous tissues of the left back. Also, an ill-defined 8mm nodular density of the right lower lobe which was not present previously was seen and given the short interval development of this finding, there is susupicion for a small focus of inflammatory or infectious changes. Continue to monitor drainage and WBC count/ fever. - Patient had minimum drainage overnight, and the tube insertion site appeared to be tender and swollen compared to yesterday. Would fAwildau avinash/ Dr. Venegas for plan. -PULMONARY AND ID INPUT APPRECIATED - PER ID CONTINUE UNASYN. PATIENT IS ON DAY 13 OF AT LEAST 14. WE WILL CONSULT WITH ID FOR LENGTH OF TREATMENT. -WBC 15.4 TODAY, AFEBRILE -ON NONREBREATHER 100% FIo2, SATTING 99%. -HIV TEST WHICH WAS NEGATIVE -Tylenol for fever control and toradol for pain relief PLUS PERCOCET Q4. -TRC/nebs, TESSALON PEARLS AND MUCOMYST prn -On 05/01 patient's chest tube output had decreased to almost 0. As per Dr. Venegas, the chest tube was pulled. After this, patient's CXR revealed 20% left apical pneumothorax, likely from chest tube tip malposition from past days/air leak, however patient's had remained at his baseline without acute onset of pneumothoraxic symptoms with stable vitals. -We started 100% O2 non-breather NO washout and repeat CXR q12 -CXR done 2/ pm showed unchanged images since the morning, LEFT pneumothorax, infiltrate LEFT lower lobe and pleural effusion. -CXR done 05/02 am showed slight interval improvement in left-sided pneumothorax. Stable left-sided pleural effusion with associated left basilar infiltrate or atelectasis. -CT chest 05/02 showed increased apical pneumothorax -As per Dr. Parikh we did CT guided placement of pigtail catheter today. He got one dose of lytics yesterday and had copious drainage. -chest xray showed decreased effusion size and increased pneumothorax that could be associated with decreasing pleural fluid in an ex vacuo nature. #CHEST PAIN -ON INSPIRATION, LESS LIKELY CARDIAC BUT TROPS AND EKGS DONE AND NEGATIVE X2 -CONTINUE PERCOCET FOR PAIN RELIEF as this helps him most. -Patient is refusing pain medications for severe breakthrough pain (MORPHINE) #Thrombocytosis likely reactive secondary to infection -Monitor platelet count #Lactic acidosis secondary to sepsis -RESOLVED #Smoker -Nicotine patch -Consult regarding smoking abstinence #History of hyperlipidemia -LIPID PROFILE NORMAL -6.3 HBA1C FOR CORONARY EQUIVALENTS- SLIGHTLY HIGH. WILL NEED DIET CONTROL OUTPATIENT. -for now started patient on cc3 diet and tidac accucheks FC DVT prophylaxis with Lovenox Regular diet Problem List: 1. Empyema Pain Ratin Pain Location: left chest and back Pain Goal: Pain 4 or less Pain Plan: toradol, mmorphine, percocet tylenol Tomorrow's Labs & Rationales: cbc René Morales 05/05/17 1154: Attending MD Review Statement Attending Statement Attending MD Statement: examined this patient, discuss w/resident/PA/PRINT INSPECTOR, agreed w/resident/PA/PRINT INSPECTOR, discussed with family, reviewed EMR data (avail), discussed with nursing, discussed with case mgmt, reviewed images, amended to note Attending Assessment/Plan: 56-year-old male with past history significant for hypertension, COPD admitted with acute respiratory failure, community acquired pneumonia and empyema s/p pigtail catheter placement with ongoing drainage. CTVS consulted s/p placement of pigtail catheter and lytics administration. f/u CTVS. f/u drain amount. Chest tube care as per pulmonary and CTVS. Patient remains on iv unasyn as per ID recs, culture so far CONS. Duration of abx as per ID. CTVS, Pulmonary and ID as multidisciplinary approach. cont current care.. counselling given.
[2017-05-05 08:27] LABS: ABSOLUTE BASOPHIL COUNT 0.2 /CUMM (0.0-0.2); ABSOLUTE EOSINOPHIL COUNT 0.3 /CUMM (0.0-0.7); ABSOLUTE GRANULOCYTE CT 9.9 /CUMM (1.4-6.5); ABSOLUTE LYMPH COUNT 1.8 /CUMM (1.2-3.4); ABSOLUTE MONOCYTE COUNT 0.8 /CUMM (0.10-0.60); BASOPHIL % 1.7 % (0.0-2.0); EOSINOPHIL % 2.3 % (0-5); GRANULOCYTE % 76.1 % (42.2-75.2); HEMATOCRIT 30.8 % (42-52); MEAN CORPUSCULAR HGB 28.4 PG (27.0-31.0); MEAN CORPUSCULAR HGB CONC 32.7 G/DL (33.0-37.0); MEAN CORPUSCULAR VOLUME 86.9 FL (80.0-94.0); MEAN PLATELET VOLUME 8.4 FL (7.4-10.4); PLATELET COUNT 467 /CUMM (130-400); RBC DISTRIBUTION WIDTH 14.1 % (11.5-14.5); RED BLOOD CELL CT 3.54 /CUMM (4.70-6.10)
--- NOTE | 2017-05-05 10:50 | PN- Infect Dx ---
Subjective Subjective: Afebrile. He continues to have discomfort in the left chest. Objective Last 24 Hrs of Vital Signs/I&O Vital Signs Date Time Temp Pulse Resp B/P B/P Pulse O2 O2 Flow FiO2 Mean Ox Delivery Rate 05/05 934 91 Room Air Room Air 05/05 799 93 Nasal 2.0L Cannula 05/05 799 93 Room Air Room Air 05/05 0659 98.0 72 20 104/68 93 Room Air 05/05 0000 94 Nasal 2.0L Cannula 05/05 0000 94 Nasal 2.0L Cannula 05/04 2233 98.1 74 20 104/68 94 Nasal Cannula 05/04 1842 92 Room Air Room Air 05/04 1600 92 Room Air 05/04 1600 92 Room Air 05/04 1542 92.0 70 20 106/58 92 Room Air Intake & Output 05/05 1600 05/05 0800 05/05 0000 Intake Total 240 100 Output Total 450 800 Balance -210 -700 Intake, IV 140 100 Intake, Oral 100 Number 0 Bowel Movements Output, Chest 150 600 Tube Drainage Output, Urine 300 200 Physical Exam Other Physical Findings: He appears comfortable presently in no acute distress Lungs decreased breath sounds at the left base; pigtail catheter in place with 670 mL output yesterday and 150 mL overnight Heart regular rhythm with no murmur Extremities no cyanosis, clubbing or edema Results Last 24 Hours of Lab Results: Laboratory Tests 05/05 711 Chemistry Sodium (137 - 145 mmol/L) 139 Potassium (3.5 - 5.1 mmol/L) 4.4 Chloride (98 - 107 mmol/L) 104 Carbon Dioxide (22 - 30 mmol/L) 26 Anion Gap (5 - 16) 9 BUN (9 - 20 mg/dL) 16 Creatinine (0.7 - 1.2 mg/dL) 0.6 L Estimated GFR (>60 ml/min) > 60 BUN/Creatinine Ratio (7 - 25 %) 26.7 H Hematology CBC w Diff NO MAN DIFF REQ WBC (4.8 - 10.8 /CUMM) 13.0 H RBC (4.70 - 6.10 /CUMM) 3.54 L Hgb (14.0 - 18.0 G/DL) 10.1 L Hct (42 - 52 %) 30.8 L MCV (80.0 - 94.0 FL) 86.9 MCH (27.0 - 31.0 PG) 28.4 MCHC (33.0 - 37.0 G/DL) 32.7 L RDW (11.5 - 14.5 %) 14.1 Plt Count (130 - 400 /CUMM) 467 H MPV (7.4 - 10.4 FL) 8.4 Gran % (42.2 - 75.2 %) 76.1 H Lymphocytes % (20.5 - 51.1 %) 14.1 L Monocytes % (1.7 - 9.3 %) 5.8 Eosinophils % (0 - 5 %) 2.3 Basophils % (0.0 - 2.0 %) 1.7 Absolute Granulocytes (1.4 - 6.5 /CUMM) 9.9 H Absolute Lymphocytes (1.2 - 3.4 /CUMM) 1.8 Absolute Monocytes (0.10 - 0.60 /CUMM) 0.8 H Absolute Eosinophils (0.0 - 0.7 /CUMM) 0.3 Absolute Basophils (0.0 - 0.2 /CUMM) 0.2 Last 24 Hours of Jt Results: Left pleural fluid culture May 03 negative Recent Imaging Studies: Chest x-ray May 04 reveals a slight increase in size of the small to moderate left pneumothorax, possibly secondary to patient positioning; decreased left pleural effusion with persistent airspace opacity Assessment/Plan Impression: Stable, status post placement of a new pigtail catheter in the left chest 2 days ago, with removal of 60 mL of fluid, which was again consistent with an empyema, with a markedly decreased pH. He was given lytics yesterday with a significant output reported. He remains afebrile with his white blood cell count decreasing on Unasyn, Day 13 of treatment for the empyema, possibly secondary to coag- negative Staph, which was isolated from his initial pleural fluid culture. Suggestion: 1. Further management, with regard to lytics and surgery, per Pulmonary and Thoracic surgery 2. Continue Unasyn
--- NOTE | 2017-05-05 12:15 | PN- Pulmonary ---
Subjective HPI/Critical Care Issues: pt seen and examined this am meeting held with his at bedside to explain progress wbc 13 pain controlled Objective Current Medications: Current Medications Sig/Tonio Start time Last Medication Dose Route Stop Time Status Admin Acetaminophen 650 MG Q8P PRN 04/21 2002 AC PO Albuterol Sulfate 3 ML BID 05/04 2200 AC 05/05 INH 0934 Ampicillin Sodium/ 3,000 MG Q6H 04/22 1600 AC 05/05 Sulbactam Sodium IV 0959 Sodium Chloride 100 ML Benzonatate 100 MG TID 04/22 1649 AC 05/05 PO 0923 Enoxaparin Sodium 40 MG DAILY 04/21 1000 AC 05/05 SC 0923 Guaifenesin/Codeine 10 ML Q6P PRN 04/22 0845 AC 05/05 Phosphate PO 0933 Ibuprofen 400 MG Q6P PRN 04/21 2014 AC PO Lactobacillus 1 CAP BID 04/24 1122 AC 05/05 Acidophilus PO 0923 Morphine Sulfate 2 MG Q6P PRN 05/04 164 AC IV Nicotine 14 MG DAILY 04/21 1000 AC 05/05 TOP 0923 Oxycodone/ 1 TAB Q4 05/01 1800 AC 05/05 Acetaminophen PO 0924 Tramadol HCl 50 MG Q6-PRN PRN 05/04 1645 AC 05/04 PO 1650 Vital Signs & I&O Last 24 Hrs of Vitals and I&O: Vital Signs Date Time Temp Pulse Resp B/P B/P Pulse O2 O2 Flow FiO2 Mean Ox Delivery Rate 05/05 0935 91 Room Air Room Air 05/05 08 93 Nasal 2.0L Cannula 05/05 0800 93 Room Air Room Air 05/05 0659 98.0 72 20 104/68 93 Room Air 05/05 0000 94 Nasal 2.0L Cannula 05/05 0000 94 Nasal 2.0L Cannula 05/04 2233 98.1 74 20 104/68 94 Nasal Cannula 05/04 1842 92 Room Air Room Air 05/04 1600 92 Room Air 05/04 1600 92 Room Air 05/04 1542 92.0 70 20 106/58 92 Room Air Intake & Output 05/05 1600 05/05 0800 05/05 0000 Intake Total 240 100 Output Total 450 800 Balance -210 -700 Intake, IV 140 100 Intake, Oral 100 Number 0 Bowel Movements Output, Chest 150 600 Tube Drainage Output, Urine 300 200 Exam Other Physical Findings: Generally - Awake, alert and comfortable without distress Head and neck - normocephalic, atraumatic, EOMI grossly intact Cardiovascular - S1, S2, no murmurs, rubs or gallops Lungs -diminished breath sounds at the bases Abdomen - Bowel sounds positive, soft, non-tender Extremities - without edema Results Last 24 Hrs of Lab Results: Laboratory Tests 05/05/17 0712: Anion Gap 9, Estimated GFR > 60, BUN/Creatinine Ratio 26.7 H, CBC w Diff NO MAN DIFF REQ, RBC 3.54 L, MCV 86.9, MCH 28.4, MCHC 32.7 L, RDW 14.1, MPV 8.4, Gran % 76.1 H, Lymphocytes % 14.1 L, Monocytes % 5.8, Eosinophils % 2.3, Basophils % 1.7, Absolute Granulocytes 9.9 H, Absolute Lymphocytes 1.8, Absolute Monocytes 0.8 H, Absolute Eosinophils 0.3, Absolute Basophils 0.2 Impression/Plan Impression/Plan Impression/Plan: Impression 56 year old man. * LLL pneumonia and exudative pleural fluid consistent with empyema, now with pneumothorax Plan -monitor chest tube output -s/p tpa intrapleural -excellent chest tube output so far, will continue to monitor without additional lytics for now -cont unasyn -pain control DVT prophylaxis at all times
[2017-05-05 14:35] VITALS: BP 100/56
[2017-05-05 22:04] VITALS: BP 116/62
[2017-05-06 06:30] VITALS: BP 116/65
--- NOTE | 2017-05-06 07:25 | PN- Housestaff ---
Joel GOMEZ,Lizeth 05/06/17 0724: Subjective Follow-up For: empyema sp thoracentesiswith CT placement Subjective: patient states that he feels a littl better but mostly the same. Is on room air. Still with significant pain when he coughs. patient drained 160cc yesterday total 900cc since new chest tube placement. Review of Systems Constitutional: Reports: weakness. Cardiovascular: Reports: chest pain. Respiratory: Reports: cough. Musculoskeletal: Reports: back pain. Objective Last 24 Hrs of Vital Signs/I&O Vital Signs Date Time Temp Pulse Resp B/P B/P Pulse O2 O2 Flow FiO2 Mean Ox Delivery Rate 05/06 1055 94 Room Air 05/06 0800 95 Room Air Room Air 05/06 0630 97.6 57 20 116/65 92 Room Air 05/06 0000 95 Room Air 05/05 2204 97.7 67 20 116/62 95 Room Air 05/05 2110 96 Room Air 05/05 1600 94 Room Air 05/05 1600 94 Room Air 05/05 1435 97.4 75 20 100/56 94 Room Air Intake & Output 05/06 1600 05/06 0800 05/06 0000 Intake Total 200 1160 Output Total 800 220 Balance -600 940 Intake, IV 260 Intake, Oral 200 900 Output, Chest 20 Tube Drainage Output, Urine 800 200 Physical Exam General Appearance: Alert, Oriented X3, Cooperative, No Acute Distress Cardiovascular: Regular Rate, Normal S1, Normal S2, No Murmurs Lungs: still with decreased air movement left side. Abdomen: Normal Bowel Sounds, Soft, No Tenderness Extremities: No Clubbing, No Cyanosis, No Edema, Normal Pulses, No Tenderness/ Swelling Current Medications: Current Medications Sig/Tonio Start time Last Medication Dose Route Stop Time Status Admin Acetaminophen 650 MG Q8P PRN 04/21 2002 AC PO Albuterol Sulfate 3 ML BID 05/04 2199 AC 05/06 INH 1058 Ampicillin Sodium/ 3,000 MG Q6H 04/22 1600 AC 05/06 Sulbactam Sodium IV 0917 Sodium Chloride 100 ML Benzonatate 100 MG TID 04/22 1649 AC 05/06 PO 0919 Enoxaparin Sodium 40 MG DAILY 04/21 1000 AC 05/06 SC 0918 Guaifenesin/Codeine 10 ML Q6P PRN 05/05 1515 AC 05/06 Phosphate PO 0921 Guaifenesin/Codeine 10 ML Q6P PRN 04/22 0845 DC 05/05 Phosphate PO 0933 Ibuprofen 400 MG Q6P PRN 04/21 2014 AC PO Lactobacillus 1 CAP BID 04/24 1122 AC 05/06 Acidophilus PO 09 Morphine Sulfate 2 MG Q6P PRN 05/04 1645 AC IV Nicotine 14 MG DAILY 04/21 1000 AC 05/06 TOP 0919 Oxycodone/ 1 TAB Q4 05/01 1800 AC 05/06 Acetaminophen PO 0916 Tramadol HCl 50 MG Q6-PRN PRN 05/04 1645 AC 05/04 PO 1650 Last 24 Hrs of Lab/Jt Results Last 24 Hrs of Labs/Mics: Laboratory Tests 05/06/17 0836: CBC w Diff NO MAN DIFF REQ, RBC 3.71 L, MCV 87.5, MCH 28.3, MCHC 32.3 L, RDW 14.6 H, MPV 8.0, Gran % 74.5, Lymphocytes % 16.5 L, Monocytes % 4.5, Eosinophils % 3.2, Basophils % 1.3, Absolute Granulocytes 8.6 H, Absolute Lymphocytes 1.9, Absolute Monocytes 0.5, Absolute Eosinophils 0.4, Absolute Basophils 0.1 Assessment/Plan Assessment: The patient is 56-year-old gentleman with past medical history of COPD and suspected hyperlipidemia. He presented to [place] ED on 04/20 with complaint of shortness of breath AND CHEST PAIN ON INSPIRATION THAT STARTED FAILY ABRUPTLY THAT DAY. -VS 102.9, 100, 28,142/72,96% Ventimask -Pertinent labs, WBC count 30.4, band cells 14 H/H 13/42, platelets 602, lactic acid 1.1--4.1, d-dimer 391, UA clean, venous blood gases pH 7.37, PCO2 32, PO2 68 -Imaging findings dictated above -In ED patient received 1 L normal saline, Toradol, azithromycin, Rocephin, swollen 25;, 1 g of magnesium sulfate. On standing patient desatted to 88%. He is admitted to general medicine floor and is being treated and evaluated for following conditions #Patient admitted with sepsis secondary to community-acquired pneumonia and COPD exacerbation with acute hypoxemic respiratory failure, found to have empyema with thoracentesis and subsequent placement of pigtail catheter -CTA done earlier in admission was negative for pulmonary embolism but positive for left lower lobe consolidation/atelectasis with associated moderate sized left pleural effusion that was found to be empyema. -EMPYEMA MOST PROBABLY DUE TO BACTERIAL PNEUMONIA BUT DIFFERENTIAL INCLUDES CANCER, TB, PE. HE DOES ADMIT TO WEIGHT LOSS AND CURRENT SMOKING. -WBC TODAY HAVE decreased to 11.5 -Patient continues on steroid taper, today on 10mg PO prednisone. Patient will receive on more dose tomorrow and then STOP. Patient has no more wheezing on exam. -Urine strep and Legionella antigen NEGATIVE -CULTURE PLEURAL FLUID SHOWED COAG NEGATIVE STAPH, LIKELY CONTAMINANT FROM SKIN. MRSA surveillance negative. -CT CHEST DONE 04/28 SHOWED POSSIBLE DECREASE IN SIZE OF PLEURAL EFFUSION, BUT the left pleural drain has pulled back slightly and there is now an extrapleural sidehole present and a few small foci of air are noted within the subcutaneous tissues of the left back. Also, an ill-defined 8mm nodular density of the right lower lobe which was not present previously was seen and given the short interval development of this finding, there is susupicion for a small focus of inflammatory or infectious changes. Continue to monitor drainage and WBC count/ fever. - Patient had minimum drainage overnight, and the tube insertion site appeared to be tender and swollen compared to yesterday. Would f.u w/ Dr. Venegas for plan. -PULMONARY AND ID INPUT APPRECIATED - PER ID CONTINUE UNASYN. PATIENT IS ON DAY 14. continue to treat. -ON ra satting 95%. -HIV TEST WAS NEGATIVE -Tylenol for fever control and toradol for pain relief PLUS PERCOCET Q4 and moprhine 2mg q6 -TRC/nebs, TESSALON PEARLS AND MUCOMYST prn -On 05/01 patient's chest tube output had decreased to almost 0. As per Dr. Venegas, the chest tube was pulled. After this, patient's CXR revealed 20% left apical pneumothorax, likely from chest tube tip malposition from past days/air leak, however patient's had remained at his baseline without acute onset of pneumothoraxic symptoms with stable vitals. -We started 100% O2 non-breather NO washout and repeat CXR q12 -CXR done 2/4 pm showed unchanged images since the morning, LEFT pneumothorax, infiltrate LEFT lower lobe and pleural effusion. -CXR done 2 am showed slight interval improvement in left-sided pneumothorax. Stable left-sided pleural effusion with associated left basilar infiltrate or atelectasis. -CT chest 05/02 showed increased apical pneumothorax -As per Dr. Parikh we did CT guided placement of pigtail catheter on 05/04. He got one dose of lytics on 05/05 and had copious drainage, 900cc since. Drainage has decreased overnight to 30cc. -NO EVIDENCE MALIGNANCY ON CYTOLOGY OF FLUID AGAIN -chest xray on 05/05 showed decreased effusion size and increased pneumothorax that could be associated with decreasing pleural fluid in an ex vacuo nature. -question of remaining loculation and need for a second dose of alteplase - we will get CT without contrast of chest today and decide on further dosings afterwards. Working closely with tipple operator and cardiothoracic surgeon. #CHEST PAIN -ON INSPIRATION, LESS LIKELY CARDIAC BUT TROPS AND EKGS DONE AND NEGATIVE X2 -CONTINUE PERCOCET FOR PAIN RELIEF as this helps him most. -Patient is refusing pain medications for severe breakthrough pain (MORPHINE) #Thrombocytosis likely reactive secondary to infection -Monitor platelet count #Lactic acidosis secondary to sepsis -RESOLVED #Smoker -Nicotine patch -Consult regarding smoking abstinence #History of hyperlipidemia -LIPID PROFILE NORMAL -6.3 HBA1C FOR CORONARY EQUIVALENTS- SLIGHTLY HIGH. WILL NEED DIET CONTROL OUTPATIENT. -was on accuchecks which have been dc'd for repeatedly normal values. as per request patient put backon regular diet. FC DVT prophylaxis with Lovenox Regular diet Problem List: 1. Empyema 2. S/P thoracentesis 3. Left lower lobe pneumonia Pain Ratin Pain Location: left chest Pain Goal: Pain 4 or less Pain Plan: morphine 2mg q6prn percocet q4 Tomorrow's Labs & Rationales: CBC AndrewRené 05/06/17 1336: Attending Review Statement Attending Statement Attending MD Statement: examined this patient, discuss w/resident/PA/POLICY SPECIALIST, agreed w/resident/PA/POLICY SPECIALIST, discussed with family, reviewed EMR data (avail), discussed with nursing, discussed with case mgmt, reviewed images, amended to note Attending Assessment/Plan: 56-year-old male with past history significant for hypertension, COPD admitted with acute respiratory failure, community acquired pneumonia and empyema s/p pigtail catheter placement with ongoing drainage. CTVS consulted s/p placement of pigtail catheter and lytics administration. f/u CTVS. f/u drain amount. Chest tube care as per pulmonary and CTVS. Patient remains on iv unasyn as per ID recs, culture so far CONS. Duration of abx as per ID. CTVS, Pulmonary and ID as multidisciplinary approach. cont current care.. counselling given.
[2017-05-06 09:33] LABS: ABSOLUTE BASOPHIL COUNT 0.1 /CUMM (0.0-0.2); ABSOLUTE EOSINOPHIL COUNT 0.4 /CUMM (0.0-0.7); ABSOLUTE GRANULOCYTE CT 8.6 /CUMM (1.4-6.5); ABSOLUTE LYMPH COUNT 1.9 /CUMM (1.2-3.4); ABSOLUTE MONOCYTE COUNT 0.5 /CUMM (0.10-0.60); BASOPHIL % 1.3 % (0.0-2.0); EOSINOPHIL % 3.2 % (0-5); GRANULOCYTE % 74.5 % (42.2-75.2); HEMATOCRIT 32.5 % (42-52); MEAN CORPUSCULAR HGB 28.3 PG (27.0-31.0); MEAN CORPUSCULAR HGB CONC 32.3 G/DL (33.0-37.0); MEAN CORPUSCULAR VOLUME 87.5 FL (80.0-94.0); PLATELET COUNT 538 /CUMM (130-400); RBC DISTRIBUTION WIDTH 14.6 % (11.5-14.5); RED BLOOD CELL CT 3.71 /CUMM (4.70-6.10); WHITE BLOOD CELL COUNT 11.5 /CUMM (4.8-10.8)
--- NOTE | 2017-05-06 12:33 | PN- Pulmonary ---
Subjective HPI/Critical Care Issues: pt seen and examined wbc 11.5 drainage is <100cc/24 hrs Objective Current Medications: Current Medications Sig/Tonio Start time Last Medication Dose Route Stop Time Status Admin Acetaminophen 650 MG Q8P PRN 04/21 2002 AC PO Albuterol Sulfate 3 ML BID 05/04 2200 AC 05/06 INH 1058 Ampicillin Sodium/ 3,000 MG Q6H 04/22 1600 AC 05/06 Sulbactam Sodium IV 0917 Sodium Chloride 100 ML Benzonatate 100 MG TID 04/22 1649 AC 05/06 PO 0919 Enoxaparin Sodium 40 MG DAILY 04/21 1000 AC 05/06 SC 0918 Guaifenesin/Codeine 10 ML Q6P PRN 05/05 1515 AC 05/06 Phosphate PO 0921 Guaifenesin/Codeine 10 ML Q6P PRN 04/22 0845 DC 05/05 Phosphate PO 0933 Ibuprofen 400 MG Q6P PRN 04/21 2014 AC PO Lactobacillus 1 CAP BID 04/24 1122 AC 05/06 Acidophilus PO 0919 Morphine Sulfate 2 MG Q6P PRN 05/04 1645 AC IV Nicotine 14 MG DAILY 04/21 1000 AC 05/06 TOP 0919 Oxycodone/ 1 TAB Q4 05/01 1800 AC 05/06 Acetaminophen PO 0916 Tramadol HCl 50 MG Q6-PRN PRN 05/04 1645 AC 05/04 PO 1650 Vital Signs & I&O Last 24 Hrs of Vitals and I&O: Vital Signs Date Time Temp Pulse Resp B/P B/P Pulse O2 O2 Flow FiO2 Mean Ox Delivery Rate 05/06 1055 94 Room Air 05/06 0800 95 Room Air Room Air 05/06 0630 97.6 57 20 116/65 92 Room Air 05/06 0000 95 Room Air 05/05 2204 97.7 67 20 116/62 95 Room Air 05/05 2110 96 Room Air 05/05 1600 94 Room Air 05/05 1600 94 Room Air 05/05 1435 97.4 75 20 100/56 94 Room Air Intake & Output 05/06 1600 05/06 0800 05/06 0000 Intake Total 200 1160 Output Total 800 220 Balance -600 940 Intake, IV 260 Intake, Oral 200 900 Output, Chest 20 Tube Drainage Output, Urine 800 200 Exam Other Physical Findings: Generally - Awake, alert and comfortable without distress Head and neck - normocephalic, atraumatic, EOMI grossly intact Cardiovascular - S1, S2 Lungs -diminished breath sounds at the bases Abdomen - Bowel sounds positive, soft, non-tender Extremities - without edema Results Last 24 Hrs of Lab Results: Laboratory Tests 05/06/17 0836: CBC w Diff NO MAN DIFF REQ, RBC 3.71 L, MCV 87.5, MCH 28.3, MCHC 32.3 L, RDW 14.6 H, MPV 8.0, Gran % 74.5, Lymphocytes % 16.5 L, Monocytes % 4.5, Eosinophils % 3.2, Basophils % 1.3, Absolute Granulocytes 8.6 H, Absolute Lymphocytes 1.9, Absolute Monocytes 0.5, Absolute Eosinophils 0.4, Absolute Basophils 0.1 Impression/Plan Impression/Plan Impression/Plan: Impression 56 year old man. * LLL pneumonia and exudative pleural fluid consistent with empyema, now with pneumothorax Plan -check CT chest without contrast today to determine further treatment plan -s/p tpa intrapleural -cont unasyn -pain control DVT prophylaxis at all times
--- NOTE | 2017-05-06 12:39 | PN- Infect Dx ---
Subjective Subjective: Afebrile. He feels somewhat improved though still reports pain in the left chest. Objective Last 24 Hrs of Vital Signs/I&O Vital Signs Date Time Temp Pulse Resp B/P B/P Pulse O2 O2 Flow FiO2 Mean Ox Delivery Rate 05/06 1055 94 Room Air 05/06 0800 95 Room Air Room Air 05/06 0630 97.6 57 20 116/65 92 Room Air 05/06 0000 95 Room Air 05/05 2204 97.7 67 20 116/62 95 Room Air 05/05 2110 96 Room Air 05/05 1600 94 Room Air 05/05 1600 94 Room Air 05/05 1435 97.4 75 20 100/56 94 Room Air Intake & Output 05/06 1600 05/06 0800 05/06 0000 Intake Total 200 1160 Output Total 800 220 Balance -600 940 Intake, IV 260 Intake, Oral 200 900 Output, Chest 20 Tube Drainage Output, Urine 800 200 Physical Exam Other Physical Findings: He appears comfortable in no acute distress Lungs decreased breath sounds at the left base; pigtail catheter in place in the mid upper back, with 170 mL output yesterday Results Last 24 Hours of Lab Results: Laboratory Tests 05/06 835 Hematology CBC w Diff NO MAN DIFF REQ WBC (4.8 - 10.8 /CUMM) 11.5 H RBC (4.70 - 6.10 /CUMM) 3.71 L Hgb (14.0 - 18.0 G/DL) 10.5 L Hct (42 - 52 %) 32.5 L MCV (80.0 - 94.0 FL) 87.5 MCH (27.0 - 31.0 PG) 28.3 MCHC (33.0 - 37.0 G/DL) 32.3 L RDW (11.5 - 14.5 %) 14.6 H Plt Count (130 - 400 /CUMM) 538 H MPV (7.4 - 10.4 FL) 8.0 Gran % (42.2 - 75.2 %) 74.5 Lymphocytes % (20.5 - 51.1 %) 16.5 L Monocytes % (1.7 - 9.3 %) 4.5 Eosinophils % (0 - 5 %) 3.2 Basophils % (0.0 - 2.0 %) 1.3 Absolute Granulocytes (1.4 - 6.5 /CUMM) 8.6 H Absolute Lymphocytes (1.2 - 3.4 /CUMM) 1.9 Absolute Monocytes (0.10 - 0.60 /CUMM) 0.5 Absolute Eosinophils (0.0 - 0.7 /CUMM) 0.4 Absolute Basophils (0.0 - 0.2 /CUMM) 0.1 Last 24 Hours of Jt Results: No new cultures Assessment/Plan Impression: Stable, status post placement of a new pigtail catheter in the left chest 3 days ago, with continued drainage of pleural fluid with temperatures remaining normal and white blood cell count continuing to decrease on Unasyn, Day 14 of treatment for an empyema, possibly secondary to coag-negative Staph, which was isolated from his initial pleural fluid culture. Suggestion: 1. Further management with regard to lytics per Thoracic surgery 2. Will need a repeat CT of the chest once his drainage has decreased to a minimum 3. Continue Unasyn
[2017-05-06 14:46] VITALS: BP 123/73
--- NOTE | 2017-05-06 14:58 | CT SCAN REPORT ---
EXAMINATION: CT CHEST WITHOUT CONTRAST CLINICAL INFORMATION: Decreased drainage from chest tube COMPARISON: Chest x-ray 05/04/[address] 05/03/2017 TECHNIQUE: Multidetector volumetric CT imaging of the chest was done. Axial MIP volume rendering provided. Sagittal and coronal reformatted images were obtained. DLP: 272 mGy-cm FINDINGS: Near complete resolution of left-sided pleural effusion. Pigtail catheter remains in optimal position. There remains a tiny amount of residual left-sided pleural fluid but predominantly foci of air within the posterior left pleural space. Overlying airspace disease of the left lung base is still present but appears slightly improved. Left-sided pneumothorax demonstrates mild interval increase in size. Previously visualized pulmonary nodules appear relatively stable but still require 6 month follow-up. The right hemithorax is well aerated demonstrating apical scarring and emphysematous changes without lobar consolidation. Prominent but not pathologically enlarged mediastinal lymph nodes are unchanged. Degenerative changes of the spine. IMPRESSION: 1. Near complete interval resolution of left-sided pleural effusion. 2. Mild interval increase in size of left-sided pneumothorax. Findings and case discussed with Dr. Venegas. He is requesting removal of left-sided chest tube at this time.
--- NOTE | 2017-05-06 15:40 | PN- Thoracic Surgery ---
Surgical Brief Attending Note Brief Attending Note: CT reviewed, excellent response to lytics, continued dense consolidation LLL. Catheter can be removed. Pleural air is of NO consequence or importance
[2017-05-06 21:43] VITALS: BP 108/64
[2017-05-07 06:12] VITALS: BP 112/66
--- NOTE | 2017-05-07 09:39 | PN- Housestaff ---
Joel GOMEZ,Lizeth 05/07/17 0939: Subjective Follow-up For: empyema sp thoracentesiswith CT placement Subjective: Today still has pain on breathing but has decreased. He is hoping to be able to leave this weekend. We await results of CXR done this morning. Review of Systems Constitutional: Reports: no symptoms. Cardiovascular: Reports: chest pain. Respiratory: Reports: no symptoms. Musculoskeletal: Reports: back pain. Objective Last 24 Hrs of Vital Signs/I&O Vital Signs Date Time Temp Pulse Resp B/P B/P Pulse O2 O2 Flow FiO2 Mean Ox Delivery Rate 05/07 08 95 Room Air Room Air 05/07 0800 95 Room Air Room Air 05/07 0612 98.0 66 20 112/66 93 05/07 0000 95 Room Air 05/07 0000 95 Room Air 05/06 2143 98.1 75 18 108/64 95 05/06 1901 97 Room Air 05/06 1600 95 Room Air Room Air 05/06 1600 95 Room Air Room Air 05/06 1446 97.8 68 19 123/73 91 Room Air 05/06 1055 94 Room Air Intake & Output 05/07 1600 05/07 0800 05/07 0000 Intake Total 480 970 Output Total 475 Balance 5 970 Intake, IV 240 130 Intake, Oral 240 840 Number 0 0 Bowel Movements Output, Urine 475 Physical Exam General Appearance: Alert, Oriented X3, Cooperative, No Acute Distress HEENT: Atraumatic, EOMI, Mucous Membr. moist/pink Cardiovascular: Regular Rate, Normal S1, Normal S2, No Murmurs Lungs: Clear to Auscultation, Normal Air Movement Abdomen: Normal Bowel Sounds, Soft, No Tenderness, No Hepatospenomegaly, No Masses Current Medications: Current Medications Sig/Tonio Start time Last Medication Dose Route Stop Time Status Admin Acetaminophen 650 MG Q8P PRN 04/21 2002 AC PO Albuterol Sulfate 3 ML BID 05/04 2199 AC 05/07 INH 1022 Ampicillin Sodium/ 3,000 MG Q6H 04/22 1600 AC 05/07 Sulbactam Sodium IV 0904 Sodium Chloride 100 ML Benzonatate 100 MG TID 04/22 1649 AC 05/07 PO 0904 Enoxaparin Sodium 40 MG DAILY 04/21 1000 AC 05/07 SC 0904 Guaifenesin/Codeine 10 ML Q6P PRN 05/05 1515 AC 05/07 Phosphate PO 0904 Ibuprofen 400 MG Q6P PRN 04/21 2015 AC PO Lactobacillus 1 CAP BID 04/24 1122 AC 05/07 Acidophilus PO 0904 Morphine Sulfate 2 MG Q6P PRN 05/04 1645 AC IV Nicotine 14 MG DAILY 04/21 1000 AC 05/07 TOP 0904 Oxycodone/ 1 TAB Q4 05/01 1800 AC 05/07 Acetaminophen PO 0904 Tramadol HCl 50 MG Q6-PRN PRN 05/04 1645 AC 05/04 PO 1650 Assessment/Plan Assessment: The patient is 56-year-old gentleman with past medical history of COPD and suspected hyperlipidemia. He presented to [place] ED on 04/20 with complaint of shortness of breath AND CHEST PAIN ON INSPIRATION THAT STARTED FAILY ABRUPTLY THAT DAY. -VS 102.9, 100, 28,142/72,96% Ventimask -Pertinent labs, WBC count 30.4, band cells 14 H/H 13/42, platelets 602, lactic acid 1.1--4.1, d-dimer 391, UA clean, venous blood gases pH 7.37, PCO2 32, PO2 68 -Imaging findings dictated above -In ED patient received 1 L normal saline, Toradol, azithromycin, Rocephin, swollen 25;, 1 g of magnesium sulfate. On standing patient desatted to 88%. He is admitted to general medicine floor and is being treated and evaluated for following conditions #Patient admitted with sepsis secondary to community-acquired pneumonia and COPD exacerbation with acute hypoxemic respiratory failure, found to have empyema with thoracentesis and subsequent placement of pigtail catheter -CTA done earlier in admission was negative for pulmonary embolism but positive for left lower lobe consolidation/atelectasis with associated moderate sized left pleural effusion that was found to be empyema. -EMPYEMA MOST PROBABLY DUE TO BACTERIAL PNEUMONIA BUT DIFFERENTIAL INCLUDES CANCER, TB, PE. HE DOES ADMIT TO WEIGHT LOSS AND CURRENT SMOKING. -WBC TODAY HAVE decreased to 11.5 -Patient continues on steroid taper, today on 10mg PO prednisone. Patient will receive on more dose tomorrow and then STOP. Patient has no more wheezing on exam. -Urine strep and Legionella antigen NEGATIVE -CULTURE PLEURAL FLUID SHOWED COAG NEGATIVE STAPH, LIKELY CONTAMINANT FROM SKIN. MRSA surveillance negative. -CT CHEST DONE 04/28 SHOWED POSSIBLE DECREASE IN SIZE OF PLEURAL EFFUSION, BUT the left pleural drain has pulled back slightly and there is now an extrapleural sidehole present and a few small foci of air are noted within the subcutaneous tissues of the left back. Also, an ill-defined 8mm nodular density of the right lower lobe which was not present previously was seen and given the short interval development of this finding, there is susupicion for a small focus of inflammatory or infectious changes. Continue to monitor drainage and WBC count/ fever. - Patient had minimum drainage overnight, and the tube insertion site appeared to be tender and swollen compared to yesterday. Would f.shree w/ Dr. Venegas for plan. -PULMONARY AND ID INPUT APPRECIATED - PER ID CONTINUE UNASYN. PATIENT IS ON DAY 15. continue to treat. WHEN DISCHARGE IS DECIDED, WE WILL CONSULT WITH DR. CHAVIS ON TREATMENT LENGTH OF TIME. -ON ra satting 95%. -HIV TEST WAS NEGATIVE -Tylenol for fever control and toradol for pain relief PLUS PERCOCET Q4 and moprhine 2mg q6 -TRC/nebs, TESSALON PEARLS AND MUCOMYST prn -On 05/01 patient's chest tube output had decreased to almost 0. As per Dr. Venegas, the chest tube was pulled. After this, patient's CXR revealed 20% left apical pneumothorax, likely from chest tube tip malposition from past days/air leak, however patient's had remained at his baseline without acute onset of pneumothoraxic symptoms with stable vitals. -We started 100% O2 non-breather NO washout and repeat CXR q12 -CXR done 2/4 pm showed unchanged images since the morning, LEFT pneumothorax, infiltrate LEFT lower lobe and pleural effusion. -CXR done 05/02 am showed slight interval improvement in left-sided pneumothorax. Stable left-sided pleural effusion with associated left basilar infiltrate or atelectasis. -CT chest 05/02 showed increased apical pneumothorax -As per Dr. Parikh we did CT guided placement of pigtail catheter on 05/04. He got one dose of lytics on 05/05 and had copious drainage, 900cc since. Drainage has decreased overnight to 30cc. -NO EVIDENCE MALIGNANCY ON CYTOLOGY OF FLUID AGAIN -chest xray on 05/05 showed decreased effusion size and increased pneumothorax that could be associated with decreasing pleural fluid in an ex vacuo nature. -CT scan yesterday showed NEAR COMPLETE RESOLUTION OF LEFT SIDED PLEURAL EFFUSION AND MILD INCREASE IN SIZE OF LEFT SIDED PNEUMOTHORAX THAT AGAIN COULD BE EX VACUO IN NATURE. -CXR PA AND LATERAL THIS MORNING TO MONITOR FOR RESOLUTION OF PNEUMOTHORAX AND TO ASURE THAT EFFUSION HAS NOT RETURNED. DISCHARGE PENDING THIS. -This morning oxygen saturation on ambulation was at the lowest 91% on a brisk walk around the floors. #CHEST PAIN -ON INSPIRATION, LESS LIKELY CARDIAC BUT TROPS AND EKGS DONE AND NEGATIVE X2 -CONTINUE PERCOCET FOR PAIN RELIEF as this helps him most. -Patient is refusing pain medications for severe breakthrough pain (MORPHINE) #Thrombocytosis likely reactive secondary to infection -Monitor platelet count #Lactic acidosis secondary to sepsis -RESOLVED #Smoker -Nicotine patch -Consult regarding smoking abstinence #History of hyperlipidemia -LIPID PROFILE NORMAL -6.3 HBA1C FOR CORONARY EQUIVALENTS- SLIGHTLY HIGH. WILL NEED DIET CONTROL OUTPATIENT. -was on accuchecks which have been dc'd for repeatedly normal values. as per request patient put backon regular diet. FC DVT prophylaxis with Lovenox Regular diet Problem List: 1. Empyema 2. S/P thoracentesis Pain Ratin Pain Location: LEFT CHEST AND BACK Pain Goal: Pain 4 or less Pain Plan: PERCOCET Tomorrow's Labs & Rationales: NONE Rosalina Whitaker MD 05/07/17 1538: Attending MD Review Statement Attending Statement Attending MD Statement: examined this patient, discuss w/resident/PA/COMMUNICATIONS MANAGER, agreed w/resident/PA/COMMUNICATIONS MANAGER, reviewed EMR data (avail), discussed with nursing, discussed with case mgmt, reviewed images, amended to note Attending Assessment/Plan: Patient seen and examined, feels overall much better. Denies any pain, breathing has improved significantly. Chest tube was discontinued yesterday. Vital Signs Date Time Temp Pulse Resp B/P B/P Pulse O2 O2 Flow FiO2 Mean Ox Delivery Rate 05/07 1501 98.4 67 20 112/60 94 Room Air 05/07 1022 94 Room Air 05/07 0800 95 Room Air Room Air 05/07 0800 95 Room Air Room Air 05/07 0612 98.0 66 20 112/66 93 05/07 0000 95 Room Air 05/07 0000 95 Room Air 05/06 2143 98.1 75 18 108/64 95 05/06 1901 97 Room Air 05/06 1600 95 Room Air Room Air 05/06 1600 95 Room Air Room Air on exam; aox3, nad. cv; s1,s2, rrr resp; clear abd; soft, nt, bs+ ext; no edema. Laboratory Tests 05/07 05/07 1516 0600 Hematology CBC w Diff Pending Cancelled WBC Pending Cancelled RBC Pending Cancelled Hgb Pending Cancelled Hct Pending Cancelled MCV Pending Cancelled MCH Pending Cancelled MCHC Pending Cancelled RDW Pending Cancelled Plt Count Pending Cancelled MPV Pending Cancelled A/p; 56 y/o M iwth pmh sig for hypertension, COPD admitted with acute respiratory failure, community acquired pneumonia and empyema s/p pigtail catheter placement which is now removed. Deficit today shows stable small left pneumothorax and small left effusion with atelectasis unchanged from before. As discussed with infectious disease, CBCs ordered and if there is improvement in the white blood cell count, patient can likely be discharged on oral antibiotics. Continue nebs, all other current medications and patient on Lovenox for DVT prophylaxis.
--- NOTE | 2017-05-07 10:52 | PN- Pulmonary ---
Subjective HPI/Critical Care Issues: Patient feels well chest tube is removed Objective Current Medications: Current Medications Sig/Tonio Start time Last Medication Dose Route Stop Time Status Admin Acetaminophen 650 MG Q8P PRN 04/21 2002 AC PO Albuterol Sulfate 3 ML BID 05/04 2200 AC 05/07 INH 1022 Ampicillin Sodium/ 3,000 MG Q6H 04/22 1600 AC 05/07 Sulbactam Sodium IV 0904 Sodium Chloride 100 ML Benzonatate 100 MG TID 04/22 1649 AC 05/07 PO 0904 Enoxaparin Sodium 40 MG DAILY 04/21 1000 AC 05/07 SC 0904 Guaifenesin/Codeine 10 ML Q6P PRN 05/05 1515 AC 05/07 Phosphate PO 0904 Ibuprofen 400 MG Q6P PRN 04/21 2014 AC PO Lactobacillus 1 CAP BID 04/24 1122 AC 05/07 Acidophilus PO 0904 Morphine Sulfate 2 MG Q6P PRN 05/04 164 AC IV Nicotine 14 MG DAILY 04/21 1000 AC 05/07 TOP 0904 Oxycodone/ 1 TAB Q4 05/01 1800 AC 05/07 Acetaminophen PO 0904 Tramadol HCl 50 MG Q6-PRN PRN 05/04 1645 AC 05/04 PO 1650 Vital Signs & I&O Last 24 Hrs of Vitals and I&O: Vital Signs Date Time Temp Pulse Resp B/P B/P Pulse O2 O2 Flow FiO2 Mean Ox Delivery Rate 05/07 0800 95 Room Air Room Air 05/07 0800 95 Room Air Room Air 05/07 0612 98.0 66 20 112/66 93 05/07 0000 95 Room Air 05/07 0000 95 Room Air 05/06 2143 98.1 75 18 108/64 95 05/06 1901 97 Room Air 05/06 1600 95 Room Air Room Air 05/06 1600 95 Room Air Room Air 05/06 1446 97.8 68 19 123/73 91 Room Air 05/06 1055 94 Room Air Intake & Output 05/07 1600 05/07 0800 05/07 0000 Intake Total 480 970 Output Total 475 Balance 5 970 Intake, IV 240 130 Intake, Oral 240 840 Number 0 0 Bowel Movements Output, Urine 475 Oxygen saturation 95% exam of his chest continues to show diminished breath sounds at the bases cardiac exam shows normal S1 and S2 without murmurs Impression/Plan Impression/Plan Impression/Plan: 56-year-old gentleman left lower lobe pneumonia complicated by empyema status post chest tube removal Recommendations: Complete course of antibiotics. Follow-up chest x-ray result.
[2017-05-07 15:01] VITALS: BP 112/60
--- NOTE | 2017-05-07 15:35 | RADIOLOGY REPORT ---
EXAMINATION: XR CHEST CLINICAL INFORMATION: Pleural effusion. Chest tube pulled on 05/06/2017. COMPARISON: CT chest 05/06/2017. Chest radiograph 05/04/2017. TECHNIQUE: 3 radiographs of the chest were obtained. FINDINGS: Small left pleural effusion with left basilar atelectasis appears similar to prior examination. There remains a small left pneumothorax which appears unchanged from prior examination. The lungs are otherwise clear. Cardiomediastinal silhouette is within normal limits. Mild degenerative changes visualized spine. IMPRESSION: Stable small left pneumothorax. Small left pleural effusion with mild left basilar atelectasis. This appears unchanged from prior examination.
[2017-05-07 15:48] LABS: ABSOLUTE EOSINOPHIL COUNT 0.2 /CUMM (0.0-0.7)
[2017-05-07 15:58] LABS: ABSOLUTE BASOPHIL COUNT 0 /CUMM (0.0-0.2); ABSOLUTE GRANULOCYTE CT 10.1 /CUMM (1.4-6.5); ABSOLUTE MONOCYTE COUNT 0.5 /CUMM (0.10-0.60); BASOPHIL % 0.4 % (0.0-2.0); EOSINOPHIL % 1.5 % (0-5); GRANULOCYTE % 78.3 % (42.2-75.2); HEMATOCRIT 32.8 % (42-52); MEAN CORPUSCULAR HGB CONC 32.3 G/DL (33.0-37.0); MEAN CORPUSCULAR VOLUME 86.8 FL (80.0-94.0); MEAN PLATELET VOLUME 8.2 FL (7.4-10.4); PLATELET COUNT 566 /CUMM (130-400); RBC DISTRIBUTION WIDTH 14.2 % (11.5-14.5); RED BLOOD CELL CT 3.78 /CUMM (4.70-6.10); WHITE BLOOD CELL COUNT 12.8 /CUMM (4.8-10.8)
[2017-05-07 22:45] VITALS: BP 112/68
[2017-05-08 06:20] VITALS: BP 110/70
--- NOTE | 2017-05-08 09:05 | PN- Infect Dx ---
Subjective Subjective: Afebrile. He continues to complain of pain in the left chest. Objective Last 24 Hrs of Vital Signs/I&O Vital Signs Date Time Temp Pulse Resp B/P B/P Pulse O2 O2 Flow FiO2 Mean Ox Delivery Rate 05/08 08 95 Room Air Room Air 05/08 0800 95 Room Air Room Air 05/08 0620 97.4 57 20 110/70 95 05/08 0000 Room Air 05/08 0000 95 Room Air 05/07 2245 98.2 72 20 112/68 95 Room Air 05/07 2014 95 Room Air 05/07 1600 Room Air 05/07 1600 94 Room Air 05/07 1501 98.4 67 20 112/60 94 Room Air 05/07 1022 94 Room Air Intake & Output 05/08 1600 05/08 0800 05/08 0000 Intake Total 620 Output Total 600 Balance 20 Intake, IV 140 Intake, Oral 480 Number 0 Bowel Movements Output, Urine 600 Physical Exam Other Physical Findings: He appears comfortable in no acute distress Lungs improved breath sounds at the left base Heart regular rhythm with no murmur Extremities no cyanosis, clubbing or edema Results Last 24 Hours of Lab Results: Laboratory Tests 05/07 1516 Hematology CBC w Diff NO MAN DIFF REQ WBC (4.8 - 10.8 /CUMM) 12.8 H RBC (4.70 - 6.10 /CUMM) 3.78 L Hgb (14.0 - 18.0 G/DL) 10.6 L Hct (42 - 52 %) 32.8 L MCV (80.0 - 94.0 FL) 86.8 MCH (27.0 - 31.0 PG) 28.0 MCHC (33.0 - 37.0 G/DL) 32.3 L RDW (11.5 - 14.5 %) 14.2 Plt Count (130 - 400 /CUMM) 566 H MPV (7.4 - 10.4 FL) 8.2 Gran % (42.2 - 75.2 %) 78.3 H Lymphocytes % (20.5 - 51.1 %) 15.7 L Monocytes % (1.7 - 9.3 %) 4.1 Eosinophils % (0 - 5 %) 1.5 Basophils % (0.0 - 2.0 %) 0.4 Absolute Granulocytes (1.4 - 6.5 /CUMM) 10.1 H Absolute Lymphocytes (1.2 - 3.4 /CUMM) 2.0 Absolute Monocytes (0.10 - 0.60 /CUMM) 0.5 Absolute Eosinophils (0.0 - 0.7 /CUMM) 0.2 Absolute Basophils (0.0 - 0.2 /CUMM) 0 Last 24 Hours of Jt Results: No new cultures Recent Imaging Studies: Chest x-ray May 07, personally reviewed, reveals a small left pleural effusion with left basilar density and a stable small left pneumothorax CT of the chest May 06 reveals near complete resolution of the left pleural effusion with a mild interval increase in the size of the left pneumothorax Assessment/Plan Impression: Overall stable status post removal of the pigtail catheter from the left chest 2 days ago after the CT scan revealed near complete resolution of the pleural effusion. He remains afebrile but his white blood cell count was increased yesterday and will need to be repeated as, if it remains elevated, he will require further evaluation for recurrence of the pleural effusion. He remains on Unasyn, Day 16 of treatment for an empyema, possibly secondary to coag- negative Staph, which was isolated from his initial pleural fluid culture. Suggestion: 1. Repeat CBC today 2. Further evaluation, for example repeat chest x-ray or CT, if his white blood cell count is increased 3. Continue Unasyn pending above
[2017-05-08 10:09] LABS: ABSOLUTE BASOPHIL COUNT 0.3 /CUMM (0.0-0.2); ABSOLUTE EOSINOPHIL COUNT 0.3 /CUMM (0.0-0.7); ABSOLUTE GRANULOCYTE CT 7.8 /CUMM (1.4-6.5); ABSOLUTE LYMPH COUNT 1.4 /CUMM (1.2-3.4); ABSOLUTE MONOCYTE COUNT 0.6 /CUMM (0.10-0.60); BASOPHIL % 2.7 % (0.0-2.0); EOSINOPHIL % 2.9 % (0-5); GRANULOCYTE % 75.3 % (42.2-75.2); HEMATOCRIT 32.6 % (42-52); MEAN CORPUSCULAR HGB 27.5 PG (27.0-31.0); MEAN CORPUSCULAR HGB CONC 31.6 G/DL (33.0-37.0); MEAN CORPUSCULAR VOLUME 86.8 FL (80.0-94.0); MEAN PLATELET VOLUME 7.7 FL (7.4-10.4); PLATELET COUNT 569 /CUMM (130-400); RBC DISTRIBUTION WIDTH 14.6 % (11.5-14.5); RED BLOOD CELL CT 3.75 /CUMM (4.70-6.10); WHITE BLOOD CELL COUNT 10.4 /CUMM (4.8-10.8)
--- NOTE | 2017-05-08 10:18 | PN- Pulmonary ---
Subjective HPI/Critical Care Issues: Patient remains comfortable on room air chest tube has been removed chest x-ray appears stable if not improved count is decreased Objective Current Medications: Current Medications Sig/Tonio Start time Last Medication Dose Route Stop Time Status Admin Acetaminophen 650 MG Q8P PRN 04/21 2002 AC PO Albuterol Sulfate 3 ML BID 05/04 2200 AC 05/07 INH 2014 Ampicillin Sodium/ 3,000 MG Q6H 04/22 1600 AC 05/08 Sulbactam Sodium IV 0918 Sodium Chloride 100 ML Benzonatate 100 MG TID 04/22 1649 AC 05/08 PO 0918 Enoxaparin Sodium 40 MG DAILY 04/21 1000 AC 05/08 SC 0918 Guaifenesin/Codeine 10 ML Q6P PRN 05/05 1515 AC 05/08 Phosphate PO 0548 Ibuprofen 400 MG Q6P PRN 04/21 2014 AC PO Lactobacillus 1 CAP BID 04/24 1122 AC 05/08 Acidophilus PO 0918 Morphine Sulfate 2 MG Q6P PRN 05/04 164 AC IV Nicotine 14 MG DAILY 04/21 1000 AC 05/08 TOP 0918 Oxycodone/ 1 TAB Q4 05/01 1800 AC 05/08 Acetaminophen PO 0918 Tramadol HCl 50 MG Q6-PRN PRN 05/04 1645 AC 05/04 PO 1650 Vital Signs & I&O Last 24 Hrs of Vitals and I&O: Vital Signs Date Time Temp Pulse Resp B/P B/P Pulse O2 O2 Flow FiO2 Mean Ox Delivery Rate 05/08 08 95 Room Air Room Air 05/08 0800 95 Room Air Room Air 05/08 0620 97.4 57 20 110/70 95 05/08 0000 Room Air 05/08 0000 95 Room Air 05/07 2245 98.2 72 20 112/68 95 Room Air 05/07 2014 95 Room Air 05/07 1600 Room Air 05/07 1600 94 Room Air 05/07 1501 98.4 67 20 112/60 94 Room Air 05/07 1022 94 Room Air Intake & Output 05/08 1600 05/08 0800 05/08 0000 Intake Total 620 Output Total 600 Balance 20 Intake, IV 140 Intake, Oral 480 Number 0 Bowel Movements Output, Urine 600 Regimen oximetry is normal exam of his chest shows diminished breath sounds over the left posterior chest cardiac exam shows normal S1 and S2 without murmurs Impression/Plan Impression/Plan Impression/Plan: 56-year-old gentleman left lower lobe pneumonia complicated by empyema status post chest tube removal with residual small pneumothorax and no increase in pleural effusion or white count Recommendations: Complete course of antibiotics. No further pulmonary suggestions
--- NOTE | 2017-05-08 10:34 | PN- Housestaff ---
Hiram GOMEZ,Payton 05/08/17 1034: Subjective Follow-up For: Empyema sp thoracentesiswith CT placement Complaints: no complaints Subjective: Patient sitting up in bed, eager to be discharged. No new complaint. Review of Systems Constitutional: Reports: no symptoms. Objective Last 24 Hrs of Vital Signs/I&O Vital Signs Date Time Temp Pulse Resp B/P B/P Pulse O2 O2 Flow FiO2 Mean Ox Delivery Rate 05/08 1117 97 Room Air 05/08 08 95 Room Air Room Air 05/08 08 95 Room Air Room Air 05/08 0620 97.4 57 20 110/70 95 05/08 0000 Room Air 05/08 0000 95 Room Air 05/07 2245 98.2 72 20 112/68 95 Room Air 05/07 2014 95 Room Air Intake & Output 05/08 1600 05/08 0800 05/08 0000 Intake Total 620 Output Total 600 Balance 20 Intake, IV 140 Intake, Oral 480 Number 0 Bowel Movements Output, Urine 600 Physical Exam General Appearance: Alert, Oriented X3, Cooperative, No Acute Distress HEENT: Mucous Membr. moist/pink Cardiovascular: Regular Rate, Normal S1, Normal S2 Lungs: Decreased AE bilaterally, mild wheeezing throughout Abdomen: Normal Bowel Sounds, Soft, No Tenderness Extremities: No Edema, Normal Pulses Current Medications: Current Medications Sig/Tonio Start time Last Medication Dose Route Stop Time Status Admin Acetaminophen 650 MG Q8P PRN 04/21 2002 DCD PO Albuterol Sulfate 3 ML BID 05/04 2200 DCD 05/08 INH 1113 Ampicillin Sodium/ 3,000 MG Q6H 04/22 1600 DCD 05/08 Sulbactam Sodium IV 0918 Sodium Chloride 100 ML Benzonatate 100 MG TID 04/22 1649 DCD 05/08 PO 0918 Enoxaparin Sodium 40 MG DAILY 04/21 1000 DCD 05/08 SC 0918 Guaifenesin/Codeine 10 ML Q6P PRN 05/05 1515 DCD 05/08 Phosphate PO 1313 Ibuprofen 400 MG Q6P PRN 04/21 2014 DCD PO Lactobacillus 1 CAP BID 04/24 1122 DCD 05/08 Acidophilus PO 0918 Morphine Sulfate 2 MG Q6P PRN 05/04 1645 DCD IV Nicotine 14 MG DAILY 04/21 1000 DCD 05/08 TOP 0918 Oxycodone/ 1 TAB Q4 05/01 1800 DCD 05/08 Acetaminophen PO 1313 Tramadol HCl 50 MG Q6-PRN PRN 05/04 1645 DCD 05/04 PO 1650 Last 24 Hrs of Lab/Jt Results Last 24 Hrs of Labs/Mics: Laboratory Tests 05/08/17 0947: CBC w Diff NO MAN DIFF REQ, RBC 3.75 L, MCV 86.8, MCH 27.5, MCHC 31.6 L, RDW 14.6 H, MPV 7.7, Gran % 75.3 H, Lymphocytes % 13.5 L, Monocytes % 5.6, Eosinophils % 2.9, Basophils % 2.7 H, Absolute Granulocytes 7.8 H, Absolute Lymphocytes 1.4, Absolute Monocytes 0.6, Absolute Eosinophils 0.3, Absolute Basophils 0.3 Lines/Diet/Fluids Lines: peripheral lines Assessment/Plan Assessment: The patient is 56-year-old gentleman with past medical history of COPD and suspected hyperlipidemia. Assessment #Patient admitted with sepsis secondary to community-acquired pneumonia and COPD exacerbation with acute hypoxemic respiratory failure, found to have empyema with thoracentesis and subsequent placement of pigtail catheter. Empyema is resolved and pigtail catheter removed. PNA is resolving. CXR on 05/07/17-Stable small left pneumothorax. Small left pleural effusion with mild left basilar atelectasis. This appears unchanged from prior examination. Pt remains afebrile, WBC count is normalized. Pt saturating well in RA. Antibiotics switched to augmentin for a total of 5 more days per ID Patient will be discharged today Pt [facility]/ Dr. Venegas in 1 week #CHEST PAIN -Resolved #Thrombocytosis likely reactive secondary to infection -Monitor platelet count #Lactic acidosis secondary to sepsis -Resolved #Smoker -Nicotine patch -Advice smoking abstinence #History of hyperlipidemia -LIPID PROFILE NORMAL -6.3 HBA1C FOR CORONARY EQUIVALENTS- SLIGHTLY HIGH. WILL NEED DIET CONTROL OUTPATIENT. FC DVT prophylaxis with Lovenox Regular diet Problem List: 1. Sepsis 2. Empyema 3. Left lower lobe pneumonia 4. Hypoxia Pain Ratin Pain Location: chest Pain Goal: Remain pain free Pain Plan: cont current plan Tomorrow's Labs & Rationales: n/a Sherman GOMEZ,Rosalina 05/08/17 1421: Attending MD Review Statement Attending Statement Attending MD Statement: examined this patient, discuss w/resident/PA/JOURNEYMAN MACHINIST, agreed w/resident/PA/JOURNEYMAN MACHINIST, reviewed EMR data (avail), discussed with nursing, reviewed images, amended to note Attending Assessment/Plan: Patient seen and examined, overall doing much better. Remained afebrile. W his account has improved. Chest x-ray does not show any different findings. Patient has been evaluate by pulmonology and infectious disease. His and biotics would be switched to oral. He is medically stable for discharge home today to complete the course of oral antibiotics. Patient to follow-up with primary care doctor and Dr. Venegas as an outpatient.
[2017-05-08] MEDS ORDERED: PERCOCET 5-3251 EACH PO ×2 (11:34→12:24)
[2017-05-08] MEDS ORDERED: IBUPROFEN400 M1 PO ×2 (11:34→12:38)
[2017-05-08] MEDS ORDERED: BENZONATATE100 M1 PO (11:34)
[2017-05-08] MEDS ORDERED: AUGMENTIN 875-1 EACH PO (11:35)
[2017-05-08] MEDS ORDERED: GUAIFENESIN AC473 M2 PO ×2 (11:35→12:24)
--- NOTE | 2017-05-08 20:19 | Discharge Summary ---
Hospital Course Allergies: Coded Allergies: No Known Allergies (04/20/17) Discharge Instructions Medications at Discharge Discharge Medications: Continue taking these medications: Oxymetazoline HCl (Vicks Sinex) 0.05 % SPRAY 1 [place] Both sides of nose EVERY 4 HOURS NEEDED as needed for NASAL CONGESTION Comments: NOT GIVEN IN HOSPITAL Start taking the following new medications: Ibuprofen (Ibuprofen) 400 MG TABLET 400 Milligram ORAL EVERY SIX HOURS NEEDED as needed for PAIN SCALE 4-6 ( MODERATE) Qty = 20 No Refills Comments: NOT GIVEN IN HOSPITAL Oxycodone HCl/Acetaminophen (Percocet 5-325 MG Tablet) 5 MG-325 MG TABLET 1 Tablet ORAL Every 4 hours Qty = 24 No Refills Comments: Last Taken: 05/08/17 Time: 1:00 PM Codeine Phosphate/Guaifenesi (Guaifenesin AC Cough Syrup) 10 MG-100 MG/5 ML LIQUID 10 Milliliters ORAL EVERY SIX HOURS NEEDED as needed for COUGH Qty = 1 No Refills Comments: Last Taken: 05/08/17 Time: 6:00 AM Benzonatate (Benzonatate) 100 MG CAPSULE 100 Milligram ORAL THREE TIMES DAILY Qty = 21 No Refills Comments: Last Taken: 05/08/17 Time: 9:30 AM Amoxicillin/Potassium Clav (Augmentin 875-125 Tablet) 875 MG-125 MG TABLET 1 Tablet ORAL TWICE DAILY Qty = 10 No Refills Comments: NOT GIVEN IN HOSPITAL
== END 2017-05-08 14:00 | DRG 720 ==
LOC: ERH 18:21 → ERHI 22:26 → 2NB 22:26 → ENRESERV 04-21 00:15 → 2NB 04-21 01:11 → ENPENDDIS 05-08 12:59 → 2NB 05-08 14:00
PROVIDERS: Internal Medicine; Physician Assistant Medical; Student in an Organized Health Care Education/Training Program
PROC: 0W9B3ZX Drainage of Left Pleural Cavity, Percutaneous Approach, Diagnostic (ICD-10-PCS; principal; 2017-04-22)
PROC: 0W9B30Z Drainage of Left Pleural Cavity with Drainage Device, Percutaneous Approach (ICD-10-PCS; 2017-04-26)
PROC: 0W9B30Z Drainage of Left Pleural Cavity with Drainage Device, Percutaneous Approach (ICD-10-PCS; 2017-05-03)
PROC: 3E0L3GC Introduction of Other Therapeutic Substance into Pleural Cavity, Percutaneous Approach (ICD-10-PCS; 2017-05-04)
DX: A41.9 Sepsis, unspecified organism (principal); J18.9 Pneumonia, unspecified organism; J96.21 Acute and chronic respiratory failure with hypoxia; J86.9 Pyothorax without fistula; E87.2 Acidosis; J91.8 Pleural effusion in other conditions classified elsewhere; J44.0 Chronic obstructive pulmonary disease with (acute) lower respiratory infection; D47.3 Essential (hemorrhagic) thrombocythemia; J44.1 Chronic obstructive pulmonary disease with (acute) exacerbation; J95.811 Postprocedural pneumothorax; Y84.8 Other medical procedures as the cause of abnormal reaction of the patient, or of later complication, without mention of misadventure at the time of the procedure; E78.5 Hyperlipidemia, unspecified; F17.200 Nicotine dependence, unspecified, uncomplicated
CPT/HCPCS: 2NBSP; 87075; ERO; 36415; 71045; 71046; 77012; 80307; 81003; 82436; 87040; 87070; 87086; 87147; 87389; 87449; 87450; 87804; 87804-59; 88305; 93005; 93010; 94644; 96374; 96375; 99291; J0131; J0456; J0696; J1650; J1885; J2310; J2920; J2930; J2997; J3370; J7060; J7512; J7608